=== PATIENT | female | born 1980 | race Hispanic/Latino ===

== ENCOUNTER → 2018-03-19 | Outpatient (REF) | LOC: M SMT 13:05 | DX: Z02.9 Encounter for administrative examinations, unspecified (principal) ==

== ENCOUNTER → 2018-05-13 | Outpatient (REF) | payer OTHER ==
[2018-05-13 13:42] LABS: EOS # 0.2 10^3/uL (0.0-0.50); EOSINOPHIL,TOTAL CALCULATED 200 mm3 (0-740)
[2018-05-13 14:35] LABS: IMMUNOGLOBULIN E 16.1 IU/ML (<100)
[2018-05-16 08:55] LABS: D001-IgE D pteronyssinus <0.10 kU/L (Class 0); E001-IgE Cat Epith/Dander < 0.10 kU/L (Class 0); E005-IgE Dog Dander < 0.10 kU/L (Class 0); G002-IgE Bermuda Grass < 0.10 kU/L (Class 0); G008-IgE Kentucky Bluegrass < 0.10 kU/L (Class 0); M001-IgE Penicillium chrysogen < 0.10 kU/L (Class 0); M002 IgE Cladosporium herbaru < 0.10 kU/L (Class 0); M003 IgE Aspergillus fumigatu < 0.10 kU/L (Class 0); M006-IgE Alternaria alternata < 0.10 kU/L (Class 0); T001-IgE Maple/Box Elder < 0.10 kU/L (Class 0); T003-IgE Common Silver Birch < 0.10 kU/L (Class 0); T006-IgE Cedar, Mountain < 0.10 kU/L (Class 0); T007-IgE Oak, White < 0.10 kU/L (Class 0); T008-IgE Elm, American < 0.10 kU/L (Class 0); T015-IgE Ash, White < 0.10 kU/L (Class 0); T041-IgE Hickory, White < 0.10 kU/L (Class 0); T070-IgE White Mulberry < 0.10 kU/L (Class 0); W001-IgE Ragweed, Short < 0.10 kU/L (Class 0); W009-IgE Plantain, English < 0.10 kU/L (Class 0); W014-IgE Pigweed, Rough < 0.10 kU/L (Class 0); W018-IgE Sheep Sorrel < 0.10 kU/L (Class 0)
== END ==
LOC: M LAB REF 13:23
DX: J45.50 Severe persistent asthma, uncomplicated (principal)

== ENCOUNTER → 2018-05-13 | Outpatient (CLI) | payer OTHER | LOC: M SMT 11:33 | DX: J45.50 Severe persistent asthma, uncomplicated (principal) ==

== ENCOUNTER → 2018-06-06 | Outpatient (CLI) | payer OTHER | LOC: M LRY 19:33 | DX: S99.912A Unspecified injury of left ankle, initial encounter (principal) | CPT/HCPCS: G0463 ==

== ENCOUNTER → 2018-07-08 | Outpatient (CLI) | payer OTHER | LOC: M SLEEP 19:32 | DX: R06.83 Snoring (principal) | CPT/HCPCS: 95810 ==

== ENCOUNTER → 2019-09-08 | Outpatient (CLI) | payer OTHER ==
--- NOTE | 2019-09-08 09:55 | REP ---
Left ankle four views : There is no fracture or dislocation. Mineralization and joint spaces are normal. There are no calcifications or foreign bodies. There is an accessory ossicle along the superior margin of the scaphoid ossicle. Impression: Negative left ankle . Electronically Signed by Tavares Gonzalez MD 09/08/2019 09:47 A
--- NOTE | 2019-09-08 10:19 | REP ---
Left foot series: Four views. History: Left foot and ankle pain. Findings: There is anterolateral mid foot swelling visible on the oblique radiograph. There is a small accessory navicular ossicle visible on the lateral film superiorly. There is a tiny Achilles calcaneal spur. Bones, joints and soft tissues are otherwise unremarkable. No fractures seen. Impression: Anterolateral mid foot swelling. No fracture noted. Electronically Signed by Jayy Thrasher MD 09/08/2019 03:28 P
== END ==
LOC: M LRY 09:20
PROVIDERS: ATTEND Nurse Practitioner Family
DX: S99.922A Unspecified injury of left foot, initial encounter (principal); S99.912A Unspecified injury of left ankle, initial encounter; W18.30XA Fall on same level, unspecified, initial encounter; Y92.9 Unspecified place or not applicable

== ENCOUNTER → 2020-11-10 | Outpatient (CLI) | payer OTHER ==
[~2020-11-10] MED LIST: ADV500INH INH; ALBU83IN INH; CETI-24 PO; EFFE75CA2 PO; GABA600T4 PO; IMIT50TA PO; TOPA100T12 PO
== END ==
LOC: M LABSMTC 11:41
PROVIDERS: ATTEND Anesthesiology
DX: Z01.812 Encounter for preprocedural laboratory examination (principal); Z20.822 Contact with and (suspected) exposure to COVID-19

== ENCOUNTER 2020-11-15 07:04 | Observation (INO) | payer OTHER ==
[~2020-11-15] VITALS: Ht 152.4 cm; Wt 79.7 kg
[2020-11-15] VITALS (7 sets, daily range): BP systolic 114–146; BP diastolic 71–81
[~2020-11-15 07:04] MED LIST changes: +HEPARIN SOD (PORCINE) 5000UNITS/ML 1ML VIAL/SYRINGE SQ ONE; +LR 1,000 ML IV ONE; +ceFAZolin SOD 2 GM in IV 1 EA IV ONE
--- OUTSIDE RECORDS SUMMARY | 2020-11-15 07:09 | CCD | Continuity of Care Document ---
Author Author Crystal WHITE M.D. Organization Unknown Address [address] [place] [id number] Phone [phone] Care Team Providers Care Line Construction Engineer Name Role Phone Alin White M.D. AUTM [phone] [place] [facility] [phone] [facility] Rheumatology AUTM [phone] Chester Lam AUTM [phone] Rehan Quick AUTM [phone] Klaus Knowles AUTM [phone] [facility] Therapy Services AUTM [phone] [facility] Surgical Center AUTM [phone] AUTM Unavailable [facility] Plastic Surgery AUTM [phone] Problems Description No Information Available Social History Type Date Description Comments Sex Unknown Tobacco Use Start: Unknown Never Smoked Cigarettes Tobacco Use Start: Unknown Never Smoked Cigars Tobacco Use Start: Unknown Never Smoked A Pipe Tobacco Use Start: Unknown Never Used Smokeless Tobacco ETOH Use 02/11/2018 Occasionally consumes alcohol oc casional/rare Tobacco Use Reviewed: 02/11/18 Patient has never smoked Recreational Drug Use Denies Drug Use Smoking Status Reviewed: 02/11/18 Patient has never smoked Exercise Type/Frequency Exercises regularly Allergies, Adverse Reactions, Alerts Active Allergies Reaction Severity Comments Date Bactrim 02/11/2018 Sulfa Antibiotics Urticaria 02/11/2018 Seasonal 02/11/2018 NKFA 02/11/2018 Medications Active Medications SIG Qnty Indications Ordering Provide r Date Ciprofloxacin HCL 250mg Tablets one tab by mouth twice a day 6tabs N39.0 Alin White MD 10/12/2020 Cetirizine HCL 10mg Tablets 1 tab by mouth every day 90tabs Alin White MD 05/10/2020 Topamax 100mg Tablets 1 tab by mouth every day 90tabs G43.009 Alin White MD 10/22/2019 Imitrex 25mg Tablets 1 tablet by mouth at onset of migraine may repeat after 2 hours. 4 headaches per month. 6tabs Alin White MD 06/19/2019 Advair Diskus 500-50mcg/Dose Aeros ol 1 puff twice a day 60units Alin White MD 11/23/2018 Flonase Allergy Relief 50mcg/Act Suspension 1 spray intranasal twice a day 9.900ml J01.90 Alin White MD 09/02/2018 Effexor XR 75mg Caps ER 24HR 1 tab by mouth twice a day 180caps F41.9 Alin White MD 06/02/2018 F33.9 Gabapentin 600mg Tablets 2 tabs twice a day 120tabs Alin White MD Albuterol Sulfate Powder 1 puff inhaled every 4 hours as needed Alin White MD 00 Albuterol Sulfate (2 .5mg/3ML) 0.083% Nebulizer 1 unit dose vial every 4-6 hours as needed 180ml Alin White MD Medications Administered in Office Medication SIG Qnty Indications Ordering Provider Date methylPREDNISolone Sod Succ 125 MG Injection Alin White MD 10/29/20 18 methylPREDNISolone Sod Succ 125 MG Injection Alin White MD 04/30/20 18 Immunizations CPT Code Status Date Vaccine Lot # [id number] Given 10/12/2020 Influenza (>= 6 Months) P.F. Vaccine [id number] Given 07/23/2019 Influenza (>= 6 Months) P.F. Vaccine [id number] Given 08/18/2018 Influenza (>= 6 Months) P.F. Vaccine [id number] Vital Signs Date Vital Result Comment 10/12/2020 9:17am BP Systolic 116 mmHg BP Diastolic 70 mmHg Heart Rate 82 /min Body Temperature 97.9 F Respiratory Rate 19 /min O2 % BldC Oximetry 98 % Weight 197.00 lb Weight 89.359 kg Height 68 inches 5'8" BMI (Body Mass Index) 30.0 kg/m2 BSA (Body Surface Area) 2.03 m2 07/13/2020 1:25pm BP Systolic 116 mmHg BP Diastolic 74 mmHg Heart Rate 66 /min Body Temperature 98.7 F O2 % BldC Oximetry 97 % Weight 197.00 lb Weight 89.359 kg Height 68 inches 5'8" pt states BMI (Body Mass Index) 30.0 kg/m2 BSA (Body Surface Area) 2.03 m2 Results Test Acquired Date Facility Test Result H/L Range Note CBC W/Automated Diff 10/12/2020 [facility] CBC W/Automated Diff (SEE NOTE) 1 WBC 5.5 10^3/uL 4.2 - 11.0 RBC 4.60 10^6/uL 4.20 - 5.40 Hemoglobin 13.0 g/dL 12.0 - 16.0 Hematocrit 39.8 % 37.0 - 47.0 MCV 86.5 fL 81.0 - 101 MCH 28.3 pg 27.0 - 34.0 MCHC 32.7 g/dL 31.0 - 36.0 RDW 13.0 % 11.5 - 14.5 Platelets 257 10^3/uL 150 - 450 MPV 10.6 fL High 7.4 - 10.4 Neut 62.0 % 37.0 - 80.0 Lymph 24.8 % Low 25.0 - 40.0 [place] 7.1 % 3.0 - 8.0 Eos 5.2 % 0.0 - 7.0 Baso 0.5 % 0.0 - 2.5 %Ig 0.4 % High 0.0 - 0.0 %NRBC 0.0 % 0.0 - 0.0 #Neut 3.43 10^3/uL 2.00 - 6.90 #Lymph 1.37 10^3/uL 0.60 - 3.40 #[place] 0.39 10^3/uL 0.00 - 0.90 #Eos 0.29 10^3/uL 0.00 - 0.70 #Baso 0.03 10^3/uL 0.00 - 0.20 #Ig 0.02 10^3/uL 0.00 - 0.10 #NRBC 0.00 10^3/uL 0.00 - 0.00 Manual Diff NOT INDICATED RBC Morph NOT INDICATED Iron Binding Capacity 10/12/2020 [facility] Iron 67 g/dL 42 - 135 Uibc 199 g/dL 112 - 347 Tibc 266 g/dL 250 - 450 Iron Sat 25 % Laboratory test finding 10/12/2020 [facility] Magnesium Serum 1.7 mg/dL 1.7 - 2.2 Phosphorus 3.3 mg/dL 2.5 - 4.5 Hgba1c 4.9 % 4.4 - 6.1 2 Comprehensive Metabolic Panel 10/12/2020 [facility] Comprehensive Metabo (SEE NOTE) 3 Sodium 139 mEq/L 134 - 153 Potassium 3.5 mEq/L Low 3.6 - 5.0 Chloride 106 mEq/L 98 - 107 Co2 25 mEq/L 22 - 30 Glucose 86 mg/dL 65 - 110 BUN 10 mg/dL 7 - 21 Creatinine 0.5 mg/dL Low 0.7 - 1.5 BUN/Creat 20 8 - 27 Total Protein 5.7 g/dL Low 6.3 - 8.2 Albumin 4.2 g/dL 3.9 - 5.0 Globulin 1.5 GM/DL Low 2.4 - 3.2 A/G Ratio 2.8 High 0.8 - 2.0 Calcium 8.6 mg/dL 8.4 - 10.2 Total Bili <0.7 mg/dL 0.2 - 1.3 Alkaline Phos 78 U/L 38 - 126 Sgot/Ast 18 U/L 5 - 40 SGPT/Alt 17 U/L 7 - 56 Anion Gap 8.0 mmol/L 8.0 - 16.0 Age 39 yrs Non-Aa GFR >60 mL/min Afr Amer GFR >60 mL/min 4 Laboratory test finding 10/12/2020 [facility] Ferritin [place] 42.3 ng/mL 3.0 - 105 Vitamin B12 Serum 444 pg/mL 232 - 1245 Vitamin D (25-Hydroxy) 19 NG/ML 5 Folic Acid RBC 10/12/2020 [facility] Folate, Hemolysate 378.0 ng/mL Not Estab. Hematocrit 38.7 % 34.0-46.6 Folate, RBC 977 ng/mL >498 Culture Urine 10/12/2020 In Office Culture Urine Routine <pending> Inhouse Ua 10/12/2020 In Office Ua Color Aniya Ua Appearance cloudy Spec [place] 1.030 Ua PH Test Strip 5 Leukocytes + Ua Nitrate Negative Ua Protein Negative Inhouse Glucose <pending> Ua Ketones Negative Urobilinogen Negative Ua Bilirubin Negative Blood Negative Urinalysis 10/12/2020 [facility] Urinalysis (SEE NOTE) 6, 7 Source R Color yellow Normal: Yellow Clarity hazy Normal: Clear Spec [place] 1.025 1.001 - 1.030 pH 5 5 - 9 Glucose NORM Normal: Negative Bilirubin NEG Normal: Negative Ketone NEG Normal: Negative Protein NEG Normal: Negative Nitrite NEG Normal: Negative Blood NEG Normal: Negative Leuk Est 25 Normal: Negative Urobilinogen NOR less than 1.0 mg/dL Microscopic See Below WBC 15 - 20 Abnormal Normal: None Seen RBC 3 - 5 Normal: None Seen Epithelial MODERATE Abnormal Normal: None Seen Bacteria 1+ SMALL Normal: None Seen Mucous 2+ Abnormal Normal: None Seen Amorph Sed 1+ Normal: None Seen Crystals See Below Calcium Ox 3+ Abnormal Normal: None Seen Laboratory test finding 05/19/2020 [facility] l Pro-BNP 156 pg/mL High 0 - 125 Comprehensive Metabolic Panel 05/19/2020 [facility] Metabo (SEE NOTE) 8 Sodium 143 mEq/L 134 - 153 Potassium 4.0 mEq/L 3.6 - 5.0 Chloride 113 mEq/L High 98 - 107 Co2 21 mEq/L Low 22 - 30 Glucose 90 mg/dL 65 - 110 BUN 13 mg/dL 7 - 21 Creatinine 0.5 mg/dL Low 0.7 - 1.5 BUN/Creat 26 8 - 27 Total Protein 5.9 g/dL Low 6.3 - 8.2 Albumin 4.1 g/dL 3.9 - 5.0 Globulin 1.8 GM/DL Low 2.4 - 3.2 A/G Ratio 2.3 High 0.8 - 2.0 Calcium 8.8 mg/dL 8.4 - 10.2 Total Bili <0.7 mg/dL 0.2 - 1.3 Alkaline Phos 81 U/L 38 - 126 Sgot/Ast 23 U/L 5 - 40 SGPT/Alt 30 U/L 7 - 56 Anion Gap 9.0 mmol/L 8.0 - 16.0 Age 39 yrs Non-Aa GFR >60 mL/min Afr Amer GFR >60 mL/min 9 Laboratory test finding 05/19/2020 [facility] l Troponin T <0.01 NG/ML 0.00 - 0.10 10 Lactic Acid (Lactate) 1.2 mmol/L 0.2 - 2.2 TSH Highly Sensitive 1.10 uIU/mL 0.47 - 5.01 T4 - Free 0.80 ng/dL Low 0.93 - 1.70 CBC W/Automated Diff 05/19/2020 [facility] CBC W/Automated Diff (SEE NOTE) 11 WBC 6.6 10^3/uL 4.2 - 11.0 RBC 4.27 10^6/uL 4.20 - 5.40 Hemoglobin 12.0 g/dL 12.0 - 16.0 Hematocrit 36.9 % Low 37.0 - 47.0 MCV 86.4 fL 81.0 - 101 MCH 28.1 pg 27.0 - 34.0 MCHC 32.5 g/dL 31.0 - 36.0 RDW 13.1 % 11.5 - 14.5 Platelets 237 10^3/uL 150 - 450 MPV 10.7 fL High 7.4 - 10.4 Neut 66.3 % 37.0 - 80.0 Lymph 24.8 % Low 25.0 - 40.0 [place] 5.6 % 3.0 - 8.0 Eos 2.4 % 0.0 - 7.0 Baso 0.6 % 0.0 - 2.5 %Ig 0.3 % High 0.0 - 0.0 %NRBC 0.0 % 0.0 - 0.0 #Neut 4.36 10^3/uL 2.00 - 6.90 #Lymph 1.63 10^3/uL 0.60 - 3.40 #[place] 0.37 10^3/uL 0.00 - 0.90 #Eos 0.16 10^3/uL 0.00 - 0.70 #Baso 0.04 10^3/uL 0.00 - 0.20 #Ig 0.02 10^3/uL 0.00 - 0.10 #NRBC 0.00 10^3/uL 0.00 - 0.00 Manual Diff NOT INDICATED RBC Morph NOT INDICATED Urinalysis 05/18/2020 [facility] Urinalysis (SEE NOTE) 12, 13 Source R Color yellow Normal: Yellow Clarity clear Normal: Clear Spec [place] 1.005 1.001 - 1.030 pH 7 5 - 9 Glucose NORM Normal: Negative Bilirubin NEG Normal: Negative Ketone NEG Normal: Negative Protein NEG Normal: Negative Nitrite NEG Normal: Negative Blood 250 Abnormal Normal: Negative Leuk Est NEG Normal: Negative Urobilinogen NOR less than 1.0 mg/dL Microscopic See Below RBC 1 - 3 Normal: None Seen Epithelial FEW Normal: None Seen Bacteria Trace Normal: None Seen CBC W/Automated Diff 05/18/2020 [facility] CBC W/Automated Diff (SEE NOTE) 14 WBC 5.0 10^3/uL 4.2 - 11.0 RBC 4.74 10^6/uL 4.20 - 5.40 Hemoglobin 13.5 g/dL 12.0 - 16.0 Hematocrit 40.9 % 37.0 - 47.0 MCV 86.3 fL 81.0 - 101 MCH 28.5 pg 27.0 - 34.0 MCHC 33.0 g/dL 31.0 - 36.0 RDW 12.9 % 11.5 - 14.5 Platelets 243 10^3/uL 150 - 450 MPV 10.3 fL 7.4 - 10.4 Neut 54.3 % 37.0 - 80.0 Lymph 33.9 % 25.0 - 40.0 [place] 5.8 % 3.0 - 8.0 Eos 5.0 % 0.0 - 7.0 Baso 0.8 % 0.0 - 2.5 %Ig 0.2 % High 0.0 - 0.0 %NRBC 0.0 % 0.0 - 0.0 #Neut 2.69 10^3/uL 2.00 - 6.90 #Lymph 1.68 10^3/uL 0.60 - 3.40 #[place] 0.29 10^3/uL 0.00 - 0.90 #Eos 0.25 10^3/uL 0.00 - 0.70 #Baso 0.04 10^3/uL 0.00 - 0.20 #Ig 0.01 10^3/uL 0.00 - 0.10 #NRBC 0.00 10^3/uL 0.00 - 0.00 Manual Diff NOT INDICATED RBC Morph NOT INDICATED Sedimentation Rate 05/18/2020 [facility] Sed Rate 9 mm/hr 0 - 20 Sed Rate [place] 9 Comprehensive Metabolic Panel 05/18/2020 [facility] Comprehensive Metabo (SEE NOTE) 15 Sodium 141 mEq/L 134 - 153 Potassium 3.8 mEq/L 3.6 - 5.0 Chloride 107 mEq/L 98 - 107 Co2 23 mEq/L 22 - 30 Glucose 80 mg/dL 65 - 110 BUN 10 mg/dL 7 - 21 Creatinine 0.6 mg/dL Low 0.7 - 1.5 BUN/Creat 17 8 - 27 Total Protein 7.2 g/dL 6.3 - 8.2 Albumin 4.5 g/dL 3.9 - 5.0 Globulin 2.7 GM/DL 2.4 - 3.2 A/G Ratio 1.7 0.8 - 2.0 Calcium 9.2 mg/dL 8.4 - 10.2 Total Bili <0.7 mg/dL 0.2 - 1.3 Alkaline Phos 89 U/L 38 - 126 Sgot/Ast 36 U/L 5 - 40 SGPT/Alt 40 U/L 7 - 56 Anion Gap 11.0 mmol/L 8.0 - 16.0 Age 39 yrs Non-Aa GFR >60 mL/min Afr Amer GFR >60 mL/min 16 Laboratory test finding 05/18/2020 [facility] CRP (High Sensitivity) 0.85 mg/L Low 1.00 - 3.00 17 Troponin T <0.01 NG/ML 0.00 - 0.10 18 Lyme Disease Antibodies 05/18/2020 [facility] Lyme IgG/IgM Ab <0.91 ISR 0.00-0.90 19 Lyme Disease Ab, Quant,IgM <0.80 index 0.00-0.79 2 0 1 COMPLETE BLOOD COUNT 2 {A1] {HB] 3 COMPREHENSIVE METABOLIC PANE L 4 Male GFR Interprentation 20-49 yrs >60 mL/min Normal 50-59 yrs >56 mL/min Normal 60-69 yrs >49 mL/min Normal 70-79yrs >42 mL/min Normal 80 and above >35 mL/min Normal Female GFR Interpretation 20-39 yrs >60 mL/min Normal 40-49 yrs >58 mL/min Normal 50-59 yrs >51 mL/min Normal 60-69 yrs >45 mL/min Normal 70-79 yrs >39 mL/min Normal 80 and above >32 mL/min Normal 5 VITAMIN-D(25HYDROXY) Deficiency: <=20 ng/ml Insufficiency: 21-29 ng/ml Preferred level: => 30 ng/ml 6 {SOURCE: Random Void~NURSE COLLECTED? N 7 URINALYSIS 8 COMPREHENSIVE METABOLIC PANE L 9 Male GFR Interprentation 20-49 yrs >60 mL/min Normal 50-59 yrs >56 mL/min Normal 60-69 yrs >49 mL/min Normal 70-79yrs >42 mL/min Normal 80 and above >35 mL/min Normal Female GFR Interpretation 20-39 yrs >60 mL/min Normal 40-49 yrs >58 mL/min Normal 50-59 yrs >51 mL/min Normal 60-69 yrs >45 mL/min Normal 70-79 yrs >39 mL/min Normal 80 and above >32 mL/min Normal 10 TROPONIN T 0.1 ng/ml Recommended as the clinical th reshold value for Troponin T. 11 COMPLETE BLOOD COUNT 12 SOURCE: Clean Catch 13 URINALYSIS 14 COMPLETE BLOOD COUNT 15 COMPREHENSIVE METABOLIC PANE L 16 Male GFR Interprentation 20-49 yrs >60 mL/min Normal 50-59 yrs >56 mL/min Normal 60-69 yrs >49 mL/min Normal 70-79yrs >42 mL/min Normal 80 and above >35 mL/min Normal Female GFR Interpretation 20-39 yrs >60 mL/min Normal 40-49 yrs >58 mL/min Normal 50-59 yrs >51 mL/min Normal 60-69 yrs >45 mL/min Normal 70-79 yrs >39 mL/min Normal 80 and above >32 mL/min Normal 17 CDC/S HS-CRP CUT-OFF: RELATIVE RISK: <1.0 mg/L Low 1.0 - 3.0 mg/L A verage >3.0 mg/L High Optimally, the average of HS-CRP results repeated two weeks apart should be used for risk assessment. 18 TROPONIN T 0.1 ng/ml Recommended as the clinical th reshold value for Troponin T. 19 Negative <0.91 Equivocal 0.91 - 1.09 Positive >1.09 20 Negative <0.80 Equivocal 0.80 - 1.19 Positive >1.19 IgM levels may peak at 3-6 weeks post infection, then gradually decline. Procedures Description No Information Available Medical Devices Description No Information Available Encounters Type Date Location Provider Dx Diagnosis Office Visit 10/12/2020 9:20a [facility] Alin White MD N3 9.0 Urinary tract infection, site not specified Z23 Encounter for immunization Assessments Date Code Description Provider 10/12/2020 N39.0 Urinary tract infection, site no t specified Alin White MD 10/12/2020 Z23 Encounter for immunization Sonam White MD 07/13/2020 L98.7 Excessive and redundant skin and subcutaneous tissue Alin White MD 06/15/2020 G43.009 Migraine without aur a, not intractable, without status migrainosus Alin White MD 06/15/2020 F41.9 Anxiety disorder, unspecified Landry wenceslao White MD 06/15/2020 J30.9 Allergic rhinitis, unspecified H nyla White MD 06/15/2020 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 Urine sent for culture. She was advised to drink plenty of fluids. We will treat her with antibiotics for 3 days. * Z23 Encounter for immunization* Comments:* Influenza vaccination status updated after obtaining consent from the patient. Patient tolerated it well. Functional Status Description No Information Available Mental Status Description No Information Available Referrals Refer to Reason for Referral Status Appt Date [facility] Plastic Surgery 39 y/o F has excess skin aft er surgery secondary to significant weight loss post bariatric surgery. Closed 08/[address] [place], [place] [id number] [phone]
--- OUTSIDE RECORDS SUMMARY | 2020-11-15 07:09 | CCD | Continuity of Care Document ---
Author Author Orquidea WHITE M.D. Organization Unknown Address [address] [place] [address] Phone [phone] Care Team Providers Care Engagement Engineer Name Role Phone Alin White M.D. AUTM [phone] [facility] AUTM [phone] [facility] Rheumatology AUTM [phone] Chester Lam AUTM [phone] Rehan Quick AUTM [phone] Klaus Knowles AUTM [phone] [facility] Therapy Services AUTM [phone] [facility] Surgical Center AUTM [phone] AUTM Unavailable [facility] Plastic Surgery AUTM [phone] Problems Description No Information Available Social History [...] SIG Qnty Indications Ordering Provide r Date Cetirizine HCL 10mg Tablets 1 tab by [...] 4 hours as needed Alin White MD Albuterol Sulfate (2 .5mg/3ML) 0.083% Nebulizer 1 unit dose vial every 4-6 hours as needed 180ml Alin White MD History Medications Ciprofloxacin HCL 250mg Tablets one tab by mouth twice a day 6tabs N39.0 Alin White MD 10/12/2020 - 11/03/2020 Medications Administered in Office Medication SIG Qnty Indications Ordering Provider Date methylPREDNISolone Sod Succ 125 MG Injection Alin White MD 10/29/20 18 methylPREDNISolone Sod Succ 125 MG Injection Alin White MD 04/30/20 18 Immunizations CPT Code Status Date Vaccine Lot # [id number] Given 10/12/2020 Influenza (>= 6 Months) P.F. Vaccine [id number] Given 07/23/2019 Influenza (>= 6 Months) P.F. Vaccine [id number] Given 08/18/2018 Influenza (>= 6 Months) P.F. Vaccine [id number] Vital Signs Date Vital Result Comment 11/03/2020 9:03am BP Systolic 116 mmHg BP Diastolic 60 mmHg Heart Rate 64 /min Body Temperature 97.6 F Respiratory Rate 16 /min O2 % BldC Oximetry 98 % Weight 197.00 lb Weight 89.359 kg Height 68 inches 5'8" BMI (Body Mass Index) 30.0 kg/m2 BSA (Body Surface Area) 2.03 m2 10/12/2020 9:17am BP Systolic 116 mmHg BP Diastolic 70 mmHg Heart Rate 82 /min Body Temperature 97.9 F Respiratory Rate 19 /min O2 % BldC Oximetry 98 % Weight 197.00 lb Weight 89.359 kg Height 68 inches 5'8" BMI (Body Mass Index) 30.0 kg/m2 BSA (Body Surface Area) 2.03 m2 Results Test Acquired Date Facility Test Result H/L Range Note CBC W/Automated Diff 11/03/2020 [facility] CBC W/Automated Diff (SEE NOTE) 1, 2 WBC 4.9 10^3/uL 4.2 - 11.0 RBC 4.65 10^6/uL 4.20 - 5.40 Hemoglobin 13.0 g/dL 12.0 - 16.0 Hematocrit 39.9 % 37.0 - 47.0 MCV 85.8 fL 81.0 - 101 MCH 28.0 pg 27.0 - 34.0 MCHC 32.6 g/dL 31.0 - 36.0 RDW 13.2 % 11.5 - 14.5 Platelets 263 10^3/uL 150 - 450 MPV 10.5 fL High 7.4 - 10.4 Neut 51.1 % 37.0 - 80.0 Lymph 34.4 % 25.0 - 40.0 [place] 9.6 % High 3.0 - 8.0 Eos 3.9 % 0.0 - 7.0 Baso 0.6 % 0.0 - 2.5 %Ig 0.4 % High 0.0 - 0.0 %NRBC 0.0 % 0.0 - 0.0 #Neut 2.49 10^3/uL 2.00 - 6.90 #Lymph 1.68 10^3/uL 0.60 - 3.40 #[place] 0.47 10^3/uL 0.00 - 0.90 #Eos 0.19 10^3/uL 0.00 - 0.70 #Baso 0.03 10^3/uL 0.00 - 0.20 #Ig 0.02 10^3/uL 0.00 - 0.10 #NRBC 0.00 10^3/uL 0.00 - 0.00 Manual Diff NOT INDICATED RBC Morph NOT INDICATED Comprehensive Metabolic Panel 11/03/2020 [facility] Comprehensive Metabo (SEE NOTE) 3 Sodium 139 mEq/L 134 - 153 Potassium 4.2 mEq/L 3.6 - 5.0 Chloride 104 mEq/L 98 - 107 Co2 26 mEq/L 22 - 30 Glucose 86 mg/dL 65 - 110 BUN 10 mg/dL 7 - 21 Creatinine 0.6 mg/dL Low 0.7 - 1.5 BUN/Creat 17 8 - 27 Total Protein 5.8 g/dL Low 6.3 - 8.2 Albumin 4.2 g/dL 3.9 - 5.0 Globulin 1.6 GM/DL Low 2.4 - 3.2 A/G Ratio 2.6 High 0.8 - 2.0 Calcium 9.0 mg/dL 8.4 - 10.2 Total Bili <0.7 mg/dL 0.2 - 1.3 Alkaline Phos 73 U/L 38 - 126 Sgot/Ast 28 U/L 5 - 40 SGPT/Alt 36 U/L 7 - 56 Anion Gap 9.0 mmol/L 8.0 - 16.0 Age 39 yrs Non-Aa GFR >60 mL/min Afr Amer GFR >60 mL/min 4 Cuture Urine 10/12/2020 [facility] Culture Urine (SEE NOTE) 5, 6 Urinalysis 10/12/2020 [facility] Urinalysis (SEE NOTE) 7 Source R Color yellow Normal: Yellow Clarity hazy Normal: Clear Spec [place] 1.025 1.001 - 1.030 pH 5 5 [...] Calcium Ox 3+ Abnormal Normal: None Seen Inhouse Ua 10/12/2020 In Office Ua Color Aniya Ua Appearance cloudy Spec [place] 1.030 Ua PH Test Strip 5 Leukocytes + Ua Nitrate Negative Ua Protein Negative Inhouse Glucose <pending> Ua Ketones Negative Urobilinogen Negative Ua Bilirubin Negative Blood Negative Culture Urine 10/12/2020 In Office Culture Urine Routine <pending> Folic Acid RBC 10/12/2020 [facility] Folate, Hemolysate 378.0 ng/mL Not Estab. Hematocrit 38.7 % 34.0-46.6 Folate, RBC 977 ng/mL >498 Laboratory test finding 10/12/2020 [facility] Ferritin [place] 42.3 ng/mL 3.0 - 105 Vitamin B12 Serum 444 pg/mL 232 - 1245 Vitamin D (25-Hydroxy) 19 NG/ML 8 Comprehensive Metabolic Panel 10/12/2020 [facility] Comprehensive Metabo (SEE NOTE) 9 Sodium 139 mEq/L 134 - 153 Potassium [...] >60 mL/min Afr Amer GFR >60 mL/min 10 Laboratory test finding 10/12/2020 [facility] Magnesium Serum 1.7 mg/dL 1.7 - 2.2 Phosphorus 3.3 mg/dL 2.5 - 4.5 Hgba1c 4.9 % 4.4 - 6.1 11 Iron Binding Capacity 10/12/2020 [facility] Iron 67 g/dL 42 - 135 Uibc 199 g/dL 112 - 347 Tibc 266 g/dL 250 - 450 Iron Sat 25 % CBC W/Automated Diff 10/12/2020 [facility] CBC W/Automated Diff (SEE NOTE) 12 WBC 5.5 10^3/uL 4.2 - 11.0 RBC [...] Lymph 24.8 % Low 25.0 - 40.0 [place] 7.1 % 3.0 - 8.0 Eos 5.2 % 0.0 - 7.0 Baso 0.5 % 0.0 - 2.5 %Ig 0.4 % High 0.0 - 0.0 %NRBC 0.0 % 0.0 - 0.0 #Neut 3.43 10^3/uL 2.00 - 6.90 #Lymph 1.37 10^3/uL 0.60 - 3.40 #[place] 0.39 10^3/uL 0.00 - 0.90 #Eos 0.29 10^3/uL 0.00 - 0.70 #Baso 0.03 10^3/uL 0.00 - 0.20 #Ig 0.02 10^3/uL 0.00 - 0.10 #NRBC 0.00 10^3/uL 0.00 - 0.00 Manual Diff NOT INDICATED RBC Morph NOT INDICATED CBC W/Automated Diff 05/19/2020 [facility] CBC W/Automated Diff (SEE NOTE) 13 WBC 6.6 10^3/uL 4.2 - 11.0 RBC [...] Lymph 24.8 % Low 25.0 - 40.0 [place] 5.6 % 3.0 - 8.0 Eos 2.4 % 0.0 - 7.0 Baso 0.6 % 0.0 - 2.5 %Ig 0.3 % High 0.0 - 0.0 %NRBC 0.0 % 0.0 - 0.0 #Neut 4.36 10^3/uL 2.00 - 6.90 #Lymph 1.63 10^3/uL 0.60 - 3.40 #[place] 0.37 10^3/uL 0.00 - 0.90 #Eos 0.16 10^3/uL 0.00 - 0.70 #Baso 0.04 10^3/uL 0.00 - 0.20 #Ig 0.02 10^3/uL 0.00 - 0.10 #NRBC 0.00 10^3/uL 0.00 - 0.00 Manual Diff NOT INDICATED RBC Morph NOT INDICATED Laboratory test finding 05/19/2020 [facility] l Troponin T <0.01 NG/ML 0.00 - 0.10 14 Lactic Acid (Lactate) 1.2 mmol/L 0.2 - 2.2 TSH Highly Sensitive 1.10 uIU/mL 0.47 - 5.01 T4 - Free 0.80 ng/dL Low 0.93 - 1.70 Comprehensive Metabolic Panel 05/19/2020 [facility] Comprehensive Metabo (SEE NOTE) 15 Sodium 143 mEq/L 134 - 153 Potassium [...] GFR >60 mL/min 16 Laboratory test finding 05/19/2020 [facility] l Pro-BNP 156 pg/mL High 0 - 125 Urinalysis 05/18/2020 [facility] Urinalysis (SEE NOTE) 17, 18 Source R Color yellow Normal: Yellow Clarity clear Normal: Clear Spec [place] 1.005 1.001 - 1.030 pH 7 5 [...] Normal: None Seen CBC W/Automated Diff 05/18/2020 [facility] CBC W/Automated Diff (SEE NOTE) 19 WBC 5.0 10^3/uL 4.2 - 11.0 RBC [...] 80.0 Lymph 33.9 % 25.0 - 40.0 [place] 5.8 % 3.0 - 8.0 Eos 5.0 % 0.0 - 7.0 Baso 0.8 % 0.0 - 2.5 %Ig 0.2 % High 0.0 - 0.0 %NRBC 0.0 % 0.0 - 0.0 #Neut 2.69 10^3/uL 2.00 - 6.90 #Lymph 1.68 10^3/uL 0.60 - 3.40 #[place] 0.29 10^3/uL 0.00 - 0.90 #Eos 0.25 10^3/uL 0.00 - 0.70 #Baso 0.04 10^3/uL 0.00 - 0.20 #Ig 0.01 10^3/uL 0.00 - 0.10 #NRBC 0.00 10^3/uL 0.00 - 0.00 Manual Diff NOT INDICATED RBC Morph NOT INDICATED Sedimentation Rate 05/18/2020 [facility] Sed Rate 9 mm/hr 0 - 20 Sed Rate Reenter 9 Comprehensive Metabolic Panel 05/18/2020 [facility] Comprehensive Metabo (SEE NOTE) 20 Sodium 141 mEq/L 134 - 153 Potassium [...] >60 mL/min Afr Amer GFR >60 mL/min 21 Laboratory test finding 05/18/2020 [facility] CRP (High Sensitivity) 0.85 mg/L Low 1.00 - 3.00 22 Troponin T <0.01 NG/ML 0.00 - 0.10 23 Lyme Disease Antibodies 05/18/2020 [facility] Lyme IgG/IgM Ab <0.91 ISR 0.00-0.90 24 Lyme Disease Ab, Quant,IgM <0.80 index 0.00-0.79 2 5 1 Is patient fasting? N 2 COMPLETE BLOOD COUNT 3 COMPREHENSIVE METABOLIC PANE L 4 Male [...] 80 and above >32 mL/min Normal 5 {SOURCE: Random Void~NURSE COLLECTED? N 6 _CULTURE URINE_ ^$[id number] ^^[id number] $$311957 ^^676867 $$998347 $$864926 $$500256 $$542894 $$358954 $$383685 $$005681 $$413375 $$224751 $$008169 $$697698 $$873275 $$386076 $$189358 $$187941 $$426287 $$588160 $$752170 $$192432 $$898795 $$517640 $$162520 $$085541 ^^507748 $$996713 $$172429 $$636708 -- Continued on next page -- Patient: CANCELACEVEDO ORQUIDEA Order: [id number] Page 2 Culture: CULTURE URINE Status: Final -- Continued on next page -- Patient: CANCELACEVEDO ORQUIDEA Order: [id number] Page 2 Culture: CULTURE URINE Status: Prelim $$[id number] $$[id number] REPORTED DATE/TIME: 10/14/2020 15:06 Culture: CULTURE URINE Status: Final Isolate 1 Escherichia coli Flag: A . . . . . . .1 50,000-100,000 colony forming units per mL Cefazolin <=4 ug/mL Cefazolin with an RONALDO <=16 predicts susceptibility to the oral agents cefaclor, cefdinir, cefpodoxime, cefprozil, cefuroxime, cephalexin, and loracarbef when used for therapy of uncomplicated urinary tract infections due to E. coli, Klebsiella pneumoniae, and Proteus mirabilis. Previous result entered on 10/14/2020 04:44 ET Gram negative rods Urine Culture,Comprehensive: P1 Escherichia coli Flag: A Patient: HEATHER HEARD Order: [id number] Page 3 Culture: CULTURE URINE Status: Final ISOLATE 1 Escherichia coli Isolate 1 Antibiotic RONALDO Int Units ug/mL Amoxicillin/Clavulanic Acid S S . . . . . .20-8 Ampicillin S S . . . . . .28-1 Cefepime S S . . . . . .6644-9 Ceftriaxone S S . . . . . .141-2 Cefuroxime S S . . . . . .145-3 Ciprofloxacin S S . . . . . .185-9 Ertapenem S S . . . . . .63004-9 Gentamicin S S . . . . . .267-5 Imipenem S S . . . . . .279-0 Levofloxacin S S . . . . . .18008-8 Meropenem S S . . . . . .6652-2 Nitrofurantoin S S . . . . . .363-2 Piperacillin/Tazobactam S S . . . . . .412-7 Tetracycline S S . . . . . .496-0 Tobramycin S S . . . . . .508-2 Trimethoprim/Sulfa S S . . . . . .516-5 P1 [facility] performed by: [facility] #: [id number] [address] [id number] [facility] [address] Medical Consultant : Jovany Flynn MD NPI #: Generator Rebuilder : 10/14/20.0727.XMT.SENT REF 10/14/20.1704.XMT.SENT REF 10/19/20.0656.XMT.SENT REF 7 URINALYSIS 8 VITAMIN-D(25HYDROXY) Deficiency: <=20 ng/ml Insufficiency: 21-29 ng/ml Preferred level: => 30 ng/ml 9 COMPREHENSIVE METABOLIC PANE L 10 Male GFR Interprentation 20-49 yrs >60 mL/min Normal 50-59 yrs >56 mL/min Normal 60-69 yrs >49 mL/min Normal 70-79yrs >42 mL/min Normal 80 and above >35 mL/min Normal Female GFR Interpretation 20-39 yrs >60 mL/min Normal 40-49 yrs >58 mL/min Normal 50-59 yrs >51 mL/min Normal 60-69 yrs >45 mL/min Normal 70-79 yrs >39 mL/min Normal 80 and above >32 mL/min Normal 11 {A1] {HB] 12 COMPLETE BLOOD COUNT 13 COMPLETE BLOOD COUNT 14 TROPONIN T 0.1 ng/ml Recommended as the clinical th reshold value for Troponin T. 15 COMPREHENSIVE METABOLIC PANE L 16 Male [...] 80 and above >32 mL/min Normal 17 SOURCE: Clean Catch 18 URINALYSIS 19 COMPLETE BLOOD COUNT 20 COMPREHENSIVE METABOLIC PANE L 21 Male GFR Interprentation 20-49 yrs >60 mL/min Normal 50-59 yrs >56 mL/min Normal 60-69 yrs >49 mL/min Normal 70-79yrs >42 mL/min Normal 80 and above >35 mL/min Normal Female GFR Interpretation 20-39 yrs >60 mL/min Normal 40-49 yrs >58 mL/min Normal 50-59 yrs >51 mL/min Normal 60-69 yrs >45 mL/min Normal 70-79 yrs >39 mL/min Normal 80 and above >32 mL/min Normal 22 CDC/S HS-CRP CUT-OFF: RELATIVE RISK: <1.0 mg/L Low 1.0 - 3.0 mg/L A verage >3.0 mg/L High Optimally, the average of HS-CRP results repeated two weeks apart should be used for risk assessment. 23 TROPONIN T 0.1 ng/ml Recommended as the clinical th reshold value for Troponin T. 24 Negative <0.91 Equivocal 0.91 - 1.09 Positive >1.09 25 Negative <0.80 Equivocal 0.80 - 1.19 Positive >1.19 IgM levels may peak at 3-6 weeks post infection, then gradually decline. Procedures Description No Information Available Medical Devices Description No Information Available Encounters Type Date Location Provider Dx Diagnosis Office Visit 11/03/2020 9:00a [facility] Alin White MD Z0 1.818 Encounter for other preprocedural examination Assessments Date Code Description Provider 11/03/2020 Z01.818 Encounter for other preprocedura l examination Alin White MD 10/12/2020 N39.0 Urinary tract infection, site no t specified Alin White MD 10/12/2020 Z23 Encounter for immunization Sonam White MD 07/13/2020 L98.7 Excessive and redundant skin and subcutaneous tissue Alin White MD 06/15/2020 G43.009 Migraine without aur a, not intractable, without status migrainosus Alin hWite MD 06/15/2020 F41.9 Anxiety disorder, unspecified Landry wenceslao White MD 06/15/2020 J30.9 Allergic rhinitis, unspecified H arcarleyk Sarina White MD 06/15/2020 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 She can start regular medication the next day after surgery. Her chest x-ray and blood work reviewed. Her EKG was normal. Her surgical risk is minimal. She is cleared for her upcoming surgery. * Follow up:* keep your appointment Functional Status Description No Information Available Mental Status Description No Information Available Referrals Refer to Reason for Referral Status Appt Date [facility] Plastic Surgery 39 y/o F has excess skin aft er surgery secondary to significant weight loss post bariatric surgery. Closed 08/[address] [place] [id number] [phone]
--- OUTSIDE RECORDS SUMMARY | 2020-11-15 07:09 | CCD | Continuity of Care Document ---
Author Author Orquidea WHITE M.D. Organization Unknown Address [address] [place] [address] Phone [phone] Care Team Providers Care Yarn Spooler Name Role Phone Alin White M.D. AUTM [phone] [facility] AUTM [phone] [facility] Rheumatology AUTM [phone] Chester Lam AUTM [phone] Rehan Quick AUTM [phone] Klaus Knowles AUTM [phone] [facility] Therapy Services AUTM [phone] [facility] Surgical Center AUTM [phone] AUTM Unavailable [facility] Plastic Surgery AUTM [phone] Problems Description No Information Available Social History [...] CPT Code Status Date Vaccine Lot # [id number] Given 10/12/2020 Influenza (>= 6 Months) P.F. Vaccine [id number] Given 07/23/2019 Influenza (>= 6 Months) P.F. Vaccine [id number] Given 08/18/2018 Influenza (>= 6 Months) P.F. [...] H/L Range Note CBC W/Automated Diff 10/12/2020 [facility] CBC W/Automated Diff (SEE NOTE) 1 [...] Lymph 24.8 % Low 25.0 - 40.0 [place] 7.1 % 3.0 - 8.0 Eos 5.2 % 0.0 - 7.0 Baso 0.5 % 0.0 - 2.5 %Ig 0.4 % High 0.0 - 0.0 %NRBC 0.0 % 0.0 - 0.0 #Neut 3.43 10^3/uL 2.00 - 6.90 #Lymph 1.37 10^3/uL 0.60 - 3.40 #[place] 0.39 10^3/uL 0.00 - 0.90 #Eos 0.29 10^3/uL 0.00 - 0.70 #Baso 0.03 10^3/uL 0.00 - 0.20 #Ig 0.02 10^3/uL 0.00 - 0.10 #NRBC 0.00 10^3/uL 0.00 - 0.00 Manual Diff NOT INDICATED RBC Morph NOT INDICATED Iron Binding Capacity 10/12/2020 [facility] Iron 67 g/dL 42 - 135 Uibc 199 g/dL 112 - 347 Tibc 266 g/dL 250 - 450 Iron Sat 25 % Laboratory test finding 10/12/2020 [facility] Magnesium Serum 1.7 mg/dL 1.7 - 2.2 Phosphorus 3.3 mg/dL 2.5 - 4.5 Hgba1c 4.9 % 4.4 - 6.1 2 Comprehensive Metabolic Panel 10/12/2020 [facility] Comprehensive Metabo (SEE NOTE) 3 Sodium [...] >60 mL/min 4 Laboratory test finding 10/12/2020 [facility] Ferritin [place] 42.3 ng/mL 3.0 - 105 Vitamin B12 Serum 444 pg/mL 232 - 1245 Vitamin D (25-Hydroxy) 19 NG/ML 5 Folic Acid RBC 10/12/2020 [facility] Folate, Hemolysate 378.0 ng/mL Not Estab. Hematocrit 38.7 % 34.0-46.6 Folate, RBC 977 ng/mL >498 Culture Urine 10/12/2020 In Office Culture Urine Routine <pending> Inhouse Ua 10/12/2020 In Office Ua Color Aniya Ua Appearance cloudy Spec [place] 1.030 Ua PH Test Strip 5 Leukocytes + Ua Nitrate Negative Ua Protein Negative Inhouse Glucose <pending> Ua Ketones Negative Urobilinogen Negative Ua Bilirubin Negative Blood Negative Urinalysis 10/12/2020 [facility] Urinalysis (SEE NOTE) 6, 7 Source R Color yellow Normal: Yellow Clarity hazy Normal: Clear Spec [place] 1.025 1.001 - 1.030 pH 5 5 [...] Calcium Ox 3+ Abnormal Normal: None Seen Cuture Urine 10/12/2020 [facility] Culture Urine (SEE NOTE) 8 Laboratory test finding 05/19/2020 [facility] l Pro-BNP 156 pg/mL High 0 - 125 Comprehensive Metabolic Panel 05/19/2020 [facility] Comprehensive Metabo (SEE NOTE) 9 Sodium 143 mEq/L 134 - 153 Potassium [...] GFR >60 mL/min 10 Laboratory test finding 05/19/2020 [facility] l Troponin T <0.01 NG/ML 0.00 - 0.10 11 Lactic Acid (Lactate) 1.2 mmol/L 0.2 - 2.2 TSH Highly Sensitive 1.10 uIU/mL 0.47 - 5.01 T4 - Free 0.80 ng/dL Low 0.93 - 1.70 CBC W/Automated Diff 05/19/2020 [facility] CBC W/Automated Diff (SEE NOTE) 12 WBC 6.6 10^3/uL 4.2 - 11.0 RBC [...] Lymph 24.8 % Low 25.0 - 40.0 [place] 5.6 % 3.0 - 8.0 Eos 2.4 % 0.0 - 7.0 Baso 0.6 % 0.0 - 2.5 %Ig 0.3 % High 0.0 - 0.0 %NRBC 0.0 % 0.0 - 0.0 #Neut 4.36 10^3/uL 2.00 - 6.90 #Lymph 1.63 10^3/uL 0.60 - 3.40 #[place] 0.37 10^3/uL 0.00 - 0.90 #Eos 0.16 10^3/uL 0.00 - 0.70 #Baso 0.04 10^3/uL 0.00 - 0.20 #Ig 0.02 10^3/uL 0.00 - 0.10 #NRBC 0.00 10^3/uL 0.00 - 0.00 Manual Diff NOT INDICATED RBC Morph NOT INDICATED Urinalysis 05/18/2020 [facility] Urinalysis (SEE NOTE) 13, 14 Source R Color yellow Normal: Yellow Clarity clear Normal: Clear Spec [place] 1.005 1.001 - 1.030 pH 7 5 [...] Normal: None Seen CBC W/Automated Diff 05/18/2020 [facility] CBC W/Automated Diff (SEE NOTE) 15 WBC 5.0 10^3/uL 4.2 - 11.0 RBC [...] 80.0 Lymph 33.9 % 25.0 - 40.0 [place] 5.8 % 3.0 - 8.0 Eos 5.0 % 0.0 - 7.0 Baso 0.8 % 0.0 - 2.5 %Ig 0.2 % High 0.0 - 0.0 %NRBC 0.0 % 0.0 - 0.0 #Neut 2.69 10^3/uL 2.00 - 6.90 #Lymph 1.68 10^3/uL 0.60 - 3.40 #[place] 0.29 10^3/uL 0.00 - 0.90 #Eos 0.25 10^3/uL 0.00 - 0.70 #Baso 0.04 10^3/uL 0.00 - 0.20 #Ig 0.01 10^3/uL 0.00 - 0.10 #NRBC 0.00 10^3/uL 0.00 - 0.00 Manual Diff NOT INDICATED RBC Morph NOT INDICATED Sedimentation Rate 05/18/2020 [facility] Sed Rate 9 mm/hr 0 - 20 Sed Rate Reenter 9 Comprehensive Metabolic Panel 05/18/2020 [facility] Comprehensive Metabo (SEE NOTE) 16 Sodium 141 mEq/L 134 - 153 Potassium [...] >60 mL/min Afr Amer GFR >60 mL/min 17 Laboratory test finding 05/18/2020 [facility] CRP (High Sensitivity) 0.85 mg/L Low 1.00 - 3.00 18 Troponin T <0.01 NG/ML 0.00 - 0.10 19 Lyme Disease Antibodies 05/18/2020 [facility] Lyme IgG/IgM Ab <0.91 ISR 0.00-0.90 20 Lyme Disease Ab, Quant,IgM <0.80 index 0.00-0.79 2 1 1 COMPLETE BLOOD COUNT 2 {A1] {HB] [...] Random Void~NURSE COLLECTED? N 7 URINALYSIS 8 _CULTURE URINE_ ^$[id number] ^^757821 $$727734 ^^523195 $$074095 $$355983 $$412584 $$101422 $$005731 $$226412 $$134032 $$032627 $$312656 $$572353 $$021838 $$554576 $$828309 $$846251 $$215542 $$957575 $$754593 $$199774 $$113440 $$502561 $$769457 $$336984 $$812011 ^^740416 $$153154 $$882361 $$422902 -- Continued on next page -- Patient: HEATHER JONESA Order: [id number] Page 2 Culture: CULTURE URINE Status: Final -- Continued on next page -- Patient: HEATHER JONESA Order: [id number] Page 2 Culture: CULTURE URINE Status: Prelim $$[id number] $$[id number] REPORTED DATE/TIME: 10/14/2020 15:06 Culture: CULTURE URINE [...] coli Flag: A Patient: HEATHER HEARD Order: [id number] Page 3 Culture: CULTURE URINE Status: Final [...] S S . . . . . .04380-8 Gentamicin S S . . . . . .267-5 Imipenem S S . . . . . .279-0 Levofloxacin S S . . . . . .41560-4 Meropenem S S . . . . . .6652-2 Nitrofurantoin S S . . . . . .363-2 Piperacillin/Tazobactam S S . . . . . .412-7 Tetracycline S S . . . . . .496-0 Tobramycin S S . . . . . .508-2 Trimethoprim/Sulfa S S . . . . . .516-5 P1 Test performed by: [facility] #: [id number] [address] [id number] [facility] [address] Congressional Representative : Jovany Flynn MD NPI #: High Raw Sugar Boiler : 10/14/20.0727.XMT.SENT REF 10/14/20.1704.XMT.SENT REF 10/19/20.0656.XMT.SENT REF 9 COMPREHENSIVE METABOLIC PANE L 10 Male [...] 80 and above >32 mL/min Normal 11 TROPONIN T 0.1 ng/ml Recommended as the clinical th reshold value for Troponin T. 12 COMPLETE BLOOD COUNT 13 SOURCE: Clean Catch 14 URINALYSIS 15 COMPLETE BLOOD COUNT 16 COMPREHENSIVE METABOLIC PANE L 17 Male GFR Interprentation 20-49 yrs >60 mL/min Normal 50-59 yrs >56 mL/min Normal 60-69 yrs >49 mL/min Normal 70-79yrs >42 mL/min Normal 80 and above >35 mL/min Normal Female GFR Interpretation 20-39 yrs >60 mL/min Normal 40-49 yrs >58 mL/min Normal 50-59 yrs >51 mL/min Normal 60-69 yrs >45 mL/min Normal 70-79 yrs >39 mL/min Normal 80 and above >32 mL/min Normal 18 CDC/S HS-CRP CUT-OFF: RELATIVE RISK: <1.0 mg/L Low 1.0 - 3.0 mg/L A verage >3.0 mg/L High Optimally, the average of HS-CRP results repeated two weeks apart should be used for risk assessment. 19 TROPONIN T 0.1 ng/ml Recommended as the clinical th reshold value for Troponin T. 20 Negative <0.91 Equivocal 0.91 - 1.09 Positive >1.09 21 Negative <0.80 Equivocal 0.80 - 1.19 Positive >1.19 IgM levels may peak at 3-6 weeks post infection, then gradually decline. Procedures Description No Information Available Medical Devices Description No Information Available Encounters Type Date Location Provider Dx Diagnosis Office Visit 10/12/2020 9:20a [facility] Alin White MD N3 9.0 Urinary tract [...] White MD Plan of Treatment Future Appointment(s):* 11/03/2020 9:00 am - Alin White MD at [facility] * 12/19/2020 9:00 am - Alin White MD at [facility] 10/12/2020 - Alin White MD* N39.0 Urinary [...] to Reason for Referral Status Appt Date [facility] Plastic Surgery 39 y/o F has excess skin aft er surgery secondary to significant weight loss post bariatric surgery. Closed 08/[address] [place] [address] [phone]
--- OUTSIDE RECORDS SUMMARY | 2020-11-15 07:09 | CCD | Continuity of Care Document ---
Author Author Crystal WHITE M.D. Organization Unknown Address [address] [place] [address] Phone [phone] Care Team Providers Care Soap Inspector Name Role Phone Alin White M.D. AUTM [phone] [facility] AUTM [phone] [facility] Rheumatology AUTM [phone] Chester Lam AUTM [phone] Rehan Quick AUTM [phone] Klaus Knowles AUTM [phone] [facility] Therapy Services AUTM [phone] [facility] AUTM [phone] AUTM Unavailable [facility] Plastic Surgery AUTM [phone] Problems Description No Information Available Social History [...] every 4-6 hours as needed 180ml Alin Whtie MD History Medications Ciprofloxacin HCL 250mg Tablets one tab by mouth twice a day 6tabs N39.0 Alin White MD 10/12/2020 - 11/03/2020 Medications Administered in Office Medication SIG Qnty Indications Ordering Provider Date methylPREDNISolone Sod Succ 125 MG Injection Alin White MD 10/29/20 18 methylPREDNISolone Sod Succ 125 MG Injection Alin White MD 04/30/20 18 Immunizations CPT Code Status Date Vaccine Lot # [id number] Given 10/12/2020 Influenza (>= 6 Months) P.F. Vaccine [id number] Given 07/23/2019 Influenza (>= 6 Months) P.F. Vaccine [id number] Given 08/18/2018 Influenza (>= 6 Months) P.F. [...] Date Facility Test Result H/L Range Note Xray 11/03/2020 [facility] [address] [place], [place] [id number] [phone] Chest Xray 2 Views <pending> Cuture Urine 10/12/2020 [facility] Culture Urine (SEE NOTE) 1, 2 Urinalysis 10/12/2020 [facility] Urinalysis (SEE NOTE) 3 Source R Color yellow Normal: Yellow Clarity hazy Normal: Clear Spec [place] 1.025 1.001 - 1.030 pH 5 5 [...] Ua Color Aniya Ua Appearance cloudy Spec [place] 1.030 Ua PH Test Strip 5 Leukocytes + Ua Nitrate Negative Ua Protein Negative Inhouse Glucose <pending> Ua Ketones Negative Urobilinogen Negative Ua Bilirubin Negative Blood Negative Culture Urine 10/12/2020 In Office Culture Urine Routine <pending> Folic Acid RBC 10/12/2020 [facility] Folate, Hemolysate 378.0 ng/mL Not Estab. Hematocrit 38.7 % 34.0-46.6 Folate, RBC 977 ng/mL >498 Laboratory test finding 10/12/2020 [facility] Ferritin Rosario 42.3 ng/mL 3.0 - 105 Vitamin B12 Serum 444 pg/mL 232 - 1245 Vitamin D (25-Hydroxy) 19 NG/ML 4 Comprehensive Metabolic Panel 10/12/2020 [facility] ospital Comprehensive Metabo (SEE NOTE) 5 Sodium 139 mEq/L 134 - 153 Potassium [...] >60 mL/min Afr Amer GFR >60 mL/min 6 Laboratory test finding 10/12/2020 [facility] Magnesium Serum 1.7 mg/dL 1.7 - 2.2 Phosphorus 3.3 mg/dL 2.5 - 4.5 Hgba1c 4.9 % 4.4 - 6.1 7 Iron Binding Capacity 10/12/2020 [facility] Iron 67 g/dL 42 - 135 Uibc 199 g/dL 112 - 347 Tibc 266 g/dL 250 - 450 Iron Sat 25 % CBC W/Automated Diff 10/12/2020 [facility] CBC W/Automated Diff (SEE NOTE) 8 WBC 5.5 10^3/uL 4.2 - 11.0 RBC [...] Lymph 24.8 % Low 25.0 - 40.0 [place] 7.1 % 3.0 - 8.0 Eos 5.2 % 0.0 - 7.0 Baso 0.5 % 0.0 - 2.5 %Ig 0.4 % High 0.0 - 0.0 %NRBC 0.0 % 0.0 - 0.0 #Neut 3.43 10^3/uL 2.00 - 6.90 #Lymph 1.37 10^3/uL 0.60 - 3.40 #[place] 0.39 10^3/uL 0.00 - 0.90 #Eos 0.29 10^3/uL 0.00 - 0.70 #Baso 0.03 10^3/uL 0.00 - 0.20 #Ig 0.02 10^3/uL 0.00 - 0.10 #NRBC 0.00 10^3/uL 0.00 - 0.00 Manual Diff NOT INDICATED RBC Morph NOT INDICATED CBC W/Automated Diff 05/19/2020 [facility] CBC W/Automated Diff (SEE NOTE) 9 WBC 6.6 10^3/uL 4.2 - 11.0 RBC [...] Lymph 24.8 % Low 25.0 - 40.0 [place] 5.6 % 3.0 - 8.0 Eos 2.4 % 0.0 - 7.0 Baso 0.6 % 0.0 - 2.5 %Ig 0.3 % High 0.0 - 0.0 %NRBC 0.0 % 0.0 - 0.0 #Neut 4.36 10^3/uL 2.00 - 6.90 #Lymph 1.63 10^3/uL 0.60 - 3.40 #[place] 0.37 10^3/uL 0.00 - 0.90 #Eos 0.16 10^3/uL 0.00 - 0.70 #Baso 0.04 10^3/uL 0.00 - 0.20 #Ig 0.02 10^3/uL 0.00 - 0.10 #NRBC 0.00 10^3/uL 0.00 - 0.00 Manual Diff NOT INDICATED RBC Morph NOT INDICATED Laboratory test finding 05/19/2020 [facility] Troponin T <0.01 NG/ML 0.00 - 0.10 10 Lactic Acid (Lactate) 1.2 mmol/L 0.2 - 2.2 TSH Highly Sensitive 1.10 uIU/mL 0.47 - 5.01 T4 - Free 0.80 ng/dL Low 0.93 - 1.70 Comprehensive Metabolic Panel 05/19/2020 [facility] Comprehensive Metabo (SEE NOTE) 11 Sodium 143 mEq/L 134 - 153 Potassium [...] >60 mL/min Afr Amer GFR >60 mL/min 12 Laboratory test finding 05/19/2020 [facility] Pro-BNP 156 pg/mL High 0 - 125 Urinalysis 05/18/2020 [facility] Urinalysis (SEE NOTE) 13, 14 Source R Color yellow Normal: Yellow Clarity clear Normal: Clear Spec [place] 1.005 1.001 - 1.030 pH 7 5 [...] Normal: None Seen CBC W/Automated Diff 05/18/2020 [facility] CBC W/Automated Diff (SEE NOTE) 15 WBC [...] 80.0 Lymph 33.9 % 25.0 - 40.0 [place] 5.8 % 3.0 - 8.0 Eos 5.0 % 0.0 - 7.0 Baso 0.8 % 0.0 - 2.5 %Ig 0.2 % High 0.0 - 0.0 %NRBC 0.0 % 0.0 - 0.0 #Neut 2.69 10^3/uL 2.00 - 6.90 #Lymph 1.68 10^3/uL 0.60 - 3.40 #[place] 0.29 10^3/uL 0.00 - 0.90 #Eos 0.25 10^3/uL 0.00 - 0.70 #Baso 0.04 10^3/uL 0.00 - 0.20 #Ig 0.01 10^3/uL 0.00 - 0.10 #NRBC 0.00 10^3/uL 0.00 - 0.00 Manual Diff NOT INDICATED RBC Morph NOT INDICATED Sedimentation Rate 05/18/2020 [facility] Sed Rate 9 mm/hr 0 - 20 Sed Rate Reenter 9 Comprehensive Metabolic Panel 05/18/2020 [facility] ospital Comprehensive Metabo (SEE NOTE) 16 Sodium [...] >60 mL/min 17 Laboratory test finding 05/18/2020 [facility] CRP (High Sensitivity) 0.85 mg/L Low 1.00 - 3.00 18 Troponin T <0.01 NG/ML 0.00 - 0.10 19 Lyme Disease Antibodies 05/18/2020 [facility] Lyme IgG/IgM Ab <0.91 ISR 0.00-0.90 20 Lyme Disease Ab, Quant,IgM <0.80 index 0.00-0.79 2 1 1 {SOURCE: Random Void~NURSE COLLECTED? N 2 _CULTURE URINE_ ^$[id number] ^^[id number] $$896680 ^^969659 $$861086 $$722408 $$701605 $$084641 $$448533 $$283741 $$619026 $$921051 $$570711 $$562667 $$321516 $$293414 $$429134 $$636895 $$251911 $$243436 $$486123 $$737494 $$750835 $$396514 $$801240 $$451669 $$317203 ^^048768 $$646493 $$348893 $$266967 -- Continued on next page -- Patient: HEATHER HAERD Order: [id number] Page 2 Culture: CULTURE URINE Status: Final -- Continued on next page -- Patient: HEATHER HEARD Order: [id number] Page 2 Culture: CULTURE URINE Status: Prelim $$[id number] $$[id number] REPORTED DATE/TIME: 10/14/2020 15:06 Culture: CULTURE URINE [...] coli Flag: A Patient: HEATHER HEARD Order: [id number] Page 3 Culture: CULTURE URINE Status: Final [...] S S . . . . . .34899-1 Gentamicin S S . . . . . .267-5 Imipenem S S . . . . . .279-0 Levofloxacin S S . . . . . .83149-5 Meropenem S S . . . . . .6652-2 Nitrofurantoin S S . . . . . .363-2 Piperacillin/Tazobactam S S . . . . . .412-7 Tetracycline S S . . . . . .496-0 Tobramycin S S . . . . . .508-2 Trimethoprim/Sulfa S S . . . . . .516-5 P1 Test performed by: [facility] #: [id number] [address] [place] [address] [id number] [facility] [id number] Steam Turbine Assembler : Jovany Flynn MD NPI #: Room Service Runner : 10/14/20.0727.XMT.SENT REF 10/14/20.1704.XMT.SENT REF 10/19/20.56.XMT.SENT REF 3 URINALYSIS 4 VITAMIN-D(25HYDROXY) Deficiency: <=20 ng/ml Insufficiency: 21-29 ng/ml Preferred level: => 30 ng/ml 5 COMPREHENSIVE METABOLIC PANE L 6 Male GFR Interprentation 20-49 yrs >60 mL/min Normal 50-59 yrs >56 mL/min Normal 60-69 yrs >49 mL/min Normal 70-79yrs >42 mL/min Normal 80 and above >35 mL/min Normal Female GFR Interpretation 20-39 yrs >60 mL/min Normal 40-49 yrs >58 mL/min Normal 50-59 yrs >51 mL/min Normal 60-69 yrs >45 mL/min Normal 70-79 yrs >39 mL/min Normal 80 and above >32 mL/min Normal 7 {A1] {HB] 8 COMPLETE BLOOD COUNT 9 COMPLETE BLOOD COUNT 10 TROPONIN T 0.1 ng/ml Recommended as the clinical th reshold value for Troponin T. 11 COMPREHENSIVE METABOLIC PANE L 12 Male GFR Interprentation 20-49 yrs >60 mL/min Normal 50-59 yrs >56 mL/min Normal 60-69 yrs >49 mL/min Normal 70-79yrs >42 mL/min Normal 80 and above >35 mL/min Normal Female GFR Interpretation 20-39 yrs >60 mL/min Normal 40-49 yrs >58 mL/min Normal 50-59 yrs >51 mL/min Normal 60-69 yrs >45 mL/min Normal 70-79 yrs >39 mL/min Normal 80 and above >32 mL/min Normal 13 SOURCE: Clean Catch 14 URINALYSIS 15 [...] 80 and above >32 mL/min Normal 18 [facility] HS-CRP CUT-OFF: RELATIVE RISK: <1.0 mg/L Low [...] Provider Dx Diagnosis Office Visit 11/03/2020 9:00a [facility] Alin White MD Z0 1.818 Encounter for other preprocedural examination Assessments Date Code Description Provider 11/03/2020 Z01.818 Encounter for other preprocedura l examination Alin White MD 10/12/2020 N39.0 Urinary tract infection, site no t specified Alin White MD 10/12/2020 Z23 Encounter for immunization Manueli k Sarina White MD 07/13/2020 L98.7 Excessive and redundant [...] 9:00 am - Alin White MD at [facility] 11/03/2020 - Alin White MD* Z01.818 Encounter for other preprocedural examination* Follow up:* keep your appointment Functional Status Description No Information Available Mental Status Description No Information Available Referrals Refer to Reason for Referral Status Appt Date [facility] Plastic Surgery 39 y/o F has excess skin aft er surgery secondary to significant weight loss post bariatric surgery. Closed 08/08 [address] [place] [address] [phone]
--- OUTSIDE RECORDS SUMMARY | 2020-11-15 07:09 | CCD | Continuity of Care Document ---
Author Author Crystal HAN LAITH DO Organization Unknown Address [address] [place] [address] Phone [phone] Care Team Providers Care Insurance Claim Approver Name Role Phone Alin White M.D. AUTM [phone] AUTM Unavailable Problems Description No Information Available Social History Type Date Description Comments Sex Female ETOH Use Rarely Tobacco Use Reviewed: 05/13/18 Patient has never smoked Smoking Status Reviewed: 08/17/20 Patient has never smoked Allergies, Adverse Reactions, Alerts Active Allergies Reaction Severity Comments Date Bactrim 05/13/2018 Medications Active Medications SIG Qnty Indications Ordering Provide r Date Gabapentin 600mg Tablets 2 by mouth twice a day Unknown Cetirizine HCL 10mg Tablets by mouth every day Unknown Spiriva Handihaler 18mcg Capsules 1 cap inhalation every in the morning 90caps Klaus Knowles MD Albuterol Sulfate (2 .5mg/3ML) 0.083% Nebulizer 1 vial four times a day as needed 540ml Rodolfo Knowles MD Wellbutrin SR 150mg Tablets ER 12H R tab by mouth every day Unknown Proair HFA 108(90Base) mcg/Act Aer osol 2 puffs four times a day as needed 25.5gm Klaus Knowles MD Seroquel 50mg Tablets by mouth every day Unknown Advair Diskus 500-50mcg/Dose Aeros ol 1 puff twice a day 180units Klaus Knowles MD Immunizations Description No Information Available Vital Signs Date Vital Result Comment 11/07/2020 1:58pm BP Systolic 124 mmHg BP Diastolic 74 mmHg Heart Rate 76 /min Respiratory Rate 16 /min Body Temperature 98.6 F Height 68 inches 5'8" Weight 202.00 lb BMI (Body Mass Index) 30.7 kg/m2 Hyrum Body Weight 140 lb Weight 91.627 kg BSA (Body Surface Area) 2.05 m2 08/17/2020 1:25pm BP Systolic 112 mmHg BP Diastolic 60 mmHg Heart Rate 74 /min Respiratory Rate 14 /min Body Temperature 97.1 F Height 68 inches 5'8" Weight 196.00 lb BMI (Body Mass Index) 29.8 kg/m2 Hyrum Body Weight 140 lb Weight 88.906 kg BSA (Body Surface Area) 2.03 m2 Results Test Acquired Date Facility Test Result H/L Range Note FVL/[place] 07/21/2020 [facility] SEE IMAGE FVC-Pred 4.21 L FVC-Pre 4.10 L FVC-%Pred-Pre 97 L FVC-LLN 3.43 L Fev1-Pred 3.43 L Fev1-Pre 2.95 L Fev1-%Pred-Pre 86 L Fev1-LLN 2.76 L Fev6-Pred 4.14 L Fev6-Pre 4.10 L Fev6-%Pred-Pre 99 L Fev6-LLN 3.37 L Ukd8ymw-Qwpv 83 % Vlb8vox-Hrt 72 % Fbw9hpg-%Pred-Pre 87 % Jgz5qqy-ZNE 73 % Qgx4nfd-Ntxh 98 % Otq7fos-Hvw 100 % Gmo6uxt-%Pred-Pre 101 % FEFMax-Pred 7.62 L/E/sec FEFMax-Pre 7.13 L/E/sec FEFMax-%Pred-Pre 93 L/E/sec FEFMax-LLN 5.68 L/E/sec Yii1194-Myst 3.40 L/E/sec Vqp9319-Cna 1.97 L/E/sec Xne7199-%Pred-Pre 57 L/E/sec Syd0588-EXA 2.00 L/E/sec ExpTime-Pre 6.22 sec Hpy7oyg3-Dcif 84 % Uli7hrg8-Ufy 72 % Imq8rvz0-%Pred-Pre 85 % Upg3swj1-XJZ 75 % Procedures Date Code Description Status 07/21/2020 81124 Spirometry Completed Medical Devices Description No Information Available Encounters Type Date Location Provider Dx Diagnosis Office Visit 08/17/2020 1:15p [facility] Plastic Surgery Laith Han DO M54.07 Panniculitis affecting regions of neck/bk, lumbosacr region L98.7 Excessive and redundant skin and subcutaneous tissue M62.08 Separation of muscle (nontra umatic), other site Office Visit 07/21/2020 11:30a [facility] Pulmonary/Thoracic Lawrenc pam Knowles MD J45.40 Moderate persistent asthma, uncomplicate d J47.9 Bronchiectasis, uncomplicate d J30.9 Allergic rhinitis, unspecifi ed Assessments Date Code Description Provider 08/17/2020 M54.07 Panniculitis affecti ng regions of neck and back, lumbosacral region Laith Han DO 08/17/2020 L98.7 Excessive and redundant skin and subcutaneous tissue Laith Han DO 08/17/2020 M62.08 Separation of muscle (nontraumat ic), other site Laith Han DO 07/21/2020 J45.40 Moderate persistent asthma, unco mplicated Klaus Knowles MD 07/21/2020 J47.9 Bronchiectasis, uncomplicated La luiza Knowles MD 07/21/2020 J30.9 Allergic rhinitis, unspecified L jojo Knowles MD Plan of Treatment Future Appointment(s):* 11/15/2020 8:30 am - Laith Han DO at [facility] Plastic [facility] * 11/18/2020 11:30 am - Laith Han DO at [facility] Plastic [facility] * 01/19/2021 9:30 am - Klaus Knowles MD at [facility] Pulmonary/Thoracic Functional Status Description No Information Available Mental Status Description No Information Available Referrals Description No Information Available
--- OUTSIDE RECORDS SUMMARY | 2020-11-15 07:10 | CCD | Continuity of Care Document ---
Author Author Crystal WHITE M.D. Organization Unknown Address [address] [place] [address] Phone [phone] Care Team Providers Care Yard Loader Operator Name Role Phone Alin White M.D. AUTM [phone] [facility] AUTM [phone] [facility] Rheumatology AUTM [phone] Chester Lam AUTM [phone] Rehan Quick AUTM [phone] Klaus Knowles AUTM [phone] [facility] Therapy Services AUTM [phone] [facility] Surgical Center AUTM [phone] AUTM Unavailable [facility] Plastic Surgery AUTM [phone] Problems Description No Information Available Social History [...] CPT Code Status Date Vaccine Lot # [id number] Given 07/23/2019 Influenza (>= 6 Months) P.F. Vaccine [id number] Given 08/18/2018 Influenza (>= 6 Months) P.F. [...] Date Facility Test Result H/L Range Note Culture Urine 10/12/2020 In Office Culture Urine Routine <pending> Inhouse Ua 10/12/2020 In Office Ua Color Aniya Ua Appearance cloudy Spec [place] 1.030 Ua PH Test Strip 5 Leukocytes + Ua Nitrate Negative Ua Protein Negative Inhouse Glucose <pending> Ua Ketones Negative Urobilinogen Negative Ua Bilirubin Negative Blood Negative CBC W/Automated Diff 05/19/2020 [facility] CBC W/Automated Diff (SEE NOTE) 1 WBC 6.6 10^3/uL 4.2 - 11.0 RBC [...] Lymph 24.8 % Low 25.0 - 40.0 [place] 5.6 % 3.0 - 8.0 Eos 2.4 % 0.0 - 7.0 Baso 0.6 % 0.0 - 2.5 %Ig 0.3 % High 0.0 - 0.0 %NRBC 0.0 % 0.0 - 0.0 #Neut 4.36 10^3/uL 2.00 - 6.90 #Lymph 1.63 10^3/uL 0.60 - 3.40 #[place] 0.37 10^3/uL 0.00 - 0.90 #Eos 0.16 10^3/uL 0.00 - 0.70 #Baso 0.04 10^3/uL 0.00 - 0.20 #Ig 0.02 10^3/uL 0.00 - 0.10 #NRBC 0.00 10^3/uL 0.00 - 0.00 Manual Diff NOT INDICATED RBC Morph NOT INDICATED Laboratory test finding 05/19/2020 [facility] Troponin T <0.01 NG/ML 0.00 - 0.10 2 Lactic Acid (Lactate) 1.2 mmol/L 0.2 - 2.2 TSH Highly Sensitive 1.10 uIU/mL 0.47 - 5.01 T4 - Free 0.80 ng/dL Low 0.93 - 1.70 Comprehensive Metabolic Panel 05/19/2020 [facility] ospital Comprehensive Metabo (SEE NOTE) 3 Sodium 143 mEq/L 134 - 153 Potassium [...] GFR >60 mL/min 4 Laboratory test finding 05/19/2020 [facility] Pro-BNP 156 pg/mL High 0 - 125 Urinalysis 05/18/2020 [facility] Urinalysis (SEE NOTE) 5, 6 Source R Color yellow Normal: Yellow Clarity clear Normal: Clear Spec [place] 1.005 1.001 - 1.030 pH 7 5 [...] Normal: None Seen CBC W/Automated Diff 05/18/2020 [facility] CBC W/Automated Diff (SEE NOTE) 7 WBC 5.0 10^3/uL 4.2 - 11.0 RBC [...] 80.0 Lymph 33.9 % 25.0 - 40.0 [place] 5.8 % 3.0 - 8.0 Eos 5.0 % 0.0 - 7.0 Baso 0.8 % 0.0 - 2.5 %Ig 0.2 % High 0.0 - 0.0 %NRBC 0.0 % 0.0 - 0.0 #Neut 2.69 10^3/uL 2.00 - 6.90 #Lymph 1.68 10^3/uL 0.60 - 3.40 #[place] 0.29 10^3/uL 0.00 - 0.90 #Eos 0.25 10^3/uL 0.00 - 0.70 #Baso 0.04 10^3/uL 0.00 - 0.20 #Ig 0.01 10^3/uL 0.00 - 0.10 #NRBC 0.00 10^3/uL 0.00 - 0.00 Manual Diff NOT INDICATED RBC Morph NOT INDICATED Sedimentation Rate 05/18/2020 [facility] Sed Rate 9 mm/hr 0 - 20 Sed Rate Reenter 9 Comprehensive Metabolic Panel 05/18/2020 [facility]spital Comprehensive Metabo (SEE NOTE) 8 Sodium 141 mEq/L 134 - 153 Potassium [...] GFR >60 mL/min 9 Laboratory test finding 05/18/2020 [facility] CRP (High Sensitivity) 0.85 mg/L Low 1.00 - 3.00 10 Troponin T <0.01 NG/ML 0.00 - 0.10 11 Lyme Disease Antibodies 05/18/2020 [facility] Lyme IgG/IgM Ab <0.91 ISR 0.00-0.90 12 Lyme Disease Ab, Quant,IgM <0.80 index 0.00-0.79 1 3 1 COMPLETE BLOOD COUNT 2 TROPONIN T 0.1 ng/ml Recommended as the clinical th reshold value for Troponin T. 3 COMPREHENSIVE METABOLIC PANE L 4 Male [...] 80 and above >32 mL/min Normal 5 SOURCE: Clean Catch 6 URINALYSIS 7 COMPLETE BLOOD COUNT 8 COMPREHENSIVE METABOLIC PANE L 9 Male [...] 80 and above >32 mL/min Normal 10 CDC/S HS-CRP CUT-OFF: RELATIVE RISK: <1.0 mg/L Low 1.0 - 3.0 mg/L A verage >3.0 mg/L High Optimally, the average of HS-CRP results repeated two weeks apart should be used for risk assessment. 11 TROPONIN T 0.1 ng/ml Recommended as the clinical th reshold value for Troponin T. 12 Negative <0.91 Equivocal 0.91 - 1.09 Positive >1.09 13 Negative <0.80 Equivocal 0.80 - 1.19 Positive >1.19 IgM levels may peak at 3-6 weeks post infection, then gradually decline. Procedures Description No Information Available Medical Devices Description No Information Available Encounters Type Date Location Provider Dx Diagnosis Office Visit 10/12/2020 9:20a [facility] Alin White MD N3 9.0 Urinary tract infection, site not specified Assessments Date Code Description Provider 10/12/2020 N39.0 Urinary tract infection, site no t specified Alin White MD 07/13/2020 L98.7 Excessive and redundant [...] 9:00 am - Alin White MD at [facility] 10/12/2020 - Alin White MD* N39.0 Urinary tract infection, site not specified* New Medication:* Ciprofloxacin HCL 250 mg - one tab by mouth twice a day Functional Status Description No Information Available Mental Status Description No Information Available Referrals Refer to Reason for Referral Status Appt Date [facility] Plastic Surgery 39 y/o F has excess skin aft er surgery secondary to significant weight loss post bariatric surgery. Closed 08/[address] [place] [address] [phone]
--- OUTSIDE RECORDS SUMMARY | 2020-11-15 07:10 | CCD | Continuity of Care Document ---
Author Author Crystal QUICK DPM Organization Unknown Address [address] [place] [address], [address] [place] [address] Phone [phone] Care Team Providers Care Print Room Worker Name Role Phone Manuel White M.D.ik NICHOLASM [phone] Problems Active Problems Provider Date Acquired deformity of limb Rehan Quick DPM Onset: 12/07 Sprain of unspecified ligament of left ankle, subseque nt encounter Rehan Quick DPM Onset: 09/15/2019 Social History Type Date Description Comments Sex Unknown ETOH Use Rarely consumes alcohol Tobacco Use Start: Unknown Patient has never smoked Allergies, Adverse Reactions, Alerts Active Allergies Reaction Severity Comments Date Bactrim 07/03/2018 Sulfa Antibiotics Hives 07/03/2018 Medications Active Medications SIG Qnty Indications Ordering Provide r Date Naproxen 500mg Tablets 1 tab twice daily with food 30tabs Rehan Quick DPM 01/01/2019 Quetiapine Fumarate ER Unknown Effexor XR Unknown Wellbutrin SR Unknown Zyrtec Allergy Unknown Proair HFA Unknown Symbicort Unknown Spiriva Handihaler Unknown Medications Administered in Office Medication SIG Qnty Indications Ordering Provider Date Inject Triamcinolone Acetonide 10 ML, ND C 1477-1818-42 Injection Rehan murray DPM 08/21/2018 Inject Dexamthosone Phosphate 46233-623- 30 Injection Rehan Quick DPM 018 Immunizations Description No Information Available Vital Signs Date Vital Result Comment 09/22/2020 8:05am Height 68 inches 5'8" Weight 190.00 lb BP Systolic 118 mmHg BP Diastolic 80 mmHg Heart Rate 60 /min BMI (Body Mass Index) 28.9 kg/m2 07/03/2018 7:23am Height 68 inches 5'8" Weight 282.00 lb BP Systolic 138 mmHg BP Diastolic 78 mmHg Heart Rate 72 /min BMI (Body Mass Index) 42.9 kg/m2 Results Description No Information Available Procedures Description No Information Available Medical Devices Description No Information Available Encounters Type Date Location Provider Dx Diagnosis Office Visit 09/22/2020 8:00a [place] [facility] Rehan Quick DPM 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
--- OUTSIDE RECORDS SUMMARY | 2020-11-15 07:10 | CCD | Continuity of Care Document ---
Author Author Crystal HAN LAITH DO Organization Unknown Address [address] [place] [id number] Phone [phone] Care Team Providers Care Commercial Attache Name Role Phone Alin White M.D. AUTM [phone] AUTM Unavailable Problems Description No Information Available Social History Type Date Description Comments Sex Female ETOH Use Rarely Tobacco Use Reviewed: 05/13/18 Patient has never smoked Smoking Status Reviewed: 07/21/20 Patient has never smoked Allergies, Adverse Reactions, [...] Available Vital Signs Date Vital Result Comment 08/17/2020 1:25pm BP Systolic 112 mmHg BP Diastolic 60 mmHg Heart Rate 74 /min Respiratory Rate 14 /min Body Temperature 97.1 F Height 68 inches 5'8" Weight 196.00 lb BMI (Body Mass Index) 29.8 kg/m2 [place] Body Weight 140 lb Weight 88.906 kg 07/21/2020 11:20am BP Systolic 108 mmHg BP Diastolic 70 mmHg Heart Rate 74 /min O2 % BldC Oximetry 100 % Room Air Height 68 inches 5'8" Weight 200.00 lb BMI (Body Mass Index) 30.4 kg/m2 [place] Body Weight 140 lb Weight 90.720 kg Results Test Acquired Date Facility Test Result H/L Range Note FVL/Pelon 07/21/2020 [facility] SEE IMAGE FVC-Pred 4.21 L FVC-Pre 4.10 L FVC-%Pred-Pre 97 L FVC-LLN 3.43 L Fev1-Pred 3.43 L Fev1-Pre 2.95 L Fev1-%Pred-Pre 86 L Fev1-LLN 2.76 L Fev6-Pred 4.14 L Fev6-Pre 4.10 L Fev6-%Pred-Pre 99 L Fev6-LLN 3.37 L Rve4lux-Gfbf 83 % Ldb3lcx-Sgn 72 % Tcq1ivc-%Pred-Pre 87 % Yfl3nal-NBK 73 % Hnc7kxa-Gnts 98 % Dxl7ufn-Giy 100 % Bxh0wsg-%Pred-Pre 101 % FEFMax-Pred 7.62 L/E/sec FEFMax-Pre 7.13 L/E/sec FEFMax-%Pred-Pre 93 L/E/sec FEFMax-LLN 5.68 L/E/sec Hxw2379-Rvlu 3.40 L/E/sec Xfa1762-Yfa 1.97 L/E/sec Rdu3223-%Pred-Pre 57 L/E/sec Mfv0163-ZLB 2.00 L/E/sec ExpTime-Pre 6.22 sec Chu9gqz5-Qulv 84 % Pnt8caa5-Qvu 72 % Abs9wje9-%Pred-Pre 85 % Bxf9gid1-QNN 75 % Procedures Date Code Description Status 07/21/2020 79977 Spirometry Completed Medical Devices Description No Information Available Encounters Type Date Location Provider Dx Diagnosis Office Visit 07/21/2020 11:30a [facility]Th[facility] Lawrenc pam Knowles MD J45.40 Moderate persistent asthma, uncomplicate d J47.9 Bronchiectasis, uncomplicate d J30.9 Allergic rhinitis, unspecifi ed Assessments Date Code Description Provider 07/21/2020 J45.40 Moderate persistent asthma, unco mplicated Klaus Knowles MD 07/21/2020 J47.9 Bronchiectasis, uncomplicated La luiza Knowles MD 07/21/2020 J30.9 Allergic rhinitis, unspecified L jojo Knowles MD Plan of Treatment Future Appointment(s):* 01/19/2021 9:30 am - Klaus Knowles MD at [facility] Pul[facility]/Thoracic Functional Status Description No Information Available Mental Status Description No Information Available Referrals Description No Information Available
--- OUTSIDE RECORDS SUMMARY | 2020-11-15 07:10 | CCD | Continuity of Care Document ---
Author Author Crystal QUICK DPM Organization Unknown Address [address] [place] [address], [address] [place] [address] Phone [phone] Care Team Providers Care Nitro Worker Name Role Phone Manuel White M.D.ik NICHOLASM [phone] Problems Active Problems Provider Date Acquired deformity [...] Inject Triamcinolone Acetonide 10 ML, ND C 3562-6962-96 Injection Rehan murray DPM 08/21/2018 Inject Dexamthosone Phosphate 53747-287- 30 Injection Rehan Quick DPM 018 Immunizations [...] Medical Devices Description No Information Available Encounters Description No Information Available Assessments Description No Information Available Plan of Treatment No Information Available Functional Status Description No Information Available Mental Status Description No Information Available Referrals Description No Information Available
--- OUTSIDE RECORDS SUMMARY | 2020-11-15 07:11 | CCD ---
Author Author [facility] Organization [facility] Address Unknown Phone Unavailable Care Team Providers Care Lubricator Granulator Name Role Phone Lydia MARTE MD Unavailable Unavailable Lydia MARTE MD Unavailable Unavailable Lydia MARTE MD Unavailable Unavailable Lydia MARTE MD Unavailable Unavailable Lydia MARTE MD Unavailable Unavailable Lydia MARTE MD Unavailable Unavailable Lydia MARTE MD Unavailable Unavailable Lydia MARTE MD Unavailable Unavailable Lydia MARTE MD Unavailable Unavailable Lydia MARTE MD Unavailable Unavailable Lydia MARTE MD Unavailable Unavailable Lydia MARTE MD Unavailable Unavailable Lydia MARTE MD Unavailable Unavailable Duane CRANE DPM Unavailable Unavailable Duane CRANE DPM Unavailable Unavailable Duane CRANE DPM Unavailable Unavailable Duane CRANE DPM Unavailable Unavailable Duaen CRANE DPM Unavailable Unavailable Duane CRANE DPM Unavailable Unavailable Duane CRANE DPM Unavailable Unavailable Duane CRANE DPM Unavailable Unavailable MAJAK, R CLAUDIA DPM Unavailable Unavailable MAJAK, R CLAUDIA DPM Unavailable Unavailable MAJAK, R CLAUDIA DPM Unavailable Unavailable MAJAK, R CLAUDIA DPM Unavailable Unavailable MAJAK, R CLAUDIA DPM Unavailable Unavailable MAJAK, R CLAUDIA DPM Unavailable Unavailable MAJAK, R CLAUDIA DPM Unavailable Unavailable MAJAK, R CLAUDIA DPM Unavailable Unavailable MAJAK, R CLAUDIA DPM Unavailable Unavailable MAJAK, R CLAUDIA DPM Unavailable Unavailable MAJAK, R CLAUDIA DPM Unavailable Unavailable MAJAK, R CLAUDIA DPM Unavailable Unavailable MAJAK, R CLAUDIA DPM Unavailable Unavailable MAJAK, R CLAUDIA DPM Unavailable Unavailable MAJAK, R CLAUDIA DPM Unavailable Unavailable MAJAK, R CLAUDIA DPM Unavailable Unavailable MAJAK, R CLAUDIA DPM Unavailable Unavailable MAJAK, R CLAUDIA DPM Unavailable Unavailable MAJAK, R CLAUDIA DPM Unavailable Unavailable MAJAK, R CLAUDIA DPM Unavailable Unavailable MAJAK, R CLAUDIA DPM Unavailable Unavailable MAJAK, R CLAUDIA DPM Unavailable Unavailable Carole, Jay Jay Briggs MD Unavailable Unavailable Carole, Jay Jay Briggs MD Unavailable Unavailable Carole, Jay Jay Briggs MD Unavailable Unavailable Carole, Jay Jay Briggs MD Unavailable Unavailable Carole, Jay Jay Briggs MD Unavailable Unavailable Carole, Jay Jay Briggs MD Unavailable Unavailable Carole, Jay Jay Briggs MD Unavailable Unavailable Carole, Jay Jay Briggs MD Unavailable Unavailable Carole, Jay Jay Briggs MD Unavailable Unavailable Carole, Jay Jay Briggs MD Unavailable Unavailable Carole, Jay Jay Briggs MD Unavailable Unavailable Carole, Jay Jay Briggs MD Unavailable Unavailable Carole, Jay Jay Briggs MD Unavailable Unavailable Carole, Jay Jay Briggs MD Unavailable Unavailable Carole, Jay Jay Briggs MD Unavailable Unavailable Carole, Jay Jay Briggs MD Unavailable Unavailable Carole, Jay Jay Briggs MD Unavailable Unavailable Carole, Jay Jay Briggs MD Unavailable Unavailable Carole, Jay Jay Briggs MD Unavailable Unavailable Carole, Jay Jay Briggs MD Unavailable Unavailable Carole, Jay Jay Briggs MD Unavailable Unavailable Carole, Jay Jay Briggs MD Unavailable Unavailable Carole, Jay Jay Briggs MD Unavailable Unavailable Carole, Jay Jay Briggs MD Unavailable Unavailable Carole, Jay Jay Briggs MD Unavailable Unavailable Carole, Jay Jay Briggs MD Unavailable Unavailable Carole, Jay Jay Briggs MD Unavailable Unavailable Carole, Jay Jay Briggs MD Unavailable Unavailable Carole, Jay Jay Briggs MD Unavailable Unavailable Carole, Jay Jay Briggs MD Unavailable Unavailable Carole, Jay Jay Briggs MD Unavailable Unavailable Carole, Jay Jay Briggs MD Unavailable Unavailable Carole, Jay Jay Briggs MD Unavailable Unavailable Carole, Jay Jay Briggs MD Unavailable Unavailable Carole, Jay Jay Briggs MD Unavailable Unavailable Carole, A Chester BATRES Unavailable Unavailable Carole, A Chester BATRES Unavailable Unavailable Carole, A Chester BATRES Unavailable Unavailable Carole, A Chester BATRES Unavailable Unavailable Carole, A Chester BATRES Unavailable Unavailable Carole, A Chester BATRES Unavailable Unavailable Carole, A Chester BATRES Unavailable Unavailable Carole, A Chester BATRES Unavailable Unavailable Carole, A Chester BATRES Unavailable Unavailable Carole, A Chester BATRES Unavailable Unavailable Carole, A Chester BATRES Unavailable Unavailable Carole, A Chester BATRES Unavailable Unavailable Carole, A Chester BATRES Unavailable Unavailable Carole, A Chester BATRES Unavailable Unavailable Carole, A Chester BATRES Unavailable Unavailable Carole, A Chester BATRES Unavailable Unavailable Carole, A Chester BATRES Unavailable Unavailable Carole, A Chester BATRES Unavailable Unavailable Carole, A Chester BATRES Unavailable Unavailable Carole, A Chester BATRES Unavailable Unavailable Carole, A Chester BATRES Unavailable Unavailable Carole, A Chester BATRES Unavailable Unavailable Carole, A Chester BATRES Unavailable Unavailable Carole, A Chester BATRES Unavailable Unavailable Carole, A Chester BATRES Unavailable Unavailable Carole, A Chester BATRES Unavailable Unavailable Carole, A Chester BATRES Unavailable Unavailable Carole, A Chester BATRES Unavailable Unavailable Carole, A Chester BATRES Unavailable Unavailable Carole, Jay Jay Briggs MD Unavailable Unavailable Carole, A Chester BATRES Unavailable Unavailable Carole, A Chester BATRES Unavailable Unavailable Carole, A Chester BATRES Unavailable Unavailable Carole, A Chester BATRES Unavailable Unavailable Carole, A Chester BATRES Unavailable Unavailable Carole, Jay Jay Briggs MD Unavailable Unavailable Carole, Jay Jay Briggs MD Unavailable Unavailable Carole, Jay Jay Briggs MD Unavailable Unavailable Carole, A Chester BATRES Unavailable Unavailable Carole, A Chester BATRES Unavailable Unavailable Carole, A Chester BATRES Unavailable Unavailable Carole, A Chester BATRES Unavailable Unavailable Carole, Jay Jay Briggs MD Unavailable Unavailable Carole, Jay Jay Briggs MD Unavailable Unavailable Carole, Jay Jay Briggs MD Unavailable Unavailable Carole, Jay Jay Briggs MD Unavailable Unavailable Carole, A Chester BATRES Unavailable Unavailable Carole, A Chester BATRES Unavailable Unavailable Carole, A Chester BATRES Unavailable Unavailable Carole, A Chester BATRES Unavailable Unavailable Carole, A Chester BATRES Unavailable Unavailable Carole, Jay Jay Briggs MD Unavailable Unavailable Carole, Jay Jay Briggs MD Unavailable Unavailable Carole, Jay Jay Briggs MD Unavailable Unavailable Carole, Jay Jay Briggs MD Unavailable Unavailable Carole, Jay Jay Briggs MD Unavailable Unavailable Carole, Jay Jay Briggs MD Unavailable Unavailable Carole, Jay Jay Briggs MD Unavailable Unavailable Carole, Jay Jay Briggs MD Unavailable Unavailable Carole, Jay Jay Briggs MD Unavailable Unavailable Carole, Jay Jay Briggs MD Unavailable Unavailable Carole, Jay Jay Briggs MD Unavailable Unavailable Carole, Jay Jay Briggs MD Unavailable Unavailable Carole, Jay Jay Briggs MD Unavailable Unavailable Carole, Jay Jay Briggs MD Unavailable Unavailable Carole, Jay Jay Briggs MD Unavailable Unavailable Carole, Jay Jay Briggs MD Unavailable Unavailable Carole, Jay Jay Briggs MD Unavailable Unavailable Carole, Jay Jay Briggs MD Unavailable Unavailable DIPTI, MAQBOOL ANDRZEJ MD Unavailable Unavailable DIPTI, MAQBOOL ANDRZEJ MD Unavailable Unavailable DIPTI, MAQBOOL ANDRZEJ MD Unavailable Unavailable DIPTI, MAQBOOL ANDRZEJ MD Unavailable Unavailable DIPTI, MAQBOOL ANDRZEJ MD Unavailable Unavailable DIPTI, MAQBOOL ANDRZEJ MD Unavailable Unavailable DIPTI, MAQBOOL ANDRZEJ MD Unavailable Unavailable DIPTI, MAQBOOL ANDRZEJ MD Unavailable Unavailable DIPTI, MAQBOOL ANDRZEJ MD Unavailable Unavailable DIPTI, MAQBOOL ANDRZEJ MD Unavailable Unavailable DIPTI, MAQBOOL ANDRZEJ MD Unavailable Unavailable DIPTI, MAQBOOL ANDRZEJ MD Unavailable Unavailable DIPTI, MAQBOOL ANDRZEJ MD Unavailable Unavailable DIPTI, MAQBOOL ANDRZEJ MD Unavailable Unavailable DIPTI, MAQBOOL ANDRZEJ MD Unavailable Unavailable DIPTI, MAQBOOL ANDRZEJ MD Unavailable Unavailable DIPTI, MAQBOOL ANDRZEJ MD Unavailable Unavailable DIPTI, MAQBOOL ANDRZEJ MD Unavailable Unavailable DIPTI, MAQBOOL ANDRZEJ MD Unavailable Unavailable DIPTI, MAQBOOL ANDRZEJ MD Unavailable Unavailable DIPTI, MAQBOOL ANDRZEJ MD Unavailable Unavailable DIPTI, MAQBOOL ANDRZEJ MD Unavailable Unavailable DIPTI, MAQBOOL ANDRZEJ MD Unavailable Unavailable DIPTI, MAQBOOL ANDRZEJ MD Unavailable Unavailable DIPTI, MAQBOOL ANDRZEJ MD Unavailable Unavailable DIPTI, MAQBOOL ANDRZEJ MD Unavailable Unavailable DIPTI, MAQBOOL ANDRZEJ MD Unavailable Unavailable DIPTI, MAQBOOL ANDRZEJ MD Unavailable Unavailable DIPTI, MAQBOOL ANDRZEJ MD Unavailable Unavailable DIPTI, MAQBOOL ANDRZEJ MD Unavailable Unavailable DIPTI, MAQBOOL ANDRZEJ MD Unavailable Unavailable DIPTI, MAQBOOL ANDRZEJ MD Unavailable Unavailable DIPTI, MAQBOOL ANDRZEJ MD Unavailable Unavailable DIPTI, MAQBOOL ANDRZEJ MD Unavailable Unavailable DIPTI, MAQBOOL ANDRZEJ MD Unavailable Unavailable DIPTI, MAQBOOL ANDRZEJ MD Unavailable Unavailable DIPTI, MAQBOOL ANDRZEJ MD Unavailable Unavailable DIPTI, MAQBOOL ANDRZEJ MD Unavailable Unavailable DIPTI, MAQBOOL ANDRZEJ MD Unavailable Unavailable DIPTI, MAQBOOL ANDRZEJ MD Unavailable Unavailable DIPTI, MAQBOOL ANDRZEJ MD Unavailable Unavailable DIPTI, MAQBOOL ANDRZEJ MD Unavailable Unavailable DIPTI, MAQBOOL ANDRZEJ MD Unavailable Unavailable DIPTI, MAQBOOL ANDRZEJ MD Unavailable Unavailable DIPTI, MAQBOOL ANDRZEJ MD Unavailable Unavailable DIPTI, MAQBOOL ANDRZEJ MD Unavailable Unavailable DIPTI, MAQBOOL ANDRZEJ MD Unavailable Unavailable DIPTI, MAQBOOL ANDRZEJ MD Unavailable Unavailable DIPTI, MAQBOOL ANDRZEJ MD Unavailable Unavailable DIPTI, MAQBOOL ANDRZEJ MD Unavailable Unavailable DIPTI, MAQBOOL ANDRZEJ MD Unavailable Unavailable DIPTI, MAQBOOL ANDRZEJ MD Unavailable Unavailable DIPTI, MAQBOOL ANDRZEJ MD Unavailable Unavailable DIPTI, MAQBOOL ANDRZEJ MD Unavailable Unavailable DIPTI, MAQBOOL ANDRZEJ MD Unavailable Unavailable DIPTI, MAQBOOL ANDRZEJ MD Unavailable Unavailable DIPTI, MAQBOOL ANDRZEJ MD Unavailable Unavailable DIPTI, MAQBOOL ANDRZEJ MD Unavailable Unavailable DIPTI, MAQBOOL ANDRZEJ MD Unavailable Unavailable DIPTI, MAQBOOL ANDRZEJ MD Unavailable Unavailable DIPTI, MAQBOOL ANDRZEJ MD Unavailable Unavailable DIPTI, MAQBOOL ANDRZEJ MD Unavailable Unavailable DIPTI, MAQBOOL ANDRZEJ MD Unavailable Unavailable DIPTI, MAQBOOL ANDRZEJ MD Unavailable Unavailable DIPTI, MAQBOOL ANDRZEJ MD Unavailable Unavailable DIPTI, MAQBOOL ANDRZEJ MD Unavailable Unavailable DIPTI, MAQBOOL ANDRZEJ MD Unavailable Unavailable DIPTI, MAQBOOL ANDRZEJ MD Unavailable Unavailable DIPTI, MAQBOOL ANDRZEJ MD Unavailable Unavailable DIPTI, MAQBOOL ANDRZEJ MD Unavailable Unavailable DIPTI, MAQBOOL ANDRZEJ MD Unavailable Unavailable DIPTI, MAQBOOL ANDRZEJ MD Unavailable Unavailable DIPTI, MAQBOOL ANDRZEJ MD Unavailable Unavailable DIPTI, MAQBOOL ANDRZEJ MD Unavailable Unavailable DIPTI, RAQUEL MARCUM MD Unavailable Unavailable URIAS, DARRION Unavailable Unavailable [facility], RAYMUNDO Unavailable Unavailable EMELY, E LAITH DO Unavailable Unavailable EMELY, E LAITH DO Unavailable Unavailable EMELY, E LAITH DO Unavailable Unavailable EMELY, E LAITH DO Unavailable Unavailable EMELY, E LAITH DO Unavailable Unavailable EMELY, E LAITH DO Unavailable Unavailable EMELY, E LAITH DO Unavailable Unavailable EMELY, E LAITH DO Unavailable Unavailable EMELY, E LAITH DO Unavailable Unavailable EMELY, E LAITH DO Unavailable Unavailable EMELY, E LAITH DO Unavailable Unavailable EMELY, E LAITH DO Unavailable Unavailable EMELY, E LAITH DO Unavailable Unavailable EMELY, E LAITH DO Unavailable Unavailable EMELY, E LAITH DO Unavailable Unavailable EMELY, E LAITH DO Unavailable Unavailable EMELY, E LAITH DO Unavailable Unavailable EMELY, E LAITH DO Unavailable Unavailable EMELY, E LAITH DO Unavailable Unavailable EMELY, E LAITH DO Unavailable Unavailable EMELY, E LAITH DO Unavailable Unavailable [facility], RAYMUNDO Unavailable Unavailable MAJAK, R CLAUDIA DPM Unavailable Unavailable MAJAK, R CLAUDIA DPM Unavailable Unavailable MAJAK, R CLAUDIA DPM Unavailable Unavailable MAJAK, R CLAUDIA DPM Unavailable Unavailable MAJAK, R CLAUDIA DPM Unavailable Unavailable MAJAK, R CLAUDIA DPM Unavailable Unavailable MAJAK, R CLAUDIA DPM Unavailable Unavailable MAJAK, R CLAUDIA DPM Unavailable Unavailable MAJAK, R CLAUDIA DPM Unavailable Unavailable MAJAK, R CLAUDIA DPM Unavailable Unavailable MAJAK, R CLAUDIA DPM Unavailable Unavailable MAJAK, R CLAUDIA DPM Unavailable Unavailable MAJAK, R CLAUDIA DPM Unavailable Unavailable MAJAK, R CLAUDIA DPM Unavailable Unavailable MAJAK, R CLAUDIA DPM Unavailable Unavailable MAJAK, R CLAUDIA DPM Unavailable Unavailable MAJAK, R CLAUDIA DPM Unavailable Unavailable MAJAK, R CLAUDIA DPM Unavailable Unavailable MAJAK, R CLAUDIA DPM Unavailable Unavailable MAJAK, R CLAUDIA DPM Unavailable Unavailable MAJAK, R CLAUDIA DPM Unavailable Unavailable MAJAK, R CLAUDIA DPM Unavailable Unavailable MAJAK, R CLAUDIA DPM Unavailable Unavailable MAJAK, R CLAUDIA DPM Unavailable Unavailable MAJAK, R CLAUDIA DPM Unavailable Unavailable MAJAK, R CLAUDIA DPM Unavailable Unavailable MAJAK, R CLAUDIA DPM Unavailable Unavailable MAJAK, R CLAUDIA DPM Unavailable Unavailable MAJAK, R CLAUDIA DPM Unavailable Unavailable MAJAK, R CLAUDIA DPM Unavailable Unavailable TURRIN, OSITO Unavailable Unavailable TURRIN, OSITO Unavailable Unavailable TURRIN, OSITO Unavailable Unavailable TURRIN, OSITO Unavailable Unavailable POLK, MARIA D MD Unavailable Unavailable POLK, MARIA D MD Unavailable Unavailable POLK, MARIA D MD Unavailable Unavailable POLK, MARIA D MD Unavailable Unavailable POLK, MARIA D MD Unavailable Unavailable POLK, MARIA D MD Unavailable Unavailable POLK, MARIA D MD Unavailable Unavailable POLK, MARIA D MD Unavailable Unavailable POLK, MARIA D MD Unavailable Unavailable POLK, MARIA D MD Unavailable Unavailable POLK, MARIA D MD Unavailable Unavailable POLK, MARIA D MD Unavailable Unavailable POLK, MARIA D MD Unavailable Unavailable POLK, MARIA D MD Unavailable Unavailable POLK, MARIA D MD Unavailable Unavailable POLK, MARIA D MD Unavailable Unavailable POLK, MARIA D MD Unavailable Unavailable POLK, MARIA D MD Unavailable Unavailable POLK, MARIA D MD Unavailable Unavailable POLK, MARIA D MD Unavailable Unavailable POLK, MARIA D MD Unavailable Unavailable POLK, MARIA D MD Unavailable Unavailable POLK, MARIA D MD Unavailable Unavailable POLK, MARIA D MD Unavailable Unavailable POLK, MARIA D MD Unavailable Unavailable POLK, MARIA D MD Unavailable Unavailable POLK, MARIA D MD Unavailable Unavailable POLK, MARIA D MD Unavailable Unavailable POLK, MARIA D MD Unavailable Unavailable POLK, MARIA D MD Unavailable Unavailable POLK, MARIA D MD Unavailable Unavailable POLK, MARIA D MD Unavailable Unavailable POLK, MARIA D MD Unavailable Unavailable POLK, MARIA D MD Unavailable Unavailable POLK, MARIA D MD Unavailable Unavailable POLK, MARIA D MD Unavailable Unavailable OPLK, MARIA D MD Unavailable Unavailable POLK, MARIA D MD Unavailable Unavailable POLK, MARIA D MD Unavailable Unavailable POLK, MARIA D MD Unavailable Unavailable POLK, MARIA D MD Unavailable Unavailable POLK, MARIA D MD Unavailable Unavailable POLK, MARIA D MD Unavailable Unavailable POLK, MARIA D MD Unavailable Unavailable POLK, MARIA D MD Unavailable Unavailable POLK, MARIA D MD Unavailable Unavailable POLK, MARIA D MD Unavailable Unavailable POLK, MARIA D MD Unavailable Unavailable POLK, MARIA D MD Unavailable Unavailable POLK, MARIA D MD Unavailable Unavailable POLK, MARIA D MD Unavailable Unavailable POLK, MARIA D MD Unavailable Unavailable POLK, MARIA D MD Unavailable Unavailable POLK, MARIA D MD Unavailable Unavailable POLK, MARIA D MD Unavailable Unavailable MARIA D POLK MD Unavailable Unavailable MARIA D POLK MD Unavailable Unavailable MARIA D POLK MD Unavailable Unavailable MARIA D POLK MD Unavailable Unavailable MARIA D POLK MD Unavailable Unavailable MARIA D POLK MD Unavailable Unavailable MARIA D POLK MD Unavailable Unavailable MARIA D POLK MD Unavailable Unavailable MARIA D POLK MD Unavailable Unavailable MARIA D POLK MD Unavailable Unavailable MARIA D POLK MD Unavailable Unavailable MARIA D POLK MD Unavailable Unavailable MARIA D POLK MD Unavailable Unavailable Cooper, Dawna Unavailable Unavailable Cooper, Dawna Unavailable Unavailable Cooper, Dawna Unavailable Unavailable Cooper, Dawna Unavailable Unavailable Cooper, Dawna Unavailable Unavailable Cooper, Dawna Unavailable Unavailable Cooper, Dawna Unavailable Unavailable Cooper, Dawna Unavailable Unavailable Cooper, Dawna Unavailable Unavailable Cooper, Dawna Unavailable Unavailable Cooper, Dawna Unavailable Unavailable Cooper, Dawna Unavailable Unavailable Cooper, Dawna Unavailable Unavailable Cooper, Dawna Unavailable Unavailable Cooper, Dawna Unavailable Unavailable Cooper, Dawna Unavailable Unavailable Cooper, Dawna Unavailable Unavailable Sivakumar Knowles MD Unavailable Unavailable Sivakumar Knowles MD Unavailable Unavailable Sivakumar Knowles MD Unavailable Unavailable Sivakumar Knowles MD Unavailable Unavailable Sivakumar Knowles MD Unavailable Unavailable Sivakumar Knowles MD Unavailable Unavailable Sivakumar Knowles MD Unavailable Unavailable Sivakumar Knowles MD Unavailable Unavailable Sivakumar Knowles MD Unavailable Unavailable Sivakumar Knowles MD Unavailable Unavailable Sivakumar Knowles MD Unavailable Unavailable Sivakumar Knowles MD Unavailable Unavailable Sivakumar Knowles MD Unavailable Unavailable Sivakumar Knowles MD Unavailable Unavailable Sivakumar Knowles MD Unavailable Unavailable Sivakumar Knowles MD Unavailable Unavailable Sivakumar Knowles MD Unavailable Unavailable Sivakumar Knowles MD Unavailable Unavailable Sivakumar Knowles MD Unavailable Unavailable Sivakumar Knowles MD Unavailable Unavailable Sivakumar Knowles MD Unavailable Unavailable Sivakumar Knowles MD Unavailable Unavailable Sivakumar Knowles MD Unavailable Unavailable Sivakumar Knowles MD Unavailable Unavailable Sivakumar Knowles MD Unavailable Unavailable Sivakumar Knowles MD Unavailable Unavailable Sivakumar Knowles MD Unavailable Unavailable Sivakumar Knowles MD Unavailable Unavailable Sivakumar Knowles MD Unavailable Unavailable Sivakumar Knowles MD Unavailable Unavailable Sivakumar Knowles MD Unavailable Unavailable Sivakumar Knowles MD Unavailable Unavailable Sivakumar Knowles MD Unavailable Unavailable Sivakumar Knowles MD Unavailable Unavailable Sivakumar Knowles MD Unavailable Unavailable Sivakumar Knowles MD Unavailable Unavailable Sivakumar Knowles MD Unavailable Unavailable Knowles, Sivakumar Klaus MD Unavailable Unavailable Knowles, Sivakumar Klaus MD Unavailable Unavailable Knowles, Sivakumar Enrique MD Unavailable Unavailable Knowles, Sivakumar Enrique MD Unavailable Unavailable Knowles, Sivakumar Enrique MD Unavailable Unavailable Knowles, Sivakumar Enrique MD Unavailable Unavailable Knowles, Sivakumar Enrique MD Unavailable Unavailable Knowles, Sivakumar Enrique MD Unavailable Unavailable Knowles, Sivakumar Enrique MD Unavailable Unavailable Knowles, Sivakumar Enrique MD Unavailable Unavailable Knowles, Sivakumar Enrique MD Unavailable Unavailable Knowles, Sivakumar Enrique MD Unavailable Unavailable Knowles, Sivakumar Enrique MD Unavailable Unavailable NO, PCP Unavailable Unavailable Re-disclosure Warning The records that you are about to access may contain information from federally-assisted alcohol or drug abuse programs. If such information is present, then the following federally mandated warning applies: This information has been disclosed to you from records protected by federal confidentiality rules (42 CFR part 2). The federal rules prohibit you from making any further disclosure of this information unless further disclosure is expressly permitted by the written consent of the person to whom it pertains or as otherwise permitted by 42 CFR part 2. A general authorization for the release of medical or other information is NOT sufficient for this purpose. The Federal rules restrict any use of the information to criminally investigate or prosecute any alcohol or drug abuse patient.The records that you are about to access may contain highly sensitive health information, the redisclosure of which is protected by Article 27-F of the [facility] Public Health law. If you continue you may have access to information: Regarding HIV / AIDS; Provided by facilities licensed or operated by the [facility] Office of Mental Health; or Provided by the [facility] Office for People With Developmental Disabilities. If such information is present, then the following [facility] mandated warning applies: This information has been disclosed to you from confidential records which are protected by state law. State law prohibits you from making any further disclosure of this information without the specific written consent of the person to whom it pertains, or as otherwise permitted by law. Any unauthorized further disclosure in violation of state law may result in a fine or shelter sentence or both. A general authorization for the release of medical or other information is NOT sufficient authorization for further disc losure. Allergies and Adverse Reactions Type Description Substance Reaction Status Data Source(s ) BRANDNAME FARSHAD YEN [facility] Family History Family Member Name Family Member Gender Family Member Status Date o f Status Description Data Source(s) Unknown Male Problem [facility] ([facility] Unknown Male Problem [facility] ([facility]) Encounters Encounter Providers Location Date Indications Data Source(s ) Outpatient Attender: MARIA D POLK MDConsultant: MARIA D Jin MD 11/03/2020 08:56:00 AM EST - 11/03/2020 08:56:00 AM [facility] Outpatient Attender: MARIA D POLK MD Family Practice 11/03/2020 0 8:00:00 AM EST [facility] ([facility] [place]) Emergency Attender: OSITO DEL REALConsultant: MARIA D Jin MD 10/25/2020 07:59:00 AM EST - 10/25/2020 09:08:00 AM [facility] Patient discharged. Outpatient Attender: DARRION JOHNS eferrer: DARRION Zaragozasultant: MARIA D POLK MD 10/12/2020 12:09:00 PM EST - 10/12/2020 12:19:00 PM [facility] Outpatient Attender: MARIA D POLK MDConsultant: MARIA D Jin MD 10/12/2020 09:10:00 AM EST - 10/12/2020 09:10:00 AM [facility] Outpatient Attender: MARIA D POLK MD Family Practice 10/12/2020 0 8:20:00 AM EST [facility] ([facility] [place]) Outpatient Attender: CLAUDIA CRANE [facility] 09/04 07:00:00 AM EST [facility] ([facility] Outpatient Attender: LAITH Mora/Lupe/Juan Manuel/Ruddyd l 08/17/2020 01:15:00 PM EDT [facility] ([facility] Outpatient Attender: Klaus Nguyen/Lupe/Juan Manuel/R eindl 07/21/2020 11:30:00 AM EDT [facility] ([facility] Outpatient Attender: MARIA D POLK MD Family Practice 07/13/2020 0 1:20:00 PM EDT [facility] ([facility] [place]) Outpatient Attender: MARIA D POLK MDConsultant: MARIA D Jin MD 07/13/2020 01:13:00 PM EDT - 07/13/2020 01:13:00 PM EDT [facility] Outpatient Attender: MARIA D POLK MDConsultant: MARIA D Jin MD 06/15/2020 08:56:00 AM EDT - 06/15/2020 08:56:00 AM EDT [facility] Outpatient Attender: ANDRZEJ BURTON MDAtt thomas: OSITO DEL REALConsultant: MARIA D POLK MD 05/18/2020 11:15:00 AM EDT - 05/20/2020 12:20:00 PM EDT [facility] Patient discharged. Outpatient Attender: MARIA D POLK MDConsultant: MARIA D Jin MD 05/18/2020 10:01:00 AM EDT - 05/18/2020 10:01:00 AM EDT [facility] Outpatient Attender: Dawna Churchonsultant: MARIA D POLK MD 05/13/2020 01:00:00 PM EDT - 05/13/2020 01:10:00 PM EDT [facility] Outpatient Attender: Dawna Mac nder: Chester Lam MDReferrer: Chester Lam MDConsultant: PCP NO 05/13/2020 12:13:00 PM EDT - 05/13/2020 12:23:00 PM EDT [facility] Outpatient Attender: MARIA D POLK MDConsultant: MARIA D Jin MD 05/13/2020 10:05:00 AM EDT - 05/13/2020 10:05:00 AM EDT [facility] Outpatient Attender: MARIA D POLK MDConsultant: MARIA D Jin MD 04/04/2020 09:04:00 AM EDT - 04/04/2020 09:04:00 AM EDT [facility] Outpatient Attender: MARIA D POLK MD Family Practice 04/04/2020 0 9:00:00 AM EDT [facility] ([facility]) Outpatient Attender: RAYMUNDO COMMEYReferrer: RAYMUNDO ESCALERA EY MOB-MOB.PAT 12/29/2019 12:00:00 AM EST - 12/29/2019 12:37:03 PM EST [facility] Inpatient Attender: RAYMUNDO Ortiz thomas: RAYMUNDO COMMEYAdmitter: RAYMUNDO MORILLO [id number] 12/23/2019 08:08:58 AM EST - 01/16/2020 10:10:00 AM EDT [facility] Patient discharged. Outpatient Attender: MARIA D POLK MDConsultant: MARIA D Jin MD 12/14/2019 01:43:00 PM EST - 12/14/2019 01:43:00 PM [facility] Outpatient Attender: MARIA D POLK MD Family Practice 12/14/2019 0 1:00:00 PM EST [facility] ([facility]) Outpatient Attender: RADHA MARTE MDConsultant: MARIA D Jin MD 11/25/2019 10:47:00 AM EST - 11/25/2019 10:47:00 AM [facility] 08:00:00 AM EST [facility] Outpatient Attender: MARIA D POLK MDConsultant: MARIA D Jin MD 10/31/2019 09:05:00 AM EST - 10/31/2019 10:05:00 AM [facility] Outpatient Attender: MARIA D POLK MDRef errer: CLAUDIA CRANE DPMConsultant: MARIA D POLK MD 10/29/2019 09:06:56 AM EST - 12/31/2019 10:06:00 AM [facility] Patient discharged. Outpatient Attender: MARIA D POLK MDConsultant: MARIA D Jin MD 10/22/2019 09:05:00 AM EST - 10/22/2019 09:05:00 AM [facility] Outpatient Attender: MARIA D POLK MD Family Practice 10/22/2019 0 8:20:00 AM EST [facility] ([facility]) Outpatient Attender: CLAUDIA CRANE [facility] Office 10/04 10:00:00 AM EST [facility] ([facility] Immunizations Vaccine Date Status Description Data Source(s) New in 2011. IIV4 10/12/2020 08:42:00 AM EST completed [facility] ([facility] [place]) Medications Medication Brand Name Start Date Product Form Dose Route Admi nistrative Instructions Pharmacy Instructions Status Indications Reaction Description Data Source(s) Ciprofloxacin 250 MG Oral Tablet Ciprofloxacin HCL 10/12/2020 12:00 :00 AM EST ORAL completed [facility] ([facility]) cetirizine hydrochloride 10 MG Oral Tablet Cetirizine HCL 05/10/2020 12:00:00 AM EDT ORAL active [facility] ([facility]) Ciprofloxacin 250 MG Oral Tablet [Cipro] Cipro 04/05/2020 12:00: 00 AM EDT ORAL completed [facility] ([facility]) 12 HR Bupropion Hydrochloride 150 MG Ext ended Release Oral Tablet buPROPion (WELLBUTRIN SR) 12 hr tablet 150 mg buPROPion (WELLBUTRIN SR) 12 hr tablet 1 50 mg 01/16/2020 09:00:00 AM EDT 150 mg Oral active 150 mg, Oral, Daily, First dose on 01/16/20 at 0900, Post-op [facility] Medication administered onsite topiramate 100 MG Oral Tablet topiramate (TOPAMAX) tab let 100 mg topiramate (TOPAMAX) tablet 100 mg 01/16/2020 09:00:00 AM EDT 100 mg Oral active 100 mg, Oral, Daily, First dose on 01/16/20 at 0900, Post-op
For administration and preparation considerations, refer to Hazardous Drugs in the Workplace Policy on Intranet.
[facility] Medication administered onsite ondansetron (ZOFRAN-ODT) disintegrating tablet 8 mg 01/16/2020 06:00:00 AM EDT 8 mg Oral active [Order 1 Start] Name: ondansetron (ZOFRAN-ODT) disintegrating tablet 8 mg Signed Summary: 8 mg, Oral, Every 6 hours PRN, nausea, Starting 01/16/20 at 0600, Post-op [Order 1 End] [Order 2 Start] Na me: ondansetron (ZOFRAN) injection 8 mg Signed Summary: 8 mg, Intravenous, Every 6 hours PRN, nausea, severe nausea, Starting 01/16/20 at 0600, Post-op [Order 2 End] [facility] Medication administered onsite heparin (porcine) injection 5,000 Units [id number] 01/16/20 01:00:00 AM EDT 5000 U Subcutaneous active 5,000 Units , Subcutaneous, Every 8 hours (relative), First dose on 01/16/20 at 0100, Post-op
If platelet count is less than 100,000 or hematocrit is less than 25, or if there is a 5 point decrea se in hematocrit, do not give the dose and call physician/designee.
[facility] Medication administered onsite Ondansetron 4 MG Disintegrating Oral Tab let ondansetron (ZOFRAN-ODT) disintegrating tablet 8 mg ondansetron (ZOFRAN-ODT) disintegrating tablet 8 mg 01/16/2020 12:00:00 AM EDT 8 mg Oral active 8 mg, Oral, Every 6 hours (scheduled), First dose on 01/16/20 at 0000, For 24 hours, Post-op [facility] Medication administered onsite Acetaminophen 325 MG Oral Tablet acetaminophen (TYLENO L) 325 MG tablet 650 mg acetaminophen (TYLENOL) 325 MG tablet 650 mg 01/16/2020 12:00:00 AM EDT 650 mg Oral active 650 mg, Or al, Every 4 hours PRN, mild pain (1-3), for mild pain, headache, or temperature > 101, Starting 01/16/20 at 0000, Post- op
To begin after routine doses of tylenol.
[facility] Medication administered onsite Acetaminophen 500 MG Oral Tablet acetaminophen (TYLENO L) tablet 1,000 mg acetaminophen (TYLENOL) tablet 1,000 mg 01/15/2020 11:00:00 PM EDT 1000 mg Oral active 1,000 mg, Oral , Every 8 hours, First dose on Sat01/15/20 at 2300, For 48 hours, Post-op [facility] Medication administered onsite 1 ML Ketorolac Tromethamine 30 MG/ML Car tridge ketorolac (TORADOL) injection 30 mg ketorolac (TORADOL) injection 30 mg 01/15/2020 11:00:00 PM EDT 30 mg Intravenous active 30 mg, Intrav enous, Every 6 hours PRN, severe pain (7-10), Starting Sat01/15/20 at 2300, For 4 doses, Post-op [facility] Medication administered onsite normal saline flush 0.9 % injection 3 mL [id number] 01/15/2020 10:00:00 PM EDT 3 mL Intravenous active 3 mL , Intravenous, QSHIFT, First dose on Sat01/15/20 at 2200, Post-op
Convert to saline lock after discontinuing D5LR IV.
[facility] Medication administered onsite gabapentin 600 MG Oral Tablet gabapentin (NEURONTIN) t ablet 600 mg gabapentin (NEURONTIN) tablet 600 mg 01/15/2020 09:00:00 PM EDT 600 mg Oral active 600 mg, Oral, 2 times daily, First dose on Sat01/15/20 at 2100, Post-op [facility] Medication administered onsite 24 HR venlafaxine 75 MG Extended Release Oral Capsule venlafaxine (EFFEXOR-XR) 24 hr capsule 75 mg venlafaxine (EFFEXOR-XR) 24 hr capsule 75 mg 0 09:00:00 PM EDT 75 mg Oral active 75 mg, Oral, 2 times daily, First dose on Sat01/15/20 at 2100, Post-op [facility] Medication administered onsite 60 ACTUAT formoterol fumarate 0.005 MG/A CTUAT / mometasone furoate 0.2 MG/ACTUAT Metered Dose Inhaler mometasone-formoterol (DULERA) 200-5 MCG/ACT inhaler 2 puff mometasone-formoterol (DULERA) 200-5 MCG/ACT inhaler 2 puff 01/15/2020 08:00:00 PM EDT 2 {puff} Inhalation active 2 pu ff, Inhalation, 2 times daily, First dose on Sat01/15/20 at 2000, Post-op [facility] Medication administered onsite Calcium Chloride 0.001 MEQ/ML / Glucose 50 MG/ML / Potassium Chloride 0.004 MEQ/ML / Sodium Chloride 0.103 MEQ/ML / Sodium Lactate 0.028 MEQ/ML Injectable Solution dextrose 5 % in lactated ringers infusion dextrose 5 % in lactated ringers infusion 01/15/2020 08:00:00 PM EDT 150 mL/h Intravenous active at 150 mL/hr, 150 mL/hr, Intravenous, Co ntinuous, Starting Sat01/15/20 at 1999, Post-op
Discontinue IV with adequate PO & convert to saline lock
[facility] Medication administered onsite pantoprazole 40 MG Delayed Release Oral Tablet pantoprazole (PROTONIX) EC tablet 40 mg pantoprazole (PROTONIX) EC tablet 40 mg 01/15/2020 08:00:00 PM E DT 40 mg Oral active Stress Ulcer Prophylaxis 40 mg, Oral, Daily, Indications: Stress Ulcer Prophylaxis, First dose on Sat01/15/20 at 1999, Post-op [facility] Stress Ulcer Prophylaxis Medication administered onsite Simethicone 80 MG Chewable Tablet simethicone (MYLICON ) chewable tablet 80 mg simethicone (MYLICON) chewable tablet 80 mg 01/15/2020 08:00:00 PM EDT 80 mg Oral active 80 mg, Oral, E very 4 hours (scheduled), First dose on Sat01/15/20 at 1999, Post-op [facility] Medication administered onsite glycopyrrolate (ROBINUL) injection 0.4 mg [id number] 01/15/2020 07:00:00 PM EDT 0.4 mg Intravenous completed 0. 4 mg, Intravenous, Once, Sat01/15/20 at 1900, For 1 dose, PACU (only) [facility] Medication administered onsite metoclopramide (REGLAN) injection 10 mg 01/15/2020 06:50:2 6 PM EDT 10 mg Intravenous active [Order 1 Star t] Name: metoclopramide (REGLAN) injection 10 mg Signed Summary: 10 mg, Intravenous, Every 6 hours PRN, nausea, not relieved by ondansetron, Starting Sat01/15/20 at 1850, Post-op
Once in PACU then every 6 hours PRN for nausea
[Order 1 End] [Order 2 Start] Name: metoclopramide (REGLAN) tablet 10 mg Signed Summary: 10 mg, Oral, Every 6 hours PRN, nausea, not relieved by ondansetron, Starting Sat01/15/20 at 1850, Post- op
Once in PACU then every 6 hours PRN for nausea
[Order 2 End] [facility] Medication administered onsite Promethazine Hydrochloride 25 MG Oral Ta blet promethazine (PHENERGAN) tablet 12.5 mg promethazine (PHENERGAN) tablet 12.5 mg 01/15/2020 06:50:25 PM E DT 12.5 mg Oral active 12.5 mg, O ral, Every 4 hours PRN, nausea, not relieved by prochlorperazine, Starting Sat01/15/20 at 1850, Post-op [facility] Medication administered onsite Prochlorperazine 10 MG Oral Tablet prochlorperazine (C OMPAZINE) tablet 10 mg prochlorperazine (COMPAZINE) tablet 10 mg 01/15/2020 06:50:25 PM EDT 10 mg Oral active 10 mg, Oral, E very 6 hours PRN, nausea, not relieved by metoclopramide, Starting Sat01/15/20 at 1850, Post-op [facility] Medication administered onsite Sumatriptan 50 MG Oral Tablet SUMAtriptan (IMITREX) ta blet 25 mg SUMAtriptan (IMITREX) tablet 25 mg 01/15/2020 06:50:25 PM EDT 25 mg Oral active 25 mg, Oral, Daily PRN, migraine, Starting Sat01/15/20 at 1850, Post-op
May repeat dose in 2 hours if no relief.Do not exceed 2 doses in 24 hours.
[facility] Medication administered onsite 4 ML Labetalol hydrochloride 5 MG/ML Car tridge labetalol (NORMODYNE,TRANDATE) injection 20-40 mg labetalol (NORMODYNE,TRANDATE) injection 20-40 mg 01/02 06:50:25 PM EDT Intravenous active 20-40 mg, Intravenous, Every 10 min PRN, high blood pressure, For SBP >/= 180, Starting Sat01/15/20 at 1850, PACU (only)
For SBP greater than 180 give:Initial dose:Labetalol 20 mg IVP over 4 minutesMay repeat in 10 minutes with: Labetalol 40 mg IVP over 4 minutesMAXIMUM DOSE 300 MGHOLD FOR HR LESS THAN 60
[facility] Medication administered onsite 4 ML Labetalol hydrochloride 5 MG/ML Car tridge labetalol (NORMODYNE,TRANDATE) injection 5-20 mg labetalol (NORMODYNE,TRANDATE) injection 5-20 mg 01/14 06:50:25 PM EDT Intravenous active 5-20 mg, Intravenous, Every 10 min PRN, high blood pressure, Starting Sat01/15/20 at 1850, PACU (only)
For SBP 140-149 give:Initial dose: [id number] ivp over 2 minutes May repeat in 10 minutes with:Labetalol 10 mg ivp over 2 minutesMay repeat in 10 minutes with:Labetalol 20 mg ivp over 2 minutes MAXIMUM DOSE 300 MGHOLD FOR HR LESS THAN 60
[facility] Medication administered onsite 4 ML Labetalol hydrochloride 5 MG/ML Car tridge labetalol (NORMODYNE,TRANDATE) injection 10-40 mg labetalol (NORMODYNE,TRANDATE) injection 10-40 mg 01/02 06:50:25 PM EDT Intravenous active 10-40 mg, Intravenous, Every 10 min PRN, high blood pressure, For SBP 150-179, Starting Sat01/15/20 at 1850, PACU (only)
For SBP 150-179 give:Initial dose:Labetalol 10 mg IVP over 2 minutesMay repeat in 10 minutes with: Labetalol 20 mg IVP over 2 minutes x 1 doseMay repeat in 10 minutes with: Labetalol 40 mg IVP over 4 minutes for SBP >/= 150 - or - Labetalol 20 mg IVP over 2 minutes for SBP 140 to 149MAXIMUM DOSE 300 MGHOLD FOR HR LESS THAN 60
[facility] Medication administered onsite enalaprilat (VASOTEC) injection 1.25 mg [id number] 03/13/20 20 06:50:24 PM EDT 1.25 mg Intravenous active 1.25 mg, Int ravenous, Every 6 hours PRN, for SBP > 140 mmHg and/or DBP > 90 mmHg, Starting Sat01/15/20 at 1850, Post- op
Mix in 50 mL NS, infuse over 30 minutes via infusion pump.For IVMB on NON-ICU units.
[facility] Medication administered onsite Albuterol 0.833 MG/ML / Ipratropium Brom kendrick 0.167 MG/ML Inhalant Solution ipratropium-albuterol (DUO-NEB) 0.5-2.5 mg/mL nebulizer solution 3 mL ipratropium-albuterol (DUO-NEB) 0.5-2.5 mg/mL nebulizer solution 3 mL 01/15/2020 06:50:24 PM EDT 3 mL Inhalation active 3 mL, Inhalation, Daily PRN, for shortness of breath, Starting Sat01/15/20 at 1850, Post-op [facility] Medication administered onsite Albuterol 0.83 MG/ML Inhalant Solution a lbuterol (PROVENTIL) nebulizer solution 2.5 mg albuterol (PROVENTIL) nebulizer solution 2.5 mg 2019 06:50:24 PM EDT 2.5 mg active 2.5 mg, Nebulization, RT every 4 hours as needed, wheezing, shortness of breath, Starting Sat01/15/20 at 1850, Post-op [facility] Medication administered onsite Hydralazine Hydrochloride 20 MG/ML Injec table Solution hydrALAZINE (APRESOLINE) injection 5 mg hydrALAZINE (APRESOLINE) injection 5 mg 01/15/2020 06: 50:24 PM EDT 5 mg Intravenous active 5 mg , Intravenous, Every 20 min PRN, high blood pressure, Starting Sat01/15/20 at 1850, For 4 doses, PACU (only)
If Labetalol can't be used:hydraALAZINE 5 mg every 20 minutes as needed up to M AX 20 mg
[facility] Medication administered onsite Clonidine Hydrochloride 0.1 MG Oral Tablet cloNIDine ( CATAPRES) tablet 0.1 mg cloNIDine (CATAPRES) tablet 0.1 mg 01/15/2020 06:50:24 PM EDT 0.1 mg Oral active 0.1 mg, Oral, Every 1 hour prn, high blood pressure, for hypertension, Starting Sat01/15/20 at 1850, For 8 doses, PACU (only)
If both Labetalol & Hydralazine have been attempted without adequate blood pressure control:CloNIDine 0.1 mg po x 1 doseMay repeat every 1 hour as needed to a MAX 0.8 mg
[facility] Medication administered onsite Clonidine Hydrochloride 0.1 MG Oral Tablet cloNIDine ( CATAPRES) tablet 0.1 mg cloNIDine (CATAPRES) tablet 0.1 mg 01/15/2020 06:50:24 PM EDT 0.1 mg Oral active 0.1 mg, Oral, Every 4 hours PRN, high blood pressure, for SBP > 140 mmHg and/or DBP > 90 mmHg, Starting Sat01/15/20 at 1850, Post-op [facility] Medication administered onsite heparin (porcine) injection 5,000 Units [id number] 01/15/20 12:00:00 PM EDT 5000 U Subcutaneous completed 5,000 Uni ts, Subcutaneous, community nurse, Sat01/15/20 at 1200, For 1 dose, Pre-op
If platelet count is less than 100,000 or hematocrit is less than 25, or if there is a 5 point decrease in hematocrit, do not give the dose and call physician/designee.
[facility] Medication administered onsite Calcium Chloride 0.0014 MEQ/ML / Potassi um Chloride 0.004 MEQ/ML / Sodium Chloride 0.103 MEQ/ML / Sodium Lactate 0.028 MEQ/ML Injectable Solution lactated ringers infusion lactated ringers infusion 01/15/2020 12:00:00 PM EDT 100 mL/h Intravenous aborted at 100 m L/hr, 100 mL/hr, Intravenous, Continuous, Starting Sat01/15/20 at 1200, Pre-op
Please place IV on left side if able
[facility] Medication administered onsite Prochlorperazine 10 MG Oral Tablet prochlorperazine (C OMPAZINE) tablet 10 mg prochlorperazine (COMPAZINE) tablet 10 mg 01/15/2020 12:00:00 PM EDT 10 mg Oral completed 10 mg, Oral, O n call, Sat01/15/20 at 1200, For 1 dose, Pre-op [facility] Medication administered onsite Clonidine Hydrochloride 0.1 MG Oral Tablet cloNIDine ( CATAPRES) tablet 0.1 mg cloNIDine (CATAPRES) tablet 0.1 mg 01/15/2020 12:00:00 PM EDT 0.1 mg Oral completed 0.1 mg, Oral, community nurse, Sat at 1200, For 1 dose, Pre-op [facility] Medication administered onsite Dexamethasone 4 MG Oral Tablet dexamethasone (DECADRON ) tablet 4 mg dexamethasone (DECADRON) tablet 4 mg 01/15/2020 12:00:00 PM EDT 4 mg Oral completed 4 mg, Oral, community nurse, Sat01/15/20 at 1200, For 1 dose, Pre-op [facility] Medication administered onsite Albuterol 0.83 MG/ML Inhalant Solution a lbuterol (PROVENTIL) nebulizer solution 2.5 mg albuterol (PROVENTIL) nebulizer solution 2.5 mg 2019 12:00:00 PM EDT 2.5 mg completed 2.5 mg , Nebulization, community nurse, Sat01/15/20 at 1200, For 1 dose, Pre-op
To be started by pre-op unit
[facility] Medication administered onsite Acetaminophen 325 MG Oral Tablet acetaminophen (TYLENO L) 325 MG tablet 975 mg acetaminophen (TYLENOL) 325 MG tablet 975 mg 01/15/2020 12:00:00 PM EDT 975 mg Oral completed 975 mg, Or al, community nurse, Sat01/15/20 at 1200, For 1 dose, Pre-op
"Maximum dose of acetaminophen is 4,000 mg from all sources in 24 hours."
[facility] Medication administered onsite Oseltamivir 75 MG Oral Capsule [Tamiflu] Tamiflu 12/14/2019 12:00: 00 AM EST ORAL completed [facility] ([facility]) topiramate 100 MG Oral Tablet [Topamax] Topamax 10/22/2019 12:00:0 0 AM EST ORAL active [facility] ([facility]) topiramate 25 MG Oral Tablet [Topamax] Topamax 07/23/2019 12:00:00 AM EDT ORAL completed [facility] ([facility]) Acetaminophen 325 MG Oral Tablet acetaminophen (TYLENO L) 325 MG tablet acetaminophen (TYLENOL) 325 MG tablet 01/24/2019 12:00:00 AM EDT 65 0 mg Oral aborted Take 2 tablets (650 mg total) by mouth every 6 (six) hours as needed for pain [facility] Simethicone 80 MG Chewable Tablet simethicone (MYLICON ) 80 MG chewable tablet simethicone (MYLICON) 80 MG chewable tablet 01/24/2019 12:00:00 AM EDT 80 mg Oral aborted Chew 1 tablet (80 mg total) every 6 (six) hours as needed for flatulence [facility] Vitamin B 12 0.5 MG Oral Tablet cyanocob alamin ([employer] VITAMIN B-12) 500 MCG tablet cyanocobalamin ([employer]S VITAMIN B-12) 500 MCG tablet 01/24/2019 12:0 0:00 AM EDT 500 ug Oral active Take 1 tablet (500 mcg t otal) by mouth daily [facility] Multiple Vitamins-Minerals (MULTIVITAMIN WITH MINERALS) tabl et [id number] 01/24/2019 12:00:00 AM EDT 2 {tbl} Oral active Take 2 tablets by mouth daily [facility] Insurance Providers Payer name Policy type / Coverage type Policy ID Covered constitution party ID Covered constitution party's relationship to lynn Policy Lynn Plan Information [facility] [id number] SP [id number] [facility] [id number] [employer] AT [facility] [place] [id number] 18 [id number] [employer] AT [facility] [id number] 18 [id number] [employer] AT [facility] [id number] 18 [id number] [facility] [id number] [facility] [id number] Spo [id number] [employer] AT [facility] [place] [id number] 18 [id number] [facility] Commercial [id number] Self [id number] [facility] AT [facility] [id number] Self [id number] [facility] Commercial [id number] Self [id number] [employer] [id number] [employer]mercial [id number] [facility] Commercial [id number] Self [id number] [facility] Commercial [id number] Self 000 [id number] [facility] Commercial [id number] Self [id number] [facility] PI PI [facility] [employer] [id number] Spo [id number] [facility] Commercial [id number] Self [id number] [facility] Commercial [id number] Self [id number] [facility] Commercial [id number] Self 000 [id number] [facility] Commercial [id number] Self 000 [id number] [facility] [employer] [id number] Génesis [id number] [facility] Commercial [id number] Self 000 [id number] [facility] Commercial [id number] Self 000 [id number] [facility] Commercial [id number] Self [id number] [facility] Commercial [id number] Self [id number] [facility] Commercial [id number] Self 000 [id number] [employer] AT [facility] ([facility] [id number] Self [id number] [facility] Commercial [id number] Self [id number] [employer] [id number] [facility] Commercial [id number] Self 000 [id number] [employer] AT [facility] ([facility] [id number] Self [id number] [facility] Commercial [id number] Self 000 [id number] [facility] Commercial [id number] Self 000 [id number] [place] [employer] [id number] Self [id number] Problems, Conditions, and Diagnoses Code Display Name Description Problem Type Effective Dates Data Source(s) Z90.49 S/P laparoscopic cholecystectomy S/P laparoscopi c cholecystectomy [id number] 01/15/2020 12:00:00 AM EDT [facility] [id number] Edema Edema Problem 09/15/2019 12:0 0:00 AM EST - 10/29/2019 12:00:00 AM EST [facility] ([facility] J439 Emphysema, unspecified Emphysema, unspecified Diagnosi s 10/25/2020 07:59:00 AM [facility] [id number] Pain in left finger(s) Pain in left finger(s) Diagnosi s 10/25/2020 07:59:00 AM [facility] M7989 Other specified soft tissue disorders Ot her specified soft tissue disorders Diagnosis 10/25/2020 07:59:00 AM [facility] Z8639 Personal history of other endocrine, nut ritional and metabolic disease Personal history of other endocrine, nutritional and metabolic disease Diagnosis 10/12/2020 12:09:00 PM [facility] Z9884 Bariatric surgery status Bariatric surgery status Diag nosis 10/12/2020 12:09:00 PM [facility] E559 Vitamin D deficiency, unspecified Vitamin D defi ciency, unspecified Diagnosis 10/12/2020 12:09:00 PM [facility] 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, 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 Postsurgical malabsorption, not elsewhere classified Diagnosis 10/12/2020 12:09:00 PM [facility] Z23 Encounter for immunization Encounter for immunization Diagnosis 10/12/2020 09:10:00 AM [facility] N390 Urinary tract infection, site not specif ied Urinary tract infection, site not specified Diagnosis 10/12/2020 09:10:00 AM [facility] L987 Excessive and redundant skin and subcuta neous tissue Excessive and redundant skin and subcutaneous tissue Diagnosis 07/13/2020 01:13:00 P M EDT [facility] J4540 Moderate persistent asthma, uncomplicate d Moderate persistent asthma, uncomplicated Diagnosis 06/15/2020 08:56:00 AM EDT [facility] 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 Idiopathic pro gressive neuropathy Diagnosis 06/15/2020 08:56:00 AM EDT [facility] J309 Allergic rhinitis, unspecified Allergic rhinitis, unsp ecified Diagnosis 06/15/2020 08:56:00 AM EDT [facility] F419 Anxiety disorder, unspecified Anxiety disorder, unspec ified Diagnosis 06/15/2020 08:56:00 AM EDT [facility] [id number] Migraine without aura, not intractable, without status migrainosus Migraine without aura, not intractable, without status migrainosus Diagnosis 06/15/2020 08:56:00 AM EDT [facility] I10 Essential (primary) hypertension Essential (primary) h ypertension Diagnosis 05/18/2020 11:15:00 AM EDT [facility] [id number] Migraine, unspecified, not intractable, without status migrainosus Migraine, unspecified, not intractable, without status migrainosus Diagnosis 05/18/2020 11:15:00 AM T [facility] I441 Atrioventricular block, second degree At rioventricular block, second degree Diagnosis 05/18/2020 11:15:00 AM T [facility] R51 Headache Headache Diagnosis 05/18/2020 10:01:[address] [facility] [id number] Unspecified asthma, uncomplicated Unspecified as thma, uncomplicated Diagnosis 04/04/2020 09:04:00 AM T [facility] F339 Major depressive disorder, recurrent, un specified Major depressive disorder, recurrent, unspecified Diagnosis 04/04/2020 09:04:00 AM EDT [facility] 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 Acquired absence of other specified part Diagnosis 01/15/2020 09:56:00 AM EDT [facility] K80.20 Calculus of gallbladder without cholecys titis without obstruction Calculus of gallbladder without cholecys Diagnosis 01/15/2020 09:56:00 AM EDT [facility] K80.10 Calculus of gallbladder with chronic cho lecystitis without obstruction Calculus of gallbladder with chronic cho Diagnosis 12/29/2019 11:18:39 AM EST [facility] J09X2 Influenza due to identified novel influenza A virus with other respiratory manifestations Influenza due to identified novel influe nza A virus with other respiratory manifestations Diagnosis 12/14/2019 01:43:00 PM [facility] K8020 Calculus of gallbladder without cholecys titis without obstruction Calculus of gallbladder without cholecystitis without obstruction Diagnosis 11/25/2019 10:47:00 AM [facility] R935 Abnormal findings on diagnos tic imaging of other abdominal regions, including retroperitoneum Abnormal findings on diagnostic imaging of other abdominal regions, including retroperitoneum Diagnosis 9 09:05:00 AM [facility] M545 Low back pain Low back pain Diagnosis 10/29/2019 09:12:00 AM [facility] [id number] Sprain of unspecified ligament of left a nkle, subsequent encounter Sprain of unspecified ligament of left ankle, subsequent encounter Diagnosis 10/29/2019 09:12:00 AM [facility] Z6833 Body mass index (BMI) 33.0-33.9, adult B sindhu mass index (BMI) 33.0-33.9, adult Diagnosis 10/22/2019 09:05:00 AM [facility] Surgeries/Procedures Procedure Description Date Indications Data Source(s) Spirometry 07/21/2020 12:00:00 AM EDT [facility] ([facility], ) GLUC BLD GLUC MNTR DEV CLEARED FDA SPEC HOME USE POCT GLUCOSE Routine 01/15/2020 11:15 AM EDT 01/15/2020 03:15:00 PM EDT [facility] POCT I-STAT BETA HCG POCT I-STAT BETA HCG Routine 01/15/2020 11:12 AM EDT 01/15/2020 03:12:00 PM EDT [facility] BLOOD COUNT COMPLETE AUTOMATED CBC Routine 0 12:30 PM EST Calculus of gallbladder with cholecystitis without biliary obstruction, unspecified cholecystitis acuity 12/29/2019 05:30:00 PM EST Calculus of gallbladder with cholecystitis without biliary obstruction, unspecified cholecystitis acuity [facility] Calculus of gallbladder with cholecystit is without biliary obstruction, unspecified cholecystitis acuity Brief Emotional/Behav Assessment W/ Scoring Doc Per Standard Inst 12/14/2019 12:00:00 AM EST [facility] ([facility]) Results ID Date Data Source [id number] 11/10/2020 12:00:00 PM EST ALEXANDRA Name Value Range Interpretation Code Description Data Tiffani rce(s) Supporting Document(s) SARS coronavirus 2 RNA Not Detected [facility] [place] This lab was ordered by [facility] and reported by [facility]. ID Date Data Source [id number] 11/07/2020 08:54:00 AM EST [facility] [address] [place] [address] PHONE: [phone] FAX: [phone] Name .................. : HEATHER HEARD Acct Number.................. : [id number] ROOM. ................. : Number ................... : [id number] Stay type ............. : CLINIC Discharge Date......... ... : 11/03/20 Admit Date ......... : 11/03/20 Admit Phys .................... : [employer] HARD Date of ....... : 1980 Family Phys ................... : [place]url Phone .................. : [phone] Age ................................ : 39 Film# .................. .:[id number] Sex ................................. : F Unsigned transcriptions are preliminary reports and do not represent a medical or legal document CHEST 2 VIEWS [id number] COMPLETE:11/03/20 11:20 MICHAEL 1190 (REASON FOR CHEST: R PA AND LATERAL CHEST, 11/03/20: Comparison is previous 10/29/18. FINDINGS: The cardiac and mediastinal silhouettes appear normal and the lungs are clear. The bones and soft tissues are normal. The upper abdomen is unremarkable. IMPRESSION: No acute disease identifiable. Electronically Reviewed and Signed By Reagan Randolph MD , 11/07/20 08:54, [facility] Transcribe Initials: SSR, Transcribe Date: 11/03/20 11:51, Dictation Date: Page 1 of 1 Name Value Range Interpretation Code Description Data Tiffani rce(s) Supporting Document(s) ID Date Data Source [id number] 11/03/2020 09:31:00 AM EST [facility] ([facility]) Name Value Range Interpretation Code Description Data Tiffani rce(s) Supporting Document(s) Chest Xray 2 Views Laboratory test result [facility] ([facility]) ID Date Data Source [id number] 11/03/2020 09:31:00 AM EST [facility] ([facility]) Name Value Range Interpretation Code Description Data Tiffani rce(s) Supporting Document(s) Sodium 139 meq/L 134-153 [facility] ([facility]) Is patient fasting? N Comprehensive Metabo Laboratory test result [facility] ([facility]) Is patient fasting? N Chloride 104 meq/L 98-107 [facility] ([facility]) Is patient fasting? N Potassium 4.2 meq/L 3.6-5.0 [facility] ([facility]) Is patient fasting? N Co2 26 meq/L 22-30 [facility] ([facility]) Is patient fasting? N Creatinine 0.6 mg/dL 0.7-1.5 Below low normal [facility] ( [facility]) Is patient fasting? N Glucose 86 mg/dL 65-110 [facility] ([facility]) Is patient fasting? N BUN 10 mg/dL 7-21 [facility] ([facility]) Is patient fasting? N BUN/Creat 17 8-27 [facility] ([facility]) Is patient fasting? N Total Protein 5.8 g/dL 6.3-8.2 Below low normal [facility] ([facility]) Is patient fasting? N Globulin 1.6 GM/DL 2.4-3.2 Below low normal [facility] ( [facility]) Is patient fasting? N Albumin 4.2 g/dL 3.9-5.0 [facility] ([facility]) Is patient fasting? N A/G Ratio 2.6 0.8-2.0 Above high [facility] Is patient fasting? N Calcium 9.0 mg/dL 8.4-10.2 [facility] Is patient fasting? N Alkaline Phos 73 U/L 38-126 [facility] ([facility]) Is patient fasting? N Total Bili Laboratory test result 0.2-1.3 [facility] ([facility]) Is patient fasting? N SGPT/Alt 36 U/L 7-56 [facility] ([facility]) Is patient fasting? N Sgot/Ast 28 U/L 5-40 [facility] Is patient fasting? N Anion Gap 9.0 mmol/L 8.0-16.0 [facility] ([facility]) Is patient fasting? N Non-Aa GFR Laboratory test result [facility] ([facility]) Is patient fasting? N Age 39 yrs [facility] ([facility]) Is patient fasting? N Afr Amer GFR Laboratory test result [facility] ([facility]) Is patient fasting? N ID Date Data Source [id number] 11/03/2020 09:31:00 AM EST [facility] ([facility]) Name Value Range Interpretation Code Description Data Tiffani rce(s) Supporting Document(s) CBC W/Automated Diff Laboratory test result [facility] ([facility]) Is patient fasting? N WBC 4.9 10^3/uL 4.2-11.0 [facility] ([facility]) Is patient fasting? N Hematocrit 39.9 % 37.0-47.0 [facility] ([facility]) Is patient fasting? N RBC 4.65 10^6/uL 4.20-5.40 [facility] ([facility]) Is patient fasting? N Hemoglobin 13.0 g/dL 12.0-16.0 [facility] ([facility]) Is patient fasting? N MCV 85.8 fL 81.0-101 [facility] ([facility]) Is patient fasting? N MCHC 32.6 g/dL 31.0-36.0 [facility] ([facility]) Is patient fasting? N MCH 28.0 pg 27.0-34.0 [facility] ([facility]) Is patient fasting? N RDW 13.2 % 11.5-14.5 [facility] ([facility]) Is patient fasting? N Platelets 263 10^3/uL 150-450 [facility] ([facility]) Is patient fasting? N Lymph 34.4 % 25.0-40.0 [facility] ([facility]) Is patient fasting? N Neut 51.1 % 37.0-80.0 [facility] ([facility]) Is patient fasting? N MPV 10.5 fL 7.4-10.4 Above high normal [facility] ([facility]) Is patient fasting? N Baso 0.6 % 0.0-2.5 [facility] ([facility]) Is patient fasting? N Highlands 9.6 % 3.0-8.0 Above high normal [facility] ([facility]) Is patient fasting? N Eos 3.9 % 0.0-7.0 [facility] ([facility]) Is patient fasting? N %NRBC 0.0 % 0.0-0.0 [facility] ([facility]) Is patient fasting? N %Ig 0.4 % 0.0-0.0 Above high normal [facility] ([facility]) Is patient fasting? N #Lymph 1.68 10^3/uL 0.60-3.40 [facility] ([facility]) Is patient fasting? N #Highlands 0.47 10^3/uL 0.00-0.90 [facility] ([facility]) Is patient fasting? N #Neut 2.49 10^3/uL 2.00-6.90 [facility] ([facility]) Is patient fasting? N #Eos 0.19 10^3/uL 0.00-0.70 [facility] ([facility]) Is patient fasting? N #Baso 0.03 10^3/uL 0.00-0.20 [facility] ([facility]) Is patient fasting? N #Ig 0.02 10^3/uL 0.00-0.10 [facility] ([facility]) Is patient fasting? N Manual Diff Laboratory test result [facility] ([facility]) Is patient fasting? N #NRBC 0.00 10^3/uL 0.00-0.00 [facility] ([facility]) Is patient fasting? N RBC Morph Laboratory test result [facility] ([facility]) Is patient fasting? N ID Date Data Source [id number] 11/03/2020 02:35:00 PM EST [facility] Name Value Range Interpretation Code Description Data Tiffani rce(s) Supporting Document(s) COMPREHENSIVE METABOLIC PANEL [facility] COMPREHENSIVE METABOLIC PANEL Sodium [Moles/volume] in Serum or Plasma 139 mEq/L 134 - 153 [facility] Potassium [Moles/volume] in Serum or Plasma 4.2 mEq/L 3.6 - 5.0 [facility] Chloride [Moles/volume] in Serum or Plasma 104 mEq/L 98 - 107 [facility] Carbon dioxide, total [Moles/volume] in Serum or Plasma 26 MEQ/L 22 - 30 [facility] Glucose [Mass/volume] in Serum or Plasma 86 MG/DL 65 - 110 [facility] BUN 10 MG[facility]DL 7 - [facility] Creat[facility] [Mass/volume] in Serum or Plasma 0.6 MG/DL 0.7 - 1.5 L [facility] BUN/CREAT 17 8 - 27 [facility] al Protein [Mass/volume] in Serum or Plasma 5.8 G/DL 6.3 - 8.2 L [facility] Albumin [Mass/volume] in Serum or Plasma 4.2 G/DL 3.9 - 5.0 [facility] Globulin [Mass/volume] in Serum by calculation 1.6 GM/DL 2.4 - 3.2 L [facility] A/G RATIO 2.6 0.8 - 2.0 H [facility] Calcium [Mass/volume] in Serum or Plasma 9.0 MG/DL 8.4 - 10.2 [facility] Bilirubin.total [Mass/volume] in Serum or Plasma <0.7 MG/DL 0.2 - 1.3 [facility] Alkaline phosphatase [Enzymatic activity/volume] in Serum or Plasma 73 U/L 38 - 126 [facility] Aspartate aminotransferase [Enzymatic activity/volume] in Serum or Plasma 28 U/L 5 - 40 [facility] Alanine aminotransferase [Enzymatic activity/volume] in Seru m or Plasma 36 U/L 7 - 56 [facility] Anion gap 3 in Serum or Plasma 9.0 mmol/L 8.0 - 16.0 [facility] AGE 39 yrs [facility] GFR >60 mL/min [facility] ital AFR AMER GFR >60 mL/min [facility] Male GFR In terprentation 20-49 yrs >60 mL/min Normal 50-59 yrs >56 mL/min Normal 60-69 yrs >49 mL/min Normal 70-79yrs >42 mL/min Normal 80 and above >35 mL/min Normal Female GFR Interpretation 20-39 yrs >60 mL/min Normal 40-49 yrs >58 mL/min Normal 50-59 yrs >51 mL/min Normal 60-69 yrs >45 mL/min Normal 70-79 yrs >39 mL/min Normal 80 and above >32 mL/min Normal ID Date Data Source [id number] 11/03/2020 02:19:00 PM EST [facility] Name Value Range Interpretation Code Description Data Tiffani rce(s) Supporting Document(s) CBC W/AUTOMATED DIFF [facility] COMPLETE BLOOD COUNT Leukocytes [#/volume] in Blood by Automated count 4.9 10^3/uL 4.2 - 1 1.0 [facility] Erythrocytes [#/volume] in Blood by Automated count 4.65 10^6/uL 4. 20 - 5.40 [facility] Hemoglobin [Mass/volume] in Blood 13.0 g/dL 12.0 - 16.0 [facility] Hematocrit [Volume Fraction] of Blood by Automated count 39.9 % 3 7.0 - 47.0 [facility] Erythrocyte mean corpuscular volume [Entitic volume] by Auto mated count 85.8 fL 81.0 - 101 [facility] Erythrocyte mean corpuscular hemoglobin [Entitic mass] by Automated count 28.0 pg 27.0 - 34.0 [facility] Erythrocyte mean corpuscular hemoglobin concentration [Mass/volume] by Automated count 32.6 g/dL 31.0 - 36.0 [facility] Erythrocyte distribution width [Ratio] by Automated count 13.2 % 11.5 - 14.5 [facility] Platelets [#/volume] in Blood by Automated count 263 10^3/uL 150 - 45 0 [facility] Platelet mean volume [Entitic volume] in Blood by Automated count 10.5 fL 7.4 - 10.4 H [facility] Neutrophils/100 leukocytes in Blood by Automated count 51.1 % 37. 0 - 80.0 [facility] Lymphocytes/100 leukocytes in Blood by Manual count 34.4 % 25.0 - 40.0 [facility] Monocytes/100 leukocytes in Blood by Automated count 9.6 % 3.0 - 8.0 H [facility] Eosinophils/100 leukocytes in Blood by Automated count 3.9 % 0.0 - 7.0 [facility] Basophils/100 leukocytes in Blood by Automated count 0.6 % 0.0 - 2.5 [facility] %IG 0.4 % 0.0 - 0.0 [facility] %NRBC 0.0 % 0.0 - 0.0 [facility] al Neutrophils [#/volume] in Blood by Automated count 2.49 10^3/uL 2.00 - 6.90 [facility] Lymphocytes [#/volume] in Blood by Automated count 1.68 10^3/uL 0.60 - 3.40 [facility] Monocytes [#/volume] in Blood by Automated count 0.47 10^3/uL 0.00 - 0.90 [facility] Eosinophils [#/volume] in Blood by Automated count 0.19 10^3/uL 0.00 - 0.70 [facility] Basophils [#/volume] in Blood by Automated count 0.03 10^3/uL 0.00 - 0.20 [facility] #IG 0.02 10^3/uL 0.00 - 0.10 [facility] #NRBC 0.00 10^3/uL 0.00 - 0.00 [facility] MANUAL DIFF NOT INDICATED [facility] RBC MORPH NOT INDICATED [facility] ID Date Data Source [id number] 10/26/2020 09:21:00 AM EST [facility] [address] [place] [address] PHONE: [phone] FAX: [phone] Name .................. : HEATHER HEARD Acct Number.................. : [id number] ROOM. ................. : VT-01 Number ................... : [id number] Stay type ............. : E/R Discharge Date......... ... : 10/25/20 Admit Date ......... : 10/25/20 Admit Phys .................... : NASIMA LINARES Date of ....... : 1980 Family Phys ................... : POLK HARD Phone .................. : [phone] Age ................................ : 39 Film# .................. .:[id number] Sex ................................. : F Unsigned transcriptions are preliminary reports and do not represent a medical or legal document [facility] [id number] COMPLETE:10/25/20 08:41 KBO 700 Reason(s): Pain, Joint LEFT SECOND FINGER, 10/25/20: FINDINGS: Examination reveals persistent flexion of the proximal interphalangeal joint, raising suspicion for underlying tendinous pathology. No evidence of an acute fracture or dislocation is identified. Soft tissues appear unremarkable. IMPRESSION: Persistent flexion at the PIP. Clinical correlation for possible tendinous pathology is recommended. Examination dictated by AUDRA Pena. Examination was reviewed with Azael Perry MD, radiologist at the time of this dictation. Electronically Reviewed and Signed By Azael Perry MD , 10/26/20 09:21, [facility] Transcribe Initials: SSR, Transcribe Date: 10/25/20 09:27, Dictation Date: Copy for: EMERGENCY DEPT via [facility] [place] Copy for: 710 MED REC DISCHARGED Page 1 of 1 Name Value Range Interpretation Code Description Data Tiffani rce(s) Supporting Document(s) ID Date Data Source [id number] 10/25/2020 07:59:00 AM EST [facility] 1 OrderSheet [facility] Emergency Department [address] [place] [address] Phone #: ext- [phone] 10/25/2020 07:56 Patient: CRYSTAL ROMERO Sex: F : 1980 Age: 39yWEIGHT:87.9 kg (S) HEIGHT:68 inches (S) BMI:29.5ALL[facility]: pain, swellingDIAGNOSIS: TendinitisLAB ORDERSOrder Description Priority Entered Acknowledged InitialedDIAGNOSTIC STUDY ORDERSOrder Description Priority Entered Acknowledged InitialedFingers Left STAT 08:18 10/25/2020 08:28 Marian,(Oxygen?(No)) Eli Fonseca RN; Eli VILLAREAL Verbal order per; Osito Del Real M.D. NOTES : L little finger Reason for Study: Pain, JointMEDICATION/IV/DRIP/FLUID ORDERSOrder Description Priority Entered Acknowledged InitialedCephalexin PO 500 08:51 10/25/2020 08:56 Marian,mg Osito Del Real RN, M.D.;GENERAL ORDERSOrder Description Priority Entered Acknowledged Initialed[Electronically signed by Eli Fonseca RN (09:08 10/25/2020)][Electronically signed by Osito Del Real M.D. (09:37 10/25/2020)][Electronically locked by Eli Fonseca RN (09:08 10/25/2020)] Name Value Range Interpretation Code Description Data Tiffani rce(s) Supporting Document(s) ID Date Data Source [id number] 10/25/2020 07:59:00 AM EST [facility] 1 Medication Reconciliation Report [facility] Emergency Department [address] [place] [address] Phone #: [phone] 10/25/2020 07:56 Patient: CRYSTAL ROMERO Sex: F : 1980 Age: 39yWeight: 87.9 kgHeight/Length: 68 in.BMI: 29.5ALLERGIES: BactrimThe patient's Home Medications are listed below:CONTINUE TAKING THE FOLLOWING MEDICATIONS: Advair Diskus Inhalation 1 puff, 2x a day Albuterol Sulfate HFA Inhalation 1 puff, 4x a day, prn Cetirizine HCl Oral 10 mg, daily Effexor XR Oral 75 mg, 2x a day Gabapentin Enacarbil ER Oral (600 mg) 1 tablet, 2x a day Imitrex Oral 25 mg, prn Spiriva HandiHaler Inhalation, 2x a day Topamax Oral 100 mg, daily, prn Wellbutrin SR Oral 150, 2x a dayThe source(s) of the original Home Medication information:patientThe following Medications were given to the patient in the Emergency Department:Ce phalexin [PO] PO 500 mg, administered: 08:56 10/25/2020The following Medications were prescribed to the patient:cephalexin 500 mg tablet Take 1 tablet three times a day for 7 days -- Dispense 21 tablet. Refills: 0.Substitution permitted. 2 Medication Reconciliation Report [facility] Emergency Department [address] [place] [address] Phone #: ext- [phone] 10/25/2020 07:56 Patient: CRYSTAL ROMERO Sex: F : 1980 Age: 39yPh[facility] - [facility] [id number] ; [place] [id number]. . -- Osito Del Real M.D. Name Value Range Interpretation Code Description Data Tiffani rce(s) Supporting Document(s) ID Date Data Source [id number] 10/25/2020 07:59:00 AM EST [facility] 1 Medication Administration Record [facility] Emergency Department [address] [place] [address] Phone #: ext- [phone] 10/25/2020 07:56 Patient: CRYSTAL ROMERO Sex: F : 1980 Age: 39yWeight: 87.9 kgHeight/Length: 68 inBMI: 29.5ALLERGIES: Bactrim Date/Time Medication Administered Medication OrderedGiven CEPHALEXIN [PO] Cephalexin PO 500 mg08:56 10/25/2020 Dose: 500 mg Eli Robertson RN Name Value Range Interpretation Code Description Data Tiffani rce(s) Supporting Document(s) ID Date Data Source [id number] 10/25/2020 07:59:00 AM EST [facility] 1 General Instructions [facility] Emergency Department [address] [place] [address] Phone #: ext- [phone] 10/25/2020 07:56 Patient: CRYSTAL ROMERO Sex: F : 1980 Age: 39yAcute tendonitis in the left little finger (mild, dorsum PIP joint left 5th finger, w bursitis).INSTRUCTIONSApply ice for 30 minutes four times a day for three days.Warnings: Further evaluation is necessary (orthopedics). It is very important to follow up with a healthcareprovider.GENERAL WARNINGS: Return or contact your physician immediately if your condition worsens orchanges unexpectedly, if not improving as expected, or if other problems arise. Specifically return if pain,vomiting, bleeding, breathing difficulty or fever greater than 102 degrees F and not controlled byacetaminophen or ibuprofen worsens.Your Current Medications: Your current home medications have been reviewed.CONTINUE TAKING THE FOLLOWING MEDICATIONS:Advair Diskus Inhalation : 1 puff 2x a day.Albuterol Sulfate HFA Inhalation : 1 puff 4x a day, prn.Cetirizine HCl Oral : 10 mg daily.Effexor XR Oral : 75 mg 2x a day.Gabapentin Enacarbil ER Oral : Tablet Extended Release 600 mg, 1 tablet 2x a day.Imitrex Oral : 25 mg, prn.Spiriva HandiHaler Inhalation : 2x a day.Topamax Oral : 100 mg daily, prn.Wellbutrin SR Oral : 150 2x a day.Prescription Medications:cephalexin 500 mg tablet Take 1 tablet three times a day for 7 days -- Dispense 21 tablet. Refills: 0.Substitution p ermitted.Pharmacy - [facility] [phone] ; [place] [id number]. .Follow-up:Return to the emergency department as needed. Follow up with an orthopedic surgeon in three dayseven if well. Call for an appointment. Reason for referral: evaluation and treatment. Summary of careprovided to patient via paper.Understanding of the discharge instructions verbalized by patient. Expected course of injury, dischargeinstructions, activity level, diet, prescriptions x1, follow-up appointment and risks and benefits of treatment 2 General Instructions [facility] Emergency Department [address] [place] [address] Phone #: ext- [phone] 10/25/2020 07:56 Patient: CRYSTAL ROMERO Sex: F : 1980 Age: 39yreviewed with patient and understanding verbalized. Agrees to plan of care.Follow-up with: [facility], , , [address] [address], [place], [address] Follow up in three days even if well. Call for an appointment. Reason for referral: evaluation andtreatment. Summary of care provided to patient via paper. ADDITIONAL INFORMATIONTendonitisA tendon is the thick fibrous cord that joins muscle to bone and allows joints to move. When a tendonbecomes inflamed, it is called tendonitis. This can occur from overuse, injury, or infection. Thisusually involves the shoulders, forearm, wrist, hands and feet. Symptoms include pain, swelling andtenderness to the touch. Moving the joint increases the pain.It takes 4 to 6 weeks or more for tendonitis to heal. It is treated by preventing motion of the tendon,occasionally with a splint or brace, and the use of anti-inflammatory medicine.Home care Some people find relief with ice packs. These can be crushed or cubed ice in a plastic bag or a bag of frozen vegetables wrapped in a thin towel. Other people get better relief with heat. This can include a hot shower, hot bath, or a moist towel warmed in a microwave. Try each and use the method that feels best, for 15 to 20 minutes several times a day. Rest the inflamed joint and protect it from movement. You may use tzzt-wkz-jeenuup ibuprofen or naproxen to treat pain and inflammation, unless another medicine was prescribed. If you can't take these medicines, acetaminophen may help with the pain, but does not treat inflammation. If you have chronic liver or kidney disease or ever had a stomach ulcer or gastrointestinal bleeding, talk with your doctor before using these medicines. As your symptoms improve, begin gradual motion at the involved joint.Follow-up careFollow up with your healthcare provider if you are not improving after 5 to 7 days of treatment.When to seek medical adviceCall your healthcare provider right away if any of these occur: 3 General Instructions [facility] Emergency Department [address] [place] [address] Phone #: ext- [phone] 10/25/2020 07:56 Patient: CRYSTAL ROMERO Sex: F : 1980 Age: 39y Redness over the painful area Increasing pain or swelling at the joint Fever lasting 24 to 48 hours or chills, or as advised by your healthcare provider [employer]. [address] [place] [address]. All rights reserved. This information is not intended as asubstitute for professional medical care. Always follow your healthcare professional's instructions. You have been given the following additional information: Tendonitis(Electronically signed by Osito Del Real M.D. 10/25/2020 09:37) Name Value Range Interpretation Code Description Data Tiffani rce(s) Supporting Document(s) ID Date Data Source [id number] 10/25/2020 07:59:00 AM EST [facility] 1 Clinical Report - Nurses [facility] Emergency Department [address] [place] [address] Phone #: ext- [phone] 10/25/2020 07:56 Patient: CRYSTAL ROMERO Sex: F : 1980 Age: 39yTRIAGEArrived by private vehicle. Historian: patient. ( presents with c/o awakening up this am with L little fingerswelling and pain in joint area, denies injury).Triage time: 08:02 10/25/2020. Acuity: LEVEL 4.Chief Complaint: Location of symptoms- left little finger.Alert. No acute distress.An injury may have occurred. This started just prior to arrival. She has had swelling and redness.Treatment COLLISION CENTER MANAGER:None.SEPSIS SCREEN: SIRS SCREEN NEGATIVE. SEPSIS SCREEN NEGATIVE. No suspected or confirmedsigns of infection present. --08:09 10/25/20 Eli Fonseca RN08:02 10/25/20. BP: 109/60. MAP: 76. HR: 66. RR: 16. O2 saturation: 97%. Temp: 97 F. Pain level now:12/14. --08:09 10/25/20 Eli Fonseca RN.Weight: 87.9 kg stated. Height/Length: 68 inches Per Patient. BMI: 29.5. --08:03 10/25/20 Eli Fonseca,DIONNA.MedicationsAdvair Diskus Inhalation 1 puff, 2x a day. Albuterol Sulfate HFA Inhalation 1 puff, 4x a day as needed. Cetirizine HCl Oral 10 mg, daily. Effexor XR Oral 75 mg, 2x a day. Gabapentin Enacarbil ER Oral (Tablet Extended Release 600 mg) 1 tablet, 2x a day . Imitrex Oral 25 mg, as needed. Spiriva HandiHaler Inhalation, 2x a day. Topamax Oral 100 mg, daily as needed. Wellbutrin SR Oral 150, 2x a day. --08:10/25/20 Eli Fonseca RN.AllergiesBactrim. --08:10/25/20 Eli Fonseca RN.PROBLEMS:Migraine Headache.Anxiety Reaction.Emphysema. 2 Clinical Report - Nurses [facility] Emergency Department [address] [place] [address] Phone #: ext- [phone] 10/25/2020 07:56 Patient: CRYSTAL ROMERO Sex: F : 1980 Age: 39y Depression. Sinus bradycardia. Neuropathy. --08:10/25/20 Eli Fonseca RN. Medication/allergy information source: the patient and patient's previous visit record. --08:10/25/20 Eli Fonseca RN. ADDITIONAL SURGERIES: Asthma. Cholecystectomy. Facial skin revision . Left ankle fracture with pins. Skin grafts. Tonsillectomy. Tubal Ligation. --08:10/25/20 Eli Fonseca RN. History PAST MEDICAL HX: Tetanus status: up-to-date. Immunizations: up-to-date. Last normal menstrual period was 1 week ago. Has had a tubal ligation. SOCIAL HX: Never smoker. Occasional alcohol use. No drug use. She was offered HIV testing but declined and hepatitis C testing but declined. She has not traveled outside the [place] Infectious disease exposure: No infectious disease exposure. SELF HARM ASSESSMENT: Self harm assessment was performed. The patient answered "no" to the question(s) "Have you recently felt down, depressed, or hopeless?". ABUSE ASSESSMENT: No report of abuse. NUTRITIONAL RISK ASSESSMENT: The nutritional risk assessment revealed no deficiencies. FUNCTIONAL ASSESSMENT: Functional assessment: no impairments noted. LEARNING NEEDS ASSESSMENT: The learning needs assessment revealed no barriers. FALL RISK ASSESSMENT: Fall risk assessment completed. No risk factors identified. SKIN INTEGRITY ASSESSMENT: Skin integrity risk assessment completed. No skin inte grity risk identified. --08:09 10/25/20 Eli Fonseca RN.PHYSICAL ASSESSMENTAmbulatory to room.GENERAL / NEURO / PSYCH: Oriented X 4. Alert. Appears in no acute distress.EXTREMITIES: Extremities exhibit normal ROM. Neuro- vascular status intact to the extremity. [place]. Left little finger: tenderness, swelling and erythema of the DIP joint. 3 Clinical Report - Nurses [facility] Emergency Department [address] [place] [address] Phone #: ext- [phone] 10/25/2020 07:56 Patient: CRYSTAL ROMERO Sex: F : 1980 Age: 39y SKIN: Skin intact. Skin is warm and dry. --08:11 10/25/20 Eli Fonseca RN.NURSING PROGRESS NOTESReassurance given. Two patient identifiers checked. Bed placed in lowest position. Brakes of bed on.Patient ready for evaluation. --08:09 10/25/20 Eli Fonseca RN Patient walked to radiology with [employer]. --08:27 10/25/20 Eli Fonseca RN 08:56 10/25/2020 Cephalexin PO 500 mg given. Allergies verified and confirmed 5 rights. Information reviewed with patient including reason for taking this medication. Verbalizes understanding. --08:56 10/25/20 Eli Fonseca RN.DISPOSITION / DISCHARGE Departure time: 09:07 10/25/2020. --09:07 10/25/20 Eli Fonseca RN Condition at departure: stable. No learning barriers present. Discharge instructions provided and reviewed with the patient. Reviewed medication(s) side effects, precautions, dosing and course information. Prescription(s) sent electronically to pharmacy. Reviewed referral to an orthopedic surgeon. Patient verbalized understanding. Written instructions provided in Gibraltarian. The patient was discharged by the physician. She was discharged home and unaccompanied at time of discharge. She left ambulatory and via private vehicle. Patient driving. --09:08 10/25/20 Eli Fonseca RN 09:08 10/25/20. Pain level now: 12/14. --09:08 10/25/20 Eli Fonseca RN.Locked/Released at 10/25/2020 09:08 by Eli Fonseca RN Name Value Range Interpretation Code Description Data Tiffani rce(s) Supporting Document(s) ID Date Data Source [id number] 10/25/2020 07:59:00 AM EST [facility] 1 Clinical Report - Physicians/Mid Levels [facility] Emergency Department [address] [place] [address] Phone #: ext- [phone] 10/25/2020 07:56 [id number] Sex[facility] F : 1980 Age: 39y Time Seen: 08:20 10/25/2020; initial patient contact. Arrived- By private vehicle. Historian- patient. Disposition decision: 08:58 10/25/2020.HISTORY OF PRESENT ILLNESS Chief Complaint: UPPER EXTREMITY PAIN and SWELLING. This started today and is still present. It was gradual in onset and has been constant. Severity is described as being mild. The quality is noted to be dull. (dorsum PIP joint left 5th finger). No chest pain, difficulty breathing, sensory loss or motor loss. She has not had redness. She has had new onset of swelling of the left little finger (mild). Patient notes the possibility of an injury. Similar symptoms previously. None. Recent medical care: Not recently seen/assessed.REVIEW OF SYSTEMSNo fever, chills, eye discomfort, headache or depression. No sore throat, cough, skin rash, enlargedlymph nodes or neck pain. No abdominal pain, nausea, vomiting, diarrhea or black stools. No difficultywith urination, urinary frequency, hematuria or bloody stools. All other systems reviewed and arenegative.PAST HISTORYSee nurses notes. Problems: Migraine Headache. Anxiety Reaction. Emphysema. Depression. Sinus bradycardia. Neuropathy. Additional Surgeries: Asthma. Cholecystectomy. Facial skin revision . Left ankle fracture with pins. Skin grafts. Tonsillectomy. Tubal Ligation. Medications: 2 Clinical Report - Physicians/Mid Levels [facility] Emergency Department [address] [place] [address] Phone #: ext- [phone] 10/25/2020 07:56 Patient: CRYSTAL ROMERO Sex: F : 0 1980 Age: 39y Advair Diskus Inhalation 1 puff, 2x a day. Albuterol Sulfate HFA Inhalation 1 puff, 4x a day as needed. Cetirizine HCl Oral 10 mg, daily. Effexor XR Oral 75 mg, 2x a day. Gabapentin Enacarbil ER Oral (Tablet Extended Release 600 mg) 1 tablet, 2x a day. Imitrex Oral 25 mg, as needed. Spiriva HandiHaler Inhalation, 2x a day. Topamax Oral 100 mg, daily as needed. Wellbutrin SR Oral 150, 2x a day. Allergies: Bactrim.SOCIAL HISTORYNever smoker. Occasional alcohol use. No drug use.ADDITIONAL NOTESThe nursing notes have been reviewed with agreement regarding the chief complaint, HPI, ROS, PMH andpatient medications and allergies.PHYSICAL EXAMVital Signs: 10/25/2020 08:02 BP: 109/60. MAP: 76. HR: 66. RR: 16. O2 saturation: 97%. Temp: 97 F.Pain level now: 2/10. Have been reviewed. Oxygen saturation normal.Appearance: Alert. Oriented X3. No acute distress.Skin: Skin intact. Skin warm and dry. Normal skin color. Normal skin turgor.Extremities: Left little finger: mild tenderness and swelling of the dorsal aspect and PIP joint.Neurovascular intact distally. (mild STS dorsum PIP joint lt 5th finger, ROM nml). No limitation inmovement.LABS, X-RAYS, AND EKGLt UE Digits X-ray: No fracture. Normal alignment. No bony lesion. Views: AP and lateral of 5th finger.Technique: good. The X-rays were interpreted by the radiologist. Interpretation time: 08:41 10/25/2020.PROGRESS AND PROCEDUR ESCourse of Care: 08:57 10/25/20. pt has probable tendinitis, bursitis of extensor tendon of left 5th PIP area;advised to use ice 30 min 4 times per day and f/u w ortho in next week. Patient counseled in person regarding the patient's stable condition, test results, diagnosis and need for follow-up. Patient agrees with plan of care. Disposition: Condition: good and stable. Discharge decision based on the following: patient's condition is stable; patient's condition is improved; patient is ambulatory; patient is active; patient drinking fluids; patient eating; patient's pain is controlled; patient's exam is improved; no abnormal test results; improving condition on multiple repeat evaluations; social support is good; transportation is available; follow- up is available; clinical impression is consistent 3 Clinical Report - Physicians/Mid Levels [facility] Emergency Department [address] [place] [address] Phone #: ext- [phone] 10/25/2020 07:56 Patient: CRYSTAL ROMERO Sex: F : 1980 Age: 39y with outpatient treatment.CLINICAL IMPRESSION Acute tendonitis in the left little finger (mild, dorsum PIP joint left 5th finger, w bursitis).INSTRUCTIONS Apply ice for 30 minutes four times a day for three days. Warnings: Further evaluation is necessary (orthopedics). It is very important to follow up with a healthcare provider. GENERAL WARNINGS: Return or contact your physician immediately if your condition worsens or changes unexpectedly, if not improving as expected, or if other problems arise. Specifically return if pain, vomiting, bleeding, breathing difficulty or fever greater than 102 degrees F and not controlled by acetaminophen or ibuprofen worsens. Your Current Medications: Your current home medications have been reviewed. CONTINUE TAKING THE FOLLOWING MEDICATIONS: Advair Diskus Inhalation : 1 puff 2x a day. Albuterol Sulfate HFA Inhalation : 1 puff 4x a day, prn. Cetirizine HCl Oral : 10 mg daily. Effexor XR Oral : 75 mg 2x a day. Gabapentin Enacarbil ER Oral : Tablet Extended Release 600 mg, 1 tablet 2x a day. Imitrex Oral : 25 mg, prn. Spiriva HandiHaler Inhalation : 2x a day. Topamax Oral : 100 mg daily, prn. Wellbutrin SR Oral : 150 2x a day. Prescription Medications: cephalexin 500 mg tablet Take 1 tablet three times a day for 7 days -- Dispense 21 tablet. Refills: 0. Substitution permitted. Pharmacy - [facility] [id number] ; [place] [address]. . Follow-up: Return to the emergency department as needed. Follow up with an orthopedic surgeon in three days even if well. Call for an appointment. Reason for referral: evaluation and treatment. Summary of care provided to patient via paper. Understanding of the discharge instructions verbalized by patient. Expected course of injury, discharge instructions, activity level, diet, prescriptions x1, follow-up appointment and risks and benefits of treatment 4 Clinical Report - Physicians/Mid Levels [facility] Emergency Department [address] [place] [address] Phone #: ext- [phone] 10/25/2020 07:56 Patient: CRYSTAL ROMERO Sex: F : 1980 Age: 39y reviewed with patient and understanding verbalized. Agrees to plan of care. Follow-up with: [facility], , , [address], , [place], [address] Follow up in three days even if well. Call for an appointment. Reason for referral: evaluation and treatment. Summary of care provided to patient via paper.(Electronically signed by Osito Del Real M.D. 10/25/2020 09:37) Name Value Range Interpretation Code Description Data Tiffani rce(s) Supporting Document(s) ID Date Data Source [id number] 10/14/2020 07:27:00 AM [facility] Name Value Range Interpretation Code Description Data Tiffani rce(s) Supporting Document(s) Folate [Mass/volume] in Blood 378.0 ng/mL Not Estab. [facility] Hematocrit [Volume Fraction] of Blood by Automated count 38.7 % 3 4.0-46.6 [facility] Folate [Mass/volume] in Red Blood Cells 977 ng/mL >498 [facility] ID Date Data Source [id number] 10/14/2020 04:40:00 AM [facility] Name Value Range Interpretation Code Description Data Tiffani rce(s) Supporting Document(s) Calcidiol [Moles/volume] in Serum or Plasma 19 NG/ML [facility] VITAMIN-D(2 5HYDROXY) Deficiency: <=20 ng/ml Insufficiency: 21-29 ng/ml Preferred level: => 30 ng/ml ID Date Data Source [id number] 10/12/2020 02:47:00 PM [facility] Name Value Range Interpretation Code Description Data Tiffani rce(s) Supporting Document(s) Cobalamin (Vitamin B12) [Mass/volume] in Serum or Plasma 444 PG/ML 232 - 1245 [facility] ID Date Data Source [id number] 10/12/2020 02:46:00 PM [facility] Name Value Range Interpretation Code Description Data Tiffani rce(s) Supporting Document(s) Ferritin [Mass/volume] in Serum or Plasma 42.3 ng/mL 3.0 - 105 [facility] ID Date Data Source [id number] 10/12/2020 02:02:00 PM EST [facility] Name Value Range Interpretation Code Description Data Tiffani rce(s) Supporting Document(s) COMPREHENSIVE METABOLIC PANEL [facility] COMPREHENSIVE METABOLIC PANEL Sodium [Moles/volume] in Serum or Plasma 139 mEq/L 134 - 153 [facility] Potassium [Moles/volume] in Serum or Plasma 3.5 mEq/L 3.6 - 5.0 L [facility] Chloride [Moles/volume] in Serum or Plasma 106 mEq/L 98 - 107 [facility] Carbon dioxide, total [Moles/volume] in Serum or Plasma 25 MEQ/L 22 - 30 [facility] Glucose [Mass/volume] in Serum or Plasma 86 MG/DL 65 - 110 [facility] BUN 10 MG/DL 7 - 21 [facility] al Creatinine [Mass/volume] in Serum or Plasma 0.5 MG/DL 0.7 - 1.5 L [facility] BUN/CREAT 20 8 - 27 [facility] Protein [Mass/volume] in Serum or Plasma 5.7 G/DL 6.3 - 8.2 L [facility] Albumin [Mass/volume] in Serum or Plasma 4.2 G/DL 3.9 - 5.0 [facility] Globulin [Mass/volume] in Serum by calculation 1.5 GM/DL 2.4 - 3.2 L [facility] A/G RATIO 2.8 0.8 - 2.0 H [facility] Calcium [Mass/volume] in Serum or Plasma 8.6 MG/DL 8.4 - 10.2 [facility] Bilirubin.total [Mass/volume] in Serum or Plasma <0.7 MG/DL 0.2 - 1.3 [facility] Alkaline phosphatase [Enzymatic activity/volume] in Serum or Plasma 78 U/L 38 - 126 [facility] Aspartate aminotransferase [Enzymatic activity/volume] in Serum or Plasma 18 U/L 5 - 40 [facility] Alanine aminotransferase [Enzymatic activity/volume] in Seru m or Plasma 17 U/L 7 - 56 [facility] Anion gap 3 in Serum or Plasma 8.0 mmol/L 8.0 - 16.0 [facility] AGE 39 yrs [facility] NON-AA GFR >60 mL/min [facility] ital AFR AMER GFR >60 mL/min [facility] sp[facility] Male GFR In terprentation 20-49 yrs >60 mL/min Normal 50-59 yrs >56 mL/min Normal 60-69 yrs >49 mL/min Normal 70-79yrs >42 mL/min Normal 80 and above >35 mL/min Normal Female GFR Interpretation 20-39 yrs >60 mL/min Normal 40-49 yrs >58 mL/min Normal 50-59 yrs >51 mL/min Normal 60-69 yrs >45 mL/min Normal 70-79 yrs >39 mL/min Normal 80 and above >32 mL/min Normal ID Date Data Source [id number] 10/12/2020 02:02:00 PM [facility] Name Value Range Interpretation Code Description Data Tiffani rce(s) Supporting Document(s) Hemoglobin A1c/Hemoglobin.total in Blood 4.9 % 4.4 - 6.1 [facility] {A1]{HB] ID Date Data Source [id number] 10/12/2020 01:57:00 PM [facility] Name Value Range Interpretation Code Description Data Tiffani rce(s) Supporting Document(s) Phosphate [Mass/volume] in Serum or Plasma 3.3 MG/DL 2.5 - 4.5 [facility] ID Date Data Source [id number] 10/12/2020 01:57:00 PM [facility] Name Value Range Interpretation Code Description Data Tiffani rce(s) Supporting Document(s) Magnesium [Mass/volume] in Serum or Plasma 1.7 MG/DL 1.7 - 2.2 [facility] ID Date Data Source [id number] 10/12/2020 01:57:00 PM [facility] Name Value Range Interpretation Code Description Data Tiffani rce(s) Supporting Document(s) Iron [Mass/volume] in Serum or Plasma 67 UG/DL 42 - 135 [facility] Iron binding capacity.unsaturated [Mass/volume] in Serum or Plasma 199 UG/DL 112 - 347 [facility] Iron binding capacity [Mass/volume] in Serum or Plasma 266 ug/dL 250 - 450 [facility] Iron saturation [Mass Fraction] in Serum or Plasma 25 % [facility] ID Date Data Source [id number] 10/12/2020 01:32:00 PM EST [facility] Name Value Range Interpretation Code Description Data Tiffani rce(s) Supporting Document(s) CBC W/AUTOMATED DIFF [facility] COMPLETE BLOOD COUNT Leukocytes [#/volume] in Blood by Automated count 5.5 10^3/uL 4.2 - 1 1.0 [facility] Erythrocytes [#/volume] in Blood by Automated count 4.60 10^6/uL 4. 20 - 5.40 [facility] Hemoglobin [Mass/volume] in Blood 13.0 g/dL 12.0 - 16.0 [facility] Hematocrit [Volume Fraction] of Blood by Automated count 39.8 % 3 7.0 - 47.0 [facility] Erythrocyte mean corpuscular volume [Entitic volume] by Auto mated count 86.5 fL 81.0 - 101 [facility] Erythrocyte mean corpuscular hemoglobin [Entitic mass] by Automated count 28.3 pg 27.0 - 34.0 [facility] Erythrocyte mean corpuscular hemoglobin concentration [Mass/volume] by Automated count 32.7 g/dL 31.0 - 36.0 [facility] Erythrocyte distribution width [Ratio] by Automated count 13.0 % 11.5 - 14.5 [facility] Platelets [#/volume] in Blood by Automated count 257 10^3/uL 150 - 45 0 [facility] Platelet mean volume [Entitic volume] in Blood by Automated count 10.6 fL 7.4 - 10.4 H [facility] Neutrophils/100 leukocytes in Blood by Automated count 62.0 % 37. 0 - 80.0 [facility] Lymphocytes/100 leukocytes in Blood by Manual count 24.8 % 25.0 - 40.0 L [facility] Monocytes/100 leukocytes in Blood by Automated count 7.1 % 3.0 - 8.0 [facility] Eosinophils/100 leukocytes in Blood by Automated count 5.2 % 0.0 - 7.0 [facility] Basophils/100 leukocytes in Blood by Automated count 0.5 % 0.0 - 2.5 [facility] %IG 0.4 % 0.0 - [facility].0 [facility]BC 0.0 % 0.0 - 0.0 [facility] al Neutrophils [#/volume] in Blood by Automated count 3.43 10^3/uL 2.00 - 6.90 [facility] Lymphocytes [#/volume] in Blood by Automated count 1.37 10^3/uL 0.60 - 3.40 [facility] Monocytes [#/volume] in Blood by Automated count 0.39 10^3/uL 0.00 - 0.90 [facility] Eosinophils [#/volume] in Blood by Automated count 0.29 10^3/uL 0.00 - 0.70 [facility] Basophils [#/volume] in Blood by Automated count 0.03 10^3/uL 0.00 - 0.20 [facility] #IG 0.02 10^3/uL 0.00 - 0.10 [facility] ospital #NRBC 0.00 10^3/uL 0.00 - 0.00 [facility] ospital MANUAL DIFF NOT INDICATED [facility] RBC MORPH NOT INDICATED [facility] spital ID Date Data Source [id number] 10/12/2020 09:45:00 AM EST [facility] ([facility]) Name Value Range Interpretation Code Description Data Tiffani rce(s) Supporting Document(s) CBC W/Automated Diff Laboratory test result [facility] ([facility]) COMPLETE BLOOD COUNT RBC 4.60 10^6/uL 4.20-5.40 [facility] ([facility]) WBC 5.5 10^3/uL 4.2-11.0 [facility] ([facility]) Hemoglobin 13.0 g/dL 12.0-16.0 [facility] ([facility]) Hematocrit 39.8 % 37.0-47.0 [facility] ([facility]) MCHC 32.7 g/dL 31.0-36.0 [facility] ([facility]) MCV 86.5 fL 81.0-101 [facility] ([facility]) MCH 28.3 pg 27.0-34.0 [facility] ([facility]) MPV 10.6 fL 7.4-10.4 Above high normal [facility] ([facility]) RDW 13.0 % 11.5-14.5 [facility] ([facility]) Platelets 257 10^3/uL 150-450 [facility] ([facility]) Lymph 24.8 % 25.0-40.0 Below low normal [facility] ( [facility]) Highlands 7.1 % 3.0-8.0 [facility] ([facility]) Eos 5.2 % 0.0-7.0 [facility] ([facility]) Neut 62.0 % 37.0-80.0 [facility] ([facility]) Baso 0.5 % 0.0-2.5 [facility] ([facility]) %Ig 0.4 % 0.0-0.0 Above high normal [facility] ([facility]) %NRBC 0.0 % 0.0-0.0 [facility] ([facility]) #Eos 0.29 10^3/uL 0.00-0.70 [facility] ([facility]) #Neut 3.43 10^3/uL 2.00-6.90 [facility] ([facility]) #Lymph 1.37 10^3/uL 0.60-3.40 [facility] ([facility]) #Highlands 0.39 10^3/uL 0.00-0.90 [facility] ([facility]) #Ig 0.02 10^3/uL 0.00-0.10 [facility] ([facility]) #Baso 0.03 10^3/uL 0.00-0.20 [facility] ([facility]) #NRBC 0.00 10^3/uL 0.00-0.00 [facility] ([facility]) RBC Morph Laboratory test result [facility] ([facility]) Manual Diff Laboratory test result [facility] ([facility]) ID Date Data Source [id number] 10/12/2020 09:45:00 AM EST [facility] ([facility]) Name Value Range Interpretation Code Description Data Tiffani rce(s) Supporting Document(s) Uibc 199 ug/dL 112-347 [facility] ([facility]) Iron 67 ug/dL 42-135 [facility] ([facility]) Tibc 266 ug/dL 250-450 [facility] ([facility]) Iron Sat 25 % [facility] ([facility]) ID Date Data Source [id number] 10/12/2020 09:45:00 AM EST [facility] ([facility]) Name Value Range Interpretation Code Description Data Tiffani rce(s) Supporting Document(s) Magnesium [Mass/volume] in Serum or Plasma 1.7 mg/dL 1.7-2.2 [facility] ([facility]) Hemoglobin A1c/Hemoglobin.total in Blood 4.9 % 4.4-6.1 [facility] ([facility]) {A1] {HB] Phosphate [Moles/volume] in Serum or Plasma 3.3 mg/dL 2.5-4.5 [facility] ([facility]) ID Date Data Source [id number] 10/12/2020 09:45:00 AM EST [facility] ([facility]) Name Value Range Interpretation Code Description Data Tiffani rce(s) Supporting Document(s) Comprehensive [employer] Laboratory test result [facility] ([facility]) COMPREHENSIVE METABOLIC PANEL Sodium 139 meq/L 134-153 [facility] ([facility]) Co2 25 meq/L 22-30 [facility] [facility] Chloride 106 meq/L 98-107 [facility] ([facility]) Potassium 3.5 meq/L 3.6-5.0 Below low normal [facility] ( [facility] [place]) BUN 10 mg/dL 7-21 [facility] ([facility]) Creatinine 0.5 mg/dL 0.7-1.5 Below low normal [facility] ( [facility] [place]) Glucose 86 mg/dL 65-110 [facility] ([facility]) Globulin 1.5 GM/DL 2.4-3.2 Below low normal [facility] ( [facility] [place]) Total Protein 5.7 g/dL 6.3-8.2 Below low normal MEDEN T ([facility] [place]) BUN/Creat 20 8-27 [facility] ([facility]) Albumin 4.2 g/dL 3.9-5.0 [facility] ([facility]) Calcium 8.6 mg/dL 8.4-10.2 [facility] ([facility]) Total Bili Laboratory test result 0.2-1.3 ME DENT ([facility] [place]) A/G Ratio 2.8 0.8-2.0 Above high normal [facility] ([facility] [place]) Anion Gap 8.0 mmol/L 8.0-16.0 [facility] ([facility]) Sgot/Ast 18 U/L 5-40 [facility] ([facility]) SGPT/Alt 17 U/L 7-56 [facility] ([facility]) Alkaline Phos 78 U/L 38-126 [facility] ([facility] [place]) Non-Aa GFR Laboratory test result [facility] ([facility] [place]) Afr Amer GFR Laboratory test result [facility] ([facility] [place]) Male GFR Interprentation 20-49 yrs >60 mL/min Normal 50-59 yrs >56 mL/min Normal 60-69 yrs >49 mL/min Normal 70-79yrs >42 mL/min Normal 80 and above >35 mL/min Normal Female GFR Interpretation 20-39 yrs >60 mL/min Normal 40-49 yrs >58 mL/min Normal 50-59 yrs >51 mL/min Normal 60-69 yrs >45 mL/min Normal 70-79 yrs >39 mL/min Normal 80 and above >32 mL/min Normal Age 39 yrs [facility] ([facility]) ID Date Data Source [id number] 10/12/2020 09:45:00 AM EST [facility] ([facility]) Name Value Range Interpretation Code Description Data Tiffani rce(s) Supporting Document(s) Ferritin [Mass/volume] in Serum or Plasma 42.3 ng/mL 3.0-105 [facility] ([facility] [place]) Cobalamin (Vitamin B12) [Mass/volume] in Serum or Plasma 444 pg/mL 2 32-1245 [facility] ([facility] [place]) Calcidiol [Mass/volume] in Serum or Plasma 19 ng/mL [facility] ([facility] [place]) <content>VITAMIN-D(25HYDROXY)</content>< br/><content>Deficiency: <=20 ng/ml</content>
<content>Insufficiency: 21-29 ng/ml</content>
<content>Preferred level: => 30 ng/ml</content>
<conten t></content> ID Date Data Source [id number] 10/12/2020 09:45:00 AM EST [facility] ([facility]) Name Value Range Interpretation Code Description Data Tiffani rce(s) Supporting Document(s) Folate, RBC 977 ng/mL [facility] ([facility]) Folate, Hemolysate 378.0 ng/mL [facility] ([facility]) Hematocrit 38.7 % 34.0-46.6 [facility] ([facility]) ID Date Data Source [id number] 10/12/2020 09:37:00 AM EST [facility] ([facility]) Name Value Range Interpretation Code Description Data Tiffani rce(s) Supporting Document(s) Bacteria identified in Urine by Culture Laboratory test result [facility] ([facility] [place]) ID Date Data Source [id number] 10/12/2020 09:37:00 AM EST [facility] ([facility]) Name Value Range Interpretation Code Description Data Tiffani rce(s) Supporting Document(s) Color of Urine Laboratory test result [facility] ([facility] [place]) pH of Urine by Test strip 5 MEDE NT ([facility] [place]) Appearance of Urine Laboratory test result [facility] ([facility] [place]) Spec Averill 1.030 [facility] ([facility] [place]) Nitrate [Presence] in Urine Laboratory test result [facility] ([facility] [place]) Inhouse Glucose Laboratory test result [facility] ([facility] [place]) Leukocytes Laboratory test result [facility] ([facility] [place]) Protein [Presence] in Urine by Test strip Laboratory test result [facility] ([facility] [place]) Ketones [Presence] in Urine by Test strip Laboratory test result [facility] ([facility] [place]) Urobilinogen Laboratory test result [facility] ([facility] [place]) Bilirubin.total [Presence] in Urine by Test strip Laboratory test res ult [facility] ([facility] [place]) Blood type and Indirect antibody screen panel - Blood Laboratory test result [facility] ([facility] [place]) ID Date Data Source [id number] 10/12/2020 09:37:00 AM EST [facility] ([facility]) Name Value Range Interpretation Code Description Data Tiffani rce(s) Supporting Document(s) Urinalysis Laboratory test result [facility] ([facility] [place]) {SOURCE: Random Void~NURSE COLLECTED? N Color Laboratory test result [facility] ([facility] [place]) {SOURCE: Random Void~NURSE COLLECTED? N Source Laboratory test result [facility] ([facility] [place]) {SOURCE: Random Void~NURSE COLLECTED? N Spec Averill 1.025 1.001-1.030 [facility] ([facility]) {SOURCE: Random Void~NURSE COLLECTED? N Clarity Laboratory test result [facility] ([facility] [place]) {SOURCE: Random Void~NURSE COLLECTED? N pH 5 5-9 [facility] ([facility]) {SOURCE: Random Void~NURSE COLLECTED? N Bilirubin Laboratory test result [facility] ([facility] [place]) {SOURCE: Random Void~NURSE COLLECTED? N Glucose Laboratory test result [facility] ([facility] [place]) {SOURCE: Random Void~NURSE COLLECTED? N Nitrite Laboratory test result [facility] ([facility] [place]) {SOURCE: Random Void~NURSE COLLECTED? N Ketone Laboratory test result [facility] ([facility] [place]) {SOURCE: Random Void~NURSE COLLECTED? N Protein Laboratory test result [facility] ([facility] [place]) {SOURCE: Random Void~NURSE COLLECTED? N Leuk Est 25 [facility] ([facility]) {SOURCE: Random Void~NURSE COLLECTED? N Blood Laboratory test result [facility] ([facility] [place]) {SOURCE: Random Void~NURSE COLLECTED? N Urobilinogen Laboratory test result [facility] ([facility] [place]) {SOURCE: Random Void~NURSE COLLECTED? N Microscopic Laboratory test result M EDENT ([facility] [place]) {SOURCE: Random Void~NURSE COLLECTED? N WBC Laboratory test result Abnormal (applies to non -numeric results) [facility] ([facility] [place]) {SOURCE: Random Void~NURSE COLLECTED? N Epithelial Laboratory test result Abnormal (applies to non -numeric results) [facility] ([facility] [place]) {SOURCE: Random Void~NURSE COLLECTED? N Bacteria Laboratory test result [facility] [place]) {SOURCE: Random Void~NURSE COLLECTED? N RBC Laboratory test result [facility] ([facility] [place]) {SOURCE: Random Void~NURSE COLLECTED? N Amorph Sed Laboratory test result [facility] ([facility] [place]) {SOURCE: Random Void~NURSE COLLECTED? N Mucous Laboratory test result Abnormal (applies to non -numeric results) [facility] ([facility] [place]) {SOURCE: Random Void~NURSE COLLECTED? N Crystals Laboratory test result [facility] [place]) {SOURCE: Random Void~NURSE COLLECTED? N Calcium Ox Laboratory test result Abnormal (applies to non -numeric results) [facility] ([facility] [place]) {SOURCE: Random Void~NURSE COLLECTED? N ID Date Data Source [id number] 10/14/2020 05:03:00 PM EST [facility] Name Value Range Interpretation Code Description Data Tiffani rce(s) Supporting Document(s) CULTURE URINE [facility] _CULTURE URINE_$$[id number]$$144722$$093507$$462965$$600103$$771605$$287042$$092528$$316370$$ 193317$$443774$$339401$$779272$$393974$$904244$$011925$$596152$$545762$$072387$$ 108133$$635652$$954416$$381270$$673684$$887871$$163076$$[id number] -- Continued on next page --Patient: HEATHER HEARD Order: [id number] Page 2Culture: CULTURE URINE Status: Final ==== -- Continued on next page --Patient: HEATHER HEARD Order: [id number] Page 2Culture: CULTURE URINE Status: Prelim =====$$[id number] DATE/TIME: 10/14/2020 15:06Culture: CULTURE URINE Status: FinalIsolate 1 Escherichia coli Flag: A . . . . . . .150,000-100,000 colony forming units per mLCefazolin <=4 ug/mLCefazolin with an RONALDO <=16 predicts susceptibility to the oral agentscefaclor, cefdinir, cefpodoxime, cefprozil, cefuroxime, cephalexin,and loracarbef when used for therapy of uncomplicated urinary tractinfections due to E. coli, Klebsiella pneumoniae, and Proteusmirabilis. Previous result entered on 10/14/2020 04:44 ET Gram negative rodsUrine Culture,Comprehensive: [id number] coli Flag: APatient: HEATHER HEARD Order: [id number] Page 3Culture: CULTURE URINE Status: Final ISOLATE 1 Escherichia coli Isolate 1Antibiotic RONALDO IntUnits ug/mL ----Amoxicillin/Clavulanic Acid S S . . . . . .20-8Ampicillin S S . . . . . .28-1Cefepime S S . . . . . .6644-9Ceftriaxone S S . . . . . .141-2Cefuroxime S S . . . . . .145- 3Ciprofloxacin S S . . . . . .185-9Ertapenem S S . . . . . .84263-5Ltrtzrfkvu S S . . . . . .267-5Imipenem S S . . . . . .279-0Levofloxacin S S . . . . . .68641-9Gdlkrvmmx S S . . . . . .6652-2Nitrofurantoin S S . . . . . .363-2Piperacillin/Tazobactam S S . . . . . .412-7Tetracycline S S . . . . . .496-0Tobramycin S S . . . . . .508-2Trimethoprim/Sulfa S S . . . . . .516-5P1 Test performed by: [facility] #: [id number] [address] [place] [address] [id number] [facility] [id number] Director : Jovany Flynn MD NPI #:Provider Network Manager : 10/14/[email or web address].SENT REF 10/14/20.1704.XMT.SENT REF 10/19/20.0656.XMT.SENT REF ID Date Data Source [id number] 10/12/2020 02:05:00 PM EST [facility] Name Value Range Interpretation Code Description Data Tiffani rce(s) Supporting Document(s) URINALYSIS [facility] [place] URINALYSIS SOURCE R [facility] COLOR yellow NORMAL: Yellow [facility] CLARITY hazy NORMAL: Clear [facility] Specific gravity of Urine by Test strip 1.025 1.001 - 1.030 [facility] pH 5 5 - 9 [facility] Glucose [Mass/volume] in Urine by Test strip NORM NORMAL: Negat diane [facility] Bilirubin.total [Presence] in Urine by Test strip NEG NORMAL: Negative [facility] Ketones [Presence] in Urine by Test strip NEG NORMAL: Negative [facility] Protein [Mass/volume] in Urine by Test strip NEG NORMAL: Negat [facility] Nitrite [Presence] in Urine by Test strip NEG NORMAL: Negative [facility] BLOOD NEG NORMAL: Negative [facility] Leukocyte esterase [Presence] in Urine by Test strip 25 RALPH L: Negative [facility] Urobilinogen [Mass/volume] in Urine by Test strip NOR less [place] n 1.0 mg/dL [facility] MICROSCOPIC See Below [facility] ital WBC 15 - 20 NORMAL: NONE SEEN A [facility] Erythrocytes [#/volume] in Urine by Test strip 3 - 5 NORMAL: NON E SEEN [facility] EPITHELIAL MODERATE NORMAL: NONE SEEN A [facility] Bacteria [Presence] in Urine sediment by Light microscopy 1+ SMALL NORMAL: NONE SEEN [facility] Mucus [Presence] in Urine sediment by Light microscopy 2+ NOR MAL: NONE SEEN A [facility] Amorphous sediment [Presence] in Urine sediment by Light ronaldo roscopy 1+ NORMAL: NONE SEEN [facility] Crystals [type] in Urine sediment by Light microscopy See Below [facility] CALCIUM OX 3+ NORMAL: NONE SEEN A [facility] ID Date Data Source [id number] 10/12/2020 09:37:00 AM EST [facility] ([facility]) Name Value Range Interpretation Code Description Data Tiffani e(s) Supporting Document(s) Culture Urine Laboratory test result [facility] ([facility] [place]) {SOURCE: Random Void~NURSE COLLECTED? N ID Date Data Source [id number] 07/21/2020 11:19:00 AM EDT [facility] ([facility], ) Name Value Range Interpretation Code Description Data Tiffani rce(s) Supporting Document(s) FVC-Pred 4.21 L [facility] ([facility], ) PDFReport Laboratory test result [facility] ([facility], ) FVC-Pre 4.10 L [facility] ([facility], ) FVC-LLN 3.43 L [facility] ([facility], ) FVC-%Pred-Pre 97 L [facility] ([facility], ) Fev1-%Pred-Pre 86 L [facility] ([facility]) Fev1-Pre 2.95 L [facility] ([facility]) Fev1-Pred 3.43 L [facility] ([facility]) Fev6-%Pred-Pre 99 L [facility] ([facility], ) Fev6-Pre 4.10 L [facility] ([facility]) Fev1-LLN 2.76 L [facility] ([facility]) Fev6-Pred 4.14 L [facility] ([facility]) Tdk0grx-Rstm 83 % [facility] ([facility]) Arb0vyk-Cgm 72 % [facility] ([facility]) Fev6-LLN 3.37 L [facility] ([facility]) Dpf7zfl-%Pred-Pre 87 % [facility] ([facility]) Src2wvh-AXS 73 % [facility] ([facility]) Fmu7ivw-Znkt 98 % [facility] ([facility]) Rwj5pyk-Hfn 100 % [facility] ([facility]) FEFMax-Pred 7.62 L/E/sec [facility] ([facility], ) Cuv2fzp-%Pred-Pre 101 % [facility] ([facility]) FEFMax-Pre 7.13 L/E/sec [facility] ([facility]) FEFMax-%Pred-Pre 93 L/E/sec [facility] ([facility]) FEFMax-LLN 5.68 L/E/sec [facility] ([facility]) Bfk5070-Uhh 1.97 L/E/sec [facility] ([facility]) Itb2897-%Pred-Pre 57 L/E/sec [facility] ([facility]) Izr3610-Sycv 3.40 L/E/sec [facility] ([facility], ) Qzp2183-KBW 2.00 L/E/sec [facility] ([facility], ) Uqt6fpg2-Ufiy 84 % [facility] ([facility], ) ExpTime-Pre 6.22 sec [facility] ([facility]) Byq6hta0-%Pred-Pre 85 % [facility] ([facility]) Weo2pem8-Gra 72 % [facility] ([facility]) Xko1pcj6-KFK 75 % [facility] ([facility]) ID Date Data Source [id number] 05/19/2020 10:46:00 [place] [address] PROGRESS NOTENAME: HEATHER HEARD ROOM#: 110-1DATE OF : 1980 MR#: [id number] DATE: 05/18/20 OF SERVICE: 05/19/2020SUBJECTIVE:This patient was admitted to observation for sinus tachycardia, intermittent, Mobitz type I heart block.Patient was given Reglan in the emergency room IV for migraine headache and nausea. She is in anobservation bed for diagnosis of bradyarrhythmia. ROS: Patient denied any dizziness, syncope, blurredvision, diplopia, or headache. No chest pain. No chills or fever. No cough or hemoptysis. No boweldisturbance. No urinary problem. No ankle edema.OBJECTIVE:On exam, moderately built. Blood pressure was 113/70. Head is normal. Heart r egular sinus rhythm.Lungs clear. Abdomen soft. Patient's heart rate is now is 56 beats per minute.ASSESSMENT:Patient has the following issues:1. Sinus bradycardia.2. Mobitz type I heart block.PLAN:The plan is to monitor at least 24 hours to see if she has more evidence of intermittent Mobitz type Iheart block. I believe her intermittent bradycardia is secondary to Reglan IV. She will be observed withTelemetry monitoring.DD: Andrzej Burton MD, 05/19/20 09:16DT: [facility] 05/19/20 10:45DS: Andrzej Burton MD, PC 05/27/20 09:18 1 Name Value Range Interpretation Code Description Data Tiffani rce(s) Supporting Document(s) ID Date Data Source [id number] 05/21/2020 10:44:00 PM EDT [address] [address] DISCHARGE SUMMARYNAME: HEATHER HEARD ROOM#: 110-1DATE OF : 1980 MR#: [id number] PHYS: Andrzej Burotn MD, PC DATE: 05/18/20 DISCHARGED: 05/20/20HISTORY OF PRESENT ILLNESS:This 39-year-old female presented with headache, migraine syndrome, dizziness, tightness in the scalp. Shewas given Reglan 10 mg IV in the emergency room and she had intermittent Mobitz type 1 heart block. Shewas admitted observation for evaluation of heart block. Lyme titer was done. The report is not back. Thehistory was recorded. On examination, blood pressure was 120/80. Head is normal. Heart is regular sinusrhythm. Lungs are clear. Abdomen is soft. Patient was admitted for migraine syndrome, possible intermittentheart block. The cardiac arrhythmia could be from the Reglan.LABORATORY & X-RAY DATA:Lab tests showed that the CT scan of the brain was negative. EKG was regular sinus rhythm. Duringthe course in the hospital, the patient did not have any Mobitz type heart block. CT scan of the brainwas negative. Lyme titer was negative. Hemoglobin was 12. White count was 6.6. Lactic acid was 1.2.T4 was 0.80, which was slightly low. BNP was 156. TSH was normal. Troponin was normal.HOSPITAL COURSE:The patient was observed with telemetry monitoring. She did very well with the medical therapy. Shewas maintained on Cetirizine 10 mg daily, Effexor 75 mg daily, Gabapentin 1200 mg b.i.d., Luipgxg797 mg daily and Bupropion 150 mg b.i.d. Telemetry monitoring was done. Tramadol was given forheadache. She did very well. It was decided to discharge her to follow in the office. We thought thatthe varied arrhythmia and intermittent Mobitz type 1 heart block was seconda ry to a Reglan side effect.She will be seen in the office for a stress echo and Holter monitor in 2 days.DISCHARGE DIET:Regular.DISCHARGE MEDICATIONS:1. Advair Diskus 500-50 mcg 1 puff b.i.d.2. Cetirizine 10 mg daily3. Effexor 75 mg twice a day4. Flonase nasal spray5. Gabapentin 600 mg b.i.d.6. Imitrex 25 mg p.r.n.7. Spiriva inhaler daily8. Topamax 100 mg daily9. Wellbutrin SR 150 mg b.i.d.DISCHARGE FOLLOW-UP:Follow up by Dr. Polk. I will see her in the office in 3 days for a stress echo and a Holter. [address] [place] [address] DISCHARGE SUMMARYNAME: HEATHER HEARD ROOM#: 110-1DATE OF : 1980 MR#: [id number] PHYS: Andrzej Burton MD, PC DATE: 05/18/20 DISCHARGED: 05/20/20FINAL DIAGNOSES:1. Intermittent Mobitz type heart block, secondary to side effect of Reglan2. Migraine syndrome3. Anxiety.4. History of mild hypertensionDD: Andrzej Burton MD, PC 05/20/20 12:00DT: [facility] 05/21/20 22:31DS: Andrzej Burton MD, PC 05/27/20 09:18 2 Name Value Range Interpretation Code Description Data Tiffani rce(s) Supporting Document(s) ID Date Data Source [id number] 05/21/2020 10:31:00 [place] [address] HISTORY AND PHYSICALNAME: HEATHER HEARD ROOM#: 110-1DATE OF : 1980 MR#: [id number] PHYS: Andrzej Burton MD, PC DATE: 05/18/20CHIEF COMPLAINT: Headache.HISTORY OF PRESENT ILLNESS:This is a 39-year-old female who had a headache. It started approximately 3 days ago. It was still present. Itwas described as pain, tightness and pressure. The quality was described as unlike any previous headaches. Itwas in the right parietal and left parietal regions. She has had blurred vision and nausea. It began 3 days ago. Ithas progressively gotten worse. She states she has a history of migraines treated by her primary care provider.She took her Topamax and Imitrex this morning with no improvement. She went to her primary care provider,who then had her placed in an ambulance and she came to the emergency room for further work up. Uponarrival, blood pressure was 134/74. Heart rate was 66. Respirations were 18. O2 saturation was 98% on roomair. Temperature was 98.6. Laboratory studies were drawn. CT of the head was done STAT which showed noacute abnormalities. She was given a bolus of IV fluid and 1000 mg of Tylenol. EKG was done which showedsinus bradycardia with a rate of 50 with a sinus arrhythmia. Repeat EKG at 12:46 showed sinus bradycardiawith rate of 54 with a sinus arrhythmia. For the headache, the patient was given Reglan and Benadryl. It didhelp the headache, but on the site monitor, she was having episodes of sinus bradycardia with Mobitz type2 AV block. Discussed with detail maker and fitter, Dr. Burton and decision was made that patient will be admitted forobservation status on telemetry to the service of Dr. Burton observation status for cardiac arrhythmia.LABORATORY STUDIES:CBC was normal. CMP was normal. CRP was 0.85. Lyme antibodies were sent. Troponin was 0.01. Patient'sheadache was improved and patient will be admitted observation status to the service of Dr. Burton ontelemetry for cardiac arrhythmia for further observation and investigation.ALLERGIES:BACTRIM and SEASONAL ALLERGIES.PAST MEDICAL HISTORY:MigrainesPAST SURGICAL HISTORY: 1. Tubal ligation 2. Skin grafts from tovar 3. Repair of left ankle fracture and a second surgery to remove screws from the left ankle fracture 4. Tonsillectomy 5. CholecystectomyFAMILY HISTORY:Reviewed and noncontributory. [address] [place] [address] HISTORY AND PHYSICALNAME: HEATHER HEARD ROOM#: 110-1DATE OF : 1980 MR#: [id number] PHYS: Andrzej Burton MD, PC DATE: 05/18/20HOME MEDICATIONS: 1. Advair Diskus 500-50 mcg 1 inhalation twice a day 2. Albuterol via nebulizer 1 vial q 4-6 hours p.r.n. for shortness of breath or wheeze 3. Cetirizine 10 mg p.o. daily 4. Effexor XR 75 mg twice a day 5. Gabapentin 1200 mg twice a day 6. Flonase nasal spray 1 spray each nostril twice a day 7. Imitrex 25 mg at start of migraine 8. Spiriva 1 inhalation daily 9. Topamax 100 mg daily 10. Wellbutrin SR 150 mg p.o. q 12 hoursREVIEW OF SYSTEMS:Ten systems review was done and unremarkable other than the headache as described above.PHYSICAL EXAMINATION:GENERAL: 39-year-old cooperative female in no acute distress.VITAL SIGNS: Blood pressure is 113/70. Pulse 42. Respirations 16. O2 saturation is 100% on room air.Patient is alert and oriented x3.HEENT: Pupils equal and reactive to light. EOMs are intact. Corneas and sclerae are clear. Conjunctivae arenormal. No facial asymmetry. Pharynx, tongue, and gums pink and moist. Tongue is midline.NECK: Supple without lymphadenopathy. No thyromegaly or goiter. Carotids 2+ without bruit.CHEST: Clear to auscultation without wheezes or retraction.HEART: Regular.ABDOMEN: Benign. Bowel sounds positive./RECTAL: Not done.EXTREMITIES: Equal strength. Full range of motion. No cyanosis, clubbing or edema. Peripheral pulsesequal and palpable bilaterally. Skin is warm and dry.IMPRESSION/PLAN: 1. Patient will be admitted to the service of Dr. Burton observation status on telemetry for cardiac arrhythmia, question if secondary to Reglan. Will place on telemetry, monitor vital signs. 2. Headaches. Continue Topamax, Gabapentin, Imitrex. Tylenol p.r.n. if needed. 3. Environmental allergies. Continue inhaled steroid and Flonase nasal spray. Check magnesium.DD: PROSPER Goncalves 05/19/20 12:22DT: JENNIFER 05/19/20 02:21 [address] [place] [address] HISTORY AND PHYSICALNAME: HEATHER HEARD ROOM#: 110-1DATE OF : 1980 MR#: [id number] PHYS: Andrzej Burton MD, PC DATE: 05/18/20DS: PROSPER Goncalves 05/25/20 09:07 3 Name Value Range Interpretation Code Description Data Tiffani rce(s) Supporting Document(s) ID Date Data Source [id number] 05/20/2020 02:07:00 [place] [address] PHONE: [phone] FAX: [phone] Name ..............: HEATHER HEARD Acct Number ............: [id number] ROOM. ............: 110-1 MR Number ............................: [id number] Stay type.........: O/P Discharge Date...............: Admit Date .....: 05/18/20 Admit Phys .............................: DIPTI WASSERMAN Date of ..: 1980 Family Phys ...........................: POLK HARD Phone..............: [phone] Age.................................:39 Film# .............. .:[id number] Sex.................................:F Unsigned transcriptions are preliminary reports and do not represent a medical or legal document [facility] [id number] COMPLETE:05/19/20 06:56 EWW [id number] Please See Scanned Results. Name Value Range Interpretation Code Description Data Tiffani rce(s) Supporting Document(s) ID Date Data Source [id number] 05/19/2020 10:04:00 AM EDT [facility] [address] [place] [address] PHONE: [phone] FAX: [phone] Name .................. : HEATHER HEARD Acct Number.................. : [id number] ROOM. ................. : 110 MR Number ................... : [id number] Stay type ............. : O/P Discharge Date......... ... : Admit Date ......... : 05/18/20 Admit Phys .................... : DIPTI LUX Date of ....... : 1980 Family Phys ................... : POLK HARD Phone .................. : [phone] Age ................................ : 39 Film# .................. .:[id number] Sex ................................. : F Unsigned transcriptions are preliminary reports and do not represent a medical or legal document CT HEAD W/O CONTRAST [id number] COMPLETE:05/18/20 16:47 [facility] [address] Reason(s): Headache CT OF THE HEAD WITHOUT CONTRAST: INDICATION: Headache. FINDINGS: No intra-axial or extra-axial collections of fluid. Ventricles and sulci unremarkable. No midline shift or mass effect. Visualized paranasal sinuses and mastoid air cells unremarkable. IMPRESSION: No acute intracranial process. While performing the above CT examination, radiation dose reduction was accomplished utilizing automated exposure control, adjusting of the mA and kV based on the patient's body size and/or the use of imperative reconstructive techniques. CT dose: 815 mGycm Examination dictated by AUDRA Pena. Examination was reviewed with Azael Perry MD, radiologist at the time of this dictation. Electronically Reviewed and Signed By Azael Perry MD , 05/19/20 10:04, KGG Transcribe Initials: ACOSTA , Transcribe Date: 05/18/20 17:50, Dictation Date: Copy for: ADELAIDA DUNCAN via fax Copy for: EMERGENCY DEPT via modem Copy for: 710 MED REC Page 1 of 1 Name Value Range Interpretation Code Description Data Tiffani rce(s) Supporting Document(s) ID Date Data Source [id number] 05/19/2020 05:48:00 AM EDT [facility] ([facility]) Name Value Range Interpretation Code Description Data Tiffani rce(s) Supporting Document(s) Natriuretic peptide.B prohormone N-Terminal [Mass/volu me] in Serum or Plasma 156 pg/mL 0-125 Above high normal [facility] ([facility]) ID Date Data Source [id number] 05/19/2020 05:48:00 AM EDT [facility] ([facility]) Name Value Range Interpretation Code Description Data Tiffani rce(s) Supporting Document(s) Sodium 143 meq/L 134-153 [facility] ([facility]) Potassium 4.0 meq/L 3.6-5.0 [facility] ([facility]) Comprehensive Metabo Laboratory test result [facility] ([facility]) COMPREHENSIVE METABOLIC PANEL Chloride 113 meq/L 98-107 Above high normal [facility] ([facility]) Glucose 90 mg/dL 65-110 [facility] ([facility]) Co2 21 meq/L 22-30 Below low normal [facility] ([facility]) BUN/Creat 26 8-27 [facility] ([facility]) Creatinine 0.5 mg/dL 0.7-1.5 Below low normal [facility] ( [facility]) BUN 13 mg/dL 7-21 [facility] ([facility]) Globulin 1.8 GM/DL 2.4-3.2 Below low normal [facility] ( [facility]) Albumin 4.1 g/dL 3.9-5.0 [facility] ([facility]) Total Protein 5.9 g/dL 6.3-8.2 Below low normal [facility] T ([facility]) A/G Ratio 2.3 0.8-2.0 Above high normal [facility] ([facility]) Total Bili Laboratory test result 0.2-1.3 ME [facility] ([facility]) Calcium 8.8 mg/dL 8.4-10.2 [facility] ([facility]) Alkaline Phos 81 U/L 38-126 [facility] ([facility]) Anion Gap 9.0 mmol/L 8.0-16.0 [facility] ([facility]) SGPT/Alt 30 U/L 7-56 [facility] ([facility]) Sgot/Ast 23 U/L 5-40 [facility] ([facility]) Age 39 yrs [facility] ([facility]) Non-Aa GFR Laboratory test result [facility] ([facility]) Afr Amer GFR Laboratory test result [facility] ([facility]) Male GFR Interprentation 20-49 yrs >60 mL/min Normal 50-59 yrs >56 mL/min Normal 60-69 yrs >49 mL/min Normal 70-79yrs >42 mL/min Normal 80 and above >35 mL/min Normal Female GFR Interpretation 20-39 yrs >60 mL/min Normal 40-49 yrs >58 mL/min Normal 50-59 yrs >51 mL/min Normal 60-69 yrs >45 mL/min Normal 70-79 yrs >39 mL/min Normal 80 and above >32 mL/min Normal ID Date Data Source [id number] 05/19/2020 05:48:00 AM EDT [facility] ([facility]) Name Value Range Interpretation Code Description Data Tiffani rce(s) Supporting Document(s) Troponin T.cardiac [Mass/volume] in Serum or Plasma Laborato ry test result 0.00-0.10 [facility] ([facility]) TROPONIN T 0.1 ng/ml Recommended as the clinical th reshold value for Troponin T. Thyrotropin [Units/volume] in Serum or Plasma 1.10 uIU/mL 0.47-5.01 [facility] ([facility]) Thyroxine (T4) free [Mass/volume] in Serum or Plasma 0.80 ng/dL 0.93-1.70 Below low normal [facility] ([facility]) Lactate [Mass/volume] in Serum or Plasma 1.2 mmol/L 0.2-2.2 [facility] ([facility]) ID Date Data Source [id number] 05/19/2020 05:48:00 AM EDT [facility] ([facility]) Name Value Range Interpretation Code Description Data Tiffani rce(s) Supporting Document(s) RBC 4.27 10^6/uL 4.20-5.40 [facility] ([facility]) CBC W/Automated Diff Laboratory test result [facility] ([facility]) COMPLETE BLOOD COUNT WBC 6.6 10^3/uL 4.2-11.0 [facility] ([facility]) Hematocrit 36.9 % 37.0-47.0 Below low normal [facility] ( [facility]) MCV 86.4 fL 81.0-101 [facility] ([facility]) MCH 28.1 pg 27.0-34.0 [facility] ([facility]) Hemoglobin 12.0 g/dL 12.0-16.0 [facility] ([facility]) RDW 13.1 % 11.5-14.5 [facility] ([facility]) Platelets 237 10^3/uL 150-450 [facility] ([facility]) MCHC 32.5 g/dL 31.0-36.0 [facility] ([facility]) MPV 10.7 fL 7.4-10.4 Above high normal [facility] ([facility]) Neut 66.3 % 37.0-80.0 [facility] ([facility]) Lymph 24.8 % 25.0-40.0 Below low normal [facility] ( [facility]) Eos 2.4 % 0.0-7.0 [facility] ([facility]) Highlands 5.6 % 3.0-8.0 [facility] ([facility]) Baso 0.6 % 0.0-2.5 [facility] ([facility]) %NRBC 0.0 % 0.0-0.0 [facility] ([facility]) #Lymph 1.63 10^3/uL 0.60-3.40 [facility] ([facility]) %Ig 0.3 % 0.0-0.0 Above high normal [facility] ([facility]) #Neut 4.36 10^3/uL 2.00-6.90 [facility] ([facility]) #Eos 0.16 10^3/uL 0.00-0.70 [facility] ([facility]) #Baso 0.04 10^3/uL 0.00-0.20 [facility] ([facility]) #Highlands 0.37 10^3/uL 0.00-0.90 [facility] ([facility]) #NRBC 0.00 10^3/uL 0.00-0.00 [facility] ([facility]) #Ig 0.02 10^3/uL 0.00-0.10 [facility] ([facility]) Manual Diff Laboratory test result M [facility] ([facility]) RBC Morph Laboratory test result [facility] ([facility]) ID Date Data Source [id number] 05/19/2020 08:03:00 AM EDT [facility] Name Value Range Interpretation Code Description Data Tiffani rce(s) Supporting Document(s) BNP 156 PG/ML 0 - 125 [facility] ID Date Data Source [id number] 05/19/2020 08:03:00 AM EDT [facility] Name Value Range Interpretation Code Description Data Tiffani rce(s) Supporting Document(s) COMPREHENSIVE METABOLIC PANEL [facility] COMPREHENSIVE METABOLIC PANEL Sodium [Moles/volume] in Serum or Plasma 143 mEq/L 134 - 153 [facility] Potassium [Moles/volume] in Serum or Plasma 4.0 mEq/L 3.6 - 5.0 [facility] Chloride [Moles/volume] in Serum or Plasma 113 mEq/L 98 - 107 H [facility] Carbon dioxide, total [Moles/volume] in Serum or Plasma 21 MEQ/L 22 - 30 L [facility] Glucose [Mass/volume] in Serum or Plasma 90 MG/DL 65 - 110 [facility] BUN 13 MG/DL 7 - 21 [facility] Creatinine [Mass/volume] in Serum or Plasma 0.5 MG/DL 0.7 - 1.5 L [facility] BUN/CREAT 26 8 - 27 [facility] al Protein [Mass/volume] in Serum or Plasma 5.9 G/DL 6.3 - 8.2 L [facility] Albumin [Mass/volume] in Serum or Plasma 4.1 G/DL 3.9 - 5.0 [facility] Globulin [Mass/volume] in Serum by calculation 1.8 GM/DL 2.4 - 3.2 L [facility] A/G RATIO 2.3 0.8 - 2.0 H [facility] Calcium [Mass/volume] in Serum or Plasma 8.8 MG/DL 8.4 - 10.2 [facility] Bilirubin.total [Mass/volume] in Serum or Plasma <0.7 MG/DL 0.2 - 1.3 [facility] Alkaline phosphatase [Enzymatic activity/volume] in Serum or Plasma 81 U/L 38 - 126 [facility] Aspartate aminotransferase [Enzymatic activity/volume] in Serum or Plasma 23 U/L 5 - 40 [facility] Alanine aminotransferase [Enzymatic activity/volume] in Seru m or Plasma 30 U/L 7 - 56 [facility] Anion gap 3 in Serum or Plasma 9.0 mmol/L 8.0 - 16.0 [facility] AGE 39 yrs [facility] NON-AA GFR >60 mL/min [facility] AFR AMER GFR >60 mL/min [facility] Male GFR In terprentation 20-49 yrs >60 mL/min Normal 50-59 yrs >56 mL/min Normal 60-69 yrs >49 mL/min Normal 70-79yrs >42 mL/min Normal 80 and above >35 mL/min Normal Female GFR Interpretation 20-39 yrs >60 mL/min Normal 40-49 yrs >58 mL/min Normal 50-59 yrs >51 mL/min Normal 60-69 yrs >45 mL/min Normal 70-79 yrs >39 mL/min Normal 80 and above >32 mL/min Normal ID Date Data Source [id number] 05/19/2020 08:03:00 AM EDT [facility] Value Range Interpretation Code Description Data Tiffani rce(s) Supporting Document(s) Thyroxine (T4) free index in Serum or Plasma by calculation 0.80 NG/DL 0.93 - 1.70 L [facility] ID Date Data Source [id number] 05/19/2020 07:53:00 AM EDT [facility] Value Range Interpretation Code Description Data Tiffani rce(s) Supporting Document(s) Thyrotropin [Units/volume] in Serum or Plasma by Detec tion limit <= 0.05 mIU/L 1.10 uIU/mL 0.47 - 5.01 [facility] ID Date Data Source [id number] 05/19/2020 07:48:00 AM EDT [facility] Value Range Interpretation Code Description Data Tiffani rce(s) Supporting Document(s) Lactate [Moles/volume] in Serum or Plasma 1.2 MMOL/L 0.2 - 2.2 [facility] ID Date Data Source [id number] 05/19/2020 07:41:00 AM EDT [facility] Value Range Interpretation Code Description Data Tiffani rce(s) Supporting Document(s) TROPONIN T <0.01 NG/ML 0.00 - 0.10 [facility] TROPONIN T0.1 ng/ml Recommended as the c linical threshold value Madelineedmond SimranMaira ID Date Data Source [id number] 05/19/2020 07:21:00 AM EDT [facility] Name Value Range Interpretation Code Description Data Tiffani rce(s) Supporting Document(s) CBC W/AUTOMATED DIFF [facility] COMPLETE BLOOD COUNT Leukocytes [#/volume] in Blood by Automated count 6.6 10^3/uL 4.2 - 1 1.0 [facility] Erythrocytes [#/volume] in Blood by Automated count 4.27 10^6/uL 4. 20 - 5.40 [facility] Hemoglobin [Mass/volume] in Blood 12.0 g/dL 12.0 - 16.0 [facility] Hematocrit [Volume Fraction] of Blood by Automated count 36.9 % 3 7.0 - 47.0 L [facility] Erythrocyte mean corpuscular volume [Entitic volume] by Auto mated count 86.4 fL 81.0 - 101 [facility] Erythrocyte mean corpuscular hemoglobin [Entitic mass] by Automated count 28.1 pg 27.0 - 34.0 [facility] Erythrocyte mean corpuscular hemoglobin concentration [Mass/volume] by Automated count 32.5 g/dL 31.0 - 36.0 [facility] Erythrocyte distribution width [Ratio] by Automated count 13.1 % 11.5 - 14.5 [facility] Platelets [#/volume] in Blood by Automated count 237 10^3/uL 150 - 45 0 [facility] Platelet mean volume [Entitic volume] in Blood by Automated count 10.7 fL 7.4 - 10.4 H [facility] Neutrophils/100 leukocytes in Blood by Automated count 66.3 % 37. 0 - 80.0 [facility] Lymphocytes/100 leukocytes in Blood by Manual count 24.8 % 25.0 - 40.0 L [facility] Monocytes/100 leukocytes in Blood by Automated count 5.6 % 3.0 - 8.0 [facility] Eosinophils/100 leukocytes in Blood by Automated count 2.4 % 0.0 - 7.0 [facility] Basophils/100 leukocytes in Blood by Automated count 0.6 % 0.0 - 2.5 [facility] %IG 0.3 % 0.0 - 0.0 H [facility] %NRBC 0.0 % 0.0 - 0.0 [facility] al Neutrophils [#/volume] in Blood by Automated count 4.36 10^3/uL 2.00 - 6.90 [facility] Lymphocytes [#/volume] in Blood by Automated count 1.63 10^3/uL 0.60 - 3.40 [facility] Monocytes [#/volume] in Blood by Automated count 0.37 10^3/uL 0.00 - 0.90 [facility] Eosinophils [#/volume] in Blood by Automated count 0.16 10^3/uL 0.00 - 0.70 [facility] Basophils [#/volume] in Blood by Automated count 0.04 10^3/uL 0.00 - 0.20 [facility] #IG 0.02 10^3/uL 0.00 - 0.10 [facility] #NRBC 0.00 10^3/uL 0.00 - 0.00 [facility] MANUAL DIFF NOT INDICATED [facility] RBC MORPH NOT INDICATED [facility] ID Date Data Source [id number] 05/19/2020 12:12:00 AM EDT [facility] [address] [place] [address] PHONE: [phone] FAX: [phone] Name ..............: HEATHER HEARD Acct Number ............: [id number] ROOM. ............: 110-1 MR Number ............................: [id number] Stay type.........: O/P Discharge Date...............: Admit Date .....: 05/18/20 Admit Phys .............................: DIPTI WASSERMAN Date of ..: 1980 Family Phys ...........................: POLK HARD Phone..............: [phone] Age.................................:39 Film# .............. .:[id number] Sex.................................:F Unsigned transcriptions are preliminary reports and do not represent a medical or legal document EKG [id number] COMPLETE:05/18/20 16:23 [id number] EKG [id number] COMPLETE:05/18/20 16:23 [id number] Please See Scanned Results. Name Value Range Interpretation Code Description Data Tiffani rce(s) Supporting Document(s) ID Date Data Source [id number] 05/18/2020 11:15:00 AM EDT [facility] 1 OrderSheet [facility] Emergency Department [address] [place] [address] Phone #: ext- [phone] 05/18/2020 11:14 Patient: CRYSTAL ROMERO Sex: F : 1980 Age: 39yWEIGHT:92.0 kg (M) HEIGHT:68 inches (S) BMI:30.8ALLERGIES: BactrimCHIEF COMPLAINT: headacheDIAGNOSIS: Migraine, Sinus bradycardiaLAB ORDERSOrder Description Priority Entered Acknowledged [facility]ed[facility] 11:51 05/18/2020 12:21 Wilber Long R.N., P.A.-C;CMP STAT 11:51 05/18/2020 12:21 Wilber Long R.N. P.A.-C;CRP STAT 11:05/18/2020 12:21 Wilber Long R.N. P.A.-C;Sed. Rate STAT 11:05/18/2020 12:21 Wilber Long R.N. P.A.-C;Lyme Disease STAT 11:05/18/2020 12:21 [place],Antibodies Wilber Aguirre R.N. P.A.-C;Urinalysis (Clean STAT 12:17 05/18/2020 12:19 Mercedes,Catch) Wilber Aguirre R.N. P.A.-C;Troponin-T STAT 13:14 05/18/2020 14:30 Wilber Long R.N. P.A.- C;DIAGNOSTIC STUDY ORDERSOrder Description Priority Entered Acknowledged InitialedCT Head W/O Cont STAT 11:51 05/18/2020 Ack'd: 12:21 12:46 Monse,(Oxygen?(No)) Carla Hampton R.N. P.A.-C; R.N. Reason for Study: HeadacheMEDICATION/IV/DRIP/FLUID ORDERS 2 OrderSheet [facility] Emergency Department [address] [place] [address] Phone #: ext- [phone] 05/18/2020 11:14 Patient: CRYSTAL ROMERO Sex: F : 1980 Age: 39yOrder Description Priority Entered Acknowledged InitialedIV NS 1000 mL 11:51 05/18/2020 12:31 [place],Bolus : Bolus 1000 Wilber Love R.N.mL (X1) P.A.- C;Tylenol 1 g PO X1 11:51 05/18/2020 12:32 Randy,dose: 1000 mg Wilber Love R.N.(NOW x1) P.A.-C;Benadryl 25 mg IVP 11:51 05/18/2020 12:32 Randy,X1 dose: 25 mg Wilber Love R.N.(NOW x1) P.A.-C;Reglan IVP 10 mg 11:51 05/18/2020 12:33 Wilber Padilla R.N. P.A.-C;GENERAL ORDERSOrder Description Priority Entered Acknowledged InitialedSaline Lock 11:51 05/18/2020 12:21 Wilber Long R.N. P.A.-C;Button Maker And Installer 11:52 05/18/2020 12:21 Mercedes,(continuous) Wilber Aguirre R.N. P.A.-C;Pulse Oximetry 11:52 05/18/2020 12:21 Mercedes,Continuous Wilber Aguirre R.N. P.A.-C;EKG 11:52 05/18/2020 Ack'd: 12:21 12:26 Wilber Long Jennifer Jennifer R.N. P.A.-C; R.N.EKG 12:51 05/18/2020 12:51 Mercedes Long Jennifer Jennifer R.N. R.N.; Verbal order per; Wilber Florentino P.A.-C[Electronically signed by Ivan Padilla R.N. (15:27 05/18/2020)][Electronically signed by Wilber Florentino P.A.-C (23:48 05/18/2020)][Electronically locked by Ivan Padilla R.N. (15:27 05/18/2020)] Name Value Range Interpretation Code Description Data Tiffani rce(s) Supporting Document(s) ID Date Data Source [id number] 05/18/2020 11:15:00 AM EDT [facility] 1 Medication Reconciliation Report [facility] Emergency Department [address] [place] [address] Phone #: [phone] 05/18/2020 11:14 Patient: CRYSTAL ROMERO Sex: F : 1980 Age: 39yWeight: 92.0 kgHeight/Length: 68 in.BMI: 30.8ALLERGIES: BactrimThe patient's Home Medications are listed below:THE FOLLOWING MEDICATIONS NEED TO BE RECONCILED: Advair Diskus Inhalation 1 puff, 2x a day Albuterol Sulfate HFA Inhalation 1 puff, 4x a day, prn Cetirizine HCl Oral 10 mg, daily Effexor XR Oral 75 mg, 2x a day Gabapentin Enacarbil ER Oral (600 mg) 1 tablet, 2x a day Imitrex Oral 25 mg, prn Spiriva HandiHaler Inhalation, 2x a day Topamax Oral 100 mg, daily, prn Wellbutrin SR Oral 150, 2x a dayThe source(s) of the original Home Medication information:patientThe following Medications were given to the patient in the Emergency Department:NS [IV] IV Fluids bolus 1000 mL over 60 minute(s), then 1000 mL/hr, administered: 05/18/2020 12:31:00 PMTylenol [PO] PO 1000 mg, administered: 05/18/2020 12:32:00 PMBenadryl [IVP] IVP 25 mg, administered: 05/18/2020 12:32:00 PM 2 Medication Reconciliation Report [facility] Emergency Department [address] [place] [address] Phone #: ext- [phone] 05/18/2020 11:14 Patient: CRYSTAL ROMERO Sex: F : 1980 Age: 39yReglan [IVP] IVP 10 mg, administered: 05/18/2020 12:33:00 PMThe following Medications were prescribed to the patient:None. Name Value Range Interpretation Code Description Data Tiffani rce(s) Supporting Document(s) ID Date Data Source [id number] 05/18/2020 11:15:00 AM EDT [facility] 1 Medication Administration Record [facility] Emergency Department [address] [place] [address] Phone #: [phone]- [phone] 05/18/2020 11:14 Patient: CRYSTAL ROMERO Sex: F : 1980 Age: 39yWeight: 92.0 kgHeight/Length: 68 inBMI: 30.8ALLERGIES: Bactrim Date/Time Medication Administered Medication OrderedStart NS [IV] IV NS 1000 mL Bolus : Bolus 523151:31 05/18/2020 Dose: IV Fluids mL (X1)Ivan Padilla R.N. Rate: 1000 mL/hr over 60 minute(s)---- Bolus: 1000 mL over 60 minute(s)Stop Dispensed: 1000 mL bag15:00 05/18/2020 Site: #1 left Ivan Sesay R.N.Given TYLENOL [PO] (APAP) Tylenol 1 g PO X1 dose: 1000 mg12:32 05/18/2020 Dose: 1000 mg Tablets PO (NOW x1)Ivan Padilla R.N.Given BENADRYL [IVP] (DIPHENHYDRAMINE Benadryl 25 mg IVP X1 dose: 2512:32 05/18/2020 HCL) mg (NOW x1)Ivan Padilla R.N. Dose: 25 mg IVP Site: #1 left ACGiven REGLAN [IVP] (METOCLOPRAMIDE Reglan IVP 10 mg12:33 05/18/2020 HCL)Ivan Padilla R.NMaira Dose: 10 mg IVP Site: #1 left AC Name Value Range Interpretation Code Description Data Tiffani rce(s) Supporting Document(s) ID Date Data Source [id number] 05/18/2020 11:15:00 AM EDT [facility] 1 General Instructions [facility] Emergency Department [address] [place] [address] Phone #: ext- [phone] 05/18/2020 11:14 Patient: CRYSTAL ROMERO Sex: F : 1980 Age: 39ySinus bradycardiaMigraine headache without aura, with status migrainosus- refractory to treatment. ADDITIONAL INFORMATIONBradycardiaWhen your heart rate is slow, less than 60 beats per minute, it is called bradycardia. Bradycardia canbe normal, caused by medicines, or a sign of a disease. The slow heart rate may not be constant; itcan come and go. It is a concern when it is very low, or you have symptoms.Signs and symptomsThe following are signs and symptoms of bradycardia: 2 General Instructions [facility] Emergency Department [address] [place] [address] Phone #: ext- [phone] 05/18/2020 11:14 Patient: CRYSTAL ROMERO Sex: F : 1980 Age: 39y Heart rate less than 60 per minute Dizziness or feeling lightheaded Weakness Trouble breathing Fainting Sleepiness More trouble exercising than usual because of fatigue Confusion or trouble concentratingCausesThere are many causes of bradycardia. Some can be related to your heart, but some may be relatedto other factors.Ssd-hrzeh-eddclvu causes: Advanced age Side effect of certain medicines (such as beta-blockers, calcium channel blockers, digitalis, antiarrhythmic medicines like amiodarone, clonidine, lithium) Medical conditions such as hypoglycemia (low blood sugar), hypothyroidism (low thyroid), electrolyte disorder, hypothermia , sleep apnea Athletes, especially long-distance runners, may have a slow heart rate. This can be normal. Sleep apnea Brain injury such as stroke or bleeding inside the brainHeart-related causes: Coronary artery disease (angina or prior heart attack, also known as acute myocardial infarction, or AMI) Heart valve disease Heart muscle disease (cardiomyopathy) Congestive heart failure Sick sinus syndrome, which is when your heart's natural pacemaker is no longer working properly 3 General Instructions [facility] Emergency Department [address] [place] [address] Phone #: ext- [phone] 05/18/2020 11:14 --- Patient: CRYSTAL ROMERO Sex: F : 1980 Age: 39y Diseases that infiltrate the heart such as sarcoid Heart infectionsSometimes the cause for the arrhythmia cannot be found.Bradycardia that causes symptoms is sometimes reversible, and can be treated with medicines.When more severe bradycardia persists, a pacemaker is generally recommended. When thebradycardia does not cause symptoms, your doctor may decide to evaluate it in his or her office.Home careThe following will help you care for yourself at home: Resume your usual activities when you are feeling back to normal. If you develop any of the symptoms below during exertion, then you should not exert yourself until evaluated further by your doctor. Work with your doctor on any needed lifestyle changes, such as changing your diet, stopping smoking if you are a smoker, and a planned exercise program.Follow- up careFollow up with your doctor, or as advised.Call [phone] if any of the following occur: Chest pain Trouble breathing Slow heart rate with dizziness or lightheadedness Fainting or loss of consciousness Chest, shoulder, arm, neck, or back pain Slow heart rate (under 50 beats per minute) if associated with symptomsWhen to seek medical adviceCall your healthcare provider right away if any of the following occur: Occasional weakness, dizziness, or lightheadedness 4 General Instructions [facility] [facility] [address] [place] [address] Phone #: ext- [phone] 05/18/2020 11:14 Patient: CRYSTAL ROMERO Sex: F : 1980 Age: 39y [phone] [employer]. [address] [place] [address]. All rights reserved. This information is not intended as asubstitute for professional medical care. Always follow your healthcare professional's instructions. You have been given the following additional information: Bradycardia(Electronically signed by Wilber Florentino P.A.-C 05/18/2020 23:48) Name Value Range Interpretation Code Description Data Tiffani rce(s) Supporting Document(s) ID Date Data Source [id number] 05/18/2020 11:15:00 AM EDT [facility] 1 Clinical Report - Nurses [facility] Emergency Department [address] [place] [address] Phone #: ext- [phone] 05/18/2020 11:14 Patient: CRYSTAL ROMERO Sex: F : 1980 Age: 39yTRIAGEArrived by EMS. Historian: patient.Acuity: LEVEL 3.Chief Complaint: MIGRAINE HEADACHE and (sensitivity to light and noise.).Alert. No acute distress.This started three days ago. ( denies recent travel, sick contacts, SOB or fevers). No nausea, vomiting,weakness, numbness or fever. No sinus pain.Treatment COLLISION CENTER MANAGER:Seen within the last 24 hours in a medical facility. (Seen at PCP COLLISION CENTER MANAGER, administered herself PRN topamaxat 0730 for migraine).SHOAIB COMA SCORE: 15- eyes open- spontaneous (4); best verbal response- oriented (5); bestmotor response- obeys commands (6). --11:22 05/18/20 Yumiko Shea R.N.11:05/18/20. BP: 134/74. MAP: 94. HR: 66. RR: 18. O2 saturation: 98% on room air. Temp: 98.6 F.Pain level now: 05/13. --11:22 05/18/20 Yumiko Shea R.N.Weight: 92 kg measured. Height/Length: 68 inches Per Patient. BMI: 30.8. --11:15 05/18/20 Yumiko Shea R.N.MedicationsSpiriva HandiHaler Inhalation, 2x a day. --11:26 05/18/20 Yumiko Shea R.N. Topamax Oral 100 mg, daily as needed. --11:05/18/20 Yumiko Shea R.N. Wellbutrin SR Oral 150, 2x a day. --11:05/18/20 Yumiko Shea R.N. Imitrex Oral 25 mg, as needed. --11:05/18/20 Yumiko Shea R.N. Gabapentin Enacarbil ER Oral (Tablet Extended Release 600 mg) 1 tablet, 2x a day. --11:30 05/18/20Yumiko Shea R.N. Effexor XR Oral 75 mg, 2x a day. --11:30 05/18/20 Yumiko Shea R.N. Cetirizine HCl Oral 10 mg, daily. --11:30 05/18/20 Yumiko Shea R.N. Advair Diskus Inhalation 1 puff, 2x a day. --11:30 05/18/20 Yumiko Shea R.N. Albuterol Sulfate HFA Inhalation 1 puff, 4x a day as needed. --11:31 05/18/20 Yumiko Shea R.N.AllergiesBactrim. --11:22 05/18/20 Yumiko Shea R.N.PROBLEMS:Neuropathy.Migraine Headache. 2 Clinical Report - Nurses [facility] Emergency Department [address] [place] [address] Phone #: ext- [phone] 05/18/2020 11:14 Patient: CRYSTAL ROMERO Sex: F : 1980 Age: 39yEmphysema. --11:26 05/18/20 Yumiko Shea R.N.Anxiety Reaction.Sleep disorder.Depression. --11:33 05/18/20 Yumiko Shea R.N.Medication/allergy information source: the patient. --11:22 05/18/20 Yumiko Shea R.N.ADDITIONAL SURGERIES:Facial skin revision .Left ankle fracture with pins.Skin grafts.Tonsillectomy.Tubal Ligation. --11:28 05/18/20 Yumiko Shea R.N.Asthma.Cholecystectomy. --11:33 05/18/20 Yumiko Shea R.N.HistoryPAST MEDICAL HX: Immunizations: up-to-date. Last normal menstrual period now. Denies currentpregnancy.SOCIAL HX: Never smoker. Occasional alcohol use. No drug use. No recent travel. No knowncontact with a sick individual. She was offered HIV testing but declined and hepatitis C testing butdeclined. She has not traveled outside the [place]Infectious disease exposure: No infectious disease exposure. The patient was not exposed to C-diff,MRSA, VRE or CRE.SELF HARM ASSESSMENT: Self harm assessment was performed. The patient answered "no" to thequestion(s) "Have you recently felt down, depressed, or hopeless?", "Do you have thoughts of harming orkilling yourself?", "Do you have a plan for harming or killing yourself?", "Have you recently had thoughtsabout harming or killing others?", "Do you have any dangerous items in your possession?", "Have younoticed less interest or pleasure in doing things?", "Are you here because you tried to hurt yourself?" and"Have you ever tried to hurt yourself before today?".ABUSE ASSESSMENT: No report of abuse.NUTRITIONAL RISK ASSESSMENT: The nutritional risk assessment revealed no deficiencies.FUNCTIONAL ASSESSMENT: Functional assessment: no impairments noted.LEARNING NEEDS ASSESSMENT: The learning needs assessment revealed no barriers.FALL RISK ASSESSMENT: Fall risk assessment completed. No risk factors identified. --11:22 05/18/20Yumiko Shea R.N.PHYSICAL ASSESSMENT 3 Clinical Report - Nurses [facility] Emergency Department [address] [place] [address] Phone #: ext- [phone] 05/18/2020 11:14 Patient: CRYSTAL ROMERO Sex: F : 1980 Age: 39y ( c/o three day history of migraine not relieved with care at the clinic. Sent her by Dr Polk.). GENERAL / NEURO / PSYCH: Oriented X 4. Appears in pain and in distress. Speech within normal limits. HEENT: Photophobia present. --11:24 05/18/20 Ivan Padilla R.N. 11:25 05/18/20. BP: 134/74. MAP: 94. HR: 53. RR: 18. O2 saturation: 97%. Temp: deferred. Pain level now: 05/13. --11:05/18/20 Ivan Padilla R.N.NURSING PROGRESS NOTESMonitoring of patient in place. Patient gowned. Head of bed elevated. Reassurance given. Lightsdimmed. Call light placed in reach. Side rails up x 2. Bed placed in lowest position. Brakes of bed on.Patient ready for evaluation. --11:23 05/18/20 Yumiko Shea R.N. Patient ID band checked for patient name and birthdate: patient confirmed. Instructions provided to collect clean catch urine and patient verbalized understanding. Clean catch urine collected; sample sent to lab for urinalysis. Specimen labeled in the presence of the patient. --12:20 05/18/20 Carla Long R.N. 12:31 05/18/2020 Site #1 started via IV in the left antecubital space with an 20g angiocath; one attempt. Blood drawn: rainbow set. --12:05/18/20 Ivan Padilla R.N. 12:31 05/18/2020 Started bag #1 1000 mL IV Fluids NS; bolus of 1000 mL over 60 minute(s) then at 1000 mL/hr over 60 minute(s) via site #1 --12:31 05/18/20 Ivan Padilla R.N. 12:32 05/18/2020 Tylenol (APAP) PO Tablets 1000 mg given. --12:32 05/18/20 Ivan Padilla R.N. 12:32 05/18/2020 Benadryl (diphenhydrAMINE HCl) IVP 25 mg given over 3 minute(s) via site #1. --12:32 05/18/20 Ivan Padilla R.N. 12:33 05/18/2020 Reglan (Metoclopramide HCl) IVP 10 mg given over 3 minute(s) via site #1. --12:33 05/18/20 Ivan Padilla R.N. EKG time: (late entry - 12:46 05/18/2020). EKG was ordered, performed by a nurse and shown to the PA. ( Pt kevin into 40's, CM PA aware; thought to have seen more irregularity/possible U WAVE ON tele and repeat EKG completed and shown to PA.). --12:51 05/18/20 Carla Long R.N. Patient transported to [place] by wheelchair with tech. --12:55 05/18/20 Ivan Padilla R.N. Patient returned from CT by wheelchair with tech. --13:04 05/18/20 Ivan Padilla R.N. 13:03 05/18/20. BP: 102/66. MAP: 78. HR: 54. RR: 18. O2 saturation: 97%. Temp: deferred. Pain level now: 04/13. --13:04 05/18/20 Ivan Padilla R.N. ( states her heart rate has always been low. monitor reveals sinus kevin at 52). --13:05 05/18/20 Ivan Padilla R.N. 4 Clinical Report - Nurses [facility] Emergency Department [address] [place] [address] Phone #: ext- [phone] 05/18/2020 11:14 Patient: CRYSTAL ROMERO Sex: F : 1980 Age: 39y 14:01 05/18/20. BP: 102/66. MAP: 78. HR: 52. RR: 16. O2 saturation: 99%. Temp: deferred. Pain level now: 01/11. --14:02 05/18/20 Ivan Padilla R.N. 14:57 05/18/20. BP: 114/75. MAP: 88. HR: 50. RR: 14. O2 saturation: 95%. Temp: deferred. Pain level now: 12/14. --14:59 05/18/20 Ivan Padilla R.N. 14:36 05/18/2020 IV Fluids NS via IV site #1 Bag Change: bag #1. Total amount infused: 1000 at 50 mL/hr via IV pump. --15:01 05/18/20 Ivan Padilla R.N. Change to Details. --15:24 05/18/20 Ivan Padilla R.N. 14:36 05/18/2020 IV Fluids NS via IV site #1 Bag Change: bag #1 infused. Total amount infused: 1000 at 50 mL/hr via IV pump. --15:24 05/18/20 Ivan Padilla R.N. 15:00 05/18/2020 IV Fluids NS via IV site #1 Discontinued: bag #1 infused upon transfer. Total amount infused: 1000 mL. --15:00 05/18/20 Ivan Padilla R.N.DISPOSITION / DISCHARGE Admitted to the Acute Inpatient Unit. Transported via stretcher. Report was given to a nurse at bedside. Report included patient's care, treatment, condition and vital signs. All questions were answered. --15:03 05/18/20 Ivan Padilla R.N. Departure time: 15:10 05/18/2020. --15:26 05/18/20 Ivan Padilla R.N.Locked/Released at 05/18/2020 15:27 by Ivan Padilla R.N. Name Value Range Interpretation Code Description Data Tiffani rce(s) Supporting Document(s) ID Date Data Source [id number] 05/18/2020 11:15:00 AM EDT [facility] 1 Clinical Report - Physicians/Mid Levels [facility] Emergency Department [address] [place] [address] Phone #: ext- [phone] 05/18/2020 11:14 Patient: CRYSTAL ROMERO Sex: F : 1980 Age: 39y Time Seen: 11:46 05/18/2020; initial patient contact, initial documentation. Arrived- By ambulance. Historian- patient.HISTORY OF PRESENT ILLNESS Chief Complaint: HEADACHE. Is still present. This started about 3 days ago. It is described as "pain", tightness and pressure. Quality described as unlike previous headaches. Located in the right parietal and left parietal region. The patient has had blurred vision and nausea. No preceding symptoms or photophobia. (Sts that it started about 3 day ago and progressively gotten worse. Has hx of migraines, tx'ed by PCP/no nerology. Took aborttive meds this AM wiht no improvement. Went to PCP who then snet pt to the ER for eval via EMS.). Similar symptoms previously. Patient has had similar symptoms chronically. Recent medical care: The patient was seen recently at another facility in a clinic.REVIEW OF SYSTEMSLast normal menstrual period now. No fever, muscle aches, sinus pressure, ear pain or sore throat. Nocarbon monoxide exposure, tick bite, head injury, chest pain or difficulty breathing. No cough, abdominalpain, diarrhea, pain with urination or skin rash. No enlarged lymph nodes or back pain. All other systemsreviewed and are negative.PAST HISTORYSee nurses notes. Problems: Anxiety Reaction. Sleep disorder. Depression. Neuropathy. Migraine Headache. Emphysema. Additional Surgeries: Asthma. Cholecystectomy. Facial skin revision . Left ankle fracture with pins. Skin grafts. Tonsillectomy. 2 Clinical Report - Physicians/Mid Levels [facility] Emergency Department [address] [place] [address] Phone #: ext- [phone] 05/18/2020 11:14 Patient: CRYSTAL ROMERO Sex: F : 1980 Age: 39y Tubal Ligation. Medications: Albuterol Sulfate HFA Inhalation 1 puff, 4x a day as needed. Advair Diskus Inhalation 1 puff, 2x a day. Cetirizine HCl Oral 10 mg, daily. Effexor XR Oral 75 mg, 2x a day. Gabapentin Enacarbil ER Oral (Tablet Extended Release 600 mg) 1 tablet, 2x a day. Imitrex Oral 25 mg, as needed. Wellbutrin SR Oral 150, 2x a day. Topamax Oral 100 mg, daily as needed. Spiriva HandiHaler Inhalation, 2x a day. Allergies: Bactrim.SOCIAL HISTORYNever smoker. Occasional alcohol use. No drug use.ADDITIONAL NOTESThe nursing notes have been reviewed.PHYSICAL EXAMVital Signs: 05/18/2020 11:15 BP: 134/74. MAP: 94. HR: 66. RR: 18. O2 saturation: 98% on room air.Temp: 98.6 F. Pain level now: 05/13. Have been reviewed. Oxygen saturation normal.Appearance: Alert. No acute distress. Patient in mild distress.Eyes: Eyelids appear normal to inspection. Conjunctivae and sclerae appear normal to inspection.Corneas appear normal to inspection. Pupils equal, round and reactive to light and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 153 [facility] Potassium [Moles/volume] in Serum or Plasma 4.0 mEq/L 3.6 - 5.0 [facility] Chloride [Moles/volume] in Serum or Plasma 108 mEq/L 98 - 107 H [facility] Carbon dioxide, total [Moles/volume] in Serum or Plasma 25 MEQ/L 22 - 30 [facility] Glucose [Mass/volume] in Serum or Plasma 84 MG/DL 65 - 110 [facility] BUN 10 [facility]DL 7 - [facility] Creat[facility] [Mass/volume] in Serum or Plasma 0.7 MG/DL 0.7 - 1.5 [facility] BUN/CREAT 14 8 - 27 [facility] Protein [Mass/volume] in Serum or Plasma 6.4 G/DL 6.3 - 8.2 [facility] Albumin [Mass/volume] in Serum or Plasma 4.3 G/DL 3.9 - 5.0 [facility] Globulin [Mass/volume] in Serum by calculation 2.1 GM/DL 2.4 - 3.2 L [facility] A/G RATIO 2.0 0.8 - 2.0 [facility] Calcium [Mass/volume] in Serum or Plasma 9.7 MG/DL 8.4 - 10.2 [facility] Bilirubin.total [Mass/volume] in Serum or Plasma <0.7 MG/DL 0.2 - 1.3 [facility] Alkaline phosphatase [Enzymatic activity/volume] in Serum or Plasma 84 U/L 38 - 126 [facility] Aspartate aminotransferase [Enzymatic activity/volume] in Serum or Plasma 19 U/L 5 - 40 [facility] Alanine aminotransferase [Enzymatic activity/volume] in Seru m or Plasma 19 U/L 7 - 56 [facility] Anion gap 3 in Serum or Plasma 9.0 mmol/L 8.0 - 16.0 [facility] AGE 39 yrs [facility] al NON-AA GFR >60 mL/min [facility] ital AFR AMER GFR >60 mL/min [facility] spital Male GFR In terprentation 20-49 yrs >60 mL/min Normal 50-59 yrs >56 mL/min Normal 60-69 yrs >49 mL/min Normal 70-79yrs >42 mL/min Normal 80 and above >35 mL/min Normal Female GFR Interpretation 20-39 yrs >60 mL/min Normal 40-49 yrs >58 mL/min Normal 50-59 yrs >51 mL/min Normal 60-69 yrs >45 mL/min Normal 70-79 yrs >39 mL/min Normal 80 and above >32 mL/min Normal ID Date Data Source [id number] 05/13/2020 01:56:00 PM EDT [facility] Name Value Range Interpretation Code Description Data Tiffani rce(s) Supporting Document(s) Hemoglobin A1c/Hemoglobin.total in Blood 5.1 % 4.4 - 6.1 [facility] {A1]{HB] ID Date Data Source [id number] 05/13/2020 01:35:00 PM EDT [facility] Name Value Range Interpretation Code Description Data Tiffani rce(s) Supporting Document(s) CBC W/AUTOMATED DIFF [facility] COMPLETE BLOOD COUNT Leukocytes [#/volume] in Blood by Automated count 5.3 10^3/uL 4.2 - 1 1.0 [facility] Erythrocytes [#/volume] in Blood by Automated count 4.67 10^6/uL 4. 20 - 5.40 [facility] Hemoglobin [Mass/volume] in Blood 13.1 g/dL 12.0 - 16.0 [facility] Hematocrit [Volume Fraction] of Blood by Automated count 40.7 % 3 7.0 - 47.0 [facility] Erythrocyte mean corpuscular volume [Entitic volume] by Auto mated count 87.2 fL 81.0 - 101 [facility] Erythrocyte mean corpuscular hemoglobin [Entitic mass] by Automated count 28.1 pg 27.0 - 34.0 [facility] Erythrocyte mean corpuscular hemoglobin concentration [Mass/volume] by Automated count 32.2 g/dL 31.0 - 36.0 [facility] Erythrocyte distribution width [Ratio] by Automated count 13.2 % 11.5 - 14.5 [facility] Platelets [#/volume] in Blood by Automated count 246 10^3/uL 150 - 45 0 [facility] Platelet mean volume [Entitic volume] in Blood by Automated count 11.2 fL 7.4 - 10.4 H [facility] Neutrophils/100 leukocytes in Blood by Automated count 59.9 % 37. 0 - 80.0 [facility] Lymphocytes/100 leukocytes in Blood by Manual count 28.0 % 25.0 - 40.0 [facility] Monocytes/100 leukocytes in Blood by Automated count 6.6 % 3.0 - 8.0 [facility] Eosinophils/100 leukocytes in Blood by Automated count 4.5 % 0.0 - 7.0 [facility] Basophils/100 leukocytes in Blood by Automated count 0.8 % 0.0 - 2.5 [facility] %IG 0.2 % 0.0 - 0.0 [facility] %NRBC 0.0 % 0.0 - 0.0 [facility] al Neutrophils [#/volume] in Blood by Automated count 3.19 10^3/uL 2.00 - 6.90 [facility] Lymphocytes [#/volume] in Blood by Automated count 1.49 10^3/uL 0.60 - 3.40 [facility] Monocytes [#/volume] in Blood by Automated count 0.35 10^3/uL 0.00 - 0.90 [facility] Eosinophils [#/volume] in Blood by Automated count 0.24 10^3/uL 0.00 - 0.70 [facility] Basophils [#/volume] in Blood by Automated count 0.04 10^3/uL 0.00 - 0.20 [facility] #IG 0.01 10^3/uL 0.00 - 0.10 [facility] ospital #NRBC 0.00 10^3/uL 0.00 - 0.00 [facility] MANUAL DIFF NOT INDICATED [facility] RBC MORPH NOT INDICATED [facility] spital ID Date Data Source [id number] 04/04/2020 09:56:00 AM EDT [facility] ([facility]) Name Value Range Interpretation Code Description Data Tiffani rce(s) Supporting Document(s) CBC W/Automated Diff Laboratory test result [facility] ([facility] [place]) {SOURCE: Random Void~NURSE COLLECTED? N Is patient fasting? N Is patient fasting? N WBC 5.0 10^3/uL 4.2-11.0 [facility] ([facility]) {SOURCE: Random Void~NURSE COLLECTED? N Is patient fasting? N Is patient fasting? N RBC 4.57 10^6/uL 4.20-5.40 [facility] ([facility] [place]) {SOURCE: Random Void~NURSE COLLECTED? N Is patient fasting? N Is patient fasting? N Hematocrit 39.6 % 37.0-47.0 [facility] ([facility]) {SOURCE: Random Void~NURSE COLLECTED? N Is patient fasting? N Is patient fasting? N Hemoglobin 12.9 g/dL 12.0-16.0 [facility] ([facility]) {SOURCE: Random Void~NURSE COLLECTED? N Is patient fasting? N Is patient fasting? N MCV 86.7 fL 81.0-101 [facility] ([facility]) {SOURCE: Random Void~NURSE COLLECTED? N Is patient fasting? N Is patient fasting? N RDW 12.9 % 11.5-14.5 [facility] ([facility]) {SOURCE: Random Void~NURSE COLLECTED? N Is patient fasting? N Is patient fasting? N MCH 28.2 pg 27.0-34.0 [facility] ([facility]) {SOURCE: Random Void~NURSE COLLECTED? N Is patient fasting? N Is patient fasting? N MCHC 32.6 g/dL 31.0-36.0 [facility] ([facility]) {SOURCE: Random Void~NURSE COLLECTED? N Is patient fasting? N Is patient fasting? N MPV 11.1 fL 7.4-10.4 Above high normal [facility] ([facility] [place]) {SOURCE: Random Void~NURSE COLLECTED? N Is patient fasting? N Is patient fasting? N Neut 62.5 % 37.0-80.0 [facility] ([facility]) {SOURCE: Random Void~NURSE COLLECTED? N Is patient fasting? N Is patient fasting? N Platelets 212 10^3/uL 150-450 [facility] ([facility]) {SOURCE: Random Void~NURSE COLLECTED? N Is patient fasting? N Is patient fasting? N Eos 3.0 % 0.0-7.0 [facility] ([facility]) {SOURCE: Random Void~NURSE COLLECTED? N Is patient fasting? N Is patient fasting? N Highlands 7.9 % 3.0-8.0 [facility] ([facility]) {SOURCE: Random Void~NURSE COLLECTED? N Is patient fasting? N Is patient fasting? N Lymph 25.6 % 25.0-40.0 [facility] ([facility]) {SOURCE: Random Void~NURSE COLLECTED? N Is patient fasting? N Is patient fasting? N %Ig 0.2 % 0.0-0.0 Above high normal [facility] ([facility]) {SOURCE: Random Void~NURSE COLLECTED? N Is patient fasting? N Is patient fasting? N Baso 0.8 % 0.0-2.5 [facility] ([facility]) {SOURCE: Random Void~NURSE COLLECTED? N Is patient fasting? N Is patient fasting? N #Neut 3.15 10^3/uL 2.00-6.90 [facility] ([facility] [place]) {SOURCE: Random Void~NURSE COLLECTED? N Is patient fasting? N Is patient fasting? N #Lymph 1.29 10^3/uL 0.60-3.40 [facility] ([facility] [place]) {SOURCE: Random Void~NURSE COLLECTED? N Is patient fasting? N Is patient fasting? N %NRBC 0.0 % 0.0-0.0 [facility] ([facility]) {SOURCE: Random Void~NURSE COLLECTED? N Is patient fasting? N Is patient fasting? N #Highlands 0.40 10^3/uL 0.00-0.90 [facility] ([facility] [place]) {SOURCE: Random Void~NURSE COLLECTED? N Is patient fasting? N Is patient fasting? N #Baso 0.04 10^3/uL 0.00-0.20 [facility] ([facility] [place]) {SOURCE: Random Void~NURSE COLLECTED? N Is patient fasting? N Is patient fasting? N #Eos 0.15 10^3/uL 0.00-0.70 [facility] ([facility] [place]) {SOURCE: Random Void~NURSE COLLECTED? N Is patient fasting? N Is patient fasting? N #Ig 0.01 10^3/uL 0.00-0.10 [facility] ([facility] [place]) {SOURCE: Random Void~NURSE COLLECTED? N Is patient fasting? N Is patient fasting? N #NRBC 0.00 10^3/uL 0.00-0.00 [facility] ([facility] [place]) {SOURCE: Random Void~NURSE COLLECTED? N Is patient fasting? N Is patient fasting? N Manual Diff [facility] CENTER ([facility] [place]) {SOURCE: Random Void~NURSE COLLECTED? N Is patient fasting? N Is patient fasting? N RBC Morph Laboratory test result [facility] ([facility] [place]) {SOURCE: Random Void~NURSE COLLECTED? N Is patient fasting? N Is patient fasting? N ID Date Data Source [id number] 04/04/2020 09:56:00 AM EDT [facility] ([facility]) Name Value Range Interpretation Code Description Data Tiffani rce(s) Supporting Document(s) Comprehensive Metabo Laboratory test result [facility] ([facility] [place]) {SOURCE: Random Void~NURSE COLLECTED? N Is patient fasting? N Is patient fasting? N Sodium 142 meq/L 134-153 [facility] ([facility]) {SOURCE: Random Void~NURSE COLLECTED? N Is patient fasting? N Is patient fasting? N Chloride 106 meq/L 98-107 [facility] ([facility]) {SOURCE: Random Void~NURSE COLLECTED? N Is patient fasting? N Is patient fasting? N Co2 27 meq/L 22-30 [facility] ([facility]) {SOURCE: Random Void~NURSE COLLECTED? N Is patient fasting? N Is patient fasting? N Potassium 4.6 meq/L 3.6-5.0 [facility] ([facility]) {SOURCE: Random Void~NURSE COLLECTED? N Is patient fasting? N Is patient fasting? N BUN 8 mg/dL 7-21 [facility] ([facility]) {SOURCE: Random Void~NURSE COLLECTED? N Is patient fasting? N Is patient fasting? N Glucose 95 mg/dL 65-110 [facility] ([facility]) {SOURCE: Random Void~NURSE COLLECTED? N Is patient fasting? N Is patient fasting? N Creatinine 0.6 mg/dL 0.7-1.5 Below low normal [facility] ( [facility] [place]) {SOURCE: Random Void~NURSE COLLECTED? N Is patient fasting? N Is patient fasting? N Total Protein 6.1 g/dL 6.3-8.2 Below low normal [facility] ([facility] [place]) {SOURCE: Random Void~NURSE COLLECTED? N Is patient fasting? N Is patient fasting? N BUN/Creat 13 8-27 [facility] ([facility]) {SOURCE: Random Void~NURSE COLLECTED? N Is patient fasting? N Is patient fasting? N Albumin 4.1 g/dL 3.9-5.0 [facility] ([facility]) {SOURCE: Random Void~NURSE COLLECTED? N Is patient fasting? N Is patient fasting? N A/G Ratio 2.1 0.8-2.0 Above high normal [facility] ([facility] [place]) {SOURCE: Random Void~NURSE COLLECTED? N Is patient fasting? N Is patient fasting? N Globulin 2.0 GM/DL 2.4-3.2 Below low normal [facility] ( [facility] [place]) {SOURCE: Random Void~NURSE COLLECTED? N Is patient fasting? N Is patient fasting? N Calcium 9.0 mg/dL 8.4-10.2 [facility] ([facility]) {SOURCE: Random Void~NURSE COLLECTED? N Is patient fasting? N Is patient fasting? N Alkaline Phos 88 U/L 38-126 [facility] ([facility] [place]) {SOURCE: Random Void~NURSE COLLECTED? N Is patient fasting? N Is patient fasting? N Total Bili Laboratory test result 0.2-1.3 ME [facility] ([facility] [place]) {SOURCE: Random Void~NURSE COLLECTED? N Is patient fasting? N Is patient fasting? N SGPT/Alt 31 U/L 7-56 [facility] ([facility]) {SOURCE: Random Void~NURSE COLLECTED? N Is patient fasting? N Is patient fasting? N Anion Gap 9.0 mmol/L 8.0-16.0 [facility] ([facility]) {SOURCE: Random Void~NURSE COLLECTED? N Is patient fasting? N Is patient fasting? N Sgot/Ast 26 U/L 5-40 [facility] ([facility]) {SOURCE: Random Void~NURSE COLLECTED? N Is patient fasting? N Is patient fasting? N Non-Aa GFR Laboratory test result [facility] ([facility] [place]) {SOURCE: Random Void~NURSE COLLECTED? N Is patient fasting? N Is patient fasting? N Afr Amer GFR Laboratory test result [facility] ([facility] [place]) {SOURCE: Random Void~NURSE COLLECTED? N Is patient fasting? N Is patient fasting? N Age 39 yrs [facility] ([facility]) {SOURCE: Random Void~NURSE COLLECTED? N Is patient fasting? N Is patient fasting? N ID Date Data Source [id number] 04/04/2020 09:56:00 AM EDT [facility] ([facility]) Name Value Range Interpretation Code Description Data Tiffani rce(s) Supporting Document(s) Thyrotropin [Units/volume] in Serum or Plasma 1.44 uIU/mL 0.47-5.01 [facility] ([facility] [place]) {SOURCE: Random Void~NURSE COLLECTED? N Is patient fasting? N Is patient fasting? N Thyroxine (T4) free [Mass/volume] in Serum or Plasma 0.87 ng/dL 0.93-1.70 Below low normal [facility] ([facility] [place]) {SOURCE: Random Void~NURSE COLLECTED? N Is patient fasting? N Is patient fasting? N ID Date Data Source [id number] 04/04/2020 09:56:00 AM EDT [facility] ([facility]) Name Value Range Interpretation Code Description Data Tiffani rce(s) Supporting Document(s) Source Laboratory test result [facility] ([facility] [place]) {SOURCE: Random Void~NURSE COLLECTED? N Is patient fasting? N Is patient fasting? N Urinalysis Laboratory test result [facility] ([facility] [place]) {SOURCE: Random Void~NURSE COLLECTED? N Is patient fasting? N Is patient fasting? N Color Laboratory test result [facility] ([facility] [place]) {SOURCE: Random Void~NURSE COLLECTED? N Is patient fasting? N Is patient fasting? N Clarity Laboratory test result [facility] ([facility] [place]) {SOURCE: Random Void~NURSE COLLECTED? N Is patient fasting? N Is patient fasting? N Spec [place] 1.010 1.001-1.030 [facility] ([facility]) {SOURCE: Random Void~NURSE COLLECTED? N Is patient fasting? N Is patient fasting? N Glucose Laboratory test result [facility] ([facility] [place]) {SOURCE: Random Void~NURSE COLLECTED? N Is patient fasting? N Is patient fasting? N Bilirubin Laboratory test result [facility] ([facility] [place]) {SOURCE: Random Void~NURSE COLLECTED? N Is patient fasting? N Is patient fasting? N pH 6.5 5-9 [facility] ([facility]) {SOURCE: Random Void~NURSE COLLECTED? N Is patient fasting? N Is patient fasting? N Nitrite Laboratory test result [facility] ([facility] [place]) {SOURCE: Random Void~NURSE COLLECTED? N Is patient fasting? N Is patient fasting? N Protein Laboratory test result [facility] ([facility] [place]) {SOURCE: Random Void~NURSE COLLECTED? N Is patient fasting? N Is patient fasting? N Ketone Laboratory test result [facility] ([facility] [place]) {SOURCE: Random Void~NURSE COLLECTED? N Is patient fasting? N Is patient fasting? N Leuk Est 100 Abnormal (applies to non-numeric res ults) [facility] ([facility] [place]) {SOURCE: Random Void~NURSE COLLECTED? N Is patient fasting? N Is patient fasting? N Urobilinogen Laboratory test result [facility] ([facility] [place]) {SOURCE: Random Void~NURSE COLLECTED? N Is patient fasting? N Is patient fasting? N Blood 10 Abnormal (applies to non-numeric res ults) [facility] ([facility] [place]) {SOURCE: Random Void~NURSE COLLECTED? N Is patient fasting? N Is patient fasting? N Microscopic Laboratory test result [facility] ([facility] [place]) {SOURCE: Random Void~NURSE COLLECTED? N Is patient fasting? N Is patient fasting? N WBC Laboratory test result Abnormal (applies to non -numeric results) [facility] ([facility] [place]) {SOURCE: Random Void~NURSE COLLECTED? N Is patient fasting? N Is patient fasting? N RBC Laboratory test result [facility] ([facility] [place]) {SOURCE: Random Void~NURSE COLLECTED? N Is patient fasting? N Is patient fasting? N Epithelial Laboratory test result Abnormal (applies to non -numeric results) [facility] ([facility] [place]) {SOURCE: Random Void~NURSE COLLECTED? N Is patient fasting? N Is patient fasting? N Bacteria Laboratory test result Abnormal (applies to non -numeric results) [facility] ([facility] [place]) {SOURCE: Random Void~NURSE COLLECTED? N Is patient fasting? N Is patient fasting? N Mucous Laboratory test result [facility] ([facility] [place]) {SOURCE: Random Void~NURSE COLLECTED? N Is patient fasting? N Is patient fasting? N ID Date Data Source [id number] 04/04/2020 09:56:00 AM EDT [facility] ([facility]) Name Value Range Interpretation Code Description Data Tiffani rce(s) Supporting Document(s) Erythrocyte sedimentation rate by Westergren method Laboratory test result [facility] ([facility] [place]) C reactive protein [Mass/volume] in Serum or Plasma by High sensitivity method Laboratory test result [facility] ([facility]) Cobalamin (Vitamin B12) [Mass/volume] in Serum or Plasma 689 pg/mL 2 32-1245 [facility] ([facility] [place]) {SOURCE: Random Void~NURSE COLLECTED? N Is patient fasting? N Is patient fasting? N Hemoglobin A1c/Hemoglobin.total in Blood 5.1 % 4.4-6.1 [facility] ([facility] [place]) {SOURCE: Random Void~NURSE COLLECTED? N Is patient fasting? N Is patient fasting? N ID Date Data Source [id number] 04/04/2020 09:56:00 AM EDT [facility] ([facility]) Name Value Range Interpretation Code Description Data Itffani rce(s) Supporting Document(s) Sed Rate 8 mm/hr 0-20 [facility] ([facility]) {SOURCE: Random Void~NURSE COLLECTED? N Is patient fasting? N Is patient fasting? N Sed Rate Reenter 8 [facility] ([facility]) {SOURCE: Random Void~NURSE COLLECTED? N Is patient fasting? N Is patient fasting? N ID Date Data Source [id number] 04/04/2020 09:56:00 AM EDT [facility] ([facility]) Name Value Range Interpretation Code Description Data Tiffani rce(s) Supporting Document(s) C reactive protein [Mass/volume] in Serum or Plasma by High sensitivity method 0.84 mg/L 1.00-3.00 Below low normal [facility] ([facility]) {SOURCE: Random Void~NURSE COLLECTED? N Is patient fasting? N Is patient fasting? N ID Date Data Source [id number] 04/04/2020 09:56:00 AM EDT [facility] ([facility]) Name Value Range Interpretation Code Description Data Tiffani rce(s) Supporting Document(s) Cholesterol 137 mg/dL 131-200 [facility] ([facility]) {SOURCE: Random Void~NURSE COLLECTED? N Is patient fasting? N Is patient fasting? N Cve Panel Laboratory test result [facility] ([facility] [place]) {SOURCE: Random Void~NURSE COLLECTED? N Is patient fasting? N Is patient fasting? N HDL 60 mg/dL 29-86 [facility] ([facility]) {SOURCE: Random Void~NURSE COLLECTED? N Is patient fasting? N Is patient fasting? N LDL 69 mg/dL 65-175 [facility] ([facility]) {SOURCE: Random Void~NURSE COLLECTED? N Is patient fasting? N Is patient fasting? N Triglycerides 83 mg/dL 35-160 [facility] ([facility] [place]) {SOURCE: Random Void~NURSE COLLECTED? N Is patient fasting? N Is patient fasting? N LDL/HDL 1.15 1.47-3.22 Below low normal [facility] ( [facility] [place]) {SOURCE: Random Void~NURSE COLLECTED? N Is patient fasting? N Is patient fasting? N Risk Factor 2.3 3.2-4.4 Below low normal [facility] ([facility] [place]) {SOURCE: Random Void~NURSE COLLECTED? N Is patient fasting? N Is patient fasting? N ID Date Data Source [id number] 04/04/2020 09:56:00 AM EDT [facility] ([facility]) Name Value Range Interpretation Code Description Data Tiffani rce(s) Supporting Document(s) Iron [Mass/volume] in Serum or Plasma 60 ug/dL 42-135 [facility] ([facility] [place]) {SOURCE: Random Void~NURSE COLLECTED? N Is patient fasting? N Is patient fasting? N ID Date Data Source [id number] 04/04/2020 09:56:00 AM EDT [facility] ([facility]) Name Value Range Interpretation Code Description Data Tiffani rce(s) Supporting Document(s) Culture Urine Laboratory test result [facility] ([facility] [place]) {SOURCE: Random Void~NURSE COLLECTED? N Is patient fasting? N Is patient fasting? N ID Date Data Source [id number] 04/07/2020 12:08:00 PM EDT [facility] Name Value Range Interpretation Code Description Data Tiffani rce(s) Supporting Document(s) CULTURE URINE [facility] _CULTURE URINE_$$[id number]$$[id number]$$[id number]$$000612$$257178$$[id number]$$734329$$357513$$688496$$ 385131$$183212$$[id number]$$008748$$901755$$919925$$230599$$245967$$317941$$267003$$ 232907$$730468$$529618$$711430$$200610$$822580$$[id number]$$[id number] -- Continued on next page --Patient: HEATHER HEARD Order: [id number] Page 2Culture: CULTURE URINE Status: Final ==== -- Continued on next page --Patient: HEATHER HEARD Order: [id number] Page 2Culture: CULTURE URINE Status: Prelim =====$$[id number]$$[id number] DATE/TIME: 04/07/2020 11:06Culture: CULTURE URINE Status: FinalIsolate 1 Escherichia coli Flag: A . . . . . . .1Greater than 100,000 colony forming units per mLCefazolin <=4 ug/mLCefazolin with an RONALDO <=16 predicts susceptibility to the oral agentscefaclor, cefdinir, cefpodoxime, cefprozil, cefuroxime, cephalexin,and loracarbef when used for therapy of uncomplicated urinary tractinfections due to E. coli, Klebsiella pneumoniae, and Proteusmirabilis. Previous result entered on 04/06/2020 04:32 ET Gram negative rodsUrine Culture,Comprehensive: [id number] coli Flag: APatient: HEATHER HEARD Order: [id number] Page 3Culture: CULTURE URINE Status: Final========= ISOLATE 1 Escherichia coli Isolate 1Antibiotic RONALDO IntUnits ug/mL ----Amoxicillin/Clavulanic Acid S S . . . . . .20-8Ampicillin S S . . . . . .28-1Cefepime S S . . . . . .6644-9Ceftriaxone S S . . . . . .141-2Cefuroxime S S . . . . . .145- 3Ciprofloxacin S S . . . . . .185-9Ertapenem S S . . . . . .37584-7Jgwqgyhxmu S S . . . . . .267-5Imipenem S S . . . . . .279-0Levofloxacin S S . . . . . .93884-9Rdmhfekam S S . . . . . .6652-2Nitrofurantoin S S . . . . . .363-2Piperacillin/Tazobactam S S . . . . . .412-7Tetracycline S S . . . . . .496-0Tobramycin S S . . . . . .508-2Trimethoprim/Sulfa S S . . . . . .516-5P1 Test performed by: [facility] #: [id number] [address] [place] [address] [id number] [facility] [id number] Director : Jovany Flynn MD NPI #:Provider Network Manager : [email or web address] REF 04/[email or web address] REF ID Date Data Source [id number] 04/04/2020 02:12:00 PM EDT [facility] Name Value Range Interpretation Code Description Data Tiffani rce(s) Supporting Document(s) Cobalamin (Vitamin B12) [Mass/volume] in Serum or Plasma 689 PG/ML 232 - 1245 [facility] ID Date Data Source [id number] 04/04/2020 02:12:00 PM EDT [facility] Name Value Range Interpretation Code Description Data Tiffani rce(s) Supporting Document(s) Thyroxine (T4) free index in Serum or Plasma by calculation 0.87 NG/DL 0.93 - 1.70 L [facility] ID Date Data Source [id number] 04/04/2020 02:11:00 PM EDT [facility] Name Value Range Interpretation Code Description Data Tiffani rce(s) Supporting Document(s) Thyrotropin [Units/volume] in Serum or Plasma by Detec tion limit <= 0.05 mIU/L 1.44 uIU/mL 0.47 - 5.01 [facility] ID Date Data Source [id number] 04/04/2020 02:09:00 PM EDT [facility] Name Value Range Interpretation Code Description Data Tiffani rce(s) Supporting Document(s) Erythrocyte sedimentation rate by Westergren method 8 mm/hr 0 - 20 [facility] SED RATE REENTER 8 [facility] ID Date Data Source [id number] 04/04/2020 02:05:00 PM EDT [facility] Name Value Range Interpretation Code Description Data Tiffani rce(s) Supporting Document(s) [facility] Cholesterol [Mass/volume] in Serum or Plasma 137 MG/DL 131 - 200 [facility] Deprecated Triglyceride [Mass/volume] in Serum or Plasma 83 MG/DL 3 5 - 160 [facility] HDL 60 MG/DL 29 - 86 [facility] Cholesterol in LDL [Mass/volume] in Serum or Plasma by Direc t assay 69 mg/dL 65 - 175 [facility] Cholesterol.total/Cholesterol in HDL [Mass Ratio] in Serum o r Plasma 2.3 3.2 - 4.4 L [facility] LDL/HDL 1.15 1.47 - 3.22 L [facility] CVE RISK CHOL/HDL LDL/HDLMEN: 1/2 AVERAGE 3.43 1.00 AVERAGE 4.97 3.55 2X AVERAGE 9.55 6.25 3X AVERAGE 23.99 7.99WOMEN: 1/2 AVERAGE 3.27 1.47 AVERAGE 4.44 3.22 2X AVERAGE 7.05 5.03 3X AVERAGE 11.04 6.14 ID Date Data Source [id number] 04/04/2020 02:05:00 PM EDT [facility] Name Value Range Interpretation Code Description Data Tiffani rce(s) Supporting Document(s) C reactive protein [Mass/volume] in Serum or Plasma by High sensitivity method 0.84 MG/L 1.00 - 3.00 L [facility]/S HS-CRP CUT-OFF: RELATIVE RISK: <1.0 mg/L Low 1.0 - 3.0 mg/L Average >3.0 mg/L High Optimally, the average of HS-CRP results repeated two weeks apart should be used for risk assessment. ID Date Data Source [id number] 04/04/2020 02:05:00 PM EDT [facility] Name Value Range Interpretation Code Description Data Tiffani rce(s) Supporting Document(s) COMPREHENSIVE METABOLIC PANEL [facility] COMPREHENSIVE METABOLIC PANEL Sodium [Moles/volume] in Serum or Plasma 142 mEq/L 134 - 153 [facility] Potassium [Moles/volume] in Serum or Plasma 4.6 mEq/L 3.6 - 5.0 [facility] Chloride [Moles/volume] in Serum or Plasma 106 mEq/L 98 - 107 [facility] Carbon dioxide, total [Moles/volume] in Serum or Plasma 27 MEQ/L 22 - 30 [facility] Glucose [Mass/volume] in Serum or Plasma 95 MG/DL 65 - 110 [facility] BUN 8 MG/DL 7 - 21 [facility] Creatinine [Mass/volume] in Serum or Plasma 0.6 MG/DL 0.7 - 1.5 L [facility] BUN/CREAT 13 8 - 27 [facility] al Protein [Mass/volume] in Serum or Plasma 6.1 G/DL 6.3 - 8.2 L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 2 tablets a day. Historical Provider, topiramate (TOPAMAX) 100 MG tablet Take 100 mg by mouth daily HistoricalProviderMDvenlafaxine (EFFEXOR-XR) 75 MG 24 hr capsule Take 75 mg by mouth 2 (two) times aday Historical Provider, MDacetaminophen (TYLENOL) 325 MG tablet Take 2 tablets (650 mg total) by mouthevery 6 (six) hours as needed for pain 01/24/19 12/29/19 [place] Granadosimethicone (MYLICON) 80 MG chewable tablet Chew 1 tablet (80 mg total) every 6(six) hours as needed for fla tulence 01/24/19 12/29/19 [place] Granadosocial HistoryTobacco Use Smoking status: Never Smoker Smokeless tobacco: Never UsedSubstance Use Topics Alcohol use: Yes Comment: 2-4/year Drug use: NoFamily HistoryProblem Relation Age of Onset Malig Hyperthermia Neg HxREVIEW OF SYSTEMS:Respiratory: Denies any shortness of breath at rest. Rare LOPEZ. Occasional nonproductive cough. Denies yellow sputum production or wheezing.Cardiovascular: Denies any chest pain, pressure or tightness. Denies anyproximal nocturnal dyspnea or orthopnea.GI: Denies nausea, vomiting, diarrhea, constipation or melena. She hasintermittent RUQ abdominal pain as above.Neurologic: She has peripheral neuropathy. Denies tremors or syncope.BP 118/71 (BP Location: Left upper arm, Patient Position: Sitting) | Pulse 68| Ht 1.727 m (5' 8") | Wt 91.2 kg (201 lb) | SpO2 98% | BMI 30.56 kg/m [facility] Frailty Scale :: 2/10 Well (without active disease, but less fit thanpeople in category I. Often they exercise or are very active occasionally, e.g.seasonally).Stop Bang Questionnaire - Total Score:STOP-Bang Total Score: 1PHYSICAL EXAM:Airway - 1Mental and Neurological Status: [id number]: Few expiratory wheezes. No rhonchi or crackles.HEART: Rate rhythm regular. S1, S2. No murmur, rub or gallop.ABDOMEN: Bowel sounds positive times four. Soft, RUQ tenderness.Nohepatosplenomegaly.EXTREMITIES: Pulses are symmetrical. No edema.She has multiple 3rd degree12/29/2019 12:29 PMMark JANUSZ Alves* Name Value Range Interpretation Code Description Data Tiffani rce(s) Supporting Document(s) ID Date Data Source [id number] 11/02/2019 10:35:00 AM EST [facility] [address] [place] [address] PHONE: [phone] FAX: [phone] Name .................. : HEATHER HEARD Acct Number.................. : [id number] ROOM. ................. : MR Number ................... : [id number] Stay type ............. : O/P Discharge Date......... ... : 10/31/19 Admit Date ....... .. : 10/31/19 Admit Phys .................... : Wurl Date of ....... : 1980 Family Phys ................... : Wurl Phone .................. : [phone] Age ................................ : 38 Film# .................. .:[id number] Sex ................................. : F Unsigned transcriptions are preliminary reports and do not represent a medical or legal document US ABD COMPLETE [id number] COMPLETE:10/31/19 10:49 ADB [id number] (REASON FOR ABDOMEN: Abdominal pain COMPLETE ABDOMINAL ULTRASOUND: FINDINGS: The common bile duct measures 0.16 cm. Gallbladder stone identified measuring 1.6 cm. The liver and pancreas appear normal. The right and left kidneys appear normal. The spleen appears normal. Portions of the IV and that are visualized appear normal. IMPRESSION: Gallbladder stone. Common bile duct within normal limits. Electronically Reviewed and Signed By LANA HERNANDEZ MD , 11/02/19 10:35, [facility] Transcribe Initials: DZ , Transcribe Date: 10/31/19 11:07, Dictation Date: Copy for: [address] [place] [address] REC Page 1 of 1 Name Value Range Interpretation Code Description Data Tiffani rce(s) Supporting Document(s) ID Date Data Source [id number] 10/23/2019 09:47:00 AM EST [facility] [address] [place] [address] PHONE: [phone] FAX: [phone] Name .................. : HEATHER HEARD Acct Number.................. : [id number] ROOM. ................. : MR Number ................... : [id number] Stay type ............. : CLINIC Discharge Date......... ... : 10/22/19 Admit Date ......... : 10/22/19 Admit Phys .................... : POLK HARD Date of ....... : 1980 Family Phys ................... : [employer] HARD Phone .................. : [phone] Age ................................ : 38 Film# .................. .:[id number] Sex ................................. : F Unsigned transcriptions are preliminary reports and do not represent a medical or legal document SPINE LS COMPLETE [id number] COMPLETE:10/22/19 13:16 [facility] [id number] (SPINE PROC REASON: PAIN LUMBAR SPINE SERIES: HISTORY: Pain. FINDINGS: Calcifications in the right upper quadrant could lie within the pancreas or possibly the right adrenal gland. Diagnostic considerations include previous adrenal hemorrhage and/or chronic pancreatitis. Correlation is requested. Surgical clips are present in the lower posterior lumbosacral junction. No fractures are seen. The disc spaces are intact. Bone mineralization is normal. IMPRESSION: Unremarkable lumbar spine. Calcifications in the upper abdomen which could lie within the right adrenal gland and/or the pancreas. Correlation is requested. Electronically Reviewed and Signed By Reagan Randolph MD , 10/23/19 09:47, [facility] Transcribe Initials: ACOSTA , Transcribe Date: 10/22/19 14:12, Dictation Date: Page 1 of 1 Name Value Range Interpretation Code Description Data Tiffani rce(s) Supporting Document(s) ID Date Data Source [id number] 10/23/2019 09:47:00 [place] [address] PHONE: [phone] FAX: [phone] Name .................. : HEATHER HEARD Acct Number.................. : [id number] ROOM. ................. : MR Number ................... : [id number] Stay type ............. : CLINIC Discharge Date......... ... : 10/22/19 Admit Date ......... : 10/22/19 Admit Phys .................... : POLK HARD Date of ....... : 1980 Family Phys ................... : POLK HARD Phone .................. : [phone] Age ................................ : 38 Film# .................. .:[id number] Sex ................................. : F Unsigned transcriptions are preliminary reports and do not represent a medical or legal document SPINE THORACIC [id number] COMPLETE:10/22/19 13:16 [facility] [id number] (SPINE PROC REASON: PAIN THORACIC SPINE SERIES: HISTORY: Pain. FINDINGS: Anterior osteophyte formation at the disc spaces in the mid and lower thoracic spine suggests degenerative disease. No fractures are seen. Bony mineralization is intact. The soft tissues are unremarkable. IMPRESSION: Multilevel degenerative disc disease. Electronically Reviewed and Signed By Reagan Randolph MD , 10/23/19 09:47, [facility] Transcribe Initials: ACOSTA , Transcribe Date: 10/22/19 14:11, Dictation Date: Page 1 of 1 Name Value Range Interpretation Code Description Data Tiffani rce(s) Supporting Document(s) ID Date Data Source [id number] 10/22/2019 09:48:00 AM EST [facility] ([facility]) Name Value Range Interpretation Code Description Data Tiffani rce(s) Supporting Document(s) Spine Thoracic <pending> [facility] ([facility]) Spine LS Complete <pending> [facility] ([facility]) Procedure Social History Code Duration Value Status Description Data Source(s ) Smoking 08/17/2020 12:00:00 AM EDT Patient has never smoked co mpleted Patient has never smoked [facility] ([facility]) Alcohol intake 01/15/2020 12:00:00 AM EDT Yes completed [facility] Smoking 01/15/2020 12:00:00 AM EDT Never smoker completed Never [facility] Alcohol intake 12/29/2019 12:00:00 AM EST Yes completed [facility] Smoking 12/29/2019 12:00:00 AM EST Never smoker completed Never [facility] Vital Signs ID Date Data Source UNK Name Value Range Interpretation Code Description Data Source(s) Body surface area Derived from formula 2.05 m2 2.05 m2 [facility] ([facility]) Body weight 91.627 kg 91.627 kg [facility] ([facility]) [place] body weight 140 [lb_av] 140 [facility]_av[facility] Body mass index (BMI) [Ratio] 30.7 kg/m2 30.7 k g/m2 [facility] ([facility]) Body weight 202.00 [lb_av] 202.00 [lb_av] [facility] Body height 68 [in_i] 68 [in_i] [facility] ([facility]) 5'8" Body temperature 98.6 [degF] 98.6 [degF] [facility] ([facility]) Respiratory rate 16 /min 16 /min [facility] ( [facility]) Heart rate 76 /min 76 /min [facility] ([facility]) Diastolic blood pressure 74 mm[Hg] 74 mm[Hg] [facility] ([facility]) Systolic blood pressure 124 mm[Hg] 124 mm[Hg] [facility] Body surface area Derived from formula 2.03 m2 2.03 m2 [facility] ([facility] [place]) Body mass index (BMI) [Ratio] 30.0 kg/m2 30.0 k g/m2 [facility] ([facility] [place]) Body height 68 [in_i] 68 [in_i] [facility] ([facility]) 5'8" Body weight 89.359 kg 89.359 kg [facility] ([facility]) Body weight 197.00 [lb_av] 197.00 [lb_av] MED[facility] T ([facility] [place]) Oxygen saturation in Arterial blood by Pulse oximetry 98 % 98 % [facility] ([facility] [place]) Respiratory rate 16 /min 16 /min [facility] ( [facility] [place]) Body temperature 97.6 [degF] 97.6 [degF] [facility] ([facility] [place]) Heart rate 64 /min 64 /min [facility] ([facility]) Diastolic blood pressure 60 mm[Hg] 60 mm[Hg] [facility] ([facility] [place]) Systolic blood pressure 116 mm[Hg] 116 mm[Hg] [facility] [place] Body surface area Derived from formula 2.03 m2 2.03 m2 [facility] ([facility] [place]) Body mass index (BMI) [Ratio] 30.0 kg/m2 30.0 k g/m2 [facility] ([facility] [place]) Body height 68 [in_i] 68 [in_i] [facility] ([facility]) 5'8" Body weight 89.359 kg 89.359 kg [facility] ([facility]) Body weight 197.00 [lb_av] 197.00 [lb_av] MED[facility] T ([facility] [place]) Oxygen saturation in Arterial blood by Pulse oximetry 98 % 98 % [facility] ([facility] [place]) Respiratory rate 19 /min 19 /min [facility] ( [facility] [place]) Body temperature 97.9 [degF] 97.9 [degF] [facility] ([facility] [place]) Heart rate 82 /min 82 /min [facility] Diastolic blood pressure 70 mm[Hg] 70 mm[Hg] [facility] ([facility] [place]) Systolic blood pressure 116 mm[Hg] 116 mm[Hg] [facility] [place] Body mass index (BMI) [Ratio] 28.9 kg/m2 28.9 k g/m2 [facility] ([facility] Heart rate 60 /min 60 /min [facility] Diastolic blood pressure 80 mm[Hg] 80 mm[Hg] [facility] ([facility] Systolic blood pressure 118 mm[Hg] 118 mm[Hg] [facility] ([facility] Body weight 190.00 [lb_av] 190.00 [lb_av] [facility] T ([facility] Body height 68 [in_i] 68 [in_i] [facility] ([facility] 5'8" Body height 68 [in_i] 68 [in_i] [facility] ([facility], ) 5'8" Body temperature 97.1 [degF] 97.1 [degF] [facility] ([facility]) Respiratory rate 14 /min 14 /min [facility] ( [facility]) Heart rate 74 /min 74 /min [facility] ([facility]) Diastolic blood pressure 60 mm[Hg] 60 mm[Hg] [facility] ([facility]) Systolic blood pressure 112 mm[Hg] 112 mm[Hg] [facility] Body surface area Derived from formula 2.03 m2 2.03 m2 [facility] Body weight 88.906 kg 88.906 kg [facility] ([facility]) [place] body weight 140 [lb_av] 140 [lb_av] [facility] T ([facility]) Body mass index (BMI) [Ratio] 29.8 kg/m2 29.8 k g/m2 [facility] ([facility]) Body weight 196.00 [lb_av] 196.00 [lb_av] [facility] T ([facility]) Body weight 90.720 kg 90.720 kg [facility] ([facility]) [place] body weight 140 [lb_av] 140 [lb_av] [facility] T ([facility]) Body mass index (BMI) [Ratio] 30.4 kg/m2 30.4 k g/m2 [facility] ([facility]) Body weight 200.00 [lb_av] 200.00 [lb_av] [facility] T ([facility]) Body height 68 [in_i] 68 [in_i] [facility] ([facility]) 5'8" Oxygen saturation in Arterial blood by Pulse oximetry 100 % 100 % [facility] ([facility]) Room Air Heart rate 74 /min 74 /min [facility] ([facility]) Diastolic blood pressure 70 mm[Hg] 70 mm[Hg] [facility] ([facility]) Systolic blood pressure 108 mm[Hg] 108 mm[Hg] [facility] ([facility]) Body surface area Derived from formula 2.03 m2 2.03 m2 [facility] ([facility] [place]) Body mass index (BMI) [Ratio] 30.0 kg/m2 30.0 k g/m2 [facility] ([facility] [place]) Body height 68 [in_i] 68 [in_i] [facility] ([facility]) 5'8" pt states Body weight 89.359 kg 89.359 kg [facility] ([facility]) Body weight 197.00 [lb_av] 197.00 [lb_av] [facility] T ([facility] [place]) Oxygen saturation in Arterial blood by Pulse oximetry 97 % 97 % [facility] ([facility] [place]) Body temperature 98.7 [degF] 98.7 [degF] [facility] ([facility] [place]) Heart rate 66 /min 66 /min [facility] ([facility]) Diastolic blood pressure 74 mm[Hg] 74 mm[Hg] [facility] ([facility] [place]) Systolic blood pressure 116 mm[Hg] 116 mm[Hg] [facility] [place]) Body surface area 2.03 m2 2.03 m2 [facility] ([facility] [place]) Body surface area 2.04 m2 2.04 m2 [facility] ([facility] [place]) Body mass index (BMI) [Ratio] 30.3 kg/m2 30.3 k g/m2 [facility] ([facility] [place]) Body height 68 [in_i] 68 [in_i] [facility] ([facility]) 5'8" pt states Body weight 90.266 kg 90.266 kg [facility] ([facility]) Body weight 199.00 [lb_av] 199.00 [lb_av] [facility] T ([facility] [place]) Oxygen saturation in Arterial blood by Pulse oximetry 96 % 96 % [facility] ([facility] [place]) Respiratory rate 18 /min 18 /min [facility] ( [facility] [place]) Body temperature 99.1 [degF] 99.1 [degF] [facility] ([facility] [place]) Heart rate 63 /min 63 /min [facility] ([facility]) Diastolic blood pressure 74 mm[Hg] 74 mm[Hg] [facility] ([facility] [place]) Systolic blood pressure 116 mm[Hg] 116 mm[Hg] M [facility]ENT ([facility] [place]) Body surface area 2.06 m2 2.06 m2 [facility] ([facility] [place]) Body mass index (BMI) [Ratio] 30.9 kg/m2 30.9 k g/m2 [facility] ([facility] [place]) Body height 68 [in_i] 68 [in_i] [facility] ([facility]) 5'8" pt states Body weight 92.251 kg 92.251 kg [facility] ([facility]) Body weight 203.38 [lb_av] 203.38 [lb_av] [facility] T ([facility] [place]) Oxygen saturation in Arterial blood by Pulse oximetry 98 % 98 % [facility] ([facility] [place]) Respiratory rate 18 /min 18 /min [facility] ( [facility] [place]) Body temperature 97.8 [degF] 97.8 [degF] [facility] ([facility] [place]) Heart rate 72 /min 72 /min [facility] ([facility]) Diastolic blood pressure 68 mm[Hg] 68 mm[Hg] [facility] ([facility] [place]) Systolic blood pressure 116 mm[Hg] 116 mm[Hg] [facility] [place]) Body surface area 2.06 m2 2.06 m2 [facility] ([facility] [place]) Body mass index (BMI) [Ratio] 30.9 kg/m2 30.9 k g/m2 [facility] ([facility] [place]) Body height 68 [in_i] 68 [in_i] [facility] ([facility]) 5'8" pt states Body weight 92.081 kg 92.081 kg [facility] ([facility]) Body weight 203.00 [lb_av] 203.00 [lb_av] [facility] T ([facility] [place]) Oxygen saturation in Arterial blood by Pulse oximetry 98 % 98 % [facility] ([facility] [place]) Respiratory rate 20 /min 20 /min [facility] ( [facility] [place]) Body temperature 97.8 [degF] 97.8 [degF] [facility] ([facility] [place]) Heart rate 72 /min 72 /min [facility] ([facility]) Diastolic blood pressure 72 mm[Hg] 72 mm[Hg] [facility] ([facility] [place]) Systolic blood pressure 132 mm[Hg] 132 mm[Hg] M [facility] ([facility] [place]) Oxygen saturation in Arterial blood by Pulse oximetry 98 % 98 % [facility] Respiratory rate 17 /min 17 /min [facility] Body temperature 36.[address] [facility] Heart rate 52 /min 52 /min [facility] Diastolic blood pressure 70 mm[Hg] 70 mm[Hg] [facility] Systolic blood pressure 110 mm[Hg] 110 mm[Hg] [facility] Body mass index (BMI) [Ratio] 30.26 kg/m2 30.26 kg/m2 [facility] Body weight 90.266 kg 90.266 kg [facility] Body height 172.7 cm 172.7 cm [facility] Body weight 93.442 kg 93.442 kg [facility] ([facility], ) Body mass index (BMI) [Ratio] 31.3 kg/m2 31.3 k g/m2 [facility] ) Body weight 206.00 [lb_av] 206.00 [lb_av] [facility] T ([facility], ) Body height 68 [in_i] 68 [in_i] [facility], ) 5'8" Oxygen saturation in Arterial blood by Pulse oximetry 99 % 99 % [facility] ([facility], ) Room Air Heart rate 65 /min 65 /min [facility] ([facility], ) Diastolic blood pressure 70 mm[Hg] 70 mm[Hg] [facility] ([facility]) Systolic blood pressure 110 mm[Hg] 110 mm[Hg] [facility] ) Oxygen saturation in Arterial blood by Pulse oximetry 98 % 98 % [facility] Body mass index (BMI) [Ratio] 30.56 kg/m2 30.56 kg/m2 [facility] Body weight 91.173 kg 91.173 kg [facility] Body height 172.7 cm 172.7 cm [facility] Heart rate 68 /min 68 /min [facility] Diastolic blood pressure 71 mm[Hg] 71 mm[Hg] [facility] Systolic blood pressure 118 mm[Hg] 118 mm[Hg] [facility] Body surface area 2.04 m2 2.04 m2 [facility] [place]) Body mass index (BMI) [Ratio] 30.1 kg/m2 30.1 k g/m2 [facility] ([facility] [place]) Body height 68 [in_i] 68 [in_i] [facility] ([facility]) 5'8" pt states Body weight 89.813 kg 89.813 kg [facility] ([facility]) Body weight 198.00 [lb_av] 198.00 [lb_av] [facility] T ([facility] [place]) Oxygen saturation in Arterial blood by Pulse oximetry 98 % 98 % [facility] ([facility] [place]) Respiratory rate 16 /min 16 /min [facility] ( [facility] [place]) Body temperature 98.5 [degF] 98.5 [degF] [facility] ([facility] [place]) Heart rate 78 /min 78 /min [facility] Diastolic blood pressure 78 mm[Hg] 78 mm[Hg] [facility] ([facility] [place]) Systolic blood pressure 128 mm[Hg] 128 mm[Hg] [facility] ([facility] [place]) Body surface area 2.11 m2 2.11 m2 [facility] ([facility] [place]) Body mass index (BMI) [Ratio] 32.8 kg/m2 32.8 k g/m2 [facility] ([facility] [place]) Body height 68 [in_i] 68 [in_i] [facility] ([facility]) 5'8" pt states Body weight 97.978 kg 97.978 kg [facility] ([facility]) Body weight 216.00 [lb_av] 216.00 [lb_av] [facility] T ([facility] [place]) Oxygen saturation in Arterial blood by Pulse oximetry 97 % 97 % [facility] ([facility] [place]) Respiratory rate 16 /min 16 /min [facility] ( [facility] [place]) Body temperature 97.3 [degF] 97.3 [degF] [facility] ([facility] [place]) Heart rate 71 /min 71 /min [facility] ([facility]) Diastolic blood pressure 86 mm[Hg] 86 mm[Hg] [facility] ([facility] [place]) Systolic blood pressure 140 mm[Hg] 140 mm[Hg] [facility] ([facility] [place]) Body surface area 2.13 m2 2.13 m2 [facility] ([facility] [place]) Body mass index (BMI) [Ratio] 33.4 kg/m2 33.4 k g/m2 [facility] ([facility] [place]) Body height 68 [in_i] 68 [in_i] [facility] ([facility]) 5'8" Body weight 99.792 kg 99.792 kg [facility] ([facility]) Body weight 220.00 [lb_av] 220.00 [lb_av] [facility] T ([facility] [place]) Oxygen saturation in Arterial blood by Pulse oximetry 97 % 97 % [facility] ([facility] [place]) Body temperature 98.0 [degF] 98.0 [degF] [facility] ([facility]) Heart rate 68 /min 68 /min [facility] ([facility]) Diastolic blood pressure 76 mm[Hg] 76 mm[Hg] [facility] ([facility] [place]) Systolic blood pressure 120 mm[Hg] 120 mm[Hg] M [facility] ([facility] [place]) ID Date Data Source [id number] 06/15/2020 08:56:55 AM EDT [facility] Name Value Range Interpretation Code Description Data Source(s) WEIGHT RECORDED 206.10 pounds 206.10 pounds [facility] Height 68 Inches 068 Inches [facility] Patient Treatment Plan of Care Planned Activity Planned Date Details Description Data Source (s) Acetaminophen 325 MG Oral Tablet 01/24/2019 12:00:00 AM EDT [facility] Multiple Vitamins-Minerals (MULTIVITAMIN WITH MINERALS ) tablet 01/24/2019 12:00:00 AM EDT [facility] Simethicone 80 MG Chewable Tablet 01/24/2019 12:00:00 AM EDT [facility] Vitamin B 12 0.5 MG Oral Tablet 01/24/2019 12:00:00 AM EDT [facility]
[2020-11-15] MEDS ORDERED: propofoL 200 MG/20 ML VIAL As Ordered ONE ×2 (07:58→12:21)
[2020-11-15] MEDS ORDERED: LIDOCAINE 2% 100MG/5ML SDV (FOR ANES.) As Ordered ONE (07:58)
[2020-11-15] MEDS ORDERED: fentaNYL 250 MCG/5 ML INJECTION (J3010) As Ordered ONE (07:58)
[2020-11-15] MEDS ORDERED: ROCURONIUM BROMIDE 50 MG/5 ML VIAL As Ordered ONE ×3 (07:58→10:38)
[2020-11-15] MEDS ORDERED: MIDAZOLAM INJ 2MG/2ML VIAL (J2250 PER 1MG) As Ordered ONE (07:58)
[2020-11-15] MEDS ORDERED: BUPIVACAINE LIPOSOME/PF 1.3% 20ML VIAL (13.3MG/ML)(EXPAREL)(C9290 PER1MG) As Ordered ONE (08:12)
[2020-11-15] MEDS ORDERED: BACITRACIN PWD 50,000 UNITS VIAL As Ordered ONE (08:12)
[2020-11-15] MEDS ORDERED: dexameTHASONE 4 MG/ML 1ML VIAL (J1100 PER 1MG) As Ordered ONE (08:58)
[2020-11-15] MEDS ORDERED: HYDROmorphone HCL 2 MG/ML 1ML VIAL (J1170) As Ordered ONE (09:01)
[2020-11-15] MEDS ORDERED: ACETAMINOPHEN 1000MG 100ML IV BTL (OFIRMEV) (J0131 PER 10MG) As Ordered ONE (09:02)
[2020-11-15] MEDS ORDERED: METOCLOPRAMIDE INJ 10MG/2ML VIAL (J2765 PER 1) As Ordered ONE (09:02)
[2020-11-15] MEDS ORDERED: ONDANSETRON 4MG/2ML VIAL As Ordered ONE (09:02)
[2020-11-15] MEDS ORDERED: SUGAMMADEX SODIUM 500 MG/5 ML VIAL (BRIDION) As Ordered ONE (09:03)
--- NOTE | 2020-11-15 13:08 | POST-OPPD ---
Postoperative Procedure Note Date Of Procedure: Nov 15, 2020 PREOPERATIVE DIAGNOSIS: panniculitis POSTOPERATIVE DIAGNOSIS: same FINDINGS: large pannus PROCEDURE: Extended panniculectomy [place] approach with rectus muscle plication SURGEON: Dr Han ANESTHESIA: General SPECIMENS: Pannus 3369 gm ESTIMATED BLOOD LOSS: 150cc REPLACED: none DRAINS: 10 mm ANDREA x 2 COMPLICATIONS: none POSTOPERATIVE CONDITION: stable [id number] LAITH HAN DO Nov 15, 2020 13:08
[2020-11-15] MEDS ORDERED: fentaNYL 100 MCG/2 ML INJECTION (J3010) As Ordered ONE (13:18)
[2020-11-15] MEDS ORDERED: MEPERIDINE INJ 25 MG/ML VIAL (J2175) As Ordered ONE (13:18)
[2020-11-15] MEDS ORDERED: MEPERIDINE INJ 25 MG/ML VIAL (J2175) IV PRN (13:30)
[2020-11-15] MEDS ORDERED: LR 1,000 ML IV SCH (13:30)
[2020-11-15] MEDS ORDERED: oxyCODONE 5MG TAB PO PRN (13:30)
[2020-11-15] MEDS ORDERED: ONDANSETRON 4MG/2ML VIAL IV PRN (13:30)
[2020-11-15] MEDS ORDERED: fentaNYL 100 MCG/2 ML INJECTION (J3010) IV PRN (13:30)
[2020-11-15] MEDS: LR 1,000 ML IV SCH ×2 (14:45→22:02)
[2020-11-15] MEDS: PERCOCET 5MG/325MG TAB PO PRN ×2 (15:50→22:12)
[2020-11-15] MEDS: ceFAZolin SOD 1 GM in D5W MINI-BAG PLUS 50 ML IV SCH (15:51)
[2020-11-15] MEDS: HEPARIN SOD (PORCINE) 5000UNITS/ML 1ML VIAL/SYRINGE SQ SCH (20:18)
[2020-11-15] MEDS: KETOROLAC TROMETHAMINE 10 MG TAB PO PRN (20:18)
[2020-11-16] MEDS: ceFAZolin SOD 1 GM in D5W MINI-BAG PLUS 50 ML IV SCH ×3 (00:39→17:50)
[2020-11-16] MEDS: ACETAMINOPHEN TAB 650MG DOSE (2X325MG) PO PRN ×2 (00:40→11:49)
[2020-11-16 02:00] VITALS: BP 124/70
[2020-11-16] MEDS: PERCOCET 5MG/325MG TAB PO PRN ×2 (05:42→17:50)
[2020-11-16 06:57] VITALS: BP 135/99
[2020-11-16] MEDS: ONDANSETRON 4MG/2ML VIAL IV PRN ×2 (07:07→11:49)
[2020-11-16] MEDS: HEPARIN SOD (PORCINE) 5000UNITS/ML 1ML VIAL/SYRINGE SQ SCH (08:27)
[2020-11-16 10:00] VITALS: BP 129/81
[2020-11-16 10:31] LABS: HEMATOCRIT 29.1 % (36.0-47.0); HEMOGLOBIN 8.9 g/dl (12.0-15.5); MEAN CORPUSCULAR HEMOGLOBIN 27.6 pg (27.0-33.0); MEAN CORPUSCULAR HGB CONC 30.6 g/dl (32.0-36.5); MEAN CORPUSCULAR VOLUME 90.1 fl (80.0-96.0); PLATELET COUNT, AUTOMATED 185 10^3/uL (150-450); RED BLOOD COUNT 3.23 10^6/uL (4.00-5.40)
[2020-11-16] MEDS: KETOROLAC TROMETHAMINE 10 MG TAB PO PRN (10:43)
--- NOTE | 2020-11-16 11:51 | IPNPDOC ---
Subjective General Date Seen: Nov 16, 2020 Subject Chief Complaint/History The patient is a 39-year-old female admitted with a reason for visit of Panniculitis, Separation Of Muscle. Patient s/p extended panniculectomy POD 1. Pain improved. Feeling well. Ambulated. No complains. Current Medications Current Medications Current Medications Medications (Trade) Dose Ordered Sig/Shailesh Route PRN Reason Start Time Stop Time Status Last Admin Dose Admin Acetaminophen (Tylenol Tab) 650 mg Q6H PRN PO MILD PAIN (PS 1-4) 11/15/20 13:15 11/16/20 00:40 Cefazolin Sodium 1 gm/Dextrose 50 ml @ 100 mls/hr Q8H IV 11/15/20 17:00 11/16/20 08:26 Fentanyl Citrate (Sublimaze) 25 mcg Q5MP PRN IV PAIN LEVEL 5-10 11/15/20 13:30 11/15/20 14:30 DC 11/15/20 13:20 Heparin Sodium (Porcine) (Heparin) 5,000 units BID SQ 11/15/20 21:00 11/16/20 08:31 DC 11/15/20 20:18 Ketorolac Tromethamine (ToRADol) 10 mg Q6HP PRN PO MODERATE PAIN (PS 5-7) 11/15/20 13:15 11/20/20 13:14 11/16/20 10:43 Lactated Ringer's 1,000 ml @ 100 mls/hr Q10H IV 11/15/20 13:08 11/16/20 08:31 DC 11/15/20 22:02 Lactated Ringer's 1,000 ml @ 100 mls/hr Q10H IV 11/15/20 13:30 11/15/20 14:30 DC Meperidine HCl (Demerol) 12.5 mg Q5MP PRN IV SHIVERING 11/15/20 13:30 11/15/20 14:30 DC 11/15/20 13:20 Ondansetron HCl (ZOFRAN INJection) 4 mg Q4H PRN IV NAUSEA OR VOMITING 11/15/20 13:15 11/16/20 07:07 Ondansetron HCl (ZOFRAN INJection) 4 mg Q4HP PRN IV NAUSEA OR VOMITING 11/15/20 13:30 11/15/20 14:30 DC Oxycodone HCl (Roxicodone, Oxyir) 5 mg ASDIRECTED PRN PO PAIN LEVEL 1-4 11/15/20 13:30 11/15/20 14:30 DC 11/15/20 13:39 Oxycodone/ Acetaminophen (Percocet 5mg/ 325mg Tablet) 2 tab Q6HP PRN PO SEVERE PAIN (PS 8-10) 11/15/20 13:15 11/16/20 05:42 Allergies Coded Allergies: sulfamethoxazole (Verified Allergy, Intermediate, HIVES, RASH, 11/14/20) trimethoprim (Verified Allergy, Intermediate, HIVES, RASH, 11/14/20) Objective Physical Examination Examination GENERAL APPEARANCE:Patient seen, laying in bed, awake, alert, and oriented. Comfortable, in no acute distress. SKIN: Warm and moist. HEENT: Normocephalic, atraumatic. [place] palpebral conjunctiva, anicteric sclerae. Lips and mucosa appear moist. NECK: Supple, no thyromegaly. No obvious jugular venous distention. LUNGS: Clear to auscultation bilaterally. No wheezing appreciated. HEART: No chest wall abnormalities. Regular rate and rhythm with no murmurs appreciated. ABDOMEN: Abdomen is soft, non-tender, non-distended. Incision intact. Umbilicus viable. ANDREA drains with serosanguinous drainage. 155/175cc/24hr. EXTREMITIES: No edema identified. No calf tenderness. Vital Signs Vital Signs Date Time Temp Pulse Resp B/P (MAP) Pulse Ox O2 Delivery O2 Flow Rate FiO2 11/16/20 10:00 98.3 58 18 129/81 (97) 97 Room Air I&Os I&O- Last 24 Hours up to 6 AM 11/16/20 06:00 Intake Total 2710 ml Output Total 1235 ml Balance 1475 ml Laboratory Data Labs 24H Laboratory Tests 2 11/16/20 10:11: Nucleated Red Blood Cells % (auto) 0.0 CBC/BMP Laboratory Tests 11/16/20 10:11 Impression S/p Extended panniculectomy POD 1. Doing well. D/c Heparin, patient is ambulating. Will continue to observe the drain output. Repeat CBC tonight. Asymptomatic currently, will transfuse PRBC if condition changes. Plan / VTE VTE Prophylaxis Ordered?: Yes LAITH HAN DO Nov 16, 2020 11:51
[2020-11-16 13:55] LABS: HEMOGLOBIN 8.7 g/dl (12.0-15.5); MEAN CORPUSCULAR HGB CONC 31.1 g/dl (32.0-36.5); PLATELET COUNT, AUTOMATED 187 10^3/uL (150-450); RED BLOOD COUNT 3.11 10^6/uL (4.00-5.40); WHITE BLOOD COUNT 4.2 10^3/uL (4.0-10.0)
[2020-11-16 14:00] VITALS: BP 124/76
--- NOTE | 2020-11-16 17:42 | IPNPDOC ---
Subjective General Date Seen: Nov 16, 2020 Subject Chief Complaint/History The patient is a 39-year-old female admitted with a reason for visit of Panniculitis, Separation Of Muscle. Interval check up. Patient is feeling well. She had episode of nausea today. Minimal pain when in bed. Drainage slowed down. Tolerating diet. Current Medications Current Medications Current Medications Medications (Trade) Dose Ordered Sig/Shailesh Route PRN Reason Start Time Stop Time Status Last Admin Dose Admin Acetaminophen (Tylenol Tab) 650 mg Q6H PRN PO MILD PAIN (PS 1-4) 11/15/20 13:15 11/16/20 11:49 Cefazolin Sodium 1 gm/Dextrose 50 ml @ 100 mls/hr Q8H IV 11/15/20 17:00 11/16/20 08:26 Fentanyl Citrate (Sublimaze) 25 mcg Q5MP PRN IV PAIN LEVEL 5-10 11/15/20 13:30 11/15/20 14:30 DC 11/15/20 13:20 Heparin Sodium (Porcine) (Heparin) 5,000 units BID SQ 11/15/20 21:00 11/16/20 08:31 DC 11/15/20 20:18 Ketorolac Tromethamine (ToRADol) 10 mg Q6HP PRN PO MODERATE PAIN (PS 5-7) 11/15/20 13:15 11/20/20 13:14 11/16/20 10:43 Lactated Ringer's 1,000 ml @ 100 mls/hr Q10H IV 11/15/20 13:08 11/16/20 08:31 DC 11/15/20 22:02 Lactated Ringer's 1,000 ml @ 100 mls/hr Q10H IV 11/15/20 13:30 11/15/20 14:30 DC Meperidine HCl (Demerol) 12.5 mg Q5MP PRN IV SHIVERING 11/15/20 13:30 11/15/20 14:30 DC 11/15/20 13:20 Ondansetron HCl (ZOFRAN INJection) 4 mg Q4H PRN IV NAUSEA OR VOMITING 11/15/20 13:15 11/16/20 11:49 Ondansetron HCl (ZOFRAN INJection) 4 mg Q4HP PRN IV NAUSEA OR VOMITING 11/15/20 13:30 11/15/20 14:30 DC Oxycodone HCl (Roxicodone, Oxyir) 5 mg ASDIRECTED PRN PO PAIN LEVEL 1-4 11/15/20 13:30 11/15/20 14:30 DC 11/15/20 13:39 Oxycodone/ Acetaminophen (Percocet 5mg/ 325mg Tablet) 2 tab Q6HP PRN PO SEVERE PAIN (PS 8-10) 11/15/20 13:15 11/16/20 05:42 Allergies Coded Allergies: sulfamethoxazole (Verified Allergy, Intermediate, HIVES, RASH, 11/14/20) trimethoprim (Verified Allergy, Intermediate, HIVES, RASH, 11/14/20) Objective Physical Examination Examination GENERAL APPEARANCE:Patient seen, laying in bed, awake, alert, and oriented. Comfortable, in no acute distress. SKIN: Warm and moist. LUNGS: Clear to auscultation bilaterally. No wheezing appreciated. HEART: No chest wall abnormalities. Regular rate and rhythm with no murmurs appreciated. ABDOMEN: Abdomen is soft, non-tender, non-distended. Incision intact. Umbilicus viable. ANDREA drains with serosanguinous drainage. 30R30L cc since this morning. EXTREMITIES: No edema identified. No calf tenderness. Vital Signs Vital Signs Date Time Temp Pulse Resp B/P (MAP) Pulse Ox O2 Delivery O2 Flow Rate FiO2 11/16/20 14:00 98.8 68 18 124/76 (92) 97 Room Air I&Os I&O- Last 24 Hours up to 6 AM 11/16/20 06:00 Intake Total 2710 ml Output Total 1235 ml Balance 1475 ml Laboratory Data Labs 24H Laboratory Tests 2 11/16/20 10:11: Nucleated Red Blood Cells % (auto) 0.0 11/16/20 13:44: Nucleated Red Blood Cells % (auto) 0.0 CBC/BMP Laboratory Tests 11/16/20 10:11 11/16/20 13:44 Impression S/p extended panniculectomy. Will continue to monitor H/H, CBC in am. Drains slowed down. Abdomen soft, no expanding hematoma. VS stable. Plan / VTE VTE Prophylaxis Ordered?: Yes LAITH HAN DO Nov 16, 2020 17:42
[2020-11-16 20:05] VITALS: BP 116/63
[2020-11-16] MEDS: FERROUS SULFATE 325MG TAB PO SCH (21:30)
[2020-11-17] VITALS (9 sets, daily range): BP systolic 120–140; BP diastolic 62–81
[2020-11-17] MEDS: ceFAZolin SOD 1 GM in D5W MINI-BAG PLUS 50 ML IV SCH ×2 (00:45→07:57)
[2020-11-17] MEDS: PERCOCET 5MG/325MG TAB PO PRN ×3 (00:48→14:39)
[2020-11-17] MEDS: ACETAMINOPHEN TAB 650MG DOSE (2X325MG) PO PRN ×2 (06:05→18:51)
[2020-11-17 06:11] LABS: HEMATOCRIT 26.4 % (36.0-47.0); HEMOGLOBIN 8.1 g/dl (12.0-15.5); MEAN CORPUSCULAR HEMOGLOBIN 27.6 pg (27.0-33.0); MEAN CORPUSCULAR HGB CONC 30.7 g/dl (32.0-36.5); MEAN CORPUSCULAR VOLUME 89.8 fl (80.0-96.0); PLATELET COUNT, AUTOMATED 190 10^3/uL (150-450); RED BLOOD COUNT 2.94 10^6/uL (4.00-5.40); WHITE BLOOD COUNT 4.8 10^3/uL (4.0-10.0)
--- NOTE | 2020-11-17 07:56 | IPNPDOC ---
Subjective General Date Seen: Nov 17, 2020 Subject Chief Complaint/History The patient is a 39-year-old female admitted with a reason for visit of Panniculitis, Separation Of Muscle. Patient s/p extended panniculectomy [place] approach with rectus muscle approach POD 2. Feeling better today. Pain controlled with meds. Ambulating. Drains reduced with output. Patient states she had episode of dizziness when walking yesterday. No CP, SOB. Current Medications Current Medications Current Medications Medications (Trade) Dose Ordered Sig/Shailesh Route PRN Reason Start Time Stop Time Status Last Admin Dose Admin Acetaminophen (Tylenol Tab) 650 mg Q6H PRN PO MILD PAIN (PS 1-4) 11/15/20 13:15 11/17/20 06:05 Cefazolin Sodium 1 gm/Dextrose 50 ml @ 100 mls/hr Q8H IV 11/15/20 17:00 11/17/20 00:45 Fentanyl Citrate (Sublimaze) 25 mcg Q5MP PRN IV PAIN LEVEL 5-10 11/15/20 13:30 11/15/20 14:30 DC 11/15/20 13:20 Ferrous Sulfate (Ferrous Sulfate) 325 mg BID PO 11/16/20 21:00 11/16/20 21:30 Heparin Sodium (Porcine) (Heparin) 5,000 units BID SQ 11/15/20 21:00 11/16/20 08:31 DC 11/15/20 20:18 Ketorolac Tromethamine (ToRADol) 10 mg Q6HP PRN PO MODERATE PAIN (PS 5-7) 11/15/20 13:15 11/20/20 13:14 11/16/20 10:43 Lactated Ringer's 1,000 ml @ 100 mls/hr Q10H IV 11/15/20 13:08 11/16/20 08:31 DC 11/15/20 22:02 Lactated Ringer's 1,000 ml @ 100 mls/hr Q10H IV 11/15/20 13:30 11/15/20 14:30 DC Meperidine HCl (Demerol) 12.5 mg Q5MP PRN IV SHIVERING 11/15/20 13:30 11/15/20 14:30 DC 11/15/20 13:20 Ondansetron HCl (ZOFRAN INJection) 4 mg Q4H PRN IV NAUSEA OR VOMITING 11/15/20 13:15 11/16/20 11:49 Ondansetron HCl (ZOFRAN INJection) 4 mg Q4HP PRN IV NAUSEA OR VOMITING 11/15/20 13:30 11/15/20 14:30 DC Oxycodone HCl (Roxicodone, Oxyir) 5 mg ASDIRECTED PRN PO PAIN LEVEL 1-4 11/15/20 13:30 11/15/20 14:30 DC 11/15/20 13:39 Oxycodone/ Acetaminophen (Percocet 5mg/ 325mg Tablet) 2 tab Q6HP PRN PO SEVERE PAIN (PS 8-10) 11/15/20 13:15 11/17/20 00:48 Allergies Coded Allergies: sulfamethoxazole (Verified Allergy, Intermediate, HIVES, RASH, 11/14/20) trimethoprim (Verified Allergy, Intermediate, HIVES, RASH, 11/14/20) Objective Physical Examination Examination GENERAL APPEARANCE:Patient seen, laying in bed, awake, alert, and oriented. Comfortable, in no acute distress. SKIN: Warm and moist. HEENT: Normocephalic, atraumatic. [place] palpebral conjunctiva, anicteric sclerae. Lips and mucosa appear moist. NECK: Supple, no thyromegaly. No obvious jugular venous distention. LUNGS: Clear to auscultation bilaterally. No wheezing appreciated. HEART: No chest wall abnormalities. Regular rate and rhythm with no murmurs appreciated. ABDOMEN: Abdomen is soft, non-tender, non-distended. Incision intact. Umbilicus viable. ANDREA drains with serosanguinous drainage. L190/R195 cc/24hr. EXTREMITIES: No edema identified. No calf tenderness. Vital Signs Vital Signs Date Time Temp Pulse Resp B/P (MAP) Pulse Ox O2 Delivery O2 Flow Rate FiO2 11/17/20 05:55 98.5 84 17 120/62 (81) 97 Room Air I&Os I&O- Last 24 Hours up to 6 AM 11/17/20 06:00 Intake Total 2200 ml Output Total 530 ml Balance 1670 ml Laboratory Data Labs 24H Laboratory Tests 2 11/16/20 10:11: Nucleated Red Blood Cells % (auto) 0.0 11/16/20 13:44: Nucleated Red Blood Cells % (auto) 0.0 11/17/20 05:36: Nucleated Red Blood Cells % (auto) 0.0 CBC/BMP Laboratory Tests 11/16/20 10:11 11/16/20 13:44 11/17/20 05:36 Impression S/p extended panniculectomy POD 2. Post op anemia consistent with amount tissue removed and post op oozing. Heparin stopped, patient is ambulating, SCD in bed. Transfuse 2 PRBC today. Continue with regular diet. Ambulate, Incentive spirometry. Plan / VTE VTE Prophylaxis Ordered?: Yes LAITH HAN DO Nov 17, 2020 07:56
[2020-11-17] MEDS: FERROUS SULFATE 325MG TAB PO SCH (07:57)
[2020-11-17] MEDS: ONDANSETRON 4MG/2ML VIAL IV PRN (11:09)
--- NOTE | 2020-11-17 14:41 | RO ---
OPERATIVE NOTE DATE OF OPERATION: 11/15/2020 PREOPERATIVE DIAGNOSIS: Panniculitis. POSTOPERATIVE DIAGNOSIS: Panniculitis. FINDINGS: Large pannus. PROCEDURE: Extended panniculectomy, [id number] approach with rectus muscle plication. ATTENDING SURGEON: Lety Fitch DO, FACOS ANESTHESIA: General. SPECIMEN: Pannus, 3369 gm. ESTIMATED BLOOD LOSS: 150 mL REPLACEMENT: No replacements. DRAINS: 10 mm Damion-López x2. COMPLICATIONS: None. PROCEDURE: This is a 39-year-old female who had a history of gastric bypass with over 150 lb weight loss. The patient has a significant amount of excess skin. She has pannus that extends supraumbilical, infraumbilical and also has significant ptosis below pubic bone and encompassing the whole mons pubis that is extending to the upper thighs. The patient is scheduled for extended panniculectomy with possible muscle plication. She has a significant amount of laxity in the mid-abdominal portion. Therefore, [id number] approach was discussed with the patient and she would like to go ahead with that approach. She understands that there is going to be an additional midline scar and she is ready to proceed. The day of surgery, she was marked in an upright position in the surgical holding area. Informed consent was obtained and then she was put into the operating room. She was placed in supine position. Preoperative antibiotics were given. Sequentials were placed on the lower calves. General anesthesia was induced. 5000 units subcu heparin were given. Rivers introduced in the bladder without any difficulties and then she was prepped and draped in the usual sterile fashion. We started our procedure by making a lower abdominal incision and sharp dissection with electrocautery and PEAK cautery is carried out until the rectus muscle fascia was identified. She had a significant amount of scarring from previous c-sections and also from the skin causing retraction in that area. The scar was released. The fascia is completely intact and then we continued our dissection until the umbilicus was encountered. The rhomboid incision is made around the umbilicus and then we continued dissection superiorly until the xiphoid process superiorly and costal margins laterally. Hemostasis was obtained using electrocautery. Also, larger vessels were ligated with 3-0 Vicryl suture ligature. The abdominal fascia is the reexamined. She has diastasis about four fingerbreadths and then she was plicated using 0 Vicryl sutures as well as #1 PDS loop suture by plication along the linea alba. At this point, we measured the midline excess tissue which is 15 cm and the incision is designed along the midline in order for it to close without tension so the excision of midline section was carried out using 10 blade. Electrocautery was done to completely excise the midline skin. After excision was completed, we reapproximated the skin and subcuticular medially using 0 Vicryl sutures and 3-0 Monocryl sutures. The patient was placed in the reflexed position and inferior portion of the skin was measured, tailored and resected using electrocautery and a knife. Total tissue removed is 3,369 gm. Hemostasis as obtained and then the flap was tailored to the inferior incision, closed with 0 Vicryl incision sutures as well as 3-0 Monocryl and 3-0 V-Loc sutures. The new opening for the umbilicus was placed along the midline and in a rhomboid fashion and umbilicus was brought into view and sutured in place with interrupted 3-0 Monocryl and 4-0 Monocryl sutures and 5-0 plain. Two 10 mm Damion-López drains were previously placed through the lateral portion of the horizontal incision. Prineo dressing was placed through the vertical incision and the horizontal incision. Umbilicus was dressed with Xeroform, bulky dressing and a compression garment was placed. The patient is left in a reflexed position and transferred to the bed in the same fashion. She was extubated without difficulties, transferred to the recovery room in stable condition. MONISHA
--- NOTE | 2020-11-17 14:56 | IPNPDOC ---
Subjective General Date Seen: Nov 17, 2020 Subject Chief Complaint/History The patient is a 39-year-old female admitted with a reason for visit of Panniculitis, Separation Of Muscle. Patient is feeling better with transfusion. Pain controlled. Nausea and dizziness resolved. Transfusing second unit. Current Medications Current Medications Current Medications Medications (Trade) Dose Ordered Sig/Shailesh Route PRN Reason Start Time Stop Time Status Last Admin Dose Admin Acetaminophen (Tylenol Tab) 650 mg Q6H PRN PO MILD PAIN (PS 1-4) 11/15/20 13:15 11/17/20 06:05 Cefazolin Sodium 1 gm/Dextrose 50 ml @ 100 mls/hr Q8H IV 11/15/20 17:00 11/17/20 07:57 Fentanyl Citrate (Sublimaze) 25 mcg Q5MP PRN IV PAIN LEVEL 5-10 11/15/20 13:30 11/15/20 14:30 DC 11/15/20 13:20 Ferrous Sulfate (Ferrous Sulfate) 325 mg BID PO 11/16/20 21:00 11/17/20 07:57 Heparin Sodium (Porcine) (Heparin) 5,000 units BID SQ 11/15/20 21:00 11/16/20 08:31 DC 11/15/20 20:18 Ketorolac Tromethamine (ToRADol) 10 mg Q6HP PRN PO MODERATE PAIN (PS 5-7) 11/15/20 13:15 11/20/20 13:14 11/16/20 10:43 Lactated Ringer's 1,000 ml @ 100 mls/hr Q10H IV 11/15/20 13:08 11/16/20 08:31 DC 11/15/20 22:02 Lactated Ringer's 1,000 ml @ 100 mls/hr Q10H IV 11/15/20 13:30 11/15/20 14:30 DC Meperidine HCl (Demerol) 12.5 mg Q5MP PRN IV SHIVERING 11/15/20 13:30 11/15/20 14:30 DC 11/15/20 13:20 Ondansetron HCl (ZOFRAN INJection) 4 mg Q4H PRN IV NAUSEA OR VOMITING 11/15/20 13:15 11/17/20 11:09 Ondansetron HCl (ZOFRAN INJection) 4 mg Q4HP PRN IV NAUSEA OR VOMITING 11/15/20 13:30 11/15/20 14:30 DC Oxycodone HCl (Roxicodone, Oxyir) 5 mg ASDIRECTED PRN PO PAIN LEVEL 1-4 11/15/20 13:30 11/15/20 14:30 DC 11/15/20 13:39 Oxycodone/ Acetaminophen (Percocet 5mg/ 325mg Tablet) 2 tab Q6HP PRN PO SEVERE PAIN (PS 8-10) 11/15/20 13:15 11/17/20 14:39 Allergies Coded Allergies: sulfamethoxazole (Verified Allergy, Intermediate, HIVES, RASH, 11/14/20) trimethoprim (Verified Allergy, Intermediate, HIVES, RASH, 11/14/20) Objective Physical Examination Examination GENERAL APPEARANCE:Patient seen, laying in bed, awake, alert, and oriented. Comfortable, in no acute distress. SKIN: Warm and moist. LUNGS: Clear to auscultation bilaterally. No wheezing appreciated. HEART: No chest wall abnormalities. Regular rate and rhythm with no murmurs appreciated. ABDOMEN: Abdomen is soft, non-tender, non-distended. Incision intact. Umbilicus viable. ANDREA drains with serosanguinous drainage. 15/10 cc/24hr each drain. EXTREMITIES: No edema identified. No calf tenderness. Vital Signs Vital Signs Date Time Temp Pulse Resp B/P (MAP) Pulse Ox O2 Delivery O2 Flow Rate FiO2 11/17/20 14:39 20 Room Air 11/17/20 14:32 98.5 75 132/75 97 I&Os I&O- Last 24 Hours up to 6 AM 11/17/20 06:00 Intake Total 2200 ml Output Total 530 ml Balance 1670 ml Laboratory Data Labs 24H Laboratory Tests 2 11/17/20 05:36: Nucleated Red Blood Cells % (auto) 0.0 CBC/BMP Laboratory Tests 11/17/20 05:36 Impression S/p Extended panniculectomy P[place] with rectus muscle plication. POD 2. Plan to discharge after transfusion is finished. Repeat H/H. Pain controlled F/up plastic surgery 11/21/20 Plan / VTE VTE Prophylaxis Ordered?: Yes LAITH HAN DO Nov 17, 2020 14:56
[2020-11-17] MEDS ORDERED: ZOFR4TAB16 PO (15:00)
[2020-11-17] MEDS ORDERED: PERCOCET PO (15:00)
[2020-11-17 17:29] LABS: HEMATOCRIT 32.1 % (36.0-47.0); MEAN CORPUSCULAR HEMOGLOBIN 29.1 pg (27.0-33.0); MEAN CORPUSCULAR HGB CONC 31.8 g/dl (32.0-36.5); MEAN CORPUSCULAR VOLUME 91.7 fl (80.0-96.0); PLATELET COUNT, AUTOMATED 183 10^3/uL (150-450); WHITE BLOOD COUNT 6.1 10^3/uL (4.0-10.0)
[2020-11-17 17:33] LABS: HEMOGLOBIN 10.2 g/dl (12.0-15.5)
--- OUTSIDE RECORDS SUMMARY | 2020-11-24 14:51 | CCD | Continuity of Care Document ---
Author Author Crystal HAN LAITH DO Organization Unknown Address [address] [place] [id number] Phone [phone] Care Team Providers Care Fancy Packer Name Role Phone Alin White M.D. AUTM [phone] AUTM Unavailable Problems Description No Information Available [...] lb BMI (Body Mass Index) 30.7 kg/m2 [place] Body Weight 140 lb Weight 91.627 kg BSA (Body Surface Area) 2.05 m2 08/17/2020 1:25pm BP Systolic 112 mmHg BP Diastolic 60 mmHg Heart Rate 74 /min Respiratory Rate 14 /min Body Temperature 97.1 F Height 68 inches 5'8" Weight 196.00 lb BMI (Body Mass Index) 29.8 kg/m2 [place] Body Weight 140 lb Weight 88.906 kg BSA (Body Surface Area) 2.03 m2 Results Test Acquired Date Facility Test Result H/L Range Note Complete Blood Count 11/17/2020 [facility] [address] [place] [phone] White Blood Count 6.1 10 Normal 4.0-10.0 Red Blood Count 3.50 10 Low 4.00-5.40 Hemoglobin 10.2 g/dL 12.0-15.5 Hematocrit 32.1 % Low 36.0-47.0 Mean Corpuscular Volume 91.7 fl Normal 80.0-96.0 Mean Corpuscular Hemoglobin 29.1 pg Normal 27.0-33.0 Mean Corpuscular HGB Conc 31.8 g/dL Low 32.0-36.5 Red Cell Distribution Width 13.4 % Normal 11.5-14.5 Platelet Count, Automated 183 10 Normal 150-450 Nucleated Red Blood Cell % 0.0 % Normal 0-0 Laboratory test finding 11/17/2020 [facility] [address] [place] [phone] Packed Cells TRANSFUSED PRODU <SEE NOTE> 1 Type & Screen -Incl Blood Type,Stanislaw,AB SC 11/17/2020 [facility] [address] [place] [phone] Blood Type A POSITIVE Normal AB Screen (Indirect Owen)Vis NEGATIVE Normal Complete Blood Count 11/17/2020 [facility] [address] [place] [phone] White Blood Count 4.8 10 Normal 4.0-10.0 Red Blood Count 2.94 10 Low 4.00-5.40 Hemoglobin 8.1 g/dL Low 12.0-15.5 Hematocrit 26.4 % Low 36.0-47.0 Mean Corpuscular Volume 89.8 fl Normal 80.0-96.0 Mean Corpuscular Hemoglobin 27.6 pg Normal 27.0-33.0 Mean Corpuscular HGB Conc 30.7 g/dL Low 32.0-36.5 Red Cell Distribution Width 13.8 % Normal 11.5-14.5 Platelet Count, Automated 190 10 Normal 150-450 Nucleated Red Blood Cell % 0.0 % Normal 0-0 Complete Blood Count 11/16/[address] [facility] [address] [place] [phone] [phone] White Blood Count 4.2 10 Normal 4.0-10.0 Red Blood Count 3.11 10 Low 4.00-5.40 Hemoglobin 8.7 g/dL Low 12.0-15.5 Hematocrit 28.0 % Low 36.0-47.0 Mean Corpuscular Volume 90.0 fl Normal 80.0-96.0 Mean Corpuscular Hemoglobin 28.0 pg Normal 27.0-33.0 Mean Corpuscular HGB Conc 31.1 g/dL Low 32.0-36.5 Red Cell Distribution Width 13.6 % Normal 11.5-14.5 Platelet Count, Automated 187 10 Normal 150-450 Nucleated Red Blood Cell % 0.0 % Normal 0-0 Complete Blood Count 11/16/[address] [facility] [address] [place] [phone] White Blood Count 4.0 10 Normal 4.0-10.0 Red Blood Count 3.23 10 Low 4.00-5.40 Hemoglobin 8.9 g/dL Low 12.0-15.5 Hematocrit 29.1 % Low 36.0-47.0 Mean Corpuscular Volume 90.1 fl Normal 80.0-96.0 Mean Corpuscular Hemoglobin 27.6 pg Normal 27.0-33.0 Mean Corpuscular HGB Conc 30.6 g/dL Low 32.0-36.5 Red Cell Distribution Width 13.4 % Normal 11.5-14.5 Platelet Count, Automated 185 10 Normal 150-450 Nucleated Red Blood Cell % 0.0 % Normal 0-0 Laboratory test finding 11/15/2020 [facility] [address] [place] [address] [phone] Pathology Request For Service (SEE NOTE) 2 FVL/Pelon 07/21/2020 [employer] PDFReport SEE IMAGE FVC-Pred 4.21 L FVC-Pre 4.10 L FVC-%Pred-Pre 97 L FVC-LLN 3.43 L Fev1-Pred 3.43 L Fev1-Pre 2.95 L Fev1-%Pred-Pre 86 L Fev1-LLN 2.76 L Fev6-Pred 4.14 L Fev6-Pre 4.10 L Fev6-%Pred-Pre 99 L Fev6-LLN 3.37 L Rga2vqk-Tyrx 83 % Rpc4bhe-Ino 72 % Ksw7kph-%Pred-Pre 87 % Sfc6zjc-CYN 73 % Gvz7wdz-Wbgu 98 % Zea5rts-Ish 100 % Ehd5acp-%Pred-Pre 101 % FEFMax-Pred 7.62 L/E/sec FEFMax-Pre 7.13 L/E/sec FEFMax-%Pred-Pre 93 L/E/sec FEFMax-LLN 5.68 L/E/sec Qdj6685-Tvyu 3.40 L/E/sec Xdb1248-Dow 1.97 L/E/sec Vln1788-%Pred-Pre 57 L/E/sec Fae2114-AMZ 2.00 L/E/sec ExpTime-Pre 6.22 sec Vbh0bgc6-Irgy 84 % Ccq9njs6-Kdo 72 % Wrd7lfc7-%Pred-Pre 85 % Idl3kxy7-IRI 75 % 1 TRANSFUSED PRODUCT: PACKED C ELLS COUNT: 2 2 FINAL DIAGNOSIS Redundant abdominal tissue, extended panniculectomy: Panniculitis tissue (skin and subcutaneous fat). See gross description. 11/16/2020 - 1343 CLINICAL DIAGNOSIS Panniculitis, separation of muscle 11/15/2020 - 1530 GROSS DIAGNOSIS Received in formalin labeled "redundant abdominal tissue, total weight 3369 grams" are multiple portions of ski n and subcutaneous tissue. Commercial Litigation Paralegal in two blocks. - 11/15/2020 - 1530 Signed Zenia Curran MD 11/16/2020 1343 Procedures Date Code Description Status 11/15/2020 61800 Excision Excessive Skin Subcutan eous Tissue Abdominoplasty Completed 11/15/2020 36228 Excision Excessive Skin And Subc utaneous Tissue Abdomen Completed 07/21/2020 49212 Spirometry Completed Medical Devices Description No Information Available Encounters Type Date Location Provider Dx Diagnosis Office Visit 08/17/2020 1:15p [facility] Plastic Surgery Laith Little, DO M54.07 Panniculitis affecting regions of neck/bk, lumbosacr region L98.7 Excessive and redundant skin and subcutaneous tissue M62.08 Separation of muscle (nontra umatic), other site Office Visit 07/21/2020 11:30a [facility] Pulmonary/Thoracic Lawrenc pam Knowles MD J45.40 Moderate persistent asthma, uncomplicate d J47.9 Bronchiectasis, uncomplicate d J30.9 Allergic rhinitis, unspecifi ed Assessments Date Code Description Provider 11/15/2020 M79.3 Panniculitis, unspecified Laith Little, DO 11/15/2020 L98.7 Excessive and redundant skin and subcutaneous tissue Laith Little, DO 11/15/2020 M62.08 Separation of muscle (nontraumat ic), other site Laith Little, DO 11/07/2020 M54.07 Panniculitis affecti ng regions of neck and back, lumbosacral region Laith Little, DO 11/07/2020 L98.7 Excessive and redundant skin and subcutaneous tissue Laith Little, DO 11/07/2020 M62.08 Separation of muscle (nontraumat ic), other site Laith Little, DO 11/07/2020 Z01.818 Encounter for other preprocedura l examination Laith Little, DO 08/17/2020 M54.07 Panniculitis affecti ng regions of neck and back, lumbosacral region Laith Little, DO 08/17/2020 L98.7 Excessive and redundant skin and subcutaneous tissue Laith Little, DO 08/17/2020 M62.08 Separation of muscle (nontraumat ic), other site Laith Little, DO 07/21/2020 J45.40 Moderate persistent asthma, unco mplicated Klaus Knowles MD 07/21/2020 J47.9 Bronchiectasis, uncomplicated La luiza Knowles MD 07/21/2020 J30.9 Allergic rhinitis, unspecified L jojo Knowles MD Plan of Treatment Future Appointment(s):* 01/19/2021 9:30 am - Klaus Knowles MD at [facility] Pulmonary/Thoracic 11/07/2020 - Laith Han DO* M54.07 Panniculitis affecting regions of neck and back, lumbosacral region* Comments:* Patient is a good candidate for extended panniculectomy with possible rectus muscle plication. [place] approach is discussed as a possibility for the approach as well, due to significant excess of skin in the mid abdomen. Additional scar for [place] discussed with patient she is willing to consider it as long as we are able to minimize skin redundancy. Pre op visit today. All questions answered.Ready to proceed. RTO post op. * L98.7 Excessive and redundant skin and subcutaneous tissue * M62.08 Separation of muscle (nontraumatic), other site * Z01.818 Encounter for other preprocedural examination Functional Status Description No Information Available Mental Status Description No Information Available Referrals Description No Information Available
--- OUTSIDE RECORDS SUMMARY | 2020-11-24 14:53 | CCD ---
Author Author [facility] Organization [facility] Address Unknown Phone Unavailable Care Team Providers Care Diesel Electrician Name Role Phone Lydia MARTE MD Unavailable Unavailable Lydia MARTE MD Unavailable Unavailable Lydia MARTE MD Unavailable Unavailable Lydia MARTE MD Unavailable Unavailable Lydia MARTE MD Unavailable Unavailable Lydia MARTE MD Unavailable Unavailable Lydia MARTE MD Unavailable Unavailable Lydia MARTE MD Unavailable Unavailable Lydia MARTE MD Unavailable Unavailable Lydia MARTE MD Unavailable Unavailable Lydai MARTE MD Unavailable Unavailable Lydia MARTE MD [...] Unavailable Carole, A Chester BATRES Unavailable Unavailable Acrole, A Chester BATRES Unavailable Unavailable Carole, A [...] Unavailable DIPTI, MAQBOOL ANDRZEJ MD Unavailable Unavailable IDPTI, MAQBOOL ANDRZEJ MD Unavailable Unavailable DIPTI, MAQBOOL ANDRZEJ MD Unavailable Unavailable DIPTI, MAQBOOL ANDRZEJ MD Unavailable Unavailable DIPTI, RAQUEL MARCUM MD Unavailable Unavailable DIPTI, RAQUEL MARCUM MD Unavailable Unavailable URIAS, DARRION Unavailable Unavailable [facility], RAYMUNDO Unavailable Unavailable EMELY, E LAITH [...] Unavailable EMELY, E LAITH DO Unavailable Unavailable COMMEY, RAYMUNDO Unavailable Unavailable MAJAK, R CLAUDIA DPM [...] OSITO Unavailable Unavailable TURRIN, OSITO Unavailable Unavailable POLKMARIA D MD Unavailable Unavailable POLKMARIA D MD Unavailable Unavailable POLKMARIA D MD Unavailable Unavailable POLKMARIA D MD Unavailable Unavailable POLK MARIA D MD Unavailable Unavailable POLK MARIA D MD Unavailable Unavailable POLK MARIA D MD Unavailable Unavailable POLK MARIA D MD Unavailable Unavailable POLK MARIA D MD Unavailable Unavailable POLKMARIA D MD Unavailable Unavailable POLKMARIA D MD Unavailable Unavailable POLKMARIA D MD Unavailable Unavailable POLKMARIA D MD Unavailable Unavailable POLKMARIA D MD Unavailable Unavailable POLKMARIA D MD Unavailable Unavailable POLKMARIA D MD Unavailable Unavailable POLKMARIA D MD Unavailable Unavailable POLKMARIA D BLANKENSHIP MD Unavailable Unavailable POLKMARIA D MD Unavailable Unavailable POLKMARIA D MD Unavailable Unavailable POLKMARIA D MD Unavailable Unavailable POLKMARIA D MD Unavailable Unavailable POLKMARIA D MD Unavailable Unavailable POLKMARIA D MD Unavailable Unavailable POLK MARIA D MD Unavailable Unavailable POLKMARIA D MD Unavailable Unavailable POLKMARIA D MD Unavailable Unavailable POLKMARIA D MD Unavailable Unavailable POLKMARIA D MD Unavailable Unavailable POLKMARIA D MD Unavailable Unavailable POLKMARIA D MD Unavailable Unavailable POLKMARIA D MD Unavailable Unavailable POLKMARIA D MD Unavailable Unavailable POLKMARIA D MD Unavailable Unavailable POLKMARIA D MD Unavailable Unavailable POLK MARIA D MD Unavailable Unavailable POLK MARIA D MD Unavailable Unavailable POLK MARIA D MD Unavailable Unavailable POLK MARIA D MD Unavailable Unavailable POLK MARIA D MD Unavailable Unavailable POLK MARIA D MD Unavailable Unavailable POLK MARIA D MD Unavailable Unavailable POLKMARIA D MD Unavailable Unavailable POLKMARIA D MD Unavailable Unavailable POLKMARIA D MD Unavailable Unavailable POLK MARIA D MD Unavailable Unavailable POLK MARIA D MD Unavailable Unavailable POLK MARIA D MD Unavailable Unavailable POLK MARIA D MD Unavailable Unavailable POLK MARIA D MD Unavailable Unavailable POLKMARIA D MD Unavailable Unavailable POLK MARIA D MD Unavailable Unavailable POLK MARIA D MD Unavailable Unavailable POLK MARIA D MD Unavailable Unavailable MARIA D [...] Unavailable Unavailable Sivakumar Knowles MD Unavailable Unavailable Sivakmuar Knowles MD Unavailable Unavailable Sivakumar Knowles MD [...] Knowles, Sivakumar Enrique MD Unavailable Unavailable Knowles, Sivaukmar Enrique MD Unavailable Unavailable Knowles, Sivakumar Enrique MD Unavailable Unavailable Knowles, Sivakumar Klaus MD Unavailable Unavailable Knowles, Sivakumar Enrique MD Unavailable Unavailable Knowles, Sivakumar Enrique MD Unavailable Unavailable Knowles, Sivakumar Enrique MD Unavailable Unavailable Knowles, Sivakumar Enrique MD Unavailable Unavailable Knowles, Sivaukmar Enrique MD Unavailable Unavailable Knowles, Sivakumar Enrique [...] is protected by Article 27-F of the [facility] Public Health law. If you continue you may have access to information: Regarding HIV / AIDS; Provided by facilities licensed or operated by the [facility] Office of Mental Health; or Provided by the [facility] Office for People With Developmental Disabilities. If such information is present, then the following [facility] mandated warning applies: This information has been [...] law may result in a fine or fci sentence or both. A general authorization for the release of medical or other information is NOT sufficient authorization for further disc losure. Allergies and Adverse Reactions Type Description Substance Reaction Status Data Source(s ) [facility] Family Member Name Family Member Gender Family Member Status Date o f Status Description Data Source(s) Unknown Male Problem [facility] ([facility] Unknown Male Problem [facility] ([facility]) Encounters Encounter Providers Location Date Indications Data Source(s ) Outpatient Attender: MARIA D POLK MDConsultant: MARIA D Jin MD 11/03/2020 08:56:00 AM EST - 11/03/2020 08:56:[address] [facility] Outpatient Attender: MARIA D POLK MD Family Practice 11/03/2020 0 8:00:00 AM EST [facility] ([facility]) Emergency Attender: OSITO DEL REALConsultant: MARIA D Jin MD 10/25/2020 07:59:00 AM EST - 10/25/2020 09:08:[address] [facility] Patient discharged. Outpatient Attender: DARRION JOHNS eferrer: DARRION PICKETTAConsultant: MARIA D POLK MD 10/12/2020 12:09:00 PM EST - 10/12/2020 12:19:[address] [facility] Outpatient Attender: MARIA D POLK MDConsultant: MARIA D Jin MD 10/12/2020 09:10:00 AM EST - 10/12/2020 09:10:[address] [facility] Outpatient Attender: MARIA D POLK MD Family Practice 10/12/2020 0 8:20:00 AM EST [facility] ([facility]) Outpatient Attender: CLAUDIA CRANE [facility] 09/04 07:00:00 AM EST [facility] ([facility] Outpatient Attender: LAITH Mora/Lupe/Juan Manuel/Ruddyd l 08/17/2020 01:15:00 PM EDT [facility] ([facility] Outpatient Attender: Klaus Nguyen/Lupe/Juan Manuel/R eindl 07/21/2020 11:30:00 AM EDT [facility] ([facility] Outpatient Attender: MARIA D POLK MD Family Practice 07/13/2020 0 1:20:00 PM EDT [facility] ([facility]) Outpatient Attender: MARIA D POLK MDConsultant: MARIA D Jin MD 07/13/2020 01:13:00 PM EDT - 07/13/2020 01:13:00 PM EDT [facility] Outpatient Attender: MARIA D POLK MDConsultant: MARIA D Jin MD 06/15/2020 08:56:00 AM EDT - 06/15/2020 08:56:00 AM EDT [facility] Outpatient Attender: ANDRZEJ Jansen thomas: OSITO DEL REALConsultant: MARIA D POLK MD 05/18/2020 11:15:00 AM EDT - 05/20/2020 12:20:00 PM EDT [facility] Patient discharged. Outpatient Attender: MARIA D POLK MDConsultant: MARIA D Jin MD 05/18/2020 10:01:00 AM EDT - 05/18/2020 10:01:00 AM EDT [facility] Outpatient Attender: Dawna GayeConsultant: MARIA D POLK MD 05/13/2020 01:00:00 PM EDT - 05/13/2020 01:10:00 PM EDT [facility] Outpatient Attender: Dawna Mac nder: Chester Lam MDReferrer: Chester Lam MDConsultant: PCP NO 05/13/2020 12:13:00 PM EDT - 05/13/2020 12:23:00 PM EDT [facility] Outpatient Attender: MARIA D POLK MDConsultant: MARIA D Jin MD 05/13/2020 10:05:00 AM EDT - 05/13/2020 10:05:00 AM EDT [facility] Outpatient Attender: MARIA D POLK MDConsultant: MARIA D Jin MD 04/04/2020 09:04:00 AM EDT - 04/04/2020 09:04:00 AM EDT [facility] Outpatient Attender: MARIA D POLK MD Family Practice 04/04/2020 0 9:00:00 AM EDT [facility] ([facility]) Outpatient Attender: RAYMUNDO COMMEYReferrer: RAYMUNDO ESCALERA EY MOB-MOB.PAT 12/29/2019 12:00:00 AM EST - 12/29/2019 12:37:03 PM EST [facility] Inpatient Attender: RAYMUNDO Ortiz thomas: RAYMUNDO COMMEYAdmitter: RAYMUNDO MORILLO [id number] 12/23/2019 08:08:58 AM EST - 01/16/2020 10:10:00 AM EDT [facility] Patient discharged. Outpatient Attender: MARIA D POLK MDConsultant: MARIA D Jin MD 12/14/2019 01:43:00 PM EST - 12/14/2019 01:43:[address] [facility] Outpatient Attender: MARIA D POLK MD Family Practice 12/14/2019 0 1:00:00 PM EST [facility] ([facility]) Outpatient Attender: RADHA MARTE MDConsultant: MARIA D Jin MD 11/25/2019 10:47:00 AM EST - 11/25/2019 10:47:[address] [facility] Outpatient Attender: CLAUDIA CRANE D[facility] [place] 11/04 08:00:00 AM EST [facility] ([facility] Outpatient Attender: MARIA D POLK MDConsultant: MARIA D Jin MD 10/31/2019 09:05:00 AM EST - 10/31/2019 10:05:[address] [facility] Outpatient Attender: MARIA D POLK MDRef errer: CLAUDIA CRANE DPMConsultant: MARIA D POLK MD 10/29/2019 09:06:56 AM EST - 12/31/2019 10:06:[address] [facility] Patient discharged. Outpatient Attender: MARIA D POLK MDConsultant: MARIA D Jin MD 10/22/2019 09:05:00 AM EST - 10/22/2019 09:05:[address] [facility] Outpatient Attender: MARIA D POLK MD Family Practice 10/22/2019 0 8:20:00 AM EST [facility] ([facility]) Outpatient Attender: CLAUDIA CRANE DPM [place] 10/04 10:00:00 AM EST [facility] ([facility] Immunizations Vaccine Date Status Description Data Source(s) New in 2011. IIV4 10/12/2020 08:42:00 AM EST completed [facility] ([facility]) Medications Medication Brand Name Start Date Product Form Dose Route Admi nistrative Instructions Pharmacy Instructions Status Indications Reaction Description Data Source(s) Ciprofloxacin 250 MG Oral Tablet Ciprofloxacin HCL 10/12/2020 12:00 :00 AM EST ORAL completed [facility] ([facility]) cetirizine hydrochloride 10 MG Oral Tablet Cetirizine HCL 05/10/2020 12:00:00 AM EDT ORAL active [facility] ([facility]) Ciprofloxacin 250 MG Oral Tablet [Cipro] Cipro 04/05/2020 12:00: 00 AM EDT ORAL completed [facility] ([facility]) 12 HR Bupropion Hydrochloride 150 MG Ext ended Release Oral Tablet buPROPion (WELLBUTRIN SR) 12 hr tablet 150 mg buPROPion (WELLBUTRIN SR) 12 hr tablet 1 50 mg 01/16/2020 09:00:00 AM EDT 150 mg Oral active 150 mg, Oral, Daily, First dose on 01/16/20 at 0900, Post-op [facility] Medication administered onsite topiramate 100 MG Oral Tablet topiramate (TOPAMAX) tab let 100 mg topiramate (TOPAMAX) tablet 100 mg 01/16/2020 09:00:00 AM EDT 100 mg Oral active 100 mg, Oral, Daily, First dose on 01/16/20 at 0900, Post-op
For administration and preparation considerations, refer to Hazardous Drugs in the Workplace Policy on Intranet.
[facility] Medication administered onsite ondansetron (ZOFRAN-ODT) disintegrating [...] 01/16/20 at 0600, Post-op [Order 2 End] [facility] Medication administered onsite heparin (porcine) injection 5,000 Units [id number] 01/16/20 01:00:00 AM EDT 5000 U Subcutaneous active 5,000 Units , Subcutaneous, Every 8 hours (relative), First dose on 01/16/20 at 0100, Post-op
If platelet count is less than 100,000 or hematocrit is less than 25, or if there is a 5 point decrea se in hematocrit, do not give the dose and call physician/designee.
[facility] Medication administered onsite Ondansetron 4 MG Disintegrating Oral Tab let ondansetron (ZOFRAN-ODT) disintegrating tablet 8 mg ondansetron (ZOFRAN-ODT) disintegrating tablet 8 mg 01/16/2020 12:00:00 AM EDT 8 mg Oral active 8 mg, Oral, Every 6 hours (scheduled), First dose on 01/16/20 at 0000, For 24 hours, Post-op [facility] Medication administered onsite Acetaminophen 325 MG [...]
To begin after routine doses of tylenol.
[facility] Medication administered onsite Acetaminophen 500 MG Oral Tablet acetaminophen (TYLENO L) tablet 1,000 mg acetaminophen (TYLENOL) tablet 1,000 mg 01/15/2020 11:00:00 PM EDT 1000 mg Oral active 1,000 mg, Oral , Every 8 hours, First dose on Sat01/15/20 at 2300, For 48 hours, Post-op [facility] Medication administered onsite 1 ML Ketorolac Tromethamine 30 MG/ML Car tridge ketorolac (TORADOL) injection 30 mg ketorolac (TORADOL) injection 30 mg 01/15/2020 11:00:00 PM EDT 30 mg Intravenous active 30 mg, Intrav enous, Every 6 hours PRN, severe pain (7-10), Starting Sat01/15/20 at 2300, For 4 doses, Post-op [facility] Medication administered onsite normal saline flush 0.9 % injection 3 mL [id number] 01/15/2020 10:00:00 PM EDT 3 mL Intravenous active 3 mL , Intravenous, QSHIFT, First dose on Sat01/15/20 at 2200, Post-op
Convert to saline lock after discontinuing D5LR IV.
[facility] Medication administered onsite gabapentin 600 MG Oral Tablet gabapentin (NEURONTIN) t ablet 600 mg gabapentin (NEURONTIN) tablet 600 mg 01/15/2020 09:00:00 PM EDT 600 mg Oral active 600 mg, Oral, 2 times daily, First dose on Sat01/15/20 at 2100, Post-op [facility] Medication administered onsite 24 HR venlafaxine 75 MG Extended Release Oral Capsule venlafaxine (EFFEXOR-XR) 24 hr capsule 75 mg venlafaxine (EFFEXOR-XR) 24 hr capsule 75 mg 0 09:00:00 PM EDT 75 mg Oral active 75 mg, Oral, 2 times daily, First dose on Sat01/15/20 at 2100, Post-op [facility] Medication administered onsite 60 ACTUAT formoterol fumarate 0.005 MG/A CTUAT / mometasone furoate 0.2 MG/ACTUAT Metered Dose Inhaler mometasone-formoterol (DULERA) 200-5 MCG/ACT inhaler 2 puff mometasone-formoterol (DULERA) 200-5 MCG/ACT inhaler 2 puff 01/15/2020 08:00:00 PM EDT 2 {puff} Inhalation active 2 pu ff, Inhalation, 2 times daily, First dose on Sat01/15/20 at 2000, Post-op [facility] Medication administered onsite Calcium Chloride 0.001 [...] adequate PO & convert to saline lock
[facility] Medication administered onsite pantoprazole 40 MG Delayed Release Oral Tablet pantoprazole (PROTONIX) EC tablet 40 mg pantoprazole (PROTONIX) EC tablet 40 mg 01/15/2020 08:00:00 PM E DT 40 mg Oral active Stress Ulcer Prophylaxis 40 mg, Oral, Daily, Indications: Stress Ulcer Prophylaxis, First dose on Sat01/15/20 at 1999, Post-op [facility] Stress Ulcer Prophylaxis Medication administered onsite Simethicone 80 MG Chewable Tablet simethicone (MYLICON ) chewable tablet 80 mg simethicone (MYLICON) chewable tablet 80 mg 01/15/2020 08:00:00 PM EDT 80 mg Oral active 80 mg, Oral, E very 4 hours (scheduled), First dose on Sat01/15/20 at 1999, Post-op [facility] Medication administered onsite glycopyrrolate (ROBINUL) injection 0.4 mg [id number] 01/15/2020 07:00:00 PM EDT 0.4 mg Intravenous completed 0. 4 mg, Intravenous, Once, Sat01/15/20 at 1900, For 1 dose, PACU (only) [facility] Medication administered onsite metoclopramide (REGLAN) injection [...] hours PRN for nausea
[Order 2 End] [facility] Medication administered onsite Promethazine Hydrochloride 25 MG Oral Ta blet promethazine (PHENERGAN) tablet 12.5 mg promethazine (PHENERGAN) tablet 12.5 mg 01/15/2020 06:50:25 PM E DT 12.5 mg Oral active 12.5 mg, O ral, Every 4 hours PRN, nausea, not relieved by prochlorperazine, Starting Sat01/15/20 at 1850, Post-op [facility] Medication administered onsite Prochlorperazine 10 MG Oral Tablet prochlorperazine (C OMPAZINE) tablet 10 mg prochlorperazine (COMPAZINE) tablet 10 mg 01/15/2020 06:50:25 PM EDT 10 mg Oral active 10 mg, Oral, E very 6 hours PRN, nausea, not relieved by metoclopramide, Starting Sat01/15/20 at 1850, Post-op [facility] Medication administered onsite Sumatriptan 50 MG Oral Tablet SUMAtriptan (IMITREX) ta blet 25 mg SUMAtriptan (IMITREX) tablet 25 mg 01/15/2020 06:50:25 PM EDT 25 mg Oral active 25 mg, Oral, Daily PRN, migraine, Starting Sat01/15/20 at 1850, Post-op
May repeat dose in 2 hours if no relief.Do not exceed 2 doses in 24 hours.
[facility] Medication administered onsite 4 ML Labetalol [...] 300 MGHOLD FOR HR LESS THAN 60
[facility] Medication administered onsite 4 ML Labetalol hydrochloride 5 MG/ML Car tridge labetalol (NORMODYNE,TRANDATE) injection 5-20 mg labetalol (NORMODYNE,TRANDATE) injection 5-20 mg 01/14 06:50:25 PM EDT Intravenous active 5-20 mg, Intravenous, Every 10 min PRN, high blood pressure, Starting Sat01/15/20 at 1850, PACU (only)
For SBP 140-149 give:Initial dose: [id number] ivp over 2 minutes May repeat in 10 minutes with:Labetalol 10 mg ivp over 2 minutesMay repeat in 10 minutes with:Labetalol 20 mg ivp over 2 minutes MAXIMUM DOSE 300 MGHOLD FOR HR LESS THAN 60
[facility] Medication administered onsite 4 ML Labetalol [...] 300 MGHOLD FOR HR LESS THAN 60
[facility] Medication administered onsite enalaprilat (VASOTEC) injection 1.25 mg [id number] 01/15/20 06:50:24 PM EDT 1.25 mg Intravenous active 1.25 mg, Int ravenous, Every 6 hours PRN, for SBP > 140 mmHg and/or DBP > 90 mmHg, Starting Sat01/15/20 at 1850, Post- op
Mix in 50 mL NS, infuse over 30 minutes via infusion pump.For IVMB on NON-ICU units.
[facility] Medication administered onsite Albuterol 0.833 MG/ML / Ipratropium Brom kendrick 0.167 MG/ML Inhalant Solution ipratropium-albuterol (DUO-NEB) 0.5-2.5 mg/mL nebulizer solution 3 mL ipratropium-albuterol (DUO-NEB) 0.5-2.5 mg/mL nebulizer solution 3 mL 01/15/2020 06:50:24 PM EDT 3 mL Inhalation active 3 mL, Inhalation, Daily PRN, for shortness of breath, Starting Sat01/15/20 at 1850, Post-op [facility] Medication administered onsite Albuterol 0.83 MG/ML Inhalant Solution a lbuterol (PROVENTIL) nebulizer solution 2.5 mg albuterol (PROVENTIL) nebulizer solution 2.5 mg 2019 06:50:24 PM EDT 2.5 mg active 2.5 mg, Nebulization, RT every 4 hours as needed, wheezing, shortness of breath, Starting Sat01/15/20 at 1850, Post-op [facility] Medication administered onsite Hydralazine Hydrochloride 20 [...] needed up to M AX 20 mg
[facility] Medication administered onsite Clonidine Hydrochloride 0.1 [...] as needed to a MAX 0.8 mg
[facility] Medication administered onsite Clonidine Hydrochloride 0.1 MG Oral Tablet cloNIDine ( CATAPRES) tablet 0.1 mg cloNIDine (CATAPRES) tablet 0.1 mg 01/15/2020 06:50:24 PM EDT 0.1 mg Oral active 0.1 mg, Oral, Every 4 hours PRN, high blood pressure, for SBP > 140 mmHg and/or DBP > 90 mmHg, Starting Sat01/15/20 at 1850, Post-op [facility] Medication administered onsite heparin (porcine) injection 5,000 Units [id number] 01/15/20 12:00:00 PM EDT 5000 U Subcutaneous completed 5,000 Uni ts, Subcutaneous, call center supervisor, Sat01/15/20 at 1200, For 1 dose, Pre-op
If platelet count is less than 100,000 or hematocrit is less than 25, or if there is a 5 point decrease in hematocrit, do not give the dose and call physician/designee.
[facility] Medication administered onsite Calcium Chloride 0.0014 MEQ/ML / Potassi um Chloride 0.004 MEQ/ML / Sodium Chloride 0.103 MEQ/ML / Sodium Lactate 0.028 MEQ/ML Injectable Solution lactated ringers infusion lactated ringers infusion 01/15/2020 12:00:00 PM EDT 100 mL/h Intravenous aborted at 100 m L/hr, 100 mL/hr, Intravenous, Continuous, Starting Sat01/15/20 at 1200, Pre-op
Please place IV on left side if able
[facility] Medication administered onsite Prochlorperazine 10 MG Oral Tablet prochlorperazine (C OMPAZINE) tablet 10 mg prochlorperazine (COMPAZINE) tablet 10 mg 01/15/2020 12:00:00 PM EDT 10 mg Oral completed 10 mg, Oral, O n call, Sat01/15/20 at 1200, For 1 dose, Pre-op [facility] Medication administered onsite Clonidine Hydrochloride 0.1 MG Oral Tablet cloNIDine ( CATAPRES) tablet 0.1 mg cloNIDine (CATAPRES) tablet 0.1 mg 01/15/2020 12:00:00 PM EDT 0.1 mg Oral completed 0.1 mg, Oral, call center supervisor, Sat at 1200, For 1 dose, Pre-op [facility] Medication administered onsite Dexamethasone 4 MG Oral Tablet dexamethasone (DECADRON ) tablet 4 mg dexamethasone (DECADRON) tablet 4 mg 01/15/2020 12:00:00 PM EDT 4 mg Oral completed 4 mg, Oral, call center supervisor, Sat01/15/20 at 1200, For 1 dose, Pre-op [facility] Medication administered onsite Albuterol 0.83 MG/ML Inhalant Solution a lbuterol (PROVENTIL) nebulizer solution 2.5 mg albuterol (PROVENTIL) nebulizer solution 2.5 mg 2019 12:00:00 PM EDT 2.5 mg completed 2.5 mg , Nebulization, call center supervisor, Sat01/15/20 at 1200, For 1 dose, Pre-op
To be started by pre-op unit
[facility] Medication administered onsite Acetaminophen 325 MG Oral Tablet acetaminophen (TYLENO L) 325 MG tablet 975 mg acetaminophen (TYLENOL) 325 MG tablet 975 mg 01/15/2020 12:00:00 PM EDT 975 mg Oral completed 975 mg, Or al, call center supervisor, Sat01/15/20 at 1200, For 1 dose, Pre-op
"Maximum dose of acetaminophen is 4,000 mg from all sources in 24 hours."
[facility] Medication administered onsite Oseltamivir 75 MG Oral Capsule [Tamiflu] Tamiflu 12/14/2019 12:00: 00 AM EST ORAL completed [facility] topiramate 100 MG Oral Tablet [Topamax] Topamax 10/22/2019 12:00:0 0 AM EST ORAL active [facility] ([facility]) topiramate 25 MG Oral Tablet [Topamax] Topamax 07/23/2019 12:00:00 AM EDT ORAL completed [facility] ([facility]) Acetaminophen 325 MG Oral Tablet acetaminophen (TYLENO L) 325 MG tablet acetaminophen (TYLENOL) 325 MG tablet 01/24/2019 12:00:00 AM EDT 65 0 mg Oral aborted Take 2 tablets (650 mg total) by mouth every 6 (six) hours as needed for pain [facility] Simethicone 80 MG Chewable Tablet simethicone (MYLICON ) 80 MG chewable tablet simethicone (MYLICON) 80 MG chewable tablet 01/24/2019 12:00:00 AM EDT 80 mg Oral aborted Chew 1 tablet (80 mg total) every 6 (six) hours as needed for flatulence [facility] Vitamin B 12 0.5 MG Oral Tablet cyanocob alamin ([employer] VITAMIN B-12) 500 MCG tablet cyanocobalamin ([employer] VITAMIN B-12) 500 MCG tablet 01/24/2019 12:0 0:00 AM EDT 500 ug Oral active Take 1 tablet (500 mcg t otal) by mouth daily [facility] Multiple Vitamins-Minerals (MULTIVITAMIN WITH MINERALS) [place] [id number] 01/24/2019 12:00:00 AM EDT 2 {tbl} Oral active Take 2 tablets by mouth daily [facility] Insurance Providers Payer name Policy type / Coverage type Policy ID Covered green party ID Covered green party's relationship to lynn Policy Lynn Plan Information [facility] [id number] SP [id number] [facility] [id number] 18 [id number] [facility] [id number] 18 [id number] [facility] AT [facility] [id number] 18 [id number] [facility] AT [facility] [id number] 18 [id number] [facility] [id number] [facility] [id number] Spo [id number] [facility] [facility] [place] [id number] 18 [id number] [facility] Commercial [id number] Self [id number] Usf[facility] AT [facility] ([facility]) [id number] Self [id number] [facility] Commercial [id number] Self [id number] AN[employer]Commercial [id number] ANSI-Commercial [id number] [facility] Commercial [id number] Self [id number] [facility] Commercial [id number] Self 000 [id number] [facility] [id number] Self 000 [id number] [facility] PI PI [facility] [id number] Spo [id number] [facility] Commercial [id number] Self 000 [id number] [facility] Commercial [id number] Self [id number] [facility] [employer] [id number] Self 000 [id number] [facility] Commercial [id number] Self 000 [id number] [facility] [id number] Génesis [id number] [facility] Commercial [id number] Self 000 [id number] [facility] Commercial [id number] Self 000 [id number] [facility] Commercial [id number] Self 000 [id number] [facility] Commercial [id number] Self [id number] [facility] Commercial [id number] Self 000 [id number] [employer] [facility] ([facility]) [id number] Self [id number] [facility] Commercial [id number] Self [id number] [employer]Com[employer] [id number] [facility] Commercial [id number] Self 000 [id number] [employer] [facility] ([facility]) [id number] Self [id number] [facility] [employer] [id number] Self 000 [id number] [facility] [employer] [id number] Self 000 [id number] [facility] [employer] [id number] Self 000 [id number] Problems, Conditions, and Diagnoses Code Display Name Description Problem Type Effective Dates Data Source(s) Z90.49 S/P laparoscopic cholecystectomy S/P laparoscopi c cholecystectomy [id number] 01/15/2020 12:00:00 AM EDT [facility] [id number] Edema Edema Problem 09/15/2019 12:0 0:00 AM EST - 10/29/2019 12:00:00 AM EST [facility] ([facility] J439 Emphysema, unspecified Emphysema, unspecified Diagnosi s 10/25/2020 07:59:[address] [facility] [id number] Pain in left finger(s) Pain in left finger(s) Diagnosi s 10/25/2020 07:59:[address] [facility] M7989 Other specified soft tissue disorders Ot her specified soft tissue disorders Diagnosis 10/25/2020 07:59:[address] [facility] Z8639 Personal history of other endocrine, nut ritional and metabolic disease Personal history of other endocrine, nutritional and metabolic disease Diagnosis 10/12/2020 12:09:[address] [facility] Z9884 Bariatric surgery status Bariatric surgery status Diag nosis 10/12/2020 12:09:[address] [facility] E559 Vitamin D deficiency, unspecified Vitamin D defi ciency, unspecified Diagnosis 10/12/2020 12:09:[address] [facility] 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, 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 Postsurgical malabsorption, not elsewhere classified Diagnosis 10/12/2020 12:09:[address] [facility] Z23 Encounter for immunization Encounter for immunization Diagnosis 10/12/2020 09:10:[address] [facility] N390 Urinary tract infection, site not specif ied Urinary tract infection, site not specified Diagnosis 10/12/2020 09:10:[address] [facility] L987 Excessive and redundant skin and subcuta neous tissue Excessive and redundant skin and subcutaneous tissue Diagnosis 07/13/2020 01:13:00 P M EDT [facility] J4540 Moderate persistent asthma, uncomplicate d Moderate persistent asthma, uncomplicated Diagnosis 06/15/2020 08:56:00 AM EDT [facility] 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 Idiopathic pro gressive neuropathy Diagnosis 06/15/2020 08:56:00 AM EDT [facility] J309 Allergic rhinitis, unspecified Allergic rhinitis, unsp ecified Diagnosis 06/15/2020 08:56:00 AM EDT [facility] F419 Anxiety disorder, unspecified Anxiety disorder, unspec ified Diagnosis 06/15/2020 08:56:00 AM EDT [facility] X08395 Migraine without aura, not intractable, without status migrainosus Migraine without aura, not intractable, without status migrainosus Diagnosis 06/15/2020 08:56:00 AM EDT [facility] I10 Essential (primary) hypertension Essential (primary) h ypertension Diagnosis 05/18/2020 11:15:00 AM EDT [facility] X27732 Migraine, unspecified, not intractable, without status migrainosus Migraine, unspecified, not intractable, without status migrainosus Diagnosis 05/18/2020 11:15:00 AM EDT [facility] I441 Atrioventricular block, second degree At rioventricular block, second degree Diagnosis 05/18/2020 11:15:00 AM T [facility] R51 Headache Headache Diagnosis 05/18/2020 10:01:00 AM ED [facility] A83121 Unspecified asthma, uncomplicated Unspecified as thma, uncomplicated Diagnosis 04/04/2020 09:04:00 AM EDT [facility] F339 Major depressive disorder, recurrent, un specified Major depressive disorder, recurrent, unspecified Diagnosis 04/04/2020 09:04:00 AM EDT [facility] 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 Acquired absence of other specified part Diagnosis 01/15/2020 09:56:00 AM EDT [facility] K80.20 Calculus of gallbladder without cholecys titis without obstruction Calculus of gallbladder without cholecys Diagnosis 01/15/2020 09:56:00 AM EDT [facility] K80.10 Calculus of gallbladder with chronic cho lecystitis without obstruction Calculus of gallbladder with chronic cho Diagnosis 12/29/2019 11:18:[address] [facility] J09X2 Influenza due to identified novel influenza A virus with other respiratory manifestations Influenza due to identified novel influe nza A virus with other respiratory manifestations Diagnosis 12/14/2019 01:43:00 PM [facility] K8020 Calculus of gallbladder without cholecys titis without obstruction Calculus of gallbladder without cholecystitis without obstruction Diagnosis 11/25/2019 10:47:[address] [facility] R935 Abnormal findings on diagnos tic imaging of other abdominal regions, including retroperitoneum Abnormal findings on diagnostic imaging of other abdominal regions, including retroperitoneum Diagnosis 9 09:05:[address] [facility] M545 Low back pain Low back pain Diagnosis 10/29/2019 09:12:[address] [facility] [id number] Sprain of unspecified ligament of left a nkle, subsequent encounter Sprain of unspecified ligament of left ankle, subsequent encounter Diagnosis 10/29/2019 09:12:[address] [facility] Z6833 Body mass index (BMI) 33.0-33.9, adult B sindhu mass index (BMI) 33.0-33.9, adult Diagnosis 10/22/2019 09:05:[address] [facility] Surgeries/Procedures Procedure Description Date Indications Data Source(s) Excision Excessive Skin And Subcutaneous Tissue Abdomen 11/15/2020 12:00:00 AM EST [facility] ([facility] EXCISION EXCESSIVE SKIN & SUBQ TISSUE ABDOMEN 11/15/19 12:00:00 AM EST [facility] ([facility]) Spirometry 07/21/2020 12:00:00 AM EDT M [facility] ([facility], ) GLUC BLD GLUC MNTR DEV CLEARED FDA SPEC HOME USE POCT GLUCOSE Routine 01/15/2020 11:15 AM EDT 01/15/2020 03:15:00 PM EDT [facility] POCT I-STAT BETA HCG POCT I-STAT BETA HCG Routine 01/15/2020 11:12 AM EDT 01/15/2020 03:12:00 PM EDT [facility] BLOOD COUNT COMPLETE AUTOMATED CBC Routine 0 12:30 PM EST Calculus of gallbladder with cholecystitis without biliary obstruction, unspecified cholecystitis acuity 12/29/2019 05:30:00 PM EST Calculus of gallbladder with cholecystitis without biliary obstruction, unspecified cholecystitis acuity [facility] Calculus of gallbladder with cholecystit is without biliary obstruction, unspecified cholecystitis acuity Brief Emotional/Behav Assessment W/ Scoring Doc Per Standard Inst 12/14/2019 12:00:00 AM EST [facility] ([facility]) Results ID Date Data Source [id number] 11/17/2020 05:01:00 PM EST [facility] ([facility] ) Name Value Range Interpretation Code Description Data Tiffani rce(s) Supporting Document(s) Hemoglobin 10.2 g/dL 12.0-15.5 [facility] Red Blood Count 3.50 10 4.00-5.40 Below low normal [facility] ([facility]) White Blood Count 6.1 10 4.0-10.0 Normal (applies to non-numeri c results) [facility]) Mean Corpuscular Volume 91.7 fl 80.0-96.0 Normal ( applies to non-numeric results) [facility]) Hematocrit 32.1 % 36.0-47.0 Below low normal [facility] ( [facility]) Red Cell Distribution Width 13.4 % 11.5-14.5 Norm al (applies to non-numeric results) [facility] ([facility]) Mean Corpuscular HGB Conc 31.8 g/dL 32.0-36.5 Below low normal [facility] ([facility]) Mean Corpuscular Hemoglobin 29.1 pg 27.0-33.0 Norm al (applies to non-numeric results) [facility] ([facility]) Platelet Count, Automated 183 10 150-450 Normal (applies to non-numeric results) [facility]) Nucleated Red Blood Cell % 0.0 % 0-0 Normal (applies to n on-numeric results) [facility] ([facility]) ID Date Data Source [id number] 11/17/2020 07:34:[address] [facility]) Name Value Range Interpretation Code Description Data Tiffani rce(s) Supporting Document(s) Blood Type Laboratory test result Normal (applies to non-n umeric results) [facility]) Blood group antibody screen [Presence] in Serum or Rboert sma Laboratory test result Normal (applies to non-numeric results) [facility]) ID Date Data Source [id number] 11/17/2020 07:34:[address] [facility]) Name Value Range Interpretation Code Description Data Tiffani rce(s) Supporting Document(s) Packed Cells Laboratory test result [facility]) TRANSFUSED PRODUCT: PACKED CELLS COUNT: 2 ID Date Data Source [id number] 11/17/2020 05:36:00 AM [facility] ([facility]) Name Value Range Interpretation Code Description Data Tiffani rce(s) Supporting Document(s) White Blood Count 4.8 10 4.0-10.0 Normal (applies to non-numeri c results) [facility]) Hemoglobin 8.1 g/dL 12.0-15.5 Below low normal [facility]) Red Blood Count 2.94 10 4.00-5.[address] [facility]) Hematocrit 26.4 % 36.0-47.0 Below low normal [facility]) Mean Corpuscular Volume 89.8 fl 80.0-96.0 Normal ( applies to non-numeric results) [facility]) Mean Corpuscular Hemoglobin 27.6 pg 27.0-33.0 Norm al (applies to non-numeric results) [facility]) Mean Corpuscular HGB Conc 30.7 g/dL 32.0-36.5 Below low normal [facility]) Red Cell Distribution Width 13.8 % 11.5-14.5 Norm al (applies to non-numeric results) [facility]) Platelet Count, Automated 190 10 150-450 Normal (applies to non-numeric results) [facility]) Nucleated Red Blood Cell % 0.0 % 0-0 Normal (applies to n on-numeric results) [facility] ([facility]) ID Date Data Source [id number] 11/16/2020 01:44:00 PM EST [facility] ([facility]) Name Value Range Interpretation Code Description Data Tiffani rce(s) Supporting Document(s) White Blood Count 4.2 10 4.0-10.0 Normal (applies to non-numeri c results) [facility] ([facility]) Red Blood Count 3.11 10 4.00-5.40 Below low normal [facility] ([facility]) Hemoglobin 8.7 g/dL 12.0-15.5 Below low normal [facility]) Mean Corpuscular Volume 90.0 fl 80.0-96.0 Normal ( applies to non-numeric results) [facility]) Hematocrit 28.0 % 36.0-47.0 Below low normal [facility]) Mean Corpuscular Hemoglobin 28.0 pg 27.0-33.0 Norm al (applies to non-numeric results) [facility]) Mean Corpuscular HGB Conc 31.1 g/dL 32.0-36.5 Below low normal [facility]) Red Cell Distribution Width 13.6 % 11.5-14.5 Norm al (applies to non-numeric results) [facility] ([facility]) Platelet Count, Automated 187 10 150-450 Normal (applies to non-numeric results) [facility]) Nucleated Red Blood Cell % 0.0 % 0-0 Normal (applies to n on-numeric results) [facility] ([facility]) ID Date Data Source [id number] 11/16/2020 10:11:00 AM EST [facility] ([facility]) Name Value Range Interpretation Code Description Data Tiffani rce(s) Supporting Document(s) White Blood Count 4.0 10 4.0-10.0 Normal (applies to non-numeri c results) [facility]) Red Blood Count 3.23 10 4.00-5.40 Below low normal [facility] ([facility]) Hemoglobin 8.9 g/dL 12.0-15.5 Below low normal [facility] ( [facility]) Hematocrit 29.1 % 36.0-47.0 Below low normal [facility] ( [facility]) Mean Corpuscular Volume 90.1 fl 80.0-96.0 Normal ( applies to non-numeric results) [facility] ([facility]) Mean Corpuscular Hemoglobin 27.6 pg 27.0-33.0 Norm al (applies to non-numeric results) [facility] ([facility]) Mean Corpuscular HGB Conc 30.6 g/dL 32.0-36.5 Below low normal [facility] ([facility]) Platelet Count, Automated 185 10 150-450 Normal (applies to non-numeric results) [facility] ([facility]) Red Cell Distribution Width 13.4 % 11.5-14.5 Norm al (applies to non-numeric results) [facility] ([facility]) Nucleated Red Blood Cell % 0.0 % 0-0 Normal (applies to n on-numeric results) [facility]) ID Date Data Source [id number] 11/15/2020 11:35:00 AM EST [facility] ([facility]) Name Value Range Interpretation Code Description Data Tiffani rce(s) Supporting Document(s) Surgical pathology study Laboratory test result [facility]) FINAL DIAGNOSIS Redundant abdominal tissue, extended panniculectomy: Panniculitis tissue (skin and subcutaneous fat). See gross description. 11/16/2020 - 134 CLINICAL DIAGNOSIS Panniculitis, separation of muscle 11/15/2020 - 1529 GROSS DIAGNOSIS Received in formalin labeled "redundant abdominal tissue, total weight 3369 grams" are multiple portions of ski n and subcutaneous tissue. 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 -RICK 11/15/2020 - 1529 Signed Zenia Curran MD 11/16/2020 1343 ID Date Data Source [id number] 11/10/2020 12:00:00 PM EST [facility] Name Value Range Interpretation Code Description Data Tiffani rce(s) Supporting Document(s) SARS coronavirus 2 RNA Not Detected [facility] This lab was ordered by [facility] and reported by [facility]. ID Date Data Source [id number] 11/07/2020 08:54:00 AM EST [facility] [address] [place] [address] PHONE: [phone] FAX: [phone] Name .................. : HEATHER HEARD Acct Number.................. : [id number] ROOM. ................. : Number ................... : [id number] Stay type ............. : CLINIC Discharge Date......... ... : 11/03/20 Admit Date ......... : 11/03/20 Admit Phys .................... : POLK HARD Date of ....... : 1980 Family Phys ................... : [employer] HARD Phone .................. : [phone] Age ................................ : 39 Film# .................. .:[id number] Sex ................................. : F Unsigned transcriptions are preliminary reports and do not represent a medical or legal document CHEST 2 VIEWS [id number] COMPLETE:12/31/20 11:20 MICHAEL 1190 (REASON FOR CHEST: R PA AND LATERAL CHEST, 11/03/20: Comparison is previous 10/29/18. FINDINGS: The cardiac and mediastinal silhouettes appear normal and the lungs are clear. The bones and soft tissues are normal. The upper abdomen is unremarkable. IMPRESSION: No acute disease identifiable. Electronically Reviewed and Signed By Reagan Randolph MD , 11/07/20 08:54, MRA Transcribe Initials: SSR, Transcribe Date: 11/03/20 11:51, Dictation Date: Page 1 of 1 Name Value Range Interpretation Code Description Data Tiffani rce(s) Supporting Document(s) ID Date Data Source [id number] 11/03/2020 09:31:00 AM EST [facility] ([facility]) Name Value Range Interpretation Code Description Data Tiffani rce(s) Supporting Document(s) Chest Xray 2 Views Laboratory test result [facility] ([facility]) ID Date Data Source [id number] 11/03/2020 09:31:00 AM EST [facility] ([facility]) Name Value Range Interpretation Code Description Data Tiffani rce(s) Supporting Document(s) Sodium 139 meq/L 134-153 [facility] ([facility]) Is patient fasting? N Comprehensive Metabo Laboratory test result [facility] ([facility]) Is patient fasting? N Chloride 104 meq/L 98-107 [facility] ([facility]) Is patient fasting? N Potassium 4.2 meq/L 3.6-5.0 [facility] ([facility]) Is patient fasting? N Co2 26 meq/L 22-30 [facility] ([facility]) Is patient fasting? N Creatinine 0.6 mg/dL 0.7-1.5 Below low normal [facility] ( [facility]) Is patient fasting? N Glucose 86 mg/dL 65-110 [facility] ([facility]) Is patient fasting? N BUN 10 mg/dL 7-21 [facility] ([facility]) Is patient fasting? N BUN/Creat 17 8-27 [facility] ([facility]) Is patient fasting? N Total Protein 5.8 g/dL 6.3-8.2 Below low normal [facility] ([facility]) Is patient fasting? N Globulin 1.6 GM/DL 2.4-3.2 Below low normal [facility] ( [facility]) Is patient fasting? N Albumin 4.2 g/dL 3.9-5.0 [facility] ([facility]) Is patient fasting? N A/G Ratio 2.6 0.8-2.0 Above high normal [facility] ([facility]) Is patient fasting? N Calcium 9.0 mg/dL 8.4-10.2 [facility] ([facility]) Is patient fasting? N Alkaline Phos 73 U/L 38-126 [facility] ([facility]) Is patient fasting? N Total Bili Laboratory test result 0.2-1.3 [facility] ([facility]) Is patient fasting? N SGPT/Alt 36 U/L 7-56 [facility] ([facility]) Is patient fasting? N Sgot/Ast 28 U/L 5-40 [facility] ([facility]) Is patient fasting? N Anion Gap 9.0 mmol/L 8.0-16.0 [facility] ([facility]) Is patient fasting? N Non-Aa GFR Laboratory test result [facility] ([facility]) Is patient fasting? N Age 39 yrs [facility] ([facility]) Is patient fasting? N Afr Amer GFR Laboratory test result [facility] ([facility]) Is patient fasting? N ID Date Data Source [id number] 11/03/2020 09:31:00 AM EST [facility] ([facility]) Name Value Range Interpretation Code Description Data Tiffani rce(s) Supporting Document(s) CBC W/Automated Diff Laboratory test result [facility] ([facility]) Is patient fasting? N WBC 4.9 10^3/uL 4.2-11.0 [facility] ([facility]) Is patient fasting? N Hematocrit 39.9 % 37.0-47.0 [facility] ([facility]) Is patient fasting? N RBC 4.65 10^6/uL 4.20-5.40 [facility] ([facility]) Is patient fasting? N Hemoglobin 13.0 g/dL 12.0-16.0 [facility] ([facility]) Is patient fasting? N MCV 85.8 fL 81.0-101 [facility] ([facility]) Is patient fasting? N MCHC 32.6 g/dL 31.0-36.0 [facility] ([facility]) Is patient fasting? N MCH 28.0 pg 27.0-34.0 [facility] ([facility]) Is patient fasting? N RDW 13.2 % 11.5-14.5 [facility] ([facility]) Is patient fasting? N Platelets 263 10^3/uL 150-450 [facility] ([facility]) Is patient fasting? N Lymph 34.4 % 25.0-40.0 [facility] ([facility]) Is patient fasting? N Neut 51.1 % 37.0-80.0 [facility] ([facility]) Is patient fasting? N MPV 10.5 fL 7.4-10.4 Above high normal [facility] ([facility]) Is patient fasting? N Baso 0.6 % 0.0-2.5 [facility] ([facility]) Is patient fasting? N [place] 9.6 % 3.0-8.0 Above high normal [facility] ([facility]) Is patient fasting? N Eos 3.9 % 0.0-7.0 [facility] ([facility]) Is patient fasting? N %NRBC 0.0 % 0.0-0.0 [facility] ([facility]) Is patient fasting? N %Ig 0.4 % 0.0-0.0 Above high normal [facility] ([facility]) Is patient fasting? N #Lymph 1.68 10^3/uL 0.60-3.40 [facility] ([facility]) Is patient fasting? N #[place] 0.47 10^3/uL 0.00-0.90 [facility] ([facility]) Is patient fasting? N #Neut 2.49 10^3/uL 2.00-6.90 [facility] ([facility]) Is patient fasting? N #Eos 0.19 10^3/uL 0.00-0.70 [facility] ([facility]) Is patient fasting? N #Baso 0.03 10^3/uL 0.00-0.20 [facility] ([facility]) Is patient fasting? N #Ig 0.02 10^3/uL 0.00-0.10 [facility] ([facility]) Is patient fasting? N Manual Diff Laboratory test result [facility] ([facility]) Is patient fasting? N #NRBC 0.00 10^3/uL 0.00-0.00 [facility] ([facility]) Is patient fasting? N RBC Morph Laboratory test result [facility] ([facility]) Is patient fasting? N ID Date Data Source [id number] 11/03/2020 02:35:00 PM EST [facility] Name Value Range Interpretation Code Description Data Tiffani rce(s) Supporting Document(s) COMPREHENSIVE METABOLIC PANEL [facility] COMPREHENSIVE METABOLIC PANEL Sodium [Moles/volume] in Serum or Plasma 139 mEq/L 134 - 153 [facility] Potassium [Moles/volume] in Serum or Plasma 4.2 mEq/L 3.6 - 5.0 [facility] Chloride [Moles/volume] in Serum or Plasma 104 mEq/L 98 - 107 [facility] Carbon dioxide, total [Moles/volume] in Serum or Plasma 26 MEQ/L 22 - 30 [facility] Glucose [Mass/volume] in Serum or Plasma 86 MG/DL 65 - 110 [facility] BUN 10 MG/DL 7 - 21 [facility] Creatinine [Mass/volume] in Serum or Plasma 0.6 MG/DL 0.7 - 1.5 L [facility] BUN/CREAT 17 8 - 27 [facility] al Protein [Mass/volume] in Serum or Plasma 5.8 G/DL 6.3 - 8.2 L [facility] Albumin [Mass/volume] in Serum or Plasma 4.2 G/DL 3.9 - 5.0 [facility] Globulin [Mass/volume] in Serum by calculation 1.6 GM/DL 2.4 - 3.2 L [facility] A/G RATIO 2.6 0.8 - 2.0 H [facility] Calcium [Mass/volume] in Serum or Plasma 9.0 MG/DL 8.4 - 10.2 [facility] Bilirubin.total [Mass/volume] in Serum or Plasma <0.7 MG/DL 0.2 - 1.3 [facility] Alkaline phosphatase [Enzymatic activity/volume] in Serum or Plasma 73 U/L 38 - 126 [facility] Aspartate aminotransferase [Enzymatic activity/volume] in Serum or Plasma 28 U/L 5 - 40 [facility] Alanine aminotransferase [Enzymatic activity/volume] in Seru m or Plasma 36 U/L 7 - 56 [facility] Anion gap 3 in Serum or Plasma 9.0 mmol/L 8.0 - 16.0 [facility]GE 39 [facility] NON[facility] GFR >60 mL/min [facility] AFR AMER GFR >60 mL/min [facility] spital Male GFR In terprentation 20-49 [...] >32 mL/min Normal ID Date Data Source [id number] 11/03/2020 02:19:00 PM EST [facility] Name Value Range Interpretation Code Description Data Tiffani rce(s) Supporting Document(s) CBC W/AUTOMATED DIFF [facility] COMPLETE BLOOD COUNT Leukocytes [#/volume] in Blood by Automated count 4.9 10^3/uL 4.2 - 1 1.0 [facility] Erythrocytes [#/volume] in Blood by Automated count 4.65 10^6/uL 4. 20 - 5.40 [facility] Hemoglobin [Mass/volume] in Blood 13.0 g/dL 12.0 - 16.0 [facility] Hematocrit [Volume Fraction] of Blood by Automated count 39.9 % 3 7.0 - 47.0 [facility] Erythrocyte mean corpuscular volume [Entitic volume] by Auto mated count 85.8 fL 81.0 - 101 [facility] Erythrocyte mean corpuscular hemoglobin [Entitic mass] by Automated count 28.0 pg 27.0 - 34.0 [facility] Erythrocyte mean corpuscular hemoglobin concentration [Mass/volume] by Automated count 32.6 g/dL 31.0 - 36.0 [facility] Erythrocyte distribution width [Ratio] by Automated count 13.2 % 11.5 - 14.5 [facility] Platelets [#/volume] in Blood by Automated count 263 10^3/uL 150 - 45 0 [facility] Platelet mean volume [Entitic volume] in Blood by Automated count 10.5 fL 7.4 - 10.4 H [facility] Neutrophils/100 leukocytes in Blood by Automated count 51.1 % 37. 0 - 80.0 [facility] Lymphocytes/100 leukocytes in Blood by Manual count 34.4 % 25.0 - 40.0 [facility] Monocytes/100 leukocytes in Blood by Automated count 9.6 % 3.0 - 8.0 H [facility] Eosinophils/100 leukocytes in Blood by Automated count 3.9 % 0.0 - 7.0 [facility] Basophils/100 leukocytes in Blood by Automated count 0.6 % 0.0 - 2.5 [facility] %IG 0.4 % 0.0 - [facility] % 0.0 - 0.0 [facility] al Neutrophils [#/volume] in Blood by Automated count 2.49 10^3/uL 2.00 - 6.90 [facility] Lymphocytes [#/volume] in Blood by Automated count 1.68 10^3/uL 0.60 - 3.40 [facility] Monocytes [#/volume] in Blood by Automated count 0.47 10^3/uL 0.00 - 0.90 [facility] Eosinophils [#/volume] in Blood by Automated count 0.19 10^3/uL 0.00 - 0.70 [facility] Basophils [#/volume] in Blood by Automated count 0.03 10^3/uL 0.00 - 0.20 [facility] #IG 0.02 10^3/uL 0.00 - 0.10 [facility] #NRBC 0.00 10^3/uL 0.00 - 0.00 [facility] MANUAL DIFF NOT INDICATED [facility] RBC MORPH NOT INDICATED [facility] ID Date Data Source [id number] 10/26/2020 09:21:00 AM EST [facility] [address] [place] [address] PHONE: [phone] FAX: [phone] Name .................. : HEATHER HEARD Acct Number.................. : [id number] ROOM. ................. : VT01 Number ................... : [id number] Stay type ............. : E/R Discharge Date......... ... : 10/25/20 Admit Date ......... : 10/25/20 Admit Phys .................... : NASIMA LINARES Date of ....... : 1980 Family Phys ................... : POLK HARD Phone .................. : [phone] Age ................................ : 39 Film# .................. .:[id number] Sex ................................. : F Unsigned transcriptions are preliminary reports and do not represent a medical or legal document [facility] [id number] COMPLETE:10/25/20 08:41 KBO 700 Reason(s): Pain, Joint [...] Dictation Date: Copy for: EMERGENCY DEPT via modem Copy for: 710 MED REC DISCHARGED Page 1 of 1 Name Value Range Interpretation Code Description Data Tiffani rce(s) Supporting Document(s) ID Date Data Source [id number] 10/25/2020 07:59:00 AM EST [facility] 1 OrderSheet [facility] Emergency Department [address] [place] [address] Phone #: ext- [phone] 10/25/2020 07:56 Patient: CRYSTAL ROMERO Sex: F : 1980 Age: 39yWEIGHT:87.9 kg (S) HEIGHT:68 inches (S) BMI:29.5ALLERGIES: BactrimCHIEF COMPLAINT: pain, swellingDIAGNOSIS: TendinitisLAB ORDERSOrder Description Priority Entered Acknowledged InitialedDIAGNOSTIC STUDY ORDERSOrder Description Priority Entered Acknowledged InitialedFingers Left STAT 08:18 10/25/2020 08:28 Marian,(Oxygen?(No)) Eli Fonseca RN; Eli VILLAREAL Verbal order per; Osito Del Real M.D. NOTES : L little finger Reason for Study: Pain, JointMEDICATION/IV/DRIP/FLUID ORDERSOrder Description Priority Entered Acknowledged InitialedCephalexin PO 500 08:51 10/25/2020 08:56 Marian,Osito Ron RN, M.D.;GENERAL ORDERSOrder Description Priority Entered Acknowledged Initialed[Electronically signed by Eli Fonseca RN (09:08 10/25/2020)][Electronically signed by Osito Del Real M.D. (09:37 10/25/2020)][Electronically locked by Eli Fonseca RN (09:08 10/25/2020)] Name Value Range Interpretation Code Description Data Tiffani rce(s) Supporting Document(s) ID Date Data Source [id number] 10/25/2020 07:59:00 AM EST [facility] 1 Medication Reconciliation Report [facility] [address] [place] [address] Phone #: [phone]- [phone] 10/25/2020 07:56 Patient: CRYSTAL ROMERO Sex: F [...] Refills: 0.Substitution permitted. 2 Medication Reconciliation Report [facility] [address] [place] [address] Phone #: ext- [phone] 10/25/2020 07:56 Patient: CRYSTAL ROMERO Sex: F : 1980 Age: 39yPharmacy - [facility] [phone] ; [place] [address]. . -- Osito Del Real M.D. Name Value Range Interpretation Code Description Data Tiffani rce(s) Supporting Document(s) ID Date Data Source [id number] 10/25/2020 07:59:00 AM EST [facility] 1 Medication Administration Record [facility] [address] [place] [address] Phone #: ext- [phone] 10/25/2020 07:56 Patient: CRYSTAL ROMERO Sex: F : 1980 Age: 39yWeight: 87.9 kgHeight/Length: 68 inBMI: 29.5ALLERGIES: Bactrim Date/Time Medication Administered Medication OrderedGiven CEPHALEXIN [PO] Cephalexin PO 500 mg08:56 10/25/2020 Dose: 500 mg Eli Robertson RN Name Value Range Interpretation Code Description Data Tiffani rce(s) Supporting Document(s) ID Date Data Source [id number] 10/25/2020 07:59:00 AM EST [facility] 1 General Instructions [facility] [address] [place] [address] Phone #: ext- [phone] 10/25/2020 07:56 Patient: [...] 21 tablet. Refills: 0.Substitution p ermitted.Pharmacy - [facility] [phone] ; [place] [address]. .Follow-up:Return to the emergency department as needed. Follow up with an orthopedic surgeon in three dayseven if well. Call for an appointment. Reason for referral: evaluation and treatment. Summary of careprovided to patient via paper.Understanding of the discharge instructions verbalized by patient. Expected course of injury, dischargeinstructions, activity level, diet, prescriptions x1, follow-up appointment and risks and benefits of treatment 2 General Instructions [facility] [address] [place] [address] Phone #: ext- [phone] 10/25/2020 07:56 Patient: CRYSTAL ROMERO Sex: F : 1980 Age: 39yreviewed with patient and understanding verbalized. Agrees to plan of care.Follow-up with: [facility], , , [address] [place] [address], [id number] Follow up in three days even if [...] protect it from movement. You may use [id number] ibuprofen or naproxen to treat pain and [...] any of these occur: 3 General Instructions [facility] [address] [place] [address] Phone #: ext- [phone] 10/25/2020 07:56 Patient: CRYSTAL ROMERO Sex: F : 1980 Age: 39y Redness over the painful area Increasing pain or swelling at the joint Fever lasting 24 to 48 hours or chills, or as advised by your healthcare provider [employer] [address] [place] [address]. All rights reserved. This information is not intended as asubstitute for professional medical care. Always follow your healthcare professional's instructions. You have been given the following additional information: Tendonitis(Electronically signed by Osito Del Real M.D. 10/25/2020 09:37) Name Value Range Interpretation Code Description Data Tiffani rce(s) Supporting Document(s) ID Date Data Source [id number] 10/25/2020 07:59:00 AM EST [facility] 1 Clinical Report - Nurses [facility] [address] [place] [address] Phone #: ext- [phone] 10/25/2020 07:56 Patient: [...] arrival. She has had swelling and redness.Treatment BIAZZI NITRATOR OPERATOR:None.SEPSIS SCREEN: SIRS SCREEN NEGATIVE. SEPSIS SCREEN NEGATIVE. No suspected or confirmedsigns of infection present. --08:09 10/25/20 Eli Fonseca RN08:02 10/25/20. BP: 109/60. MAP: 76. HR: 66. RR: 16. O2 saturation: 97%. Temp: 97 F. Pain level now:12/14. --08:09 10/25/20 Eli Fonseca RN.Weight: 87.9 kg stated. Height/Length: 68 inches Per Patient. BMI: 29.5. --08:03 10/25/20 Eli Fonseca RN.MedicationsAdvair Diskus Inhalation 1 puff, 2x a day. [...] Wellbutrin SR Oral 150, 2x a day. --08:04 10/25/20 Eli Fonseca RN.AllergiesBactrim. --08:10/25/20 Eli Fonseca RN.PROBLEMS:Migraine Headache.Anxiety Reaction.Emphysema. 2 Clinical Report - Nurses [facility] [address] [place] [address] Phone #: ext- [phone] 10/25/2020 07:56 Patient: CRYSTAL ROMERO Sex: F : 1980 Age: 39y Depression. Sinus bradycardia. Neuropathy. --08:05 10/25/20 Eli Fonseca RN. Medication/allergy information source: the [...] DIP joint. 3 Clinical Report - Nurses [facility] [address] [place] [address] Phone #: ext- [phone] 10/25/2020 07:56 Patient: CRYSTAL ROMERO Sex: F : 1980 Age: 39y SKIN: Skin intact. Skin is warm and dry. --08:11 10/25/20 Eli Fonseca RN.NURSING PROGRESS NOTESReassurance given. Two patient identifiers checked. Bed placed in lowest position. Brakes of bed on.Patient ready for evaluation. --08:09 10/25/20 Eli Fonseca RN Patient walked to radiology with laundry technician. --08:27 10/25/20 Eli Fonseca RN 08:56 10/25/2020 [...] Patient verbalized understanding. Written instructions provided in Ivorian. The patient was discharged by the physician. She was discharged home and unaccompanied at time of discharge. She left ambulatory and via private vehicle. Patient driving. --09:08 10/25/20 Eli Fonseca RN 09:08 10/25/20. Pain level now: 10. --09:08 10/25/20 Eli Fonseca RN.Locked/Released at 10/25/2020 09:08 by Eli Fonseca RN Name Value Range Interpretation Code Description Data Tiffani rce(s) Supporting Document(s) ID Date Data Source [id number] 10/25/2020 07:59:00 AM EST [facility] 1 Clinical Report - Physicians/Mid Levels [facility] [address] [place] [address] Phone #: ext- [phone] 10/25/2020 07:56 Patient: [...] Medications: 2 Clinical Report - Physicians/Mid Levels [facility] [address] [place] [address] Phone #: ext- [phone] 10/25/2020 07:56 Patient: [...] consistent 3 Clinical Report - Physicians/Mid Levels [facility] [address] [place] [address] Phone #: ext- [phone] 10/25/2020 07:56 Patient: [...] 0. Substitution permitted. Pharmacy - [facility] [phone] ; [place] [address]. . Follow-up: Return to the emergency department [...] treatment 4 Clinical Report - Physicians/Mid Levels [facility] [address] [place] [address] Phone #: ext- [phone] 10/25/2020 07:56 Patient: CRYSTAL ROMERO Sex: F : 1980 Age: 39y reviewed with patient and understanding verbalized. Agrees to plan of care. Follow-up with: [facility], , , [address] [facility], , [place], [place], [facility] Follow up in three days even if well. Call for an appointment. Reason for referral: evaluation and treatment. Summary of care provided to patient via paper.(Electronically signed by Osito Del Real M.D. 10/25/2020 09:37) Name Value Range Interpretation Code Description Data Tiffani rce(s) Supporting Document(s) ID Date Data Source [id number] 10/14/2020 07:27:[address] [facility] Name Value Range Interpretation Code Description Data Tiffani rce(s) Supporting Document(s) Folate [Mass/volume] in Blood 378.0 ng/mL Not Estab. [facility] Hematocrit [Volume Fraction] of Blood by Automated count 38.7 % 3 4.0-46.6 [facility] Folate [Mass/volume] in Red Blood Cells 977 ng/mL >498 [facility] ID Date Data Source [id number] 10/14/2020 04:40:[address] [facility] Name Value Range Interpretation Code Description Data Tiffani rce(s) Supporting Document(s) Calcidiol [Moles/volume] in Serum or Plasma 19 NG/ML [facility] VITAMIN-D(2 5HYDROXY) Deficiency: <=20 ng/ml Insufficiency: 21-29 ng/ml Preferred level: => 30 ng/ml ID Date Data Source [id number] 10/12/2020 02:47:[address] [facility] Name Value Range Interpretation Code Description Data Tiffani rce(s) Supporting Document(s) Cobalamin (Vitamin B12) [Mass/volume] in Serum or Plasma 444 PG/ML 232 - 1245 [facility] ID Date Data Source [id number] 10/12/2020 02:46:[address] [facility] Name Value Range Interpretation Code Description Data Tiffani rce(s) Supporting Document(s) Ferritin [Mass/volume] in Serum or Plasma 42.3 ng/mL 3.0 - 105 [facility] ID Date Data Source [id number] 10/12/2020 02:02:[address] [facility] Name Value Range Interpretation Code Description Data Tiffani rce(s) Supporting Document(s) COMPREHENSIVE METABOLIC PANEL [facility] COMPREHENSIVE METABOLIC PANEL Sodium [Moles/volume] in Serum or Plasma 139 mEq/L 134 - 153 [facility] Potassium [Moles/volume] in Serum or Plasma 3.5 mEq/L 3.6 - 5.0 L [facility] Chloride [Moles/volume] in Serum or Plasma 106 mEq/L 98 - 107 [facility] Carbon dioxide, total [Moles/volume] in Serum or Plasma 25 MEQ/L 22 - 30 [facility] Glucose [Mass/volume] in Serum or Plasma 86 MG/DL 65 - 110 [facility] BUN 10 MG/DL 7 - 21 [facility] al Creatinine [Mass/volume] in Serum or Plasma 0.5 MG/DL 0.7 - 1.5 L [facility] BUN/CREAT 20 8 - 27 [facility] al Protein [Mass/volume] in Serum or Plasma 5.7 G/DL 6.3 - 8.2 L [facility] Albumin [Mass/volume] in Serum or Plasma 4.2 G/DL 3.9 - 5.0 [facility] Globulin [Mass/volume] in Serum by calculation 1.5 GM/DL 2.4 - 3.2 L [facility] A/G RATIO 2.8 0.8 - 2.0 H [facility] Calcium [Mass/volume] in Serum or Plasma 8.6 MG/DL 8.4 - 10.2 [facility] Bilirubin.total [Mass/volume] in Serum or Plasma <0.7 MG/DL 0.2 - 1.3 [facility] Alkaline phosphatase [Enzymatic activity/volume] in Serum or Plasma 78 U/L 38 - 126 [facility] Aspartate aminotransferase [Enzymatic activity/volume] in Serum or Plasma 18 U/L 5 - 40 [facility] Alanine aminotransferase [Enzymatic activity/volume] in Seru m or Plasma 17 U/L 7 - 56 [facility] Anion gap 3 in Serum or Plasma 8.0 mmol/L 8.0 - 16.0 [facility] AGE 39 yrs [facility] NON-AA GFR >60 mL/min [facility] AFR AMER GFR >60 mL/min [facility] Male GFR In terprentation 20-49 [...] >32 mL/min Normal ID Date Data Source [id number] 10/12/2020 02:02:[address] [facility] Name Value Range Interpretation Code Description Data Tiffani rce(s) Supporting Document(s) Hemoglobin A1c/Hemoglobin.total in Blood 4.9 % 4.4 - 6.1 [facility] {A1]{HB] ID Date Data Source [id number] 10/12/2020 01:57:[address] [facility] Name Value Range Interpretation Code Description Data Tiffani rce(s) Supporting Document(s) Phosphate [Mass/volume] in Serum or Plasma 3.3 MG/DL 2.5 - 4.5 [facility] ID Date Data Source [id number] 10/12/2020 01:57:[address] [facility] Name Value Range Interpretation Code Description Data Tiffani rce(s) Supporting Document(s) Magnesium [Mass/volume] in Serum or Plasma 1.7 MG/DL 1.7 - 2.2 [facility] ID Date Data Source [id number] 10/12/2020 01:57:[address] [facility] Name Value Range Interpretation Code Description Data Tiffani rce(s) Supporting Document(s) Iron [Mass/volume] in Serum or Plasma 67 UG/DL 42 - 135 [facility] Iron binding capacity.unsaturated [Mass/volume] in Serum or Plasma 199 UG/DL 112 - 347 [facility] Iron binding capacity [Mass/volume] in Serum or Plasma 266 ug/dL 250 - 450 [facility] Iron saturation [Mass Fraction] in Serum or Plasma 25 % [facility] ID Date Data Source [id number] 10/12/2020 01:32:00 PM EST [facility] Name Value Range Interpretation Code Description Data Tiffani rce(s) Supporting Document(s) CBC W/AUTOMATED DIFF [facility] COMPLETE BLOOD COUNT Leukocytes [#/volume] in Blood by Automated count 5.5 10^3/uL 4.2 - 1 1.0 [facility] Erythrocytes [#/volume] in Blood by Automated count 4.60 10^6/uL 4. 20 - 5.40 [facility] Hemoglobin [Mass/volume] in Blood 13.0 g/dL 12.0 - 16.0 [facility] Hematocrit [Volume Fraction] of Blood by Automated count 39.8 % 3 7.0 - 47.0 [facility] Erythrocyte mean corpuscular volume [Entitic volume] by Auto mated count 86.5 fL 81.0 - 101 [facility] Erythrocyte mean corpuscular hemoglobin [Entitic mass] by Automated count 28.3 pg 27.0 - 34.0 [facility] Erythrocyte mean corpuscular hemoglobin concentration [Mass/volume] by Automated count 32.7 g/dL 31.0 - 36.0 [facility] Erythrocyte distribution width [Ratio] by Automated count 13.0 % 11.5 - 14.5 [facility] Platelets [#/volume] in Blood by Automated count 257 10^3/uL 150 - 45 0 [facility] Platelet mean volume [Entitic volume] in Blood by Automated count 10.6 fL 7.4 - 10.4 H [facility] Neutrophils/100 leukocytes in Blood by Automated count 62.0 % 37. 0 - 80.0 [facility] Lymphocytes/100 leukocytes in Blood by Manual count 24.8 % 25.0 - 40.0 L [facility] Monocytes/100 leukocytes in Blood by Automated count 7.1 % 3.0 - 8.0 [facility] Eosinophils/100 leukocytes in Blood by Automated count 5.2 % 0.0 - 7.0 [facility] Basophils/100 leukocytes in Blood by Automated count 0.5 % 0.0 - 2.5 [facility] %IG 0.4 % 0.0 - [facility] % 0.0 - 0.0 [facility] Neutrophils [#/volume] in Blood by Automated count 3.43 10^3/uL 2.00 - 6.90 [facility] Lymphocytes [#/volume] in Blood by Automated count 1.37 10^3/uL 0.60 - 3.40 [facility] Monocytes [#/volume] in Blood by Automated count 0.39 10^3/uL 0.00 - 0.90 [facility] Eosinophils [#/volume] in Blood by Automated count 0.29 10^3/uL 0.00 - 0.70 [facility] Basophils [#/volume] in Blood by Automated count 0.03 10^3/uL 0.00 - 0.20 [facility] #IG 0.02 10^3/uL 0.00 - 0.10 [facility] ospital #NRBC 0.00 10^3/uL 0.00 - 0.00 [facility]ital MANUAL DIFF NOT INDICATED [facility] RBC MORPH NOT INDICATED [facility] spital ID Date Data Source [id number] 10/12/2020 09:45:00 AM EST [facility] ([facility]) Name Value Range Interpretation Code Description Data Tiffani rce(s) Supporting Document(s) CBC W/Automated Diff Laboratory test result [facility] ([facility]) COMPLETE BLOOD COUNT RBC 4.60 10^6/uL 4.20-5.40 [facility] ([facility]) WBC 5.5 10^3/uL 4.2-11.0 [facility] ([facility]) Hemoglobin 13.0 g/dL 12.0-16.0 [facility] ([facility]) Hematocrit 39.8 % 37.0-47.0 [facility] ([facility]) MCHC 32.7 g/dL 31.0-36.0 [facility] ([facility]) MCV 86.5 fL 81.0-101 [facility] ([facility]) MCH 28.3 pg 27.0-34.0 [facility] ([facility]) MPV 10.6 fL 7.4-10.4 Above high normal [facility] ([facility]) RDW 13.0 % 11.5-14.5 [facility] ([facility]) Platelets 257 10^3/uL 150-450 [facility] ([facility]) Lymph 24.8 % 25.0-40.0 Below low normal [facility] ( [facility]) [place] 7.1 % 3.0-8.0 [facility] ([facility]) Eos 5.2 % 0.0-7.0 [facility] ([facility]) Neut 62.0 % 37.0-80.0 [facility] ([facility]) Baso 0.5 % 0.0-2.5 [facility] ([facility]) %Ig 0.4 % 0.0-0.0 Above high normal [facility] ([facility]) %NRBC 0.0 % 0.0-0.0 [facility] ([facility]) #Eos 0.29 10^3/uL 0.00-0.70 [facility] ([facility]) #Neut 3.43 10^3/uL 2.00-6.90 [facility] ([facility]) #Lymph 1.37 10^3/uL 0.60-3.40 [facility] ([facility]) #[place] 0.39 10^3/uL 0.00-0.90 [facility] ([facility]) #Ig 0.02 10^3/uL 0.00-0.10 [facility] ([facility]) #Baso 0.03 10^3/uL 0.00-0.20 [facility] ([facility]) #NRBC 0.00 10^3/uL 0.00-0.00 [facility] ([facility]) RBC Morph Laboratory test result [facility] ([facility]) Manual Diff Laboratory test result [facility] ([facility]) ID Date Data Source [id number] 10/12/2020 09:45:00 AM EST [facility] ([facility]) Name Value Range Interpretation Code Description Data Tiffani rce(s) Supporting Document(s) Uibc 199 ug/dL 112-347 [facility] ([facility]) Iron 67 ug/dL 42-135 [facility] ([facility]) Tibc 266 ug/dL 250-450 [facility] ([facility]) Iron Sat 25 % [facility] ([facility]) ID Date Data Source [id number] 10/12/2020 09:45:00 AM EST [facility] ([facility]) Name Value Range Interpretation Code Description Data Tiffani rce(s) Supporting Document(s) Magnesium [Mass/volume] in Serum or Plasma 1.7 mg/dL 1.7-2.2 [facility] ([facility]) Hemoglobin A1c/Hemoglobin.total in Blood 4.9 % 4.4-6.1 [facility] ([facility]) {A1] {HB] Phosphate [Moles/volume] in Serum or Plasma 3.3 mg/dL 2.5-4.5 [facility] ([facility]) ID Date Data Source [id number] 10/12/2020 09:45:00 AM EST [facility] ([facility]) Name Value Range Interpretation Code Description Data Tiffani rce(s) Supporting Document(s) Comprehensive Metabo Laboratory test result [facility] ([facility]) COMPREHENSIVE METABOLIC PANEL Sodium 139 meq/L 134-153 [facility] ([facility]) Co2 25 meq/L 22-30 [facility] ([facility]) Chloride 106 meq/L 98-107 [facility] ([facility]) Potassium 3.5 meq/L 3.6-5.0 Below low normal [facility] ( [facility]) BUN 10 mg/dL 7-21 [facility] ([facility]) Creatinine 0.5 mg/dL 0.7-1.5 Below low normal [facility] ( [facility]) Glucose 86 mg/dL 65-110 [facility] ([facility]) Globulin 1.5 GM/DL 2.4-3.2 Below low normal [facility] ( [facility]) Total Protein 5.7 g/dL 6.3-8.2 Below low normal [facility] ([facility]) BUN/Creat 20 8-27 [facility] ([facility]) Albumin 4.2 g/dL 3.9-5.0 [facility] ([facility]) Calcium 8.6 mg/dL 8.4-10.2 [facility] ([facility]) Total Bili Laboratory test result 0.2-1.3 [facility] ([facility]) A/G Ratio 2.8 0.8-2.0 Above high normal [facility] ([facility]) Anion Gap 8.0 mmol/L 8.0-16.0 [facility] ([facility]) Sgot/Ast 18 U/L 5-40 [facility] ([facility]) SGPT/Alt 17 U/L 7-56 [facility] ([facility]) Alkaline Phos 78 U/L 38-126 [facility] ([facility]) Non-Aa GFR Laboratory test result [facility] ([facility]) Afr Amer GFR Laboratory test result [facility] ([facility]) Male GFR Interprentation 20-49 yrs >60 mL/min [...] >32 mL/min Normal Age 39 yrs [facility] ([facility]) ID Date Data Source [id number] 10/12/2020 09:45:00 AM EST [facility] ([facility]) Name Value Range Interpretation Code Description Data Tiffani rce(s) Supporting Document(s) Ferritin [Mass/volume] in Serum or Plasma 42.3 ng/mL 3.0-105 [facility] ([facility]) Cobalamin (Vitamin B12) [Mass/volume] in Serum or Plasma 444 pg/mL 2 32-1245 [facility] ([facility]) Calcidiol [Mass/volume] in Serum or Plasma 19 ng/mL [facility] ([facility]) <content>VITAMIN-D(25HYDROXY)</content>< br/><content>Deficiency: <=20 ng/ml</content>
<content>Insufficiency: 21-29 ng/ml</content>
<content>Preferred level: => 30 ng/ml</content>
<conten t></content> ID Date Data Source [id number] 10/12/2020 09:45:00 AM EST [facility] ([facility]) Name Value Range Interpretation Code Description Data Tiffani rce(s) Supporting Document(s) Folate, RBC 977 ng/mL [facility] ([facility]) Folate, Hemolysate 378.0 ng/mL [facility] ([facility]) Hematocrit 38.7 % 34.0-46.6 [facility] ([facility]) ID Date Data Source [id number] 10/12/2020 09:37:00 AM EST [facility] ([facility]) Name Value Range Interpretation Code Description Data Tiffani rce(s) Supporting Document(s) Bacteria identified in Urine by Culture Laboratory test result [facility] ([facility]) ID Date Data Source [id number] 10/12/2020 09:37:00 AM EST [facility] ([facility]) Name Value Range Interpretation Code Description Data Tiffani rce(s) Supporting Document(s) Color of Urine Laboratory test result [facility] ([facility]) pH of Urine by Test strip 5 [facility] NT ([facility]) Appearance of Urine Laboratory test result [facility] ([facility]) Spec [place] 1.030 [facility] ([facility]) Nitrate [Presence] in Urine Laboratory test result [facility] ([facility]) Inhouse Glucose Laboratory test result [facility] ([facility]) Leukocytes Laboratory test result [facility] ([facility]) Protein [Presence] in Urine by Test strip Laboratory test result [facility] ([facility]) Ketones [Presence] in Urine by Test strip Laboratory test result [facility] ([facility]) Urobilinogen Laboratory test result [facility] ([facility]) Bilirubin.total [Presence] in Urine by Test strip Laboratory test res ult [facility] ([facility]) Blood type and Indirect antibody screen panel - Blood Laboratory test result [facility] ([facility]) ID Date Data Source [id number] 10/12/2020 09:37:00 AM EST [facility] ([facility]) Name Value Range Interpretation Code Description Data Tiffani rce(s) Supporting Document(s) Urinalysis Laboratory test result [facility] ([facility]) {SOURCE: Random Void~NURSE COLLECTED? N Color Laboratory test result [facility] ([facility]) {SOURCE: Random Void~NURSE COLLECTED? N Source Laboratory test result [facility] ([facility]) {SOURCE: Random Void~NURSE COLLECTED? N Spec [place] 1.025 1.001-1.030 [facility] ([facility]) {SOURCE: Random Void~NURSE COLLECTED? N Clarity Laboratory test result [facility] ([facility]) {SOURCE: Random Void~NURSE COLLECTED? N pH 5 5-9 [facility] ([facility]) {SOURCE: Random Void~NURSE COLLECTED? N Bilirubin Laboratory test result [facility] ([facility]) {SOURCE: Random Void~NURSE COLLECTED? N Glucose Laboratory test result [facility] ([facility]) {SOURCE: Random Void~NURSE COLLECTED? N Nitrite Laboratory test result [facility] ([facility]) {SOURCE: Random Void~NURSE COLLECTED? N Ketone Laboratory test result [facility] ([facility]) {SOURCE: Random Void~NURSE COLLECTED? N Protein Laboratory test result [facility] ([facility]) {SOURCE: Random Void~NURSE COLLECTED? N Leuk Est 25 [facility] ([facility]) {SOURCE: Random Void~NURSE COLLECTED? N Blood Laboratory test result [facility] ([facility]) {SOURCE: Random Void~NURSE COLLECTED? N Urobilinogen Laboratory test result [facility] ([facility]) {SOURCE: Random Void~NURSE COLLECTED? N Microscopic Laboratory test result [facility] ([facility]) {SOURCE: Random Void~NURSE COLLECTED? N WBC Laboratory test result Abnormal (applies to non -numeric results) [facility] ([facility]) {SOURCE: Random Void~NURSE COLLECTED? N Epithelial Laboratory test result Abnormal (applies to non -numeric results) [facility] ([facility]) {SOURCE: Random Void~NURSE COLLECTED? N Bacteria Laboratory test result [facility] ([facility]) {SOURCE: Random Void~NURSE COLLECTED? N RBC Laboratory test result [facility] ([facility]) {SOURCE: Random Void~NURSE COLLECTED? N Amorph Sed Laboratory test result [facility] ([facility]) {SOURCE: Random Void~NURSE COLLECTED? N Mucous Laboratory test result Abnormal (applies to non -numeric results) [facility] ([facility]) {SOURCE: Random Void~NURSE COLLECTED? N Crystals Laboratory test result [facility] ([facility]) {SOURCE: Random Void~NURSE COLLECTED? N Calcium Ox Laboratory test result Abnormal (applies to non -numeric results) [facility] ([facility]) {SOURCE: Random Void~NURSE COLLECTED? N ID Date Data Source [id number] 10/14/2020 05:03:00 PM EST [facility] Name Value Range Interpretation Code Description Data Tiffani rce(s) Supporting Document(s) CULTURE URINE [facility] _CULTURE URINE_$$[id number]$$197678$$178687$$898588$$196767$$485341$$283428$$549237$$295968$$ 153781$$675282$$915430$$653563$$549346$$171506$$331317$$026519$$646133$$053530$$ 827703$$668438$$672897$$042582$$351905$$933870$$695497$$901093 -- Continued on next page --Patient: HEATHER HEARD Order: [id number] Page 2Culture: CULTURE URINE Status: Final ==== -- Continued on next page --Patient: HEATHER HEARD Order: [id number] Page 2Culture: CULTURE URINE Status: Prelim =====$$[id number]$$[id number] DATE/TIME: 10/14/2020 15:06Culture: CULTURE URINE Status: FinalIsolate [...] 10/14/2020 04:44 ET Gram negative rodsUrine Culture,Comprehensive: P7Bktrwomhtbh coli Flag: APatient: HEATHER HEARD Order: [id number] Page 3Culture: CULTURE URINE Status: Final ISOLATE [...] S S . . . . . .18496-5Phtfumebaj S S . . . . . .267-5Imipenem S S . . . . . .279-0Levofloxacin S S . . . . . .84046-5Qhdlhudlq S S . . . . . .6652-2Nitrofurantoin S S . . . . . .363-2Piperacillin/Tazobactam S S . . . . . .412-7Tetracycline S S . . . . . .496-0Tobramycin S S . . . . . .508-2Trimethoprim/Sulfa S S . . . . . .516-5P1 Test performed by: [facility] #: [id number] [address] [place] [id number] [facility] [id number] Director : Jovany Flynn MD NPI #:Diesel Engine Mechanic : 10/14/20.0727.XMT.SENT REF 10/14/20.1704.XMT.SENT REF 10/19/20.0656.XMT.SENT REF ID Date Data Source [id number] 10/12/2020 02:05:00 PM EST [facility] Name Value Range Interpretation Code Description Data Tiffani rce(s) Supporting Document(s) [facility] S[facility] R [facility] COLOR yellow NORMAL: Yellow [facility] CLARITY hazy NORMAL: Clear [facility] Specific gravity of Urine by Test strip 1.025 1.001 - 1.030 [facility] pH 5 5 - 9 [facility] Glucose [Mass/volume] in Urine by Test strip NORM NORMAL: Negat diane [facility] Bilirubin.total [Presence] in Urine by Test strip NEG NORMAL: Negative [facility] Ketones [Presence] in Urine by Test strip NEG NORMAL: Negative [facility] Protein [Mass/volume] in Urine by Test strip NEG NORMAL: Negat diane [facility] Nitrite [Presence] in Urine by Test strip NEG NORMAL: Negative [facility] BLOOD NEG NORMAL: Negative [facility] Leukocyte esterase [Presence] in Urine by Test strip 25 RALPH L: Negative [facility] Urobilinogen [Mass/volume] in Urine by Test strip NOR less fransisco n 1.0 mg/dL [facility] MICROSCOPIC See Below [facility] ital WBC 15 - 20 NORMAL: NONE SEEN A [facility] Erythrocytes [#/volume] in Urine by Test strip 3 - 5 NORMAL: NON E SEEN [facility] EPITHELIAL MODERATE NORMAL: NONE SEEN A [facility] Bacteria [Presence] in Urine sediment by Light microscopy 1+ SMALL NORMAL: NONE SEEN [facility] Mucus [Presence] in Urine sediment by Light microscopy 2+ NOR MAL: NONE SEEN A [facility] Amorphous sediment [Presence] in Urine sediment by Light ronaldo roscopy 1+ NORMAL: NONE SEEN [facility] Crystals [type] in Urine sediment by Light microscopy See Below [facility] CALCIUM OX 3+ NORMAL: NONE SEEN A [facility] ID Date Data Source [id number] 10/12/2020 09:37:00 AM EST [facility] ([facility]) Name Value Range Interpretation Code Description Data Tiffani rce(s) Supporting Document(s) Culture Urine Laboratory test result [facility] ([facility]) {SOURCE: Random Void~NURSE COLLECTED? N ID Date Data Source [id number] 07/21/2020 11:19:00 AM EDT [facility] ([facility] ) Name Value Range Interpretation Code Description Data Tiffani rce(s) Supporting Document(s) FVC-Pred 4.21 L [facility] ([facility], ) PDFReport Laboratory test result [facility] ([facility], ) FVC-Pre 4.10 L [facility] ([facility], ) FVC-%Pred-Pre 97 L [facility] ([facility], ) FVC-LLN 3.43 L [facility] ([facility]) Fev1-Pred 3.43 L [facility] ([facility], ) Fev1-%Pred-Pre 86 L [facility] ([facility], ) Fev1-Pre 2.95 L [facility] ([facility], ) Fev1-LLN 2.76 L [facility]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 Physicians/Mid Levels [facility] [address] [place] [address] Phone #: ext- [phone] 05/18/2020 11:14 Patient: CRYSTAL ROMERO Merged With [facility]#: [id number] Sex: F : 1980 Age: 39y all [...] Laboratory Tests: Troponin-T: (CHARMAINE: 05/18/2020 11:22) ( [facility] 05/18/2020 13:37) Final results Test Result Flag Units (Reference) TROPONIN T <0.01 NG/ML (0.00 - 0.10) TROPONIN T0.1 ng/ml Recommended as the clinical threshold value forTroponin T. Urinalysis: (CHARMAINE: 05/18/2020 12:10) ( [facility] 05/18/[facility] 13:12) Final results Test Result Flag [...] 101) 4 Clinical Report - Physicians/Mid Levels [facility] [address] [place] [address] Phone #: ext- [phone] 05/18/2020 11:14 Patient: [...] Male GFR Interprentation 20-49 yrs >60 mL/min Uheghq62-01 yrs >56 mL/min Normal 60-69 yrs >49 mL/min Normal 70-79yrs>42 mL/min Normal 80 and above >35 mL/min Normal Female GFRInterpretation 20-39 yrs >60 mL/min Normal 40-49 yrs >58 mL/minNormal 50-59 yrs >51 mL/min Normal 60-69 yrs >45 mL/min Tbbmca65-06 yrs >39 mL/min Normal 80 and above >32 mL/min NormalCRP: (CHARMAINE: 05/18/2020 11:22) ( [facility] 05/18/2020 13:00) Final results Test Result Flag Units (Reference) CRP-HS 0.85 L MG/L (1.00 - 3.00) CDC/S HS-CRP CUT-OFF: RELATIVE RISK: <1.0 mg/L 5 Clinical Report - Physicians/Mid Levels [facility] [address] [place] [address] Phone #: ext- [phone] 05/18/2020 11:14 Patient: [...] peacefully in bed. Pending results. Discuss with parking technician. ? 2 degree blcok type 2 ; [...] treatment. 6 Clinical Report - Physicians/Mid Levels [facility] [address] [place] [address] Phone #: [phone]- [phone] 05/18/2020 11:14 Patient: CRYSTAL ROMERO Sex: F : 1980 Age: 39y(Electronically signed by Wilber Florentino P.A.-C 05/18/2020 23:48) Name Value Range Interpretation Code Description Data [facility] Supporting Document(s) ID Date Data Source [id number] 05/18/2020 12:10:00 PM EDT [facility] ([facility]) Name Value Range Interpretation Code Description Data Tiffani rce(s) Supporting Document(s) Urinalysis Laboratory test result [facility] ([facility]) SOURCE: Clean Catch Color Laboratory test result [facility] ([facility]) SOURCE: Clean Catch Clarity Laboratory test result [facility] ([facility]) SOURCE: Clean Catch Source Laboratory test result [facility] ([facility]) SOURCE: Clean Catch pH 7 5-9 [facility] ([facility] [place] [facility]) SOURCE: Clean Catch Spec [place] 1.005 1.001-1.030 [facility] ([facility]) SOURCE: Clean Catch Glucose Laboratory test result [facility] ([facility]) SOURCE: Clean Catch Protein Laboratory test result [facility] ([facility]) SOURCE: Clean Catch Bilirubin Laboratory test result [facility] ([facility]) SOURCE: Clean Catch Ketone Laboratory test result [facility] ([facility]) SOURCE: Clean Catch Blood 250 Abnormal (applies to non-numeric res ults) [facility] ([facility]) SOURCE: Clean Catch Leuk Est Laboratory test result [facility] ([facility]) SOURCE: Clean Catch Nitrite Laboratory test result [facility] ([facility]) SOURCE: Clean Catch Urobilinogen Laboratory test result [facility] ([facility]) SOURCE: Clean Catch RBC Laboratory test result [facility] ([facility]) SOURCE: Clean Catch Microscopic Laboratory test result [facility] ([facility]) SOURCE: Clean Catch Bacteria Laboratory test result [facility] ([facility]) SOURCE: Clean Catch Epithelial Laboratory test result [facility] ([facility]) SOURCE: Clean Catch ID Date Data Source [id number] 05/18/2020 01:59:00 PM EDT [facility] Name Value Range Interpretation Code Description Data Tiffani rce(s) Supporting Document(s) [facility] yellow NORMAL: Yellow [facility] CLARITY clear NORMAL: Clear [facility] Specific gravity of Urine by Test strip 1.005 1.001 - 1.030 [facility] pH 7 5 - 9 [facility] Glucose [Mass/volume] in Urine by Test strip NORM NORMAL: Negat dinae [facility] Bilirubin.total [Presence] in Urine by Test strip NEG NORMAL: Negative [facility] Ketones [Presence] in Urine by Test strip NEG NORMAL: Negative [facility] Protein [Mass/volume] in Urine by Test strip NEG NORMAL: Negat diane [facility] Nitrite [Presence] in Urine by Test strip NEG NORMAL: Negative [facility] BLOOD 250 NORMAL: Negative A [facility] Leukocyte esterase [Presence] in Urine by Test strip NEG RALPH L: Negative [facility] Urobilinogen [Mass/volume] in Urine by Test strip NOR less fransisco n 1.0 mg/dL [facility] MICROSCOPIC See Below [facility] ital Erythrocytes [#/volume] in Urine by Test strip 1 - 3 NORMAL: NON E SEEN [facility] EPITHELIAL FEW NORMAL: NONE SEEN [facility] Bacteria [Presence] in Urine sediment by Light microscopy Tr [place] NORMAL: NONE SEEN [facility] ID Date Data Source [id number] 05/18/2020 11:22:00 AM EDT [facility] Name Value Range Interpretation Code Description Data Tiffani rce(s) Supporting Document(s) Lyme IgG/IgM Ab Laboratory test result 0.00-0.90 [facility] ([facility]) <content>Negative <0.91</content >
<content>Equivocal 0.91 - 1.09</content>
<content>Positive >1.09</content>
<content></content> Lyme Disease Ab, Quant,IgM Laboratory test result 0.00-0.79 [facility] <content>Negative <0.80</content >
<content>Equivocal 0.80 - 1.19</content>
<content>Positive >1.19</content>
<content>IgM levels may peak at 3-6 weeks post infection, then</content>
<content>gradually decline.</content>
<content></content> ID Date Data Source [id number] 05/18/2020 11:22:00 AM EDT [facility] Name Value Range Interpretation Code Description Data Tiffani rce(s) Supporting Document(s) Troponin T.cardiac [Mass/volume] in Serum or Plasma Laborato ry test result 0.00-0.10 [facility] ([facility]) TROPONIN T 0.1 ng/ml Recommended as the clinical th reshold value for Troponin T. C reactive protein [Mass/volume] in Serum or Plasma by High sensitivity method 0.85 mg/L 1.00-3.00 Below low normal [facility] ([facility]) <content>CDC/S HS-CRP CUT-OFF: RELATIVE RISK:</content>
<content><1.0 mg/L Low</content>
<content>1.0 - 3.0 mg/L Average</abby nt>
<content>>3.0 mg/L High</content>
<content>Optimally, the average of HS-CRP results repeated</content>
<content>two weeks apart should be used for risk assessment.</content>
<content></content> ID Date Data Source [id number] 05/18/2020 11:22:00 AM EDT [facility] ([facility]) Name Value Range Interpretation Code Description Data Tiffani rce(s) Supporting Document(s) Comprehensive Metabo Laboratory test result [facility] ([facility]) COMPREHENSIVE METABOLIC PANEL Sodium 141 meq/L 134-153 [facility] ([facility]) Co2 23 meq/L 22-30 [facility] ([facility]) Potassium 3.8 meq/L 3.6-5.0 [facility] ([facility]) Chloride 107 meq/L 98-107 [facility] ([facility]) Glucose 80 mg/dL 65-110 [facility] ([facility]) BUN 10 mg/dL 7-21 [facility] ([facility]) Creatinine 0.6 mg/dL 0.7-1.5 Below low normal [facility] ( [facility]) Albumin 4.5 g/dL 3.9-5.0 [facility] ([facility]) BUN/Creat 17 8-27 [facility] ([facility]) Total Protein 7.2 g/dL 6.3-8.2 [facility] ([facility]) Globulin 2.7 GM/DL 2.4-3.2 [facility] ([facility]) A/G Ratio 1.7 0.8-2.0 [facility] ([facility]) Calcium 9.2 mg/dL 8.4-10.2 [facility] ([facility]) Sgot/Ast 36 U/L 5-40 [facility] ([facility]) Alkaline Phos 89 U/L 38-126 [facility] ([facility]) Total Bili Laboratory test result 0.2-1.3 [facility] ([facility]) SGPT/Alt 40 U/L 7-56 [facility] ([facility]) Anion Gap 11.0 mmol/L 8.0-16.0 [facility] ([facility]) Non-Aa GFR Laboratory test result [facility] ([facility]) Age 39 yrs [facility] ([facility]) Afr Amer GFR Laboratory test result [facility] ([facility]) Male GFR Interprentation 20-49 yrs >60 mL/min [...] >32 mL/min Normal ID Date Data Source [id number] 05/18/2020 11:22:00 AM EDT [facility] ([facility]) Name Value Range Interpretation Code Description Data Tiffani rce(s) Supporting Document(s) Sed Rate Reenter 9 [facility] ([facility]) Sed Rate 9 mm/hr 0-20 [facility] ([facility]) ID Date Data Source [id number] 05/18/2020 11:22:00 AM EDT [facility] ([facility]) Name Value Range Interpretation Code Description Data Tiffani rce(s) Supporting Document(s) WBC 5.0 10^3/uL 4.2-11.0 [facility] ([facility]) CBC W/Automated Diff Laboratory test result [facility] ([facility]) COMPLETE BLOOD COUNT Hemoglobin 13.5 g/dL 12.0-16.0 [facility] ([facility]) RBC 4.74 10^6/uL 4.20-5.40 [facility] ([facility]) Hematocrit 40.9 % 37.0-47.0 [facility] ([facility]) RDW 12.9 % 11.5-14.5 [facility] ([facility]) MCHC 33.0 g/dL 31.0-36.0 [facility] ([facility]) MCH 28.5 pg 27.0-34.0 [facility] ([facility]) MCV 86.3 fL 81.0-101 [facility] ([facility]) Neut 54.3 % 37.0-80.0 [facility] ([facility]) MPV 10.3 fL 7.4-10.4 [facility] ([facility]) Platelets 243 10^3/uL 150-450 [facility] ([facility]) Eos 5.0 % 0.0-7.0 [facility] ([facility]) [place] 5.8 % 3.0-8.0 [facility] ([facility]) Lymph 33.9 % 25.0-40.0 [facility] ([facility]) %Ig 0.2 % 0.0-0.0 Above high normal [facility] ([facility]) Baso 0.8 % 0.0-2.5 [facility] ([facility]) %NRBC 0.0 % 0.0-0.0 [facility] ([facility]) #Lymph 1.68 10^3/uL 0.60-3.40 [facility] ([facility]) #Neut 2.69 10^3/uL 2.00-6.90 [facility] ([facility]) #[place] 0.29 10^3/uL 0.00-0.90 [facility] ([facility]) #Eos 0.25 10^3/uL 0.00-0.70 [facility] ([facility]) #Baso 0.04 10^3/uL 0.00-0.20 [facility] ([facility]) #Ig 0.01 10^3/uL 0.00-0.10 [facility] ([facility]) #NRBC 0.00 10^3/uL 0.00-0.00 [facility] ([facility]) Manual Diff Laboratory test result [facility] ([facility]) RBC Morph Laboratory test result [facility] ID Date Data Source [id number] 05/20/2020 06:50:00 AM EDT [facility] Name Value Range Interpretation Code Description Data Tiffani rce(s) Supporting Document(s) Borrelia burgdorferi IgG+IgM Ab [Units/volume] in Serum <0.91 ISR 0. 00-0.90 [facility] Negative <0.91 Equivocal 0.91 - 1.09 Positive >1.09 Borrelia burgdorferi IgM Ab [Units/volume] in Serum by Immun oassay <0.80 index 0.00-0.79 [facility] Negative <0.80 Equivocal 0.80 - 1.19 Positive >1.19 IgM levels may peak at 3-6 weeks post infection, then gradually decline. ID Date Data Source [id number] 05/18/2020 01:37:00 PM EDT [facility] Name Value Range Interpretation Code Description Data Tiffani rce(s) Supporting Document(s) TROPONIN T <0.01 NG/ML 0.00 - 0.10 [facility] TROPONIN T0.1 ng/ml Recommended as the c linical threshold value forTroponin T. ID Date Data Source [id number] 05/18/2020 01:00:00 PM EDT [facility] Name Value Range Interpretation Code Description Data Tiffani rce(s) Supporting Document(s) C reactive protein [Mass/volume] in Serum or Plasma by High sensitivity method 0.85 MG/L 1.00 - 3.00 L [facility] CDC/AHS HS-CRP CUT-OFF: RELATIVE RISK: <1.0 mg/L Low 1.0 - 3.0 mg/L Average >3.0 mg/L High Optimally, the average of HS-CRP results repeated two weeks apart should be used for risk assessment. ID Date Data Source [id number] 05/18/2020 01:00:00 PM EDT [facility] Name Value Range Interpretation Code Description Data Tiffani rce(s) Supporting Document(s) COMPREHENSIVE METABOLIC PANEL [facility] COMPREHENSIVE METABOLIC PANEL Sodium [Moles/volume] in Serum or Plasma 141 mEq/L 134 - 153 [facility] Potassium [Moles/volume] in Serum or Plasma 3.8 mEq/L 3.6 - 5.0 [facility] Chloride [Moles/volume] in Serum or Plasma 107 mEq/L 98 - 107 [facility] Carbon dioxide, total [Moles/volume] in Serum or Plasma 23 MEQ/L 22 - 30 [facility] Glucose [Mass/volume] in Serum or Plasma 80 MG/DL 65 - 110 [facility] BUN 10 MG/DL 7 - 21 [facility] al Creatinine [Mass/volume] in Serum or Plasma 0.6 MG/DL 0.7 - 1.5 L [facility] BUN/CREAT 17 8 - 27 [facility] Protein [Mass/volume] in Serum or Plasma 7.2 G/DL 6.3 - 8.2 [facility] Albumin [Mass/volume] in Serum or Plasma 4.5 G/DL 3.9 - 5.0 [facility] Globulin [Mass/volume] in Serum by calculation 2.7 GM/DL 2.4 - 3.2 [facility] A/G RATIO 1.7 0.8 - 2.0 [facility] Calcium [Mass/volume] in Serum or Plasma 9.2 MG/DL 8.4 - 10.2 [facility] Bilirubin.total [Mass/volume] in Serum or Plasma <0.7 MG/DL 0.2 - 1.3 [facility] Alkaline phosphatase [Enzymatic activity/volume] in Serum or Plasma 89 U/L 38 - 126 [facility] Aspartate aminotransferase [Enzymatic activity/volume] in Serum or Plasma 36 U/L 5 - 40 [facility] Alanine aminotransferase [Enzymatic activity/volume] in Seru m or Plasma 40 U/L 7 - 56 [facility] Anion gap 3 in Serum or Plasma 11.0 mmol/L 8.0 - 16.0 [facility] AGE 39 yrs [facility] NON-AA GFR >60 mL/min [facility] ital AFR AMER GFR >60 mL/min [facility] Male GFR In terprentation 20-49 [...] >32 mL/min Normal ID Date Data Source [id number] 05/18/2020 12:32:00 PM EDT [facility] Name Value Range Interpretation Code Description Data Tiffani rce(s) Supporting Document(s) Erythrocyte sedimentation rate by Westergren method 9 mm/hr 0 - 20 [facility] SED RATE REENTER 9 [facility] ID Date Data Source [id number] 05/18/2020 12:22:00 PM EDT [facility] Name Value Range Interpretation Code Description Data Tiffani rce(s) Supporting Document(s) CBC W/AUTOMATED DIFF [facility] COMPLETE BLOOD COUNT Leukocytes [#/volume] in Blood by Automated count 5.0 10^3/uL 4.2 - 1 1.0 [facility] Erythrocytes [#/volume] in Blood by Automated count 4.74 10^6/uL 4. 20 - 5.40 [facility] Hemoglobin [Mass/volume] in Blood 13.5 g/dL 12.0 - 16.0 [facility] Hematocrit [Volume Fraction] of Blood by Automated count 40.9 % 3 7.0 - 47.0 [facility] Erythrocyte mean corpuscular volume [Entitic volume] by Auto mated count 86.3 fL 81.0 - 101 [facility] Erythrocyte mean corpuscular hemoglobin [Entitic mass] by Automated count 28.5 pg 27.0 - 34.0 [facility] Erythrocyte mean corpuscular hemoglobin concentration [Mass/volume] by Automated count 33.0 g/dL 31.0 - 36.0 [facility] Erythrocyte distribution width [Ratio] by Automated count 12.9 % 11.5 - 14.5 [facility] Platelets [#/volume] in Blood by Automated count 243 10^3/uL 150 - 45 0 [facility] Platelet mean volume [Entitic volume] in Blood by Automated count 10.3 fL 7.4 - 10.4 [facility] Neutrophils/100 leukocytes in Blood by Automated count 54.3 % 37. 0 - 80.0 [facility] Lymphocytes/100 leukocytes in Blood by Manual count 33.9 % 25.0 - 40.0 [facility] Monocytes/100 leukocytes in Blood by Automated count 5.8 % 3.0 - 8.0 [facility] Eosinophils/100 leukocytes in Blood by Automated count 5.0 % 0.0 - 7.0 [facility] Basophils/100 leukocytes in Blood by Automated count 0.8 % 0.0 - 2.5 [facility] %IG 0.2 % 0.0 - [facility].0 [facility] % 0.0 - 0.0 [facility] al Neutrophils [#/volume] in Blood by Automated count 2.69 10^3/uL 2.00 - 6.90 [facility] Lymphocytes [#/volume] in Blood by Automated count 1.68 10^3/uL 0.60 - 3.40 [facility] Monocytes [#/volume] in Blood by Automated count 0.29 10^3/uL 0.00 - 0.90 [facility] Eosinophils [#/volume] in Blood by Automated count 0.25 10^3/uL 0.00 - 0.70 [facility] Basophils [#/volume] in Blood by Automated count 0.04 10^3/uL 0.00 - 0.20 [facility] #IG 0.01 10^3/uL 0.00 - 0.10 [facility] ospital #NRBC 0.00 10^3/uL 0.00 - 0.00 [facility] ospital MANUAL DIFF NOT INDICATED [facility] RBC MORPH NOT INDICATED [facility] spital ID Date Data Source [id number] 05/17/2020 06:09:00 AM EDT [facility] Name Value Range Interpretation Code Description Data Tiffani rce(s) Supporting Document(s) Folate [Mass/volume] in Blood 481.0 ng/mL Not Estab. [facility] Hematocrit [Volume Fraction] of Blood by Automated count 40.9 % 3 4.0-46.6 [facility] Folate [Mass/volume] in Red Blood Cells 1176 ng/mL >498 [facility] ID Date Data Source [id number] 05/13/2020 02:20:00 PM EDT [facility] Name Value Range Interpretation Code Description Data Tiffani rce(s) Supporting Document(s) Calcidiol [Moles/volume] in Serum or Plasma 31 NG/ML [facility] VITAMIN-D(2 5HYDROXY) Deficiency: <=20 ng/ml Insufficiency: 21-29 ng/ml Preferred level: => 30 ng/ml ID Date Data Source [id number] 05/13/2020 02:20:00 PM EDT [facility] Value Range Interpretation Code Description Data Tiffani rce(s) Supporting Document(s) Cobalamin (Vitamin B12) [Mass/volume] in Serum or Plasma 620 PG/ML 232 - 1245 [facility] ID Date Data Source [id number] 05/13/2020 02:20:00 PM EDT [facility] Value Range Interpretation Code Description Data Tiffani rce(s) Supporting Document(s) Ferritin [Mass/volume] in Serum or Plasma 53.2 ng/mL 3.0 - 105 [facility] ID Date Data Source [id number] 05/13/2020 01:57:00 PM EDT [facility] Value Range Interpretation Code Description Data Tiffani rce(s) Supporting Document(s) Phosphate [Mass/volume] in Serum or Plasma 4.2 MG/DL 2.5 - 4.5 [facility] ID Date Data Source [id number] 05/13/2020 01:56:00 PM EDT [facility] Name Value Range Interpretation Code Description Data Tiffani rce(s) Supporting Document(s) Magnesium [Mass/volume] in Serum or Plasma 1.9 MG/DL 1.7 - 2.2 [facility] ID Date Data Source [id number] 05/13/2020 01:56:00 PM EDT [facility] Name Value Range Interpretation Code Description Data Tiffani rce(s) Supporting Document(s) Iron [Mass/volume] in Serum or Plasma 61 UG/DL 42 - 135 [facility] Iron binding capacity.unsaturated [Mass/volume] in Serum or Plasma 245 UG/DL 112 - 347 [facility] Iron binding capacity [Mass/volume] in Serum or Plasma 306 ug/dL 250 - 450 [facility] Iron saturation [Mass Fraction] in Serum or Plasma 20 % [facility] ID Date Data Source [id number] 05/13/2020 01:56:00 PM EDT [facility] Name Value Range Interpretation Code Description Data Tiffani rce(s) Supporting Document(s) COMPREHENSIVE METABOLIC PANEL [facility] COMPREHENSIVE METABOLIC PANEL Sodium [Moles/volume] in Serum or Plasma 142 mEq/L 134 - 153 [facility] Potassium [Moles/volume] in Serum or Plasma 4.0 mEq/L 3.6 - 5.0 [facility] Chloride [Moles/volume] in Serum or Plasma 108 mEq/L 98 - 107 H [facility] Carbon dioxide, total [Moles/volume] in Serum or Plasma 25 MEQ/L 22 - 30 [facility] Glucose [Mass/volume] in Serum or Plasma 84 MG/DL 65 - 110 [facility] BUN 10 MG/DL 7 - 21 [facility] Creatinine [Mass/volume] in Serum or Plasma 0.7 MG/DL 0.7 - 1.5 [facility] BUN/CREAT 14 8 - 27 [facility] al Protein [Mass/volume] in Serum or Plasma 6.4 G/DL 6.3 - 8.2 [facility] Albumin [Mass/volume] in Serum or Plasma 4.3 G/DL 3.9 - 5.0 [facility] Globulin [Mass/volume] in Serum by calculation 2.1 GM/DL 2.4 - 3.2 L [facility] A/G RATIO 2.0 0.8 - 2.0 [facility] Calcium [Mass/volume] in Serum or Plasma 9.7 MG/DL 8.4 - 10.2 [facility] Bilirubin.total [Mass/volume] in Serum or Plasma <0.7 MG/DL 0.2 - 1.3 [facility] Alkaline phosphatase [Enzymatic activity/volume] in Serum or Plasma 84 U/L 38 - 126 [facility] Aspartate aminotransferase [Enzymatic activity/volume] in Serum or Plasma 19 U/L 5 - 40 [facility] Alanine aminotransferase [Enzymatic activity/volume] in Seru m or Plasma 19 U/L 7 - 56 [facility] Anion gap 3 in Serum or Plasma 9.0 mmol/L 8.0 - 16.0 [facility]GE 39 [facility] G[facility] >60 mL/min [facility] AFR AMER GFR >60 mL/min [facility] spital Male GFR In terprentation 20-49 [...] >32 mL/min Normal ID Date Data Source [id number] 05/13/2020 01:56:00 PM EDT [facility] Name Value Range Interpretation Code Description Data Tiffani rce(s) Supporting Document(s) Hemoglobin A1c/Hemoglobin.total in Blood 5.1 % 4.4 - 6.1 [facility] {A1]{HB] ID Date Data Source [id number] 05/13/2020 01:35:00 PM EDT [facility] Name Value Range Interpretation Code Description Data Tiffani rce(s) Supporting Document(s) CBC W/AUTOMATED DIFF [facility] COMPLETE BLOOD COUNT Leukocytes [#/volume] in Blood by Automated count 5.3 10^3/uL 4.2 - 1 1.0 [facility] Erythrocytes [#/volume] in Blood by Automated count 4.67 10^6/uL 4. 20 - 5.40 [facility] Hemoglobin [Mass/volume] in Blood 13.1 g/dL 12.0 - 16.0 [facility] Hematocrit [Volume Fraction] of Blood by Automated count 40.7 % 3 7.0 - 47.0 [facility] Erythrocyte mean corpuscular volume [Entitic volume] by Auto mated count 87.2 fL 81.0 - 101 [facility] Erythrocyte mean corpuscular hemoglobin [Entitic mass] by Automated count 28.1 pg 27.0 - 34.0 [facility] Erythrocyte mean corpuscular hemoglobin concentration [Mass/volume] by Automated count 32.2 g/dL 31.0 - 36.0 [facility] Erythrocyte distribution width [Ratio] by Automated count 13.2 % 11.5 - 14.5 [facility] Platelets [#/volume] in Blood by Automated count 246 10^3/uL 150 - 45 0 [facility] Platelet mean volume [Entitic volume] in Blood by Automated count 11.2 fL 7.4 - 10.4 H [facility] Neutrophils/100 leukocytes in Blood by Automated count 59.9 % 37. 0 - 80.0 [facility] Lymphocytes/100 leukocytes in Blood by Manual count 28.0 % 25.0 - 40.0 [facility] Monocytes/100 leukocytes in Blood by Automated count 6.6 % 3.0 - 8.0 [facility] Eosinophils/100 leukocytes in Blood by Automated count 4.5 % 0.0 - 7.0 [facility] Basophils/100 leukocytes in Blood by Automated count 0.8 % 0.0 - 2.5 [facility] %IG 0.2 % 0.0 - 0.0 [facility] %NR[facility] 0.0 % 0.0 - 0.0 [facility] al Neutrophils [#/volume] in Blood by Automated count 3.19 10^3/uL 2.00 - 6.90 [facility] Lymphocytes [#/volume] in Blood by Automated count 1.49 10^3/uL 0.60 - 3.40 [facility] Monocytes [#/volume] in Blood by Automated count 0.35 10^3/uL 0.00 - 0.90 [facility] Eosinophils [#/volume] in Blood by Automated count 0.24 10^3/uL 0.00 - 0.70 [facility] Basophils [#/volume] in Blood by Automated count 0.04 10^3/uL 0.00 - 0.20 [facility] #IG 0.01 10^3/uL 0.00 - 0.10 [facility] ospital #NRBC 0.00 10^3/uL 0.00 - 0.00 [facility] ospital MANUAL DIFF NOT INDICATED [facility] RBC MORPH NOT INDICATED [facility] spital ID Date Data Source [id number] 04/04/2020 09:56:00 AM EDT [facility] Name Value Range Interpretation Code Description Data Tiffani rce(s) Supporting Document(s) CBC W/Automated Diff Laboratory test result [facility] {SOURCE: Random Void~NURSE COLLECTED? N Is patient fasting? N Is patient fasting? N WBC 5.0 10^3/uL 4.2-11.0 [facility] ([facility]) {SOURCE: Random Void~NURSE COLLECTED? N Is patient fasting? N Is patient fasting? N RBC 4.57 10^6/uL 4.20-5.40 [facility] ([facility]) {SOURCE: Random Void~NURSE COLLECTED? N Is patient fasting? N Is patient fasting? N Hematocrit 39.6 % 37.0-47.0 [facility] ([facility]) {SOURCE: Random Void~NURSE COLLECTED? N Is patient fasting? N Is patient fasting? N Hemoglobin 12.9 g/dL 12.0-16.0 [facility] ([facility]) {SOURCE: Random Void~NURSE COLLECTED? N Is patient fasting? N Is patient fasting? N MCV 86.7 fL 81.0-101 [facility] {SOURCE: Random Void~NURSE COLLECTED? N Is patient fasting? N Is patient fasting? N RDW 12.9 % 11.5-14.5 [facility] ([facility]) {SOURCE: Random Void~NURSE COLLECTED? N Is patient fasting? N Is patient fasting? N MCH 28.2 pg 27.0-34.0 [facility] ([facility]) {SOURCE: Random Void~NURSE COLLECTED? N Is patient fasting? N Is patient fasting? N MCHC 32.6 g/dL 31.0-36.0 [facility] ([facility]) {SOURCE: Random Void~NURSE COLLECTED? N Is patient fasting? N Is patient fasting? N MPV 11.1 fL 7.4-10.4 Above high normal [facility] ([facility]) {SOURCE: Random Void~NURSE COLLECTED? N Is patient fasting? N Is patient fasting? N Neut 62.5 % 37.0-80.0 [facility] ([facility]) {SOURCE: Random Void~NURSE COLLECTED? N Is patient fasting? N Is patient fasting? N Platelets 212 10^3/uL 150-450 [facility] ([facility]) {SOURCE: Random Void~NURSE COLLECTED? N Is patient fasting? N Is patient fasting? N Eos 3.0 % 0.0-7.0 [facility] ([facility]) {SOURCE: Random Void~NURSE COLLECTED? N Is patient fasting? N Is patient fasting? N [place] 7.9 % 3.0-8.0 [facility] ([facility]) {SOURCE: Random Void~NURSE COLLECTED? N Is patient fasting? N Is patient fasting? N Lymph 25.6 % 25.0-40.0 [facility] ([facility]) {SOURCE: Random Void~NURSE COLLECTED? N Is patient fasting? N Is patient fasting? N %Ig 0.2 % 0.0-0.0 Above high normal [facility] ([facility]) {SOURCE: Random Void~NURSE COLLECTED? N Is patient fasting? N Is patient fasting? N Baso 0.8 % 0.0-2.5 [facility] ([facility]) {SOURCE: Random Void~NURSE COLLECTED? N Is patient fasting? N Is patient fasting? N #Neut 3.15 10^3/uL 2.00-6.90 [facility] ([facility]) {SOURCE: Random Void~NURSE COLLECTED? N Is patient fasting? N Is patient fasting? N #Lymph 1.29 10^3/uL 0.60-3.40 [facility] ([facility]) {SOURCE: Random Void~NURSE COLLECTED? N Is patient fasting? N Is patient fasting? N %NRBC 0.0 % 0.0-0.0 [facility] {SOURCE: Random Void~NURSE COLLECTED? N Is patient fasting? N Is patient fasting? N #[place] 0.40 10^3/uL 0.00-0.90 [facility] ([facility]) {SOURCE: Random Void~NURSE COLLECTED? N Is patient fasting? N Is patient fasting? N #Baso 0.04 10^3/uL 0.00-0.20 [facility] ([facility]) {SOURCE: Random Void~NURSE COLLECTED? N Is patient fasting? N Is patient fasting? N #Eos 0.15 10^3/uL 0.00-0.70 [facility] ([facility]) {SOURCE: Random Void~NURSE COLLECTED? N Is patient fasting? N Is patient fasting? N #Ig 0.01 10^3/uL 0.00-0.10 [facility] ([facility]) {SOURCE: Random Void~NURSE COLLECTED? N Is patient fasting? N Is patient fasting? N #NRBC 0.00 10^3/uL 0.00-0.00 [facility] ([facility]) {SOURCE: Random Void~NURSE COLLECTED? N Is patient fasting? N Is patient fasting? N Manual Diff Laboratory test [facility] {SOURCE: Random Void~NURSE COLLECTED? N Is patient fasting? N Is patient fasting? N RBC Morph Laboratory test result [facility] {SOURCE: Random Void~NURSE COLLECTED? N Is patient fasting? N Is patient fasting? N ID Date Data Source [id number] 04/04/2020 09:56:00 AM EDT [facility] Name Value Range Interpretation Code Description Data Tiffani rce(s) Supporting Document(s) Comprehensive Metabo Laboratory test result [facility] {SOURCE: Random Void~NURSE COLLECTED? N Is patient fasting? N Is patient fasting? N Sodium 142 meq/L 134-153 [facility] ([facility]) {SOURCE: Random Void~NURSE COLLECTED? N Is patient fasting? N Is patient fasting? N Chloride 106 meq/L 98-107 [facility] ([facility]) {SOURCE: Random Void~NURSE COLLECTED? N Is patient fasting? N Is patient fasting? N Co2 27 meq/L 22-30 [facility] ([facility]) {SOURCE: Random Void~NURSE COLLECTED? N Is patient fasting? N Is patient fasting? N Potassium 4.6 meq/L 3.6-5.0 [facility] ([facility]) {SOURCE: Random Void~NURSE COLLECTED? N Is patient fasting? N Is patient fasting? N BUN 8 mg/dL 7-21 [facility] ([facility]) {SOURCE: Random Void~NURSE COLLECTED? N Is patient fasting? N Is patient fasting? N Glucose 95 mg/dL 65-110 [facility] ([facility]) {SOURCE: Random Void~NURSE COLLECTED? N Is patient fasting? N Is patient fasting? N Creatinine 0.6 mg/dL 0.7-1.5 Below low normal [facility] ( [facility]) {SOURCE: Random Void~NURSE COLLECTED? N Is patient fasting? N Is patient fasting? N Total Protein 6.1 g/dL 6.3-8.2 Below low normal [facility] ([facility]) {SOURCE: Random Void~NURSE COLLECTED? N Is patient fasting? N Is patient fasting? N BUN/Creat 13 8-27 [facility] ([facility]) {SOURCE: Random Void~NURSE COLLECTED? N Is patient fasting? N Is patient fasting? N Albumin 4.1 g/dL 3.9-5.0 [facility] ([facility]) {SOURCE: Random Void~NURSE COLLECTED? N Is patient fasting? N Is patient fasting? N A/G Ratio 2.1 0.8-2.0 Above high normal [facility] ([facility]) {SOURCE: Random Void~NURSE COLLECTED? N Is patient fasting? N Is patient fasting? N Globulin 2.0 GM/DL 2.4-3.2 Below low normal [facility] ( [facility]) {SOURCE: Random Void~NURSE COLLECTED? N Is patient fasting? N Is patient fasting? N Calcium 9.0 mg/dL 8.4-10.2 [facility] ([facility]) {SOURCE: Random Void~NURSE COLLECTED? N Is patient fasting? N Is patient fasting? N Alkaline Phos 88 U/L 38-126 [facility] ([facility]) {SOURCE: Random Void~NURSE COLLECTED? N Is patient fasting? N Is patient fasting? N Total Bili Laboratory test result 0.2-1.3 [facility] ([facility]) {SOURCE: Random Void~NURSE COLLECTED? N Is patient fasting? N Is patient fasting? N SGPT/Alt 31 U/L 7-56 [facility] ([facility]) {SOURCE: Random Void~NURSE COLLECTED? N Is patient fasting? N Is patient fasting? N Anion Gap 9.0 mmol/L 8.0-16.0 [facility] ([facility]) {SOURCE: Random Void~NURSE COLLECTED? N Is patient fasting? N Is patient fasting? N Sgot/Ast 26 U/L 5-40 [facility] ([facility]) {SOURCE: Random Void~NURSE COLLECTED? N Is patient fasting? N Is patient fasting? N Non-Aa GFR Laboratory test result [facility] ([facility]) {SOURCE: Random Void~NURSE COLLECTED? N Is patient fasting? N Is patient fasting? N Afr Amer GFR Laboratory test result [facility] ([facility]) {SOURCE: Random Void~NURSE COLLECTED? N Is patient fasting? N Is patient fasting? N Age 39 yrs [facility] ([facility]) {SOURCE: Random Void~NURSE COLLECTED? N Is patient fasting? N Is patient fasting? N ID Date Data Source [id number] 04/04/2020 09:56:00 AM EDT [facility] ([facility]) Name Value Range Interpretation Code Description Data Tiffani rce(s) Supporting Document(s) Thyrotropin [Units/volume] in Serum or Plasma 1.44 uIU/mL 0.47-5.01 [facility] ([facility]) {SOURCE: Random Void~NURSE COLLECTED? N Is patient fasting? N Is patient fasting? N Thyroxine (T4) free [Mass/volume] in Serum or Plasma 0.87 ng/dL 0.93-1.70 Below low normal [facility] ([facility]) {SOURCE: Random Void~NURSE COLLECTED? N Is patient fasting? N Is patient fasting? N ID Date Data Source [id number] 04/04/2020 09:56:00 AM EDT [facility] ([facility]) Name Value Range Interpretation Code Description Data Tiffani rce(s) Supporting Document(s) Source Laboratory test result [facility] ([facility]) {SOURCE: Random Void~NURSE COLLECTED? N Is patient fasting? N Is patient fasting? N Urinalysis Laboratory test result [facility] ([facility]) {SOURCE: Random Void~NURSE COLLECTED? N Is patient fasting? N Is patient fasting? N Color Laboratory test result [facility] ([facility]) {SOURCE: Random Void~NURSE COLLECTED? N Is patient fasting? N Is patient fasting? N Clarity Laboratory test result [facility] ([facility]) {SOURCE: Random Void~NURSE COLLECTED? N Is patient fasting? N Is patient fasting? N Spec [place] 1.010 1.001-1.030 [facility] ([facility]) {SOURCE: Random Void~NURSE COLLECTED? N Is patient fasting? N Is patient fasting? N Glucose Laboratory test result [facility] ([facility]) {SOURCE: Random Void~NURSE COLLECTED? N Is patient fasting? N Is patient fasting? N Bilirubin Laboratory test result [facility] ([facility]) {SOURCE: Random Void~NURSE COLLECTED? N Is patient fasting? N Is patient fasting? N pH 6.5 5-9 [facility] ([facility]) {SOURCE: Random Void~NURSE COLLECTED? N Is patient fasting? N Is patient fasting? N Nitrite Laboratory test result [facility] ([facility]) {SOURCE: Random Void~NURSE COLLECTED? N Is patient fasting? N Is patient fasting? N Protein Laboratory test result [facility] ([facility]) {SOURCE: Random Void~NURSE COLLECTED? N Is patient fasting? N Is patient fasting? N Ketone Laboratory test result [facility] ([facility]) {SOURCE: Random Void~NURSE COLLECTED? N Is patient fasting? N Is patient fasting? N Leuk Est 100 Abnormal (applies to non-numeric res ults) [facility] ([facility]) {SOURCE: Random Void~NURSE COLLECTED? N Is patient fasting? N Is patient fasting? N Urobilinogen Laboratory test result [facility] ([facility]) {SOURCE: Random Void~NURSE COLLECTED? N Is patient fasting? N Is patient fasting? N Blood 10 Abnormal (applies to non-numeric res ults) [facility] ([facility]) {SOURCE: Random Void~NURSE COLLECTED? N Is patient fasting? N Is patient fasting? N Microscopic Laboratory [facility] {SOURCE: Random Void~NURSE COLLECTED? N Is patient fasting? N Is patient fasting? N WBC Laboratory test result Abnormal (applies to non -numeric results) [facility] ([facility]) {SOURCE: Random Void~NURSE COLLECTED? N Is patient fasting? N Is patient fasting? N RBC Laboratory test result [facility] ([facility]) {SOURCE: Random Void~NURSE COLLECTED? N Is patient fasting? N Is patient fasting? N Epithelial Laboratory test result Abnormal (applies to non -numeric results) [facility] ([facility]) {SOURCE: Random Void~NURSE COLLECTED? N Is patient fasting? N Is patient fasting? N Bacteria Laboratory test result Abnormal (applies to non -numeric results) [facility] ([facility]) {SOURCE: Random Void~NURSE COLLECTED? N Is patient fasting? N Is patient fasting? N Mucous Laboratory test result [facility] ([facility]) {SOURCE: Random Void~NURSE COLLECTED? N Is patient fasting? N Is patient fasting? N ID Date Data Source [id number] 04/04/2020 09:56:00 AM EDT [facility] ([facility]) Name Value Range Interpretation Code Description Data Tiffani rce(s) Supporting Document(s) Erythrocyte sedimentation rate by Westergren method Laboratory test result [facility] ([facility]) C reactive protein [Mass/volume] in Serum or Plasma by High sensitivity method Laboratory test result [facility] ([facility]) Cobalamin (Vitamin B12) [Mass/volume] in Serum or Plasma 689 pg/mL 2 32-1245 [facility] ([facility]) {SOURCE: Random Void~NURSE COLLECTED? N Is patient fasting? N Is patient fasting? N Hemoglobin A1c/Hemoglobin.total in Blood 5.1 % 4.4-6.1 [facility] ([facility]) {SOURCE: Random Void~NURSE COLLECTED? N Is patient fasting? N Is patient fasting? N ID Date Data Source [id number] 04/04/2020 09:56:00 AM EDT [facility] ([facility]) Name Value Range Interpretation Code Description Data Tiffani rce(s) Supporting Document(s) Sed Rate 8 mm/hr 0-20 [facility] ([facility]) {SOURCE: Random Void~NURSE COLLECTED? N Is patient fasting? N Is patient fasting? N Sed Rate Reenter 8 [facility] ([facility]) {SOURCE: Random Void~NURSE COLLECTED? N Is patient fasting? N Is patient fasting? N ID Date Data Source [id number] 04/04/2020 09:56:00 AM EDT [facility] ([facility]) Name Value Range Interpretation Code Description Data Tiffani rce(s) Supporting Document(s) C reactive protein [Mass/volume] in Serum or Plasma by High sensitivity method 0.84 mg/L 1.00-3.00 Below low normal [facility] ([facility]) {SOURCE: Random Void~NURSE COLLECTED? N Is patient fasting? N Is patient fasting? N ID Date Data Source [id number] 04/04/2020 09:56:00 AM EDT [facility] ([facility]) Name Value Range Interpretation Code Description Data Tiffani rce(s) Supporting Document(s) Cholesterol 137 mg/dL 131-200 [facility] ([facility]) {SOURCE: Random Void~NURSE COLLECTED? N Is patient fasting? N Is patient fasting? N Cve Panel Laboratory test result [facility] ([facility]) {SOURCE: Random Void~NURSE COLLECTED? N Is patient fasting? N Is patient fasting? N HDL 60 mg/dL 29-86 [facility] {SOURCE: Random Void~NURSE COLLECTED? N Is patient fasting? N Is patient fasting? N LDL 69 mg/dL 65-175 [facility] ([facility]) {SOURCE: Random Void~NURSE COLLECTED? N Is patient fasting? N Is patient fasting? N Triglycerides 83 mg/dL 35-160 [facility] ([facility]) {SOURCE: Random Void~NURSE COLLECTED? N Is patient fasting? N Is patient fasting? N LDL/HDL 1.15 1.47-3.22 Below low normal [facility] ( [facility]) {SOURCE: Random Void~NURSE COLLECTED? N Is patient fasting? N Is patient fasting? N Risk Factor 2.3 3.2-4.4 Below low normal [facility] ([facility]) {SOURCE: Random Void~NURSE COLLECTED? N Is patient fasting? N Is patient fasting? N ID Date Data Source [id number] 04/04/2020 09:56:00 AM EDT [facility] ([facility]) Name Value Range Interpretation Code Description Data Tiffani rce(s) Supporting Document(s) Iron [Mass/volume] in Serum or Plasma 60 ug/dL 42-135 [facility] {SOURCE: Random Void~NURSE COLLECTED? N Is patient fasting? N Is patient fasting? N ID Date Data Source [id number] 04/04/2020 09:56:00 AM EDT [facility] ([facility]) Name Value Range Interpretation Code Description Data Tiffani rce(s) Supporting Document(s) Culture Urine Laboratory test result [facility] ([facility]) {SOURCE: Random Void~NURSE COLLECTED? N Is patient fasting? N Is patient fasting? N ID Date Data Source [id number] 04/07/2020 12:08:00 PM EDT [facility] Name Value Range Interpretation Code Description Data Tiffani rce(s) Supporting Document(s) CULTURE URINE [facility] spital _CULTURE URINE_$$546000$$955394$$098426$$954640$$302702$$531701$$621932$$946324$$482569$$ 640240$$316365$$051372$$158299$$135529$$125378$$469067$$017080$$866506$$094793$$ 812406$$153377$$237383$$875572$$722034$$050140$$630459$$444550 -- Continued on next page --Patient: HEATHER HEARD Order: [id number] Page 2Culture: CULTURE URINE Status: Final ==== -- Continued on next page --Patient: HEATHER HEARD Order: [id number] Page 2Culture: CULTURE URINE Status: Prelim =====$$[id number]$$[id number] DATE/TIME: 04/07/2020 11:06Culture: CULTURE URINE Status: FinalIsolate [...] 04/06/2020 04:32 ET Gram negative rodsUrine Culture,Comprehensive: C6Bboefzphjwa coli Flag: APatient: HEATHER HEARD Order: [id number] Page 3Culture: CULTURE URINE Status: Final========= ISOLATE [...] S S . . . . . .29129-2Kpdcarkozx S S . . . . . .267-5Imipenem S S . . . . . .279-0Levofloxacin S S . . . . . .75611-9Kyyordlaj S S . . . . . .6652-2Nitrofurantoin S S . . . . . .363-2Piperacillin/Tazobactam S S . . . . . .412-7Tetracycline S S . . . . . .496-0Tobramycin S S . . . . . .508-2Trimethoprim/Sulfa S S . . . . . 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 : 04/06/20.0627.XMT.SENT REF 04/07/20.1208.XMT.SENT REF ID Date Data Source [id number] 04/04/2020 02:12:00 PM EDT [facility] Name Value Range Interpretation Code Description Data Tiffani rce(s) Supporting Document(s) Cobalamin (Vitamin B12) [Mass/volume] in Serum or Plasma 689 PG/ML 232 - 1245 [facility] ID Date Data Source [id number] 04/04/2020 02:12:00 PM EDT [facility] Name Value Range Interpretation Code Description Data Tiffani rce(s) Supporting Document(s) Thyroxine (T4) free index in Serum or Plasma by calculation 0.87 NG/DL 0.93 - 1.70 L [facility] ID Date Data Source [id number] 04/04/2020 02:11:00 PM EDT [facility] Name Value Range Interpretation Code Description Data Tiffani rce(s) Supporting Document(s) Thyrotropin [Units/volume] in Serum or Plasma by Detec tion limit <= 0.05 mIU/L 1.44 uIU/mL 0.47 - 5.01 [facility] ID Date Data Source [id number] 04/04/2020 02:09:00 PM EDT [facility] Name Value Range Interpretation Code Description Data Tiffani rce(s) Supporting Document(s) Erythrocyte sedimentation rate by Westergren method 8 mm/hr 0 - 20 [facility] SED RATE REENTER 8 [facility] ID Date Data Source [id number] 04/04/2020 02:05:00 PM EDT [facility] Name Value Range Interpretation Code Description Data Tiffani rce(s) Supporting Document(s) CVE PANEL [facility] al LIPID PANEL Cholesterol [Mass/volume] in Serum or Plasma 137 MG/DL 131 - 200 [facility] Deprecated Triglyceride [Mass/volume] in Serum or Plasma 83 MG/DL 3 5 - 160 [facility] HDL 60 MG/DL 29 - 86 [facility] al Cholesterol in LDL [Mass/volume] in Serum or Plasma by Direc t assay 69 mg/dL 65 - 175 [facility] Cholesterol.total/Cholesterol in HDL [Mass Ratio] in Serum o r Plasma 2.3 3.2 - 4.4 L [facility] LDL/HDL 1.15 1.47 - 3.22 L [facility] ital CVE RISK CHOL/HDL LDL/HDLMEN: 1/2 AVERAGE 3.43 1.00 AVERAGE 4.97 3.55 2X AVERAGE 9.55 6.25 3X AVERAGE 23.99 7.99WOMEN: 1/2 AVERAGE 3.27 1.47 AVERAGE 4.44 3.22 2X AVERAGE 7.05 5.03 3X AVERAGE 11.04 6.14 ID Date Data Source [id number] 04/04/2020 02:05:00 PM EDT [facility] Name Value Range Interpretation Code Description Data Tiffani rce(s) Supporting Document(s) C reactive protein [Mass/volume] in Serum or Plasma by High sensitivity method 0.84 MG/L 1.00 - 3.00 L [facility] CDC/S HS-CRP CUT-OFF: RELATIVE RISK: <1.0 mg/L Low 1.0 - 3.0 mg/L Average >3.0 mg/L High Optimally, the average of HS-CRP results repeated two weeks apart should be used for risk assessment. ID Date Data Source [id number] 04/04/2020 02:05:00 PM EDT [facility] Name Value Range Interpretation Code Description Data Tiffani rce(s) Supporting Document(s) COMPREHENSIVE METABOLIC PANEL [facility] COMPREHENSIVE METABOLIC PANEL Sodium [Moles/volume] in Serum or Plasma 142 mEq/L 134 - 153 [facility] Potassium [Moles/volume] in Serum or Plasma 4.6 mEq/L 3.6 - 5.0 [facility] Chloride [Moles/volume] in Serum or Plasma 106 mEq/L 98 - 107 [facility] Carbon dioxide, total [Moles/volume] in Serum or Plasma 27 MEQ/L 22 - 30 [facility] Glucose [Mass/volume] in Serum or Plasma 95 MG/DL 65 - 110 [facility] BUN 8 MG/DL 7 - 21 [facility] Creatinine [Mass/volume] in Serum or Plasma 0.6 MG/DL 0.7 - 1.5 L [facility] BUN/CREAT 13 8 - 27 [facility] al Protein [Mass/volume] in Serum or Plasma 6.1 G/DL 6.3 - 8.2 L [facility] Albumin [Mass/volume] in Serum or Plasma 4.1 G/DL 3.9 - 5.0 [facility] Globulin [Mass/volume] in Serum by calculation 2.0 GM/DL 2.4 - 3.2 L [facility] A/G RATIO 2.1 0.8 - 2.0 [facility] Calcium [Mass/volume] in Serum or Plasma 9.0 MG/DL 8.4 - 10.2 [facility] Bilirubin.total [Mass/volume] in Serum or Plasma <0.7 MG/DL 0.2 - 1.3 [facility] Alkaline phosphatase [Enzymatic activity/volume] in Serum or Plasma 88 U/L 38 - 126 [facility] Aspartate aminotransferase [Enzymatic activity/volume] in Serum or Plasma 26 U/L 5 - 40 [facility] Alanine aminotransferase [Enzymatic activity/volume] in Seru m or Plasma 31 U/L 7 - 56 [facility] Anion gap 3 in Serum or Plasma 9.0 mmol/L 8.0 - 16.0 [facility] AGE 39 yrs [facility] al NON-AA GFR >60 mL/min [facility] ital AFR AMER GFR >60 mL/min [facility] Ho spital Male GFR In terprentation 20-49 [...] >32 mL/min Normal ID Date Data Source [id number] 04/04/2020 01:59:00 PM EDT [facility] Name Value Range Interpretation Code Description Data Tiffani rce(s) Supporting Document(s) Iron [Mass/volume] in Serum or Plasma 60 UG/DL 42 - 135 [facility] ID Date Data Source [id number] 04/04/2020 01:58:00 PM EDT [facility] Name Value Range Interpretation Code Description Data Tiffani rce(s) Supporting Document(s) Hemoglobin A1c/Hemoglobin.total in Blood 5.1 % 4.4 - 6.1 [facility] {A1]{HB] ID Date Data Source [id number] 04/04/2020 01:46:00 PM EDT [facility] Name Value Range Interpretation Code Description Data Tiffani rce(s) Supporting Document(s) CBC W/AUTOMATED DIFF [facility] COMPLETE BLOOD COUNT Leukocytes [#/volume] in Blood by Automated count 5.0 10^3/uL 4.2 - 1 1.0 [facility] Erythrocytes [#/volume] in Blood by Automated count 4.57 10^6/uL 4. 20 - 5.40 [facility] Hemoglobin [Mass/volume] in Blood 12.9 g/dL 12.0 - 16.0 [facility] Hematocrit [Volume Fraction] of Blood by Automated count 39.6 % 3 7.0 - 47.0 [facility] Erythrocyte mean corpuscular volume [Entitic volume] by Auto mated count 86.7 fL 81.0 - 101 [facility] Erythrocyte mean corpuscular hemoglobin [Entitic mass] by Automated count 28.2 pg 27.0 - 34.0 [facility] Erythrocyte mean corpuscular hemoglobin concentration [Mass/volume] by Automated count 32.6 g/dL 31.0 - 36.0 [facility] Erythrocyte distribution width [Ratio] by Automated count 12.9 % 11.5 - 14.5 [facility] Platelets [#/volume] in Blood by Automated count 212 10^3/uL 150 - 45 0 [facility] Platelet mean volume [Entitic volume] in Blood by Automated count 11.1 fL 7.4 - 10.4 H [facility] Neutrophils/100 leukocytes in Blood by Automated count 62.5 % 37. 0 - 80.0 [facility] Lymphocytes/100 leukocytes in Blood by Manual count 25.6 % 25.0 - 40.0 [facility] Monocytes/100 leukocytes in Blood by Automated count 7.9 % 3.0 - 8.0 [facility] Eosinophils/100 leukocytes in Blood by Automated count 3.0 % 0.0 - 7.0 [facility] Basophils/100 leukocytes in Blood by Automated count 0.8 % 0.0 - 2.5 [facility] %IG 0.2 % 0.0 - 0.0 [facility] %NRBC 0.0 % 0.0 - 0.0 [facility] Neutrophils [#/volume] in Blood by Automated count 3.15 10^3/uL 2.00 - 6.90 [facility] Lymphocytes [#/volume] in Blood by Automated count 1.29 10^3/uL 0.60 - 3.40 [facility] Monocytes [#/volume] in Blood by Automated count 0.40 10^3/uL 0.00 - 0.90 [facility] Eosinophils [#/volume] in Blood by Automated count 0.15 10^3/uL 0.00 - 0.70 [facility] Basophils [#/volume] in Blood by Automated count 0.04 10^3/uL 0.00 - 0.20 [facility] #IG 0.01 10^3/uL 0.00 - 0.10 [facility] ospital #NRBC 0.00 10^3/uL 0.00 - 0.00 [facility] ospital MANUAL DIFF NOT INDICATED [facility] RBC MORPH NOT INDICATED [facility] sp[facility] ID Date Data Source [id number] 04/04/2020 01:41:00 PM EDT [facility] Name Value Range Interpretation Code Description Data Tiffani rce(s) Supporting Document(s) [facility] URINALYSIS SOURCE R [facility] COLOR yellow NORMAL: Yellow [facility] ospital CLARITY hazy NORMAL: Clear [facility] spital Specific gravity of Urine by Test strip 1.010 1.001 - 1.030 [facility] pH 6.5 5 - 9 [facility] al Glucose [Mass/volume] in Urine by Test strip NORM NORMAL: Negat [facility] Bilirubin.total [Presence] in Urine by Test strip NEG NORMAL: Negative [facility] Ketones [Presence] in Urine by Test strip NEG NORMAL: Negative [facility] Protein [Mass/volume] in Urine by Test strip [facility] N[facility] [Presence] in Urine by Test strip POS NORMAL: Negative [facility] BLOOD 10 NORMAL: Negative [facility] Leukocyte esterase [Presence] in Urine by Test strip 100 RALPH L: Negative [facility] Urobilinogen [Mass/volume] in Urine by Test strip NOR less fransisco n 1.0 mg/dL [facility] MICROSCOPIC See Below [facility]osp ital WBC 10 - 15 NORMAL: NONE SEEN A [facility] Erythrocytes [#/volume] in Urine by Test strip 1 - 3 NORMAL: NON E SEEN [facility] EPITHELIAL MODERATE NORMAL: NONE SEEN A [facility] Bacteria [Presence] in Urine sediment by Light microscopy 2+ MOD NORMAL: NONE SEEN A [facility] Mucus [Presence] in Urine sediment by Light microscopy Trace NORMAL: NONE SEEN [facility] ID Date Data Source [id number] 01/19/2020 09:09:38 AM [facility] INFORMATIONPatient MRN Name Date of Age Gend*PT [id number] Crystal Lopes 1980 39 years F SDCXPT Location Admission Date/Time Visit ID Attending [id number] 01/15/20 0956 --- --- EPI ID CSN Admitting Provider [id number] Raymundo Morillo MD([id number]) Attestation signed by Chester Lam MD at 01/19/2020 9:09 AMI have reviewed the above and agree.Signature: Chester Lam MDDate: January 19, 2020Time: 9:09 AM Discharge Aamir Abdalla date: 01/15/2020 9:56 AM Primary Care Provider: Maria D Polk MDAdmitting Physician: Shannon Thomasission Diagnosis: Post-Op Diagnosis Codes: * Cholelithiasis [K80.20] [...] plan.Most recent glucose:Glucose, POCDate Value Ref Range Admacm3501/15/2020 66 (L) 70 - 99 mg/dL Final Comment: PERFORMED BY [facility] CLINICAL STAFFDischarge instructions were reviewed in person [...] in the office.Medications: Yaa Abdalla Medication Instructions OZZY:[id number] Printed on:01/16/20 1047Medication Informationalbuterol (PROVENTIL HFA;VENTOLIN HFA) [...] rce(s) Supporting Document(s) ID Date Data Source [id number] 01/15/2020 05:59:12 PM EDT [facility] NT INFORMATIONPatient MRN Name Date of Age Gend*PT [id number] Crystal Lopes 1980 39 years F SDCXPT Location Admission Date/[facility] --- Raymundo Morillo MD([id number]) EPI ID CSN Admitting Provider [id number] Raymundo Morillo MD([id number])CHOLECYSTECTOMY, LAPAROSCOPIC, WITH REPAIR OF INTERNAL HERNIA X2 Procedure NoteNatasha ShefaliBryant CSN:[id number]/13/2020Surgeon(s):NISH Thomasurgical Assist: Nitin Myersaff:OR Flight Attendant Inflight Services: LEONILA Judgeurgical Assist: SUMI Myers Scrub Person: Yumiko WeaverProcedure(s):CHOLECYSTECTOMY , LAPAROSCOPIC, WITH REPAIR OF ASYMPTOMATIC INTERNAL HERNIA C7Ghnxfonnhd: GeneralPre-op Diagnosis:Cholelithiasis [K80.20]Post-Op Diagnosis Codes: * Cholelithiasis [...] FOR PROCEDURE: Crystal Abdalla is a 39 knyzc-klds-ekk femalewith a history of morbid obesity, who is status post la paroscopic Cuza-fl-Iyynrgid bypass on 01/23/2019. She has lost about 80 pounds and currently ovkzje407 pounds with a BMI of 31.6. The [...] well. She was extubated and transported to [facility] in stable condition. All sponge, instrument, and needle counts werecorrect x2 at the end of the procedure.All significant tasks completed under the direction of the primary surgeon withthe exception of:ROXANN Reddate: 01/15/2020 Time: 5:09 PM Name Value Range Interpretation Code Description Data Tiffani rce(s) Supporting Document(s) ID Date Data Source [id number] 01/15/2020 03:52:59 PM EDT [facility] NT INFORMATIONPatient MRN Name Date of Age Gend*PT [id number] Cancel- Crystal Bryant 1980 39 years F SDCXPT Location Admission Date/Time Visit ID Attending Provider --- --- --- --- EPI ID CSN Admitting Provider [id number] ---AirwayPatient location during procedure: ORUrgency: electiveDifficult airway: [...] cmPlacement verified by: chest auscultation and + [id number]: equal breath sounds bilateralGrade view: grade I - full view of glottis Name Value Range Interpretation Code Description Data Tiffani rce(s) Supporting Document(s) ID Date Data Source [id number] 01/15/2020 03:07:02 PM EDT [facility] NT INFORMATIONPatient MRN Name Date of Age Gend*PT [id number] Cancel- Crystal Bryant 1980 39 years F SDCXPT Location Admission Date/Time Visit ID [facility]20 0956 --- Raymundo Morillo MD([id number]) EPI ID CSN Admitting Provider [id number] Raymundo Morillo MD([id number])H&P reviewed. The patient was examined and there are no changes to the H&P.Raymundo Morillo MD3:06 PM Name Value Range Interpretation Code Description Data Tiffani rce(s) Supporting Document(s) ID Date Data Source [id number] 01/15/2020 11:17:09 AM EDT [facility] Name Value Range Interpretation Code Description Data Tiffani rce(s) Supporting Document(s) POC NOVA GLU 66 mg/dL (70-99) L [facility] [place] PERFORMED BY [facility] CLINICAL STAFF ID Date Data Source [id number] 01/15/2020 11:26:17 AM EDT [facility] Name Value Range Interpretation Code Description Data Tiffani rce(s) Supporting Document(s) POC [facility]CG [facility] <5.0 IU/L [facility] [place] INTERPRETATION:<5.0 NEGATIVE5.0- 25.0 INDETERMINATE>25.0 POSITIVELEVELS BETWEEN 5 AND 25 IU/L MAY INDICATEEARLY AND SHOULD BE REPEATED SRAVANI BLOOD SAMPLE AFTER 48 HOURS.PERFORMED BY [facility] CLINICAL STAFF ID Date Data Source [id number] 01/19/2020 04:25:44 PM EDT [facility] [place], [place] [address]Ipn# Surgical Pathology ReportAccession #:[id number](s) ReceivedA: GallbladderClinical Diagnosis and HistoryCholelithiasisDIAGNOSISGALLBLADDER, CHOLECYSTECTOMY: CHOLELITHIASIS. [...] orange-green multifaceted calculi measuring upto 1.6 cm. Field Pipelines Supervisor sections are submitted as A1. Processed at [facility], Histopathology, [address], [place], [address].jgllmr/gmm Reported: 01/19/2020Electronically Signed Out By Ty Leon M.D. [facility] This report may include immunohistochemical or in-situ hybridizationresults. Testing was developed and the performance characteristicsdetermined by [facility] as required by CLIA '88. The FDAhas determined that approval for specific use is not necessary forclinical use. The quality of Hematoxylin and Eosin stains and asapplicable, for all immunohistochemical and/or special stains, includingpositive and negative controls, were reviewed and considered appropriate.ICD codes K80.80CPT codesA: 19670B Name Value Range Interpretation Code Description Data Tiffani rce(s) Supporting Document(s) ID Date Data Source [id number] 12/29/2019 02:35:31 PM EST [facility]o [facility] Name Value Range Interpretation Code Description Data Tiffani rce(s) Supporting Document(s) WBC 7.0 10*3/uL (4.1-11.0) [facility] [place] RBC 4.61 10*6/uL (4.00-5.40) [facility] [place] HGB 13.0 g/dL (12.0-16.0) [facility] [place] HCT 38.7 % (36.0-47.0) [facility] MCV 84.0 fL (80.0-95.0) [facility] MCH 28.1 pg (27.0-32.0) [facility] MCHC 33.5 g/dL (32.0-36.0) [facility] RDW 13.5 % (10.5-14.5) [facility] PLT 299 10*3/uL (150-450) [facility] MPV 9.3 fL (7.1-10.7) [facility] ID Date Data Source [id number] 12/29/2019 12:29:03 PM EST [facility] NT INFORMATIONPatient MRN Name Date of Age Gend*PT [id number] Cancel- Crystal Bryant 1980 39 years F OPPT Location Admission Date/Time Visit ID Attending Provider --- --- --- Raymundo Morillo MD([id number]) EPI ID CSN Admitting Provider [id number] ---OUTPATIENT / OBSERVATIONAL SURGICAL OR INVASIVE PROCEDUREName: [...] total)by mouth daily 01/24/19 01/24/20 Yady Frias, Valentinluticasone-salmeterol (ADVAIR) 500-50 MCG/DOSE DISKUS Inhale 1 puff [...] tablet Take 100 mg by mouth daily HistoricalProvider, venlafaxine (EFFEXOR-XR) 75 MG 24 hr capsule Take 75 mg by mouth 2 (two) times aday Historical Provider, Rositacetaminophen (TYLENOL) 325 MG tablet Take 2 tablets [...] | SpO2 98% | BMI 30.56 kg/m [facility] Frailty Scale :: 2/10 Well (without active disease, but less fit thanpeople in category I. Often they exercise or are very active occasionally, e.g.seasonally).Stop Bang Questionnaire - Total Score:STOP-Bang Total Score: 1PHYSICAL EXAM:Airway - 1Mental and Neurological Status: SGRw8TVRTN: Few expiratory wheezes. No rhonchi or crackles.HEART: Rate rhythm regular. S1, S2. No murmur, rub or gallop.ABDOMEN: Bowel sounds positive times four. Soft, RUQ tenderness.Nohepatosplenomegaly.EXTREMITIES: Pulses are symmetrical. 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 : HEATHER HEARD Acct Number.................. : [id number] ROOM. ................. : Number ................... : [id number] Stay type ............. : O/P Discharge Date......... ... : 10/31/19 Admit Date ....... .. : 10/31/19 Admit Phys .................... : [employer] HARD Date of ....... : 1980 Family Phys ................... : [employer] HARD Phone .................. : [phone] Age ................................ : 38 Film# .................. .:[id number] Sex ................................. : F Unsigned transcriptions are preliminary reports and do not represent a medical or legal document US ABD COMPLETE 47702 COMPLETE:10/31/19 10:49 ADB 27575 (REASON FOR ABDOMEN: Abdominal pain COMPLETE ABDOMINAL [...] By LANA HERNANDEZ MD , 11/02/19 10:35, [facility] Transcribe Initials: DZ , Transcribe Date: 10/31/19 11:07, Dictation Date: Copy for: [address] [place] [address] REC Page 1 of 1 Name Value Range Interpretation Code Description Data Tiffani rce(s) Supporting Document(s) ID Date Data Source [id number] 10/23/2019 09:47:00 AM EST [facility] [address] [place] [address] PHONE: [phone] FAX: [phone] Name .................. : HEATHER HEARD Acct Number.................. : [id number] ROOM. ................. : MR Number ................... : [id number] Stay type ............. : CLINIC Discharge Date......... ... : 10/22/19 Admit Date ......... : 10/22/19 Admit Phys .................... : POLK HARD Date of ....... : 1980 Family Phys ................... : [employer] HARD Phone .................. : [phone] Age ................................ : 38 Film# .................. .:[id number] Sex ................................. : F Unsigned transcriptions are preliminary reports and do not represent a medical or legal document SPINE LS COMPLETE 10518 COMPLETE:10/22/19 13:16 [facility] [address] (SPINE PROC REASON: PAIN LUMBAR SPINE SERIES: [...] By Reagan Randolph MD , 10/23/19 09:47, [facility] Transcribe Initials: ACOSTA , Transcribe Date: 10/22/19 14:12, Dictation Date: Page 1 of 1 Name Value Range Interpretation Code Description Data Tiffani rce(s) Supporting Document(s) ID Date Data Source [id number] 10/23/2019 09:47:00 [place] [address] PHONE: [phone] FAX: [phone] Name .................. : HEATHER HEARD Acct Number.................. : [id number] ROOM. ................. : MR Number ................... : [id number] Stay type ............. : CLINIC Discharge Date......... ... : 10/22/19 Admit Date ......... : 10/22/19 Admit Phys .................... : PLOK HARD Date of ....... : 1980 Family Phys ................... : FELICITAS HARD Phone .................. : [phone] Age ................................ : 38 Film# .................. .:[id number] Sex ................................. : F Unsigned transcriptions are preliminary reports and do not represent a medical or legal document SPINE THORACIC 26107 COMPLETE:10/22/19 13:16 [facility] [address] (SPINE PROC REASON: PAIN THORACIC SPINE SERIES: HISTORY: Pain. FINDINGS: Anterior osteophyte formation at the disc spaces in the mid and lower thoracic spine suggests degenerative disease. No fractures are seen. Bony mineralization is intact. The soft tissues are unremarkable. IMPRESSION: Multilevel degenerative disc disease. Electronically Reviewed and Signed By Reagan Randolph MD , 10/23/19 09:47, [facility] Transcribe Initials: DZ , Transcribe Date: 10/22/19 14:11, Dictation Date: Page 1 of 1 Name Value Range Interpretation Code Description Data Tiffani rce(s) Supporting Document(s) ID Date Data Source [id number] 10/22/2019 09:48:00 AM EST [facility] ([facility]) Name Value Range Interpretation Code Description Data Tiffani rce(s) Supporting Document(s) Spine Thoracic <pending> [facility] ([facility]) Spine LS Complete <pending> [facility] ([facility]) Procedure Social History Code Duration Value Status Description Data Source(s ) Smoking 08/17/2020 12:00:00 AM EDT Patient has never smoked co mpleted Patient has never smoked [facility] ([facility]) Alcohol intake 01/15/2020 12:00:00 AM EDT Yes completed [facility] Smoking 01/15/2020 12:00:00 AM EDT Never smoker completed Never [facility] Alcohol intake 12/29/2019 12:00:00 AM EST Yes completed [facility] Smoking 12/29/2019 12:00:00 AM EST Never smoker completed Never [facility] Vital Signs ID Date Data Source UNK Name Value Range Interpretation Code Description Data Source(s) Body surface area Derived from formula 2.05 m2 2.05 m2 [facility] ([facility]) Body weight 91.627 kg 91.627 kg [facility] ([facility] [place] body weight 140 [lb_av] 140 [lb_av] [facility] T ([facility]) Body mass index (BMI) [Ratio] 30.7 kg/m2 30.7 k g/m2 [facility] ([facility]) Body weight 202.00 [lb_av] 202.00 [lb_av] [facility] Body height 68 [in_i] 68 [in_i] [facility] ([facility]) 5'8" Body temperature 98.6 [degF] 98.6 [degF] [facility] ([facility]) Respiratory rate 16 /min 16 /min [facility] ( [facility]) Heart rate 76 /min 76 /min [facility] ([facility]) Diastolic blood pressure 74 mm[Hg] 74 mm[Hg] [facility] ([facility]) Systolic blood pressure 124 mm[Hg] 124 mm[Hg] [facility] Body surface area Derived from formula 2.03 m2 2.03 m2 [facility] ([facility]) Body mass index (BMI) [Ratio] 30.0 kg/m2 30.0 k g/m2 [facility] ([facility]) Body height 68 [in_i] 68 [in_i] [facility] ([facility]) 5'8" Body weight 89.359 kg 89.359 kg [facility] ([facility]) Body weight 197.00 [lb_av] 197.00 [lb_av] MED[facility] T ([facility]) Oxygen saturation in Arterial blood by Pulse oximetry 98 % 98 % [facility] ([facility]) Respiratory rate 16 /min 16 /min [facility] ( [facility]) Body temperature 97.6 [degF] 97.6 [degF] [facility] ([facility]) Heart rate 64 /min 64 /min [facility] ([facility]) Diastolic blood pressure 60 mm[Hg] 60 mm[Hg] [facility] ([facility]) Systolic blood pressure 116 mm[Hg] 116 mm[Hg] M [facility]ENT ([facility]) Body surface area Derived from formula 2.03 m2 2.03 m2 [facility] ([facility]) Body mass index (BMI) [Ratio] 30.0 kg/m2 30.0 k g/m2 [facility] Body height 68 [in_i] 68 [in_i] [facility] ([facility]) 5'8" Body weight 89.359 kg 89.359 kg [facility] ([facility]) Body weight 197.00 [lb_av] 197.00 [lb_av] [facility] T ([facility]) Oxygen saturation in Arterial blood by Pulse oximetry 98 % 98 % [facility] ([facility]) Respiratory rate 19 /min 19 /min [facility] ( [facility]) Body temperature 97.9 [degF] 97.9 [degF] [facility] ([facility]) Heart rate 82 /min 82 /min [facility] ([facility]) Diastolic blood pressure 70 mm[Hg] 70 mm[Hg] [facility] Systolic blood pressure 116 mm[Hg] 116 mm[Hg] [facility] Body mass index (BMI) [Ratio] 28.9 kg/m2 28.9 k g/m2 [facility] ([facility] Heart rate 60 /min 60 /min [facility] ([facility] Diastolic blood pressure 80 mm[Hg] 80 mm[Hg] [facility] ([facility] Systolic blood pressure 118 mm[Hg] 118 mm[Hg] [facility] ([facility] Body weight 190.00 [lb_av] 190.00 [lb_av] [facility] T ([facility] Body height 68 [in_i] 68 [in_i] [facility] ([facility] 5'8" Body surface area Derived from formula 2.03 m2 2.03 m2 [facility] ([facility]) Body weight 88.906 kg 88.906 kg [facility] ([facility]) [place] body weight 140 [lb_av] 140 [lb_av] [facility] T ([facility]) Body mass index (BMI) [Ratio] 29.8 kg/m2 29.8 k g/m2 [facility] ([facility]) Body weight 196.00 [lb_av] 196.00 [lb_av] [facility] ([facility]) Body height 68 [in_i] 68 [in_i] [facility] ([facility]) 5'8" Body temperature 97.1 [degF] 97.1 [degF] [facility] ([facility]) Respiratory rate 14 /min 14 /min [facility] ( [facility]) Heart rate 74 /min 74 /min [facility] ([facility]) Diastolic blood pressure 60 mm[Hg] 60 mm[Hg] [facility] ([facility]) Systolic blood pressure 112 mm[Hg] 112 mm[Hg] [facility] Body weight 90.720 kg 90.720 kg [facility] ([facility]) [place] body weight 140 [lb_av] 140 [lb_av] [facility] ([facility]) Body mass index (BMI) [Ratio] 30.4 kg/m2 30.4 k g/m2 [facility] ([facility]) Body weight 200.00 [lb_av] 200.00 [lb_av] [facility] ([facility]) Body height 68 [in_i] 68 [in_i] [facility] 5'8" Oxygen saturation in Arterial blood by Pulse oximetry 100 % 100 % [facility] ([facility]) Room Air Heart rate 74 /min 74 /min [facility] ([facility]) Diastolic blood pressure 70 mm[Hg] 70 mm[Hg] [facility] ([facility]) Systolic blood pressure 108 mm[Hg] 108 mm[Hg] M [facility] ([facility]) Body surface area Derived from formula 2.03 m2 2.03 m2 [facility] ([facility]) Body mass index (BMI) [Ratio] 30.0 kg/m2 30.0 k g/m2 [facility] ([facility]) Body height 68 [in_i] 68 [in_i] [facility] ([facility]) 5'8" pt states Body weight 89.359 kg 89.359 kg [facility] ([facility]) Body weight 197.00 [lb_av] 197.00 [lb_av] [facility] T ([facility]) Oxygen saturation in Arterial blood by Pulse oximetry 97 % 97 % [facility] Body temperature 98.7 [degF] 98.7 [degF] [facility] Heart rate 66 /min 66 /min [facility]) Diastolic blood pressure 74 mm[Hg] 74 mm[Hg] [facility] Systolic blood pressure 116 mm[Hg] 116 mm[Hg] [facility] Body surface area 2.03 m2 2.03 m2 [facility] ([facility]) Body surface area 2.04 m2 2.04 m2 [facility] ([facility]) Body mass index (BMI) [Ratio] 30.3 kg/m2 30.3 k g/m2 [facility] ([facility]) Body height 68 [in_i] 68 [in_i] [facility] ([facility]) 5'8" pt states Body weight 90.266 kg 90.266 kg [facility] ([facility]) Body weight 199.00 [lb_av] 199.00 [lb_av] [facility] T ([facility]) Oxygen saturation in Arterial blood by Pulse oximetry 96 % 96 % [facility] ([facility]) Respiratory rate 18 /min 18 /min [facility] ( [facility]) Body temperature 99.1 [degF] 99.1 [degF] [facility] ([facility]) Heart rate 63 /min 63 /min [facility] ([facility]) Diastolic blood pressure 74 mm[Hg] 74 mm[Hg] [facility] Systolic blood pressure 116 mm[Hg] 116 mm[Hg] [facility] Body surface area 2.06 m2 2.06 m2 [facility] ([facility]) Body mass index (BMI) [Ratio] 30.9 kg/m2 30.9 k g/m2 [facility] ([facility]) Body height 68 [in_i] 68 [in_i] [facility] ([facility]) 5'8" pt states Body weight 92.251 kg 92.251 kg [facility] ([facility]) Body weight 203.38 [lb_av] 203.38 [lb_av] [facility] T ([facility]) Oxygen saturation in Arterial blood by Pulse oximetry 98 % 98 % [facility] Respiratory rate 18 /min 18 /min [facility] ( [facility]) Body temperature 97.8 [degF] 97.8 [degF] [facility] Heart rate 72 /min 72 /min [facility] ([facility]) Diastolic blood pressure 68 mm[Hg] 68 mm[Hg] [facility] ([facility]) Systolic blood pressure 116 mm[Hg] 116 mm[Hg] [facility] Body surface area 2.06 m2 2.06 m2 [facility] ([facility]) Body mass index (BMI) [Ratio] 30.9 kg/m2 30.9 k g/m2 [facility] ([facility]) Body height 68 [in_i] 68 [in_i] [facility] ([facility]) 5'8" pt states Body weight 92.081 kg 92.081 kg [facility] ([facility]) Body weight 203.00 [lb_av] 203.00 [lb_av] [facility] T ([facility]) Oxygen saturation in Arterial blood by Pulse oximetry 98 % 98 % [facility] ([facility]) Respiratory rate 20 /min 20 /min [facility] ( [facility]) Body temperature 97.8 [degF] 97.8 [degF] [facility] ([facility]) Heart rate 72 /min 72 /min [facility] ([facility]) Diastolic blood pressure 72 mm[Hg] 72 mm[Hg] [facility] ([facility]) Systolic blood pressure 132 mm[Hg] 132 mm[Hg] M EDENT ([facility]) Oxygen saturation in Arterial blood by Pulse oximetry 98 % 98 % [facility] Respiratory rate 17 /min 17 /min [facility] Body temperature 36.61 Yudelka 36.61 Yudelka [facility] Heart rate 52 /min 52 /min [facility] Diastolic blood pressure 70 mm[Hg] 70 mm[Hg] [facility] Systolic blood pressure 110 mm[Hg] 110 mm[Hg] [facility] Body mass index (BMI) [Ratio] 30.26 kg/m2 30.26 kg/m2 [facility] Body weight 90.266 kg 90.266 kg [facility] Body height 172.7 cm 172.7 cm [facility] Body weight 93.442 kg 93.442 kg [facility] ([facility] [place], ) Body mass index (BMI) [Ratio] 31.3 kg/m2 31.3 k g/m2 [facility], ) Body weight 206.00 [lb_av] 206.00 [lb_av] [facility] T ([facility], ) Body height 68 [in_i] 68 [in_i] [facility] ([facility] [place], ) 5'8" Oxygen saturation in Arterial blood by Pulse oximetry 99 % 99 % [facility] ([facility], ) Room Air Heart rate 65 /min 65 /min [facility] ([facility], ) Diastolic blood pressure 70 mm[Hg] 70 mm[Hg] [facility] ([facility], ) Systolic blood pressure 110 mm[Hg] 110 mm[Hg] [facility], ) Oxygen saturation in Arterial blood by Pulse oximetry 98 % 98 % [facility] Body mass index (BMI) [Ratio] 30.56 kg/m2 30.56 kg/m2 [facility] Body weight 91.173 kg 91.173 kg [facility] Body height 172.7 cm 172.7 cm [facility] Heart rate 68 /min 68 /min [facility] Diastolic blood pressure 71 mm[Hg] 71 mm[Hg] [facility] Systolic blood pressure 118 mm[Hg] 118 mm[Hg] [facility] Body surface area 2.04 m2 2.04 m2 [facility] ([facility]) Body mass index (BMI) [Ratio] 30.1 kg/m2 30.1 k g/m2 [facility] ([facility]) Body height 68 [in_i] 68 [in_i] [facility] ([facility]) 5'8" pt states Body weight 89.813 kg 89.813 kg [facility] ([facility]) Body weight 198.00 [lb_av] 198.00 [lb_av] [facility] T ([facility]) Oxygen saturation in Arterial blood by Pulse oximetry 98 % 98 % [facility] ([facility]) Respiratory rate 16 /min 16 /min [facility] ( [facility]) Body temperature 98.5 [degF] 98.5 [degF] [facility] ([facility]) Heart rate 78 /min 78 /min [facility] ([facility]) Diastolic blood pressure 78 mm[Hg] 78 mm[Hg] [facility] ([facility]) Systolic blood pressure 128 mm[Hg] 128 mm[Hg] [facility] Body surface area 2.11 m2 2.11 m2 [facility] ([facility]) Body mass index (BMI) [Ratio] 32.8 kg/m2 32.8 k g/m2 [facility] ([facility]) Body height 68 [in_i] 68 [in_i] [facility] ([facility]) 5'8" pt states Body weight 97.978 kg 97.978 kg [facility] ([facility]) Body weight 216.00 [lb_av] 216.00 [lb_av] [facility] T ([facility]) Oxygen saturation in Arterial blood by Pulse oximetry 97 % 97 % [facility] Respiratory rate 16 /min 16 /min [facility] Body temperature 97.3 [degF] 97.3 [degF] [facility] ([facility]) Heart rate 71 /min 71 /min [facility] ([facility]) Diastolic blood pressure 86 mm[Hg] 86 mm[Hg] [facility] ([facility]) Systolic blood pressure 140 mm[Hg] 140 mm[Hg] [facility] Body surface area 2.13 m2 2.13 m2 [facility] Body mass index (BMI) [Ratio] 33.4 kg/m2 33.4 k g/m2 [facility] ([facility]) Body height 68 [in_i] 68 [in_i] [facility] ([facility]) 5'8" Body weight 99.792 kg 99.792 kg [facility] ([facility]) Body weight 220.00 [lb_av] 220.00 [lb_av] [facility] T ([facility]) Oxygen saturation in Arterial blood by Pulse oximetry 97 % 97 % [facility] ([facility]) Body temperature 98.0 [degF] 98.0 [degF] [facility] ([facility]) Heart rate 68 /min 68 /min [facility] ([facility]) Diastolic blood pressure 76 mm[Hg] 76 mm[Hg] [facility] ([facility]) Systolic blood pressure 120 mm[Hg] 120 mm[Hg] M [facility]ENT ([facility]) ID Date Data Source [id number] 06/15/2020 08:56:55 AM EDT [facility] Name Value Range Interpretation Code Description Data Source(s) WEIGHT RECORDED 206.10 pounds 206.10 pounds [facility] Height 68 Inches 068 Inches [facility] Patient Treatment Plan of Care Planned Activity Planned Date Details Description Data Source (s) Acetaminophen 325 MG Oral Tablet 01/24/2019 12:00:00 AM EDT [facility] Multiple Vitamins-Minerals (MULTIVITAMIN WITH MINERALS ) tablet 01/24/2019 12:00:00 AM EDT [facility] Simethicone 80 MG Chewable Tablet 01/24/2019 12:00:00 AM EDT [facility] Vitamin B 12 0.5 MG Oral Tablet 01/24/2019 12:00:00 AM EDT [facility]
== END 2020-11-17 19:40 | disposition home or self-care (01) ==
LOC: M MS5PR 07:04 → M SDC 07:04 → EDSTATUS 08:30 → M SDC 14:35 → M MS5PR 14:35 → M SDC 11-17 19:40 → M MS5PR 11-17 19:40
PROVIDERS: ADMIT Plastic Surgery Surgery of the Hand; ATTEND Plastic Surgery Surgery of the Hand
DX: M54.07 Panniculitis affecting regions of neck and back, lumbosacral region (principal); L98.7 Excessive and redundant skin and subcutaneous tissue; M62.08 Separation of muscle (nontraumatic), other site; J44.9 Chronic obstructive pulmonary disease, unspecified; F32.9 Major depressive disorder, single episode, unspecified; Z79.899 Other long term (current) drug therapy; G43.909 Migraine, unspecified, not intractable, without status migrainosus; Z79.51 Long term (current) use of inhaled steroids; Z88.2 Allergy status to sulfonamides; Z98.84 Bariatric surgery status
CPT/HCPCS: 15830; 15847; 36415; 36430; 85027; 86850; 86900; 86901; 86920; 88302; 96361; 96365; 96366; 96372; 96375; 96376; C9290; J0131; J0690; J1100; J1170; J1644; J2175; J2250; J2405; J2765; J3010; P9016